=== PATIENT | male | born 1955 | race Caucasian/White ===

== ENCOUNTER → 2023-09-14 | Outpatient (CLI) | payer MEDICARE ==
--- NOTE | 2023-09-28 12:04 | CT ---
EXAMINATION TYPE: CT chest wo con CT DLP: 1069.6 mGycm, Automated exposure control for dose reduction was used. DATE OF EXAM: 09/14/2023 1:20 PM COMPARISON: None. CLINICAL INDICATION:Male, 68 years old with history of C64.1 Right renal cancer, right renal ca TECHNIQUE: Multiple axial images were obtained through the chest. Sagittal and coronal reformats were created for review. Contrast used: mL of (None if empty) Oral contrast used: (None if empty) FINDINGS: LUNGS/ PLEURA: Low lung volumes, no suspicious masses. AIRWAY: Patent and unremarkable. HEART: The heart is mildly enlarged for size.. Moderate to severe atherosclerosis coronary arteries. MEDIASTINUM: No gross evidence of adenopathy. VASCULATURE: Infrarenal saccular aneurysm measuring up to 3.4 cm. Moderate to severe atherosclerosis of the arterial vasculature. MUSCULOSKELETAL: No acute osseous abnormalities, multilevel degeneration changes throughout the spine with osteophyte formation disc space narrowing and Schmorl's nodes. Ankylosis of the anterior longit udinal ligament at the level of T9-T11. Remote left-sided rib fractures. SOFT TISSUES/LYMPH NODES: Unremarkable. LOWER NECK: No significant findings. UPPER ABDOMEN: Atrophic kidneys bilaterally with large renal cyst measuring up to 95 mm small left re nal cyst measuring 17 mm. IMPRESSION: 1. No suspicious masses or lymphadenopathy identified. 2. Bilateral kidneys with large right renal cyst and small left renal cyst. 3. Saccular infrarenal abdominal aortic aneurysm measuring up to 3.4 cm
== END | disposition home or self-care (01) ==
LOC: RADCTMAIN 12:48
PROVIDERS: ATTEND Urology
DX: C64.1 Malignant neoplasm of right kidney, except renal pelvis (principal); N28.1 Cyst of kidney, acquired; I71.43 Infrarenal abdominal aortic aneurysm, without rupture
CPT/HCPCS: 71250

== ENCOUNTER → 2023-10-20 | Outpatient (CLI) | payer MEDICARE | END | disposition home or self-care (01) | LOC: LABWHC1 09:11 | DX: D41.01 Neoplasm of uncertain behavior of right kidney | CPT/HCPCS: 86850; 86900; 86901 ==

== ENCOUNTER 2023-10-27 07:30 | Inpatient (IN) | payer MEDICARE ==
[~2023-10-27 07:30] MED LIST: DEXAMETHASONE SOD PHOSPHATE 4 MG/ML 1 ML VIAL ONE; DEXTROSE 5%-0.45% NACL 1,000 ML BAG IV ONE; DIPYRIDAMOLE 25 MG TAB ONE; DOXAZOSIN 2 MG TAB ONE; HYDROmorphone (PF) 10 MG/ML VIAL ONE; LACTATED RINGERS 1,000 ML BAG ONE; MIDAZOLAM 2 MG/2 ML VIAL ONE; ONDANSETRON 4 MG/2 ML VIAL ONE; ROPIVACAINE 5 MG/ML 30 ML VIAL ONE; SODIUM CHLORIDE 0.9% 250 ML BAG ONE; SODIUM CHLORIDE 0.9% 50 ML BAG ONE; ceFAZolin 1,000 MG VIAL ONE; cilostazoL 100 MG TAB ONE; fentaNYL (PF) 50 MCG/ML 2 ML AMP ONE; guaiFENesin-DM 100-10MG/5ML 10 ML CUP ONE
[2023-10-27] MEDS ORDERED: HYDROCORTISONE SUCCINATE 100 MG/2 ML VIAL ONE ×2 (07:33)
[2023-10-27] MEDS ORDERED: FUROSEMIDE 10 MG/ML 2 ML VIAL ONE (07:39)
[2023-10-27] MEDS ORDERED: SUCCINYLCHOLINE CHLORIDE 200 MG/10 ML VIAL IV ONE (07:39)
[2023-10-27] MEDS ORDERED: ePHEDrine 50 MG/ML 1 ML VIAL ONE (07:39)
[2023-10-27] MEDS ORDERED: CALCIUM CHLORIDE 100 MG/ML 10 ML SYRINGE ONE (07:39)
[2023-10-27] MEDS ORDERED: ALBUMIN HUMAN 5% (25gm) 500 ML VIAL IVPB ONE (07:39)
[2023-10-27] MEDS ORDERED: WATER FOR INJECTION, STERILE 10 ML VIAL IV ONE (07:39)
[2023-10-27] MEDS ORDERED: MIDAZOLAM 2 MG/2 ML VIAL ONE (07:39)
[2023-10-27] MEDS ORDERED: KETAMINE HCL IN 0.9 % NACL 50 MG/5 ML SYRINGE ONE (07:39)
[2023-10-27] MEDS ORDERED: PHENYLEPHRINE-0.9% NACL SYG 1,000 MCG/10 ML SYRINGE ONE (07:39)
[2023-10-27] MEDS ORDERED: LIDOCAINE 1% INJ 10MG/ML (20 ML MDV) ONE (07:39)
[2023-10-27] MEDS ORDERED: ALBUTEROL INHALER 60 PUFF/8 GM INHALER (MHU) INHALATION ONE (07:39)
[2023-10-27] MEDS ORDERED: fentaNYL (PF) 50 MCG/ML 2 ML AMP ONE (07:39)
[2023-10-27] MEDS ORDERED: GLYCOPYRROLATE 0.2 MG/ML 2 ML VIAL ONE (07:39)
[2023-10-27] MEDS ORDERED: VASOPRESSIN 20 UNIT/ML 1 ML VIAL ONE (07:39)
[2023-10-27] MEDS ORDERED: ROCURONIUM 10 MG/ML (5 ML VIAL) IV ONE (07:39)
[2023-10-27] MEDS ORDERED: PROPOFOL 10 MG/ML 20 ML VIAL IV ONE (07:39)
[2023-10-27] MEDS ORDERED: NEOSTIGMINE 1 MG/ML 10 ML VIAL ONE (07:39)
[2023-10-27] MEDS ORDERED: ALBUTEROL NEBULIZED 2.5 MG/3 ML INHALATION ONE (11:22)
[2023-10-27] MEDS ORDERED: methylPREDNISolone SOD SUCCI 125 MG/2 ML VIAL ONE (17:30)
[2023-10-27] MEDS ORDERED: hydrALAZINE HCL 25 MG TAB ONE (20:53)
[2023-10-28] MEDS ORDERED: DOXAZOSIN 2 MG TAB ONE (00:01)
[2023-10-28] MEDS ORDERED: FUROSEMIDE 10 MG/ML 10 ML VIAL ONE ×2 (00:01→09:51)
[2023-10-28] MEDS ORDERED: DILTIAZEM CD 240 MG CAP.ER.24H PO ONE (00:01)
[2023-10-28] MEDS ORDERED: methylPREDNISolone 4 MG TAB TAPER ONE (00:01)
[2023-10-28] MEDS ORDERED: cilostazoL 100 MG TAB ONE (00:01)
[2023-10-28] MEDS ORDERED: azaTHIOprine 50 MG TAB ONE (00:01)
[2023-10-28] MEDS ORDERED: DIPYRIDAMOLE 25 MG TAB ONE (00:01)
[2023-10-28] MEDS ORDERED: DEXTROSE 5%-0.45% NACL 1,000 ML BAG IV ONE (00:01)
[2023-10-28] MEDS ORDERED: CALCIUM GLUCONATE IN NACL 1 GM/100 ML IVPB ONE (00:01)
[2023-10-28] MEDS ORDERED: FUROSEMIDE 10 MG/ML 4 ML VIAL ONE (00:20)
[2023-10-28] MEDS ORDERED: hydrALAZINE HCL 25 MG TAB ONE ×3 (06:00→20:50)
[2023-10-28] MEDS ORDERED: ATORVASTATIN 20 MG TAB ONE (08:09)
[2023-10-28] MEDS ORDERED: FAMOTIDINE 20 MG TAB ONE (08:12)
[2023-10-28] MEDS ORDERED: ONDANSETRON 4 MG/2 ML VIAL ONE (09:18)
[2023-10-28] MEDS ORDERED: DEXTROSE 50% SYRINGE 50 ML IVP ONE (09:50)
[2023-10-28] MEDS ORDERED: SODIUM BICARB 8.4% 50 ML SYR (1 MEQ/ML) ONE (09:50)
[2023-10-28] MEDS ORDERED: HEPARIN SODIUM 1,000 UN/ML (10ML VL) ONE (11:10)
--- NOTE | 2023-10-28 15:57 | HP ---
HISTORY AND PHYSICAL CHIEF COMPLAINT: Right renal mass. HISTORY OF PRESENT ILLNESS: The patient is a 68-year-old white male, with a history of end-stage renal disease. He has previously undergone a renal transplant. He has been found to have an 8 x 12 cm solid renal mass within his right [place] kidney. His transplanted kidney has shown evidence of hydronephrosis on imaging, but retrograde pyelogram showed no evidence of ureteral obstruction. PAST MEDICAL HISTORY: Hypertension, renal failure, hyperlipidemia, peripheral vascular disease, aortic valve sclerosis, hypertensive heart disease without heart failure. MEDICATIONS: 1. Doxazosin 2 mg daily. 2. Aspirin 325 mg daily. 3. Alendronate sodium 35 mg weekly. 4. Azathioprine 125 mg daily. 5. Cilostazol 100 mg b.i.d. 6. Diltiazem ER 240 mg daily. 7. Dipyridamole 50 mg 3 times daily. 8. Humira injection every other week. 9. Losartan 50 mg daily. 10.Methylprednisolone 4 mg daily. 11.Simvastatin 40 mg daily. 12.Multivitamin. ALLERGIES: None. PAST SURGICAL HISTORY: Renal transplant, removal of lower extremity artery for renal arterial bypass surgery. FAMILY HISTORY: Noncontributory. SOCIAL HISTORY: The patient is . He is a nonsmoker. He is retired. REVIEW OF SYSTEMS: CARDIOVASCULAR: Significant for high blood pressure. GENITOURINARY: Denies dysuria, hematuria, and flank pain. PHYSICAL EXAMINATION: GENERAL: Patient is a well developed, well nourished, white male, in no apparent distress. VITAL SIGNS: Pulse 64, respirations 16, blood pressure 148/78. CHEST: Normal respiratory effort. ABDOMEN: Soft, nontender, no palpable mass. IMPRESSION: Right solid renal mass, suspicious for renal cell carcinoma. PLAN: Right radical nephrectomy. The procedure has been reviewed in detail with the patient and his family. They have been made aware of potential risks, which include anesthesia, bleeding, infection, hepatic injury, bowel injury, postoperative paralytic ileus, and incisional hernia. MMODL / IJN: [id number] /
--- NOTE | 2023-10-28 15:58 | OP ---
OPERATIVE REPORT DATE OF SERVICE : 10/27/2023 PREOPERATIVE DIAGNOSIS: Right renal mass. POSTOPERATIVE DIAGNOSIS: Right renal mass. PROCEDURE: Right radical nephrectomy. SURGEON: Dr. Eric Tobin BUSINESS OFFICE SPECIALIST: Dr. Garth Ceja. ANESTHESIA: Epidural/general oral endotracheal. ESTIMATED BLOOD LOSS: 150 mL. FLUIDS GIVEN: 3600 mL crystalloid, 500 mL albumin. DRAINS: None. COMPLICATIONS: None. OPERATIVE FINDINGS: Large, necrotic right renal mass. INDICATIONS: The patient is a 68-year-old white male with end-stage renal disease. He has previously undergone a renal transplant, but has been found to have an 8 x 12 cm solid renal mass within his [place] right kidney. He now comes for a right radical nephrectomy. DESCRIPTION OF PROCEDURE: The patient was taken to the operating room and placed in the supine position. The abdomen was prepped and draped sterilely. The scalpel was used to make a right- sided chevron incision. The underlying muscle layers were divided using the Bovie electrocautery. The skin was noted to be very thin, and tissue integrity was poor, as was commonly seen in patients who receive long-term steroids. Upon entering the abdomen, the peritoneum was carefully opened to the full length of the incision. The peritoneum was incised at the line of Toldt, allowing the colon to be medially reflected. After performing a Hernando maneuver, the right kidney was exposed. Bookwalter retractors were used for exposure. The inferior dissection was performed at the tail of Gerota fascia. The ureter was clipped and divided. The gonadal vein was medial to the tail of Gerota fascia. Dissection was performed alongside the inferior vena cava, with lympho-adipose tissue clipped and divided. The right renal vein was identified and was isolated. It was very difficult to identify the right renal artery. Ultimately, the right renal vein was ligated proximally and distally. After placing a suture ligature through the proximal end of the vein, the right renal vein was divided. The right renal artery was then identified, and this was also ligated twice proximally and once distally prior to dividing it. Blunt dissection was performed to dissect the kidney away from the posterior abdominal wall. As the kidney was mobilized to allow the superior dissection to be performed, the tumor, which was necrotic, began to spill into the wound. Superior attachments were simply pinched away, as the tissues were very thin, and the specimen was removed. All visible spilled tumor fragments were likewise removed. The wound was then meticulously examined for bleeding. Several areas of oozing were controlled with electrocautery or clips. The wound was irrigated with warm sterile water. Very minimal oozing was noted from the superior aspect of the nephrectomy bed, and Surgicel was placed over this. The incision was closed in the standard fashion, using #1 Vicryl sutures in a running fashion to close each individual muscle layer. Any subcutaneous bleeders were controlled with electrocautery. The skin was closed using luis. A sterile gauze dressing was applied over the incision. All sponge and needle counts were correct. The patient tolerated the procedure well, was taken to the recovery room in stable condition. MMODL / IJN: [id number] / YESENIA
[2023-10-28] MEDS ORDERED: HYDROCORTISONE SUCCINATE 100 MG/2 ML VIAL ONE (20:49)
[2023-10-28] MEDS ORDERED: ACETAMINOPHEN TAB 325 MG TAB ONE (20:49)
[2023-10-29] MEDS ORDERED: INSULIN REGULAR 100 UNIT/ML VIAL (IV) ONE (00:01)
[2023-10-29] MEDS ORDERED: azaTHIOprine 50 MG TAB ONE (00:01)
[2023-10-29] MEDS ORDERED: methylPREDNISolone 4 MG TAB ONE (00:01)
[2023-10-29] MEDS ORDERED: cilostazoL 100 MG TAB ONE (00:01)
[2023-10-29] MEDS ORDERED: DIPYRIDAMOLE 25 MG TAB ONE (00:01)
[2023-10-29] MEDS ORDERED: DILTIAZEM CD 240 MG CAP.ER.24H PO ONE (00:01)
[2023-10-29] MEDS ORDERED: DARBEPOETIN ALFA 40 MCG/0.4 ML SYRINGE ONE (00:01)
[2023-10-29] MEDS ORDERED: ACETAMINOPHEN TAB 325 MG TAB ONE (04:29)
[2023-10-29] MEDS ORDERED: guaiFENesin-Coden 100-10MG/5ML 10 ML CUP ONE (04:30)
[2023-10-29] MEDS ORDERED: DEXTROSE 50% SYRINGE 50 ML IVP ONE (06:50)
[2023-10-29] MEDS ORDERED: ALBUTEROL NEBULIZED 2.5 MG/3 ML INHALATION ONE (07:47)
[2023-10-29] MEDS ORDERED: HYDROCORTISONE SUCCINATE 100 MG/2 ML VIAL ONE ×2 (09:12→20:24)
[2023-10-29] MEDS ORDERED: FAMOTIDINE 20 MG TAB ONE (09:13)
[2023-10-29] MEDS ORDERED: ATORVASTATIN 20 MG TAB ONE (09:13)
[2023-10-29] MEDS ORDERED: FUROSEMIDE 10 MG/ML 10 ML VIAL ONE (11:33)
[2023-10-29] MEDS ORDERED: MAGNESIUM SULFATE-D5W PMX 100 ML IVPB ONE (11:33)
[2023-10-29] MEDS ORDERED: hydrALAZINE HCL 25 MG TAB ONE ×2 (13:35→20:24)
[2023-10-30] MEDS ORDERED: NALOXONE 0.4 MG/ML 1 ML VIAL IV PRN
[2023-10-30] MEDS ORDERED: diphenhydrAMINE 50 MG/ML 1 ML VIAL IVP PRN
--- NOTE | 2023-10-30 01:10 | CONS ---
CONSULTATION HISTORY OF PRESENT ILLNESS: The patient was seen in consultation. The patient has a history of acute kidney injury, and also, the patient has hyperkalemia. The patient had a kidney transplant done in the past. The patient had a right nephrectomy done today. I was consulted for placement of urgent dialysis catheter. The patient was seen in the intensive care unit. PHYSICAL EXAMINATION: NECK: Supple. No bruit appreciated. CHEST: A few crackles at the lung bases, first and second sounds present. ABDOMEN: Soft, nontender. Femorals are 1+ bilaterally. PLAN: Placement of the dialysis catheter. Risks and complications discussed. MMODL / IJN: [id number] /
--- NOTE | 2023-10-30 01:10 | OP ---
OPERATIVE REPORT DATE OF SERVICE : PREOPERATIVE DIAGNOSES: Acute chronic renal failure, hyperkalemia, post nephrectomy. PROCEDURE PERFORMED: Placement of an ultrasound guided 19 cm dialysis catheter placed for right femoral approach. DESCRIPTION OF PROCEDURE: The patient's right groin was prepped and drapes applied in a sterile manner. 1% lidocaine plain infiltrated in the right groin. Ultrasound-guided micropuncture introduced into right femoral vein. Micropuncture guidewire was passed and 4-Armenian dilator was advanced on top of the guidewire. We passed a regular guidewire, then placed the dilator and sheath. The dialysis catheter was secured with 3-0 nylon. Dressing applied. The patient tolerated the procedure well. MMODL / IJN: [id number] /
[2023-10-30] MEDS ORDERED: hydrALAZINE HCL 20 MG/ML 1 ML VIAL ONE (01:25)
[2023-10-30 03:11] LABS: African American GFR (CKD) 8 (>60 ml/min/1.73 sqM); Anion Gap 8 mmol/L; Blood Urea Nitrogen 49 mg/dL (9-20); Calcium 8.4 mg/dL (8.4-10.2); Carbon Dioxide 23 mmol/L (22-30); Chloride 99 mmol/L (98-107); Glucose 122 mg/dL (74-99); Non-African American GFR(CKD) 7 (>60 ml/min/1.73 sqM); Potassium 5.5 mmol/L (3.5-5.1); Sodium 130 mmol/L (137-145)
[2023-10-30] MEDS: hydrALAZINE HCL 20 MG/ML 1 ML VIAL IVP ONE (03:46)
[2023-10-30 03:54] LABS: Basophils % (A) 0 %; Eosinophils % (A) 0 %; HGB 7.8 gm/dL (13.0-17.5); Hypochromasia Slight; Lymphocytes # (A) 0.7 k/uL (1.0-4.8); Lymphocytes % (A) 8 %; MCH 30.3 pg (25.0-35.0); MCHC 32.4 g/dL (31.0-37.0); MCV 93.5 fL (80.0-100.0); Mean Platelet Volume 7.3; Monocytes # (A) 0.8 k/uL (0-1.0); Monocytes % (A) 9 %; Neutrophils # (A) 7.5 k/uL (1.3-7.7); Neutrophils % (A) 83 %; Platelet Count 216 k/uL (150-450); RBC 2.57 m/uL (4.30-5.90); RDW 15.6 % (11.5-15.5); WBC 9.1 k/uL (3.8-10.6)
[2023-10-30] MEDS: HYDROCORTISONE SUCCINATE 100 MG/2 ML VIAL IVP SCH (08:28)
[2023-10-30] MEDS: FAMOTIDINE 20 MG TAB PO SCH (09:46)
[2023-10-30] MEDS: ATORVASTATIN 20 MG TAB PO SCH (09:46)
[2023-10-30] MEDS: DEXTROSE 50% SYRINGE 50 ML IVP STA (09:46)
[2023-10-30] MEDS: INSULIN REGULAR 100 UNIT/ML VIAL (IV) IV ONE (09:46)
[2023-10-30] MEDS: hydrALAZINE HCL 25 MG TAB PO SCH (09:46)
[2023-10-30] MEDS: azaTHIOprine 50 MG TAB PO SCH (09:47)
[2023-10-30] MEDS: DIPYRIDAMOLE 25 MG TAB PO SCH (09:47)
[2023-10-30] MEDS: DILTIAZEM CD 240 MG CAP.ER.24H PO SCH (09:47)
[2023-10-30] MEDS: cilostazoL 100 MG TAB PO SCH (09:47)
[2023-10-30] MEDS: SODIUM ZIRCONIUM CYCLOSILICATE 10 GM PACKET PO ONE (09:47)
--- NOTE | 2023-10-30 10:23 | P.PN ---
Subjective Patient is seen in follow-up for acute kidney injury. Started on hemodialysis October 28, 2023. Has right femoral dialysis catheter. Confused. Poor historian. Oliguric. Vital signs are stable. General: No acute distress. HEENT: Head exam is unremarkable. On nasal cannula. LUNGS: Scattered rhonchi. HEART: Rate and Rhythm are regular. ABDOMEN: No distention. EXTREMITITES: 1+ edema. Objective - Vital Signs Vital signs: Vital Signs Temp 99.1 F 10/30/23 08:00 Pulse 81 10/30/23 09:00 Resp 18 10/30/23 09:00 BP 148/55 10/30/23 09:00 Pulse Ox 92 L 10/30/23 09:51 FiO2 Intake & Output 10/29/23 10/30/23 10/30/23 18:59 06:59 18:59 Output Total 10 0 Balance -10 0 Weight 122 kg 128 kg Output: Urine 10 0 Other: Voiding Method Indwelling Catheter Indwelling Catheter - Labs CBC & Chem 7: 10/30/23 01:45 10/30/23 01:45 Labs: Abnormal Lab Results - Last 24 Hours (Table) 10/30/23 10/30/23 Range/Units 01:45 01:45 RBC 2.57 L (4.30-5.90) m/uL Hgb 7.8 L (13.0-17.5) gm/dL Hct 24.0 L (39.0-53.0) % RDW 15.6 H (11.5-15.5) % Lymphocytes # 0.7 L (1.0-4.8) k/uL Sodium 130 L (137-145) mmol/L Potassium 5.5 H (3.5-5.1) mmol/L BUN 49 H (9-20) mg/dL Creatinine 7.10 H* (0.66-1.25) mg/dL Glucose 122 H (74-99) mg/dL Phosphorus 8.0 H (2.5-4.5) mg/dL Assessment and Plan Plan: Assessment: 1. Acute kidney injury secondary to ATN. Creatinine 7.1 today. Oliguric. 2. Chronic kidney disease stage IV/V. Patient's GFR was 18 in August 2023 per outpatient records. 3. Hyperkalemia secondary to acute kidney injury. Improved postdialysis. 4. Status post right nephrectomy October 27, 2023 due to renal cell carcinoma. 5. Status post kidney transplant maintained on steroids and Imuran. 6. History of renal artery bypass. 7. Anemia of chronic kidney disease maintained on Aranesp. 8. Hyperphosphatemia secondary to acute kidney injury. Plan: 10 units IV insulin with an amp of D50 as well as Lokelma given this morning. Repeat potassium level this afternoon. Plan for hemodialysis tomorrow. Check iron studies. Add PhosLo with meals.
[2023-10-30] MEDS: CALCIUM ACETATE 667 MG TAB PO SCH (11:36)
--- NOTE | 2023-10-30 12:10 | P.PN ---
Subjective Progress Note Date: 10/30/23 Principal diagnosis: Acute kidney injury, on hemodialysis since 10/28/2023 This is a 68-year-old white male whom I have been seeing for the last few days while in the ICU, patient had history of renal transplant in 1971 at [facility], he was recently discovered to have renal cell carcinoma involving his right [place] kidney. Underwent radical nephrectomy on 10/27/2023, and postoperatively, patient developed anuria, and worsening metabolic acidosis worsening uremia and hyperkalemia requiring transfer to the ICU for immediate hemodialysis. Patient has been on hemodialysis for the last 2 days, and he is being followed by urology as well as nephrology. Today the patient seems to be developing metabolic encephalopathy with confusion, and he remains oliguric. WBC count today is 9.1 hemoglobin is 7.8, electrolytes showed low sodium of 130 potassium 5.5 BUN is 49 creatinine 7.10. Bicarb is 23 Objective - Vital Signs Vital signs: Vital Signs Temp 99.1 F 10/30/23 08:00 Pulse 87 10/30/23 11:00 Resp 18 10/30/23 11:00 BP 162/80 10/30/23 11:00 Pulse Ox 93 L 10/30/23 11:00 FiO2 Intake & Output 10/29/23 10/30/23 10/30/23 18:59 06:59 18:59 Output Total 10 5 Balance -10 -5 Weight 122 kg 128 kg Output: Urine 10 5 Other: Voiding Method Indwelling Catheter Indwelling Catheter - Exam General: Obese 68-year-old white male confused, on 6 L nasal cannula, in no distress Skin: Skin is warm and dry and no rashes or lesions are noted. Eye: Pupils are equal, round and reactive to light, extra-ocular movements are intact; there is normal conjunctiva bilaterally. Ears, nose, mouth and throat: There are moist mucous membranes and no oral lesions. Neck: The neck is supple, there is no tenderness or JVD. Cardiovascular: There is a regular rate and rhythm. No murmur, rub or gallop is appreciated. Respiratory: Minimal crackles at the bases no rhonchi no wheezes Gastrointestinal: Soft, non-distended, non-tender abdomen without masses or organomegaly noted. There is no rebound or guarding present. Bowel sounds are unremarkable. Back: There is no tenderness to palpation in the midline. There is no obvious deformity. Musculoskeletal: Normal ROM, no tenderness, base of edema, no cyanosis. Neurological: Confused, patient seems to be encephalopathic. Psychiatric: Could not fully assess, patient is confused - Labs CBC & Chem 7: 10/30/23 01:45 10/30/23 01:45 Labs: Abnormal Lab Results - Last 24 Hours (Table) 10/30/23 10/30/23 Range/Units 01:45 01:45 RBC 2.57 L (4.30-5.90) m/uL Hgb 7.8 L (13.0-17.5) gm/dL Hct 24.0 L (39.0-53.0) % RDW 15.6 H (11.5-15.5) % Lymphocytes # 0.7 L (1.0-4.8) k/uL Sodium 130 L (137-145) mmol/L Potassium 5.5 H (3.5-5.1) mmol/L BUN 49 H (9-20) mg/dL Creatinine 7.10 H* (0.66-1.25) mg/dL Glucose 122 H (74-99) mg/dL Phosphorus 8.0 H (2.5-4.5) mg/dL Assessment and Plan Assessment: Impression: Acute kidney injury/acute tubular necrosis History of kidney transplant 1972 Status post right nephrectomy 10/27/2023 Acute hyper kalemia and metabolic acidosis requiring hemodialysis Acute metabolic encephalopathy secondary to uremia Recommendation: Continue hemodialysis Continue to monitor daily labs including electrolytes and renal profile Address hyperkalemia as per nephrology Follow-up chest x-ray as the patient may develop fluid overload and pulmonary edema Continue GI DVT prophylaxis Resume his meds that he received on outpatient basis for his transplanted kidney Will continue to follow Time with Patient: Less than 30
--- NOTE | 2023-10-30 12:51 | XR ---
EXAMINATION TYPE: XR chest 1V portable DATE OF EXAM: 10/30/2023 Comparison: 10/28/2023 Clinical History: 68-year-old male A-team protocol, shortness of breath Findings: Patient rotated towards the right artery and normal cardiothymic mediastinal contours. Heart remains moderately enlarged. Tortuous/ectatic thoracic ureter. Diffuse interstitial opacities persist. Right base underpenetrated and not well assessed. Bands of atelectasis at the right midlung. Impression: Similar moderate cardiomegaly and suspected ongoing pulmonary vascular congestion. Possible trace rig ht effusion. Relatively similar to prior.
--- NOTE | 2023-10-30 14:04 | P.PN ---
Subjective Progress Note Date: 10/30/23 Hospital Course: 68-year-old male with history of ESRD s/p renal transplant, now CKD, suspicious renal mass presented for elective right radical nephrectomy. Sound physician was consulted for medical management. Patient became oliguric after surgery, with worsening renal function and hyperkalemia. He required emergent dialysis. Currently in medical ICU. Nephrology following. Subjective: Patient seen and examined at bedside. No acute events overnight. Continues to have very minimal urine output. Also having shortness of breath. Pertinent positives and negatives as discussed above, a complete review of systems was performed and all other systems are negative. Vitals Signs Reviewed. General: Nontoxic, no distress, appears at stated age Derm: Warm, dry Head: Atraumatic, normocephalic, symmetric Eyes: EOMI, no lid lag, anicteric sclera Mouth: No lip lesion, mucus membranes moist Cardiovascular: S1S2 reg, no murmur Lungs: Bibasilar rales, no accessory muscle use, supplemental oxygen Abdominal: Soft, nontender to palpation, no guarding, no appreciable organomegaly Ext: No gross muscle atrophy, no edema, no contractures Neuro: CN II-XI grossly intact, no focal neuro deficits Psych: Alert, oriented, appropriate affect Data Reviewed Today: Pertinent Labs: WBC 9.1, hemoglobin 7.8, platelet 216, sodium 130, potassium 5.5, down trended to 5, creatinine 7.10, magnesium 2 Imaging: Chest x-ray independently interpreted, shows cardiomegaly, poor inspiratory effort, bilateral pleural effusions, interstitial opacities Assessment and Plan: Active: Oliguric CHEVY on CKD Hyperkalemia Renal cell carcinoma status post right radical nephrectomy on 10/26 Previous ESRD status post renal transplant on steroids and Imuran Normocytic anemia, secondary to CKD Acute hypoxic respiratory failure, secondary to hypervolemia Hypertension -Patient required emergent hemodialysis, vascular surgery and nephrology following -Nephrology note reviewed, another 10 units of IV insulin with dextrose, Lokelma given this morning, hemodialysis tomorrow -Urology following -ICU note reviewed, continue current management -Echocardiogram pending -Continue to monitor I's and O's -Continue to monitor patient in ICU -Continue Imuran 125 daily, Solu-Cortef 100 mg IV every 12 hours -Continue PhosLo 3 times daily -No active bleeding, monitor CBC -Hydralazine 10 mg IV every 6 hours as needed, continue oral hydralazine 25 3 times daily, Cardizem 240 daily -DVT prophylaxis per primary team Chronic: PAD Dyslipidemia Thank you for allowing us to participate in the care of this pleasant patient. Do not hesitate to contact us with questions. Someone can be reached from the [facility] hospitalist group all hours of the day at [phone] or via perfect serve. Objective - Vital Signs Vital signs: Vital Signs Temp 98.4 F 10/30/23 12:00 Pulse 75 10/30/23 13:00 Resp 17 10/30/23 13:00 BP 167/58 10/30/23 13:00 Pulse Ox 92 L 10/30/23 13:00 FiO2 Intake & Output 10/29/23 10/30/23 10/30/23 18:59 06:59 18:59 Output Total 10 20 Balance -10 -20 Weight 122 kg 128 kg Output: Urine 10 20 Other: Voiding Method Indwelling Catheter Indwelling Catheter - Labs CBC & Chem 7: 10/30/23 01:45 10/30/23 12:41 Labs: Abnormal Lab Results - Last 24 Hours (Table) 10/30/23 10/30/23 Range/Units 01:45 01:45 RBC 2.57 L (4.30-5.90) m/uL Hgb 7.8 L (13.0-17.5) gm/dL Hct 24.0 L (39.0-53.0) % RDW 15.6 H (11.5-15.5) % Lymphocytes # 0.7 L (1.0-4.8) k/uL Sodium 130 L (137-145) mmol/L Potassium 5.5 H (3.5-5.1) mmol/L BUN 49 H (9-20) mg/dL Creatinine 7.10 H* (0.66-1.25) mg/dL Glucose 122 H (74-99) mg/dL Phosphorus 8.0 H (2.5-4.5) mg/dL
[2023-10-30] MEDS: hydrALAZINE HCL 20 MG/ML 1 ML VIAL IVP PRN (14:10)
[2023-10-30] MEDS: ROPIVACAINE 250 MG, HYDROMORPHONE (PF) 5 MG in SODIUM CHLORIDE 0.9% 200 ML EPIDURAL PRN (14:10)
[2023-10-30] MEDS: ACETAMINOPHEN TAB 325 MG TAB PO PRN (18:36)
[2023-10-30] MEDS: DOXAZOSIN 2 MG TAB PO SCH (23:15)
[2023-10-31 06:01] LABS: Basophils % (A) 0 %; Eosinophils % (A) 0 %; HCT 26.1 % (39.0-53.0); HGB 8.4 gm/dL (13.0-17.5); Lymphocytes # (A) 0.8 k/uL (1.0-4.8); Lymphocytes % (A) 9 %; MCHC 32.2 g/dL (31.0-37.0); MCV 93.1 fL (80.0-100.0); Mean Platelet Volume 7.8; Monocytes # (A) 0.6 k/uL (0-1.0); Monocytes % (A) 7 %; Neutrophils # (A) 7.3 k/uL (1.3-7.7); Neutrophils % (A) 81 %; Platelet Count 258 k/uL (150-450); RDW 15.8 % (11.5-15.5)
[2023-10-31 06:33] LABS: ALT 13 U/L (4-49); AST 47 U/L (17-59); African American GFR (CKD) 6 (>60 ml/min/1.73 sqM); Albumin 3.1 g/dL (3.5-5.0); Alkaline Phosphatase 44 U/L (38-126); Anion Gap 11 mmol/L; Blood Urea Nitrogen 71 mg/dL (9-20); Calcium 9.2 mg/dL (8.4-10.2); Carbon Dioxide 20 mmol/L (22-30); Chloride 98 mmol/L (98-107); Glucose 111 mg/dL (74-99); Magnesium 2.4 mg/dL (1.6-2.3); Non-African American GFR(CKD) 5 (>60 ml/min/1.73 sqM); Potassium 5.1 mmol/L (3.5-5.1); Sodium 129 mmol/L (137-145); Total Bilirubin 0.6 mg/dL (0.2-1.3); Total Protein 5.7 g/dL (6.3-8.2)
--- NOTE | 2023-10-31 07:44 | XR ---
EXAMINATION TYPE: XR chest 1V portable DATE OF EXAM: 10/31/2023 Comparison: 10/30/2023 Clinical History: 68-year-old male fluid overload Findings: The patient is obliquely rotated towards the right further limiting the portable exam. Heart is moder ately enlarged. Interstitial opacities persist with patchy mid and lower lung opacities right greater than left overall unchanged. Impression: Portable exam further limited by obliquity and rightward rotation. Moderate cardiomegaly with ongoing pulmonary vascular congestion and patchy opacities in the mid and lower lungs.
--- NOTE | 2023-10-31 07:54 | CA ---
Transthoracic Echo Report Name: Kush Linedr Age: 68 Gender: M : 1955 Exam Date: 10/29/2023 14:17 Exam Location: [facility] Ht (in): 63 Wt (lb): 266 Ordering Physician: Attending/Referring Phys: Merchandising Director Kayy Pitts RDCS Procedure CPT: Indications: Cardiac Hx: Technical Quality: Fair Contrast 1: Total Dose (mL): Contrast 2: Total Dose (mL): MEASUREMENTS (Male / Female) Normal Values 2D ECHO LV Diastolic Diameter PLAX 6.1 cm 4.2 - 5.9 / 3.9 - 5.3 cm LV Systolic Diameter PLAX 3.3 cm IVS Diastolic Thickness 1.8 cm 0.6 - 1.0 / 0.6 - 0.9 cm LVPW Diastolic Thickness 1.8 cm 0.6 - 1.0 / 0.6 - 0.9 cm LV Relative Wall Thickness 0.6 RV Internal Dim ED PLAX 4.3 cm LVOT Diameter 2.6 cm LA Systolic Diameter LX 4.6 cm 3.0 - 4.0 / 2.7 - 3.8 cm LV Diastolic Volume MOD 4C 172.6 cm??? LV Systolic Volume MOD 4C 63.8 cm??? LV Ejection Fraction MOD 4C 63.0 % LV Cardiac Index MOD 4C 3506.1 cm???/min???m??? LV Diastolic Length 4C 9.2 cm LV Systolic Length 4C 7.6 cm LV Diastolic Volume MOD 2C 87.4 cm??? LV Systolic Volume MOD 2C 28.4 cm??? LV Ejection Fraction MOD 2C 67.5 % LV Cardiac Index MOD 2C 1902.1 cm???/min???m??? LV Diastolic Length 2C 8.4 cm LV Systolic Length 2C 6.9 cm LA Volume 97.5 cm??? 18 - 58 / 22 - 52 cm??? LA Volume Index 40.8 cm???/m??? 16 - 28 cm???/m??? M-MODE Aortic Root Diameter MM 3.8 cm AV Cusp Separation MM 2.1 cm DOPPLER AV Peak Velocity 263.9 cm/s AV Peak Gradient 27.9 mmHg AV Mean Velocity 166.1 cm/s AV Mean Gradient 13.2 mmHg AV Velocity Time Integral 46.0 cm LVOT Peak Velocity 181.3 cm/s LVOT Peak Gradient 13.1 mmHg LVOT Velocity Time Integral 37.9 cm LVOT Stroke Volume 207.3 cm??? LVOT Stroke Volume Index 94.9 ml/m??? LVOT Cardiac Index 6681.1 cm???/min???m??? AV Area Cont Eq vti 4.5 cm??? AV Area Cont Eq pk 3.8 cm??? MV Area PHT 3.1 cm??? Mitral E Point Velocity 108.1 cm/s Mitral A Point Velocity 135.1 cm/s Mitral E to A Ratio 0.8 MV Deceleration Time 248.0 ms TR Peak Velocity 287.8 cm/s TR Peak Gradient 33.1 mmHg Right Ventricular Systolic Press 35.7 mmHg PV Peak Velocity 201.3 cm/s PV Peak Gradient 16.2 mmHg PV Mean Velocity 137.3 cm/s PV Mean Gradient 8.5 mmHg PV Velocity Time Integral 39.9 cm FINDINGS Left Ventricle Left ventricular ejection fraction is estimated at 60-65 %. Mild left ventricular dilatation. Moderate concentric LVH. No obvious regional wall motion abnormality. Right Ventricle Mild to moderate concentric LVH No obvious regional wall motion abnormality Mild RV dilatation Right ventricular dilatation. Unable to estimate the right ventricular systolic pressure. Right Atrium Right atrium not well visualized. Left Atrium Moderate left atrial dilatation Mitral Valve Mitral valve thickened. No mitral stenosis, regurgitation or prolapse. Aortic Valve Trileaflet aortic valve. Aortic valve sclerosis. Mild aortic stenosis with a peak gradient of 28 mmHg and a mean gradient of 13 mmHg. Tricuspid Valve Structurally normal tricuspid valve. No tricuspid stenosis, regurgitation or prolapse. Pulmonic Valve Structurally normal pulmonic valve. No pulmonic regurgitation. Pericardium No pericardial or pleural effusion. Aorta Mild aortic dilatation at the level of the sinuses of valsalva 38 mm CONCLUSIONS Left ventricular ejection fraction is estimated at 60-65 %. Moderate concentric LVH No obvious regional wall motion abnormality Mild RV dilatation Moderate left atrial dilatation Mild aortic stenosis mean gradient 13 mmHg Previewed by: Dr Keenan Willoughby (Electronically Signed) Final Date: 29 October 2023 16:17
[2023-10-31] MEDS: DILTIAZEM 125 MG in SODIUM CHLORIDE 0.9% 100 ML IV SCH (08:16)
--- NOTE | 2023-10-31 08:49 | P.PN ---
Subjective Progress Note Date: 10/31/23 Principal diagnosis: POD #4, s/p right radical nephrectomy Mr. Linder is somewhat less confused this morning. He continues to require dialysis. He developed A-fib overnight. Objective - Vital Signs Vital signs: Vital Signs Temp 100.2 F H 10/31/23 08:00 Pulse 131 H 10/31/23 08:00 Resp 4 L 10/31/23 07:00 BP 128/69 10/31/23 08:00 Pulse Ox 96 10/31/23 08:26 FiO2 Intake & Output 10/30/23 10/31/23 10/31/23 18:59 06:59 18:59 Output Total 35 30 45 Balance -35 -30 -45 Weight 130.3 kg Output: Urine 35 30 45 Other: Voiding Method Indwelling Catheter Indwelling Catheter - Constitutional General appearance: Present: average body habitus, no acute distress - Gastrointestinal Gastrointestinal Comment(s): Soft, non-distended. Incision clean and dry, with minimal old blood on the dressing overlying the lateral aspect of the incision. - Labs CBC & Chem 7: 10/31/23 05:36 10/31/23 05:36 Labs: Abnormal Lab Results - Last 24 Hours (Table) 10/31/23 10/31/23 Range/Units 05:36 05:36 RBC 2.80 L (4.30-5.90) m/uL Hgb 8.4 L (13.0-17.5) gm/dL Hct 26.1 L (39.0-53.0) % RDW 15.8 H (11.5-15.5) % Lymphocytes # 0.8 L (1.0-4.8) k/uL Sodium 129 L (137-145) mmol/L Carbon Dioxide 20 L (22-30) mmol/L BUN 71 H (9-20) mg/dL Creatinine 9.39 H* (0.66-1.25) mg/dL Glucose 111 H (74-99) mg/dL Magnesium 2.4 H (1.6-2.3) mg/dL Total Protein 5.7 L (6.3-8.2) g/dL Albumin 3.1 L (3.5-5.0) g/dL Assessment and Plan (1) Neoplasm of uncertain behavior of right kidney Current Visit: Yes Status: Acute Code(s): D41.01 - NEOPLASM OF UNCERTAIN BEHAVIOR OF RIGHT KIDNEY SNOMED Code(s): 974008395127077 Plan: - Remove Epidural catheter - Dressing change - Continue dialysis as needed - Ambulate as tolerated - Await pathology report - Avoid anticoagulants unless absolutely needed
--- NOTE | 2023-10-31 09:25 | P.PN ---
Subjective Progress Note Date: 10/31/23 Hospital Course: 68-year-old male with history of ESRD s/p renal transplant in 1981, now CKD, r ight renal cell carcinoma presented for elective right radical nephrectomy. Sound physician was consulted for medical management. Patient became oliguric after surgery, with worsening renal function and hyperkalemia. He required emergent dialysis. Currently in medical ICU. Nephrology following. Patient also in A-fib RVR, started on Cardizem drip. Cardiology following. Subjective: Patient seen and examined at bedside. Patient went into A-fib RVR, started on Cardizem drip. Continues to have very minimal urine output. Shortness of breath continues to remain the same. He is having waxing and waning mentation. No recent bowel movements Pertinent positives and negatives as discussed above, a complete review of systems was performed and all other systems are negative. Vitals Signs Reviewed. General: Nontoxic, no distress, appears at stated age, obese Derm: Warm, dry Head: Atraumatic, normocephalic, symmetric Eyes: EOMI, no lid lag, anicteric sclera Mouth: No lip lesion, mucus membranes moist Cardiovascular: S1S2 normal, tachycardic, irregular, no murmur Lungs: Bibasilar rales, no accessory muscle use, supplemental oxygen Abdominal: Soft, nontender to palpation, no guarding, no appreciable organomegaly Ext: No gross muscle atrophy, no edema, no contractures Neuro: CN II-XI grossly intact, no focal neuro deficits Psych: Alert, oriented, appropriate affect Data Reviewed Today: Pertinent Labs: WBC 9, hemoglobin 8.4, sodium 129, potassium 5.1, BUN 71, creatinine 9.39, magnesium 2.4 Imaging: Chest x-ray independently interpreted, rotated, poor inspiratory effort, interstitial opacities Assessment and Plan: Active: Oliguric CHEVY on CKD Hyperkalemia Hypervolemic hyponatremia Renal cell carcinoma status post right radical nephrectomy on 10/26 Previous ESRD status post renal transplant on steroids and Imuran Acute hypoxic respiratory failure, secondary to hypervolemia Acute delirium -Patient required emergent hemodialysis, vascular surgery and nephrology follow ing -Nephrology following, getting hemodialysis today -Urology note reviewed, recommended to avoid anticoagulation -ICU following -Echocardiogram pending -Continue to monitor I's and O's -Continue to monitor patient in ICU -Continue Imuran 125 daily, Solu-Cortef 100 mg IV every 12 hours -Continue PhosLo 3 times daily -Patient has not had a bowel movement in a few days, started on scheduled MiraLAX daily Atrial fibrillation with RVR -On Cardizem drip, consider anticoagulation if primary team agrees -cardiology following Hypertension -Hydralazine 10 mg IV every 6 hours as needed, continue oral hydralazine 25 3 times daily, Cardizem 240 daily Normocytic anemia, secondary to CKD -No active bleeding, monitor CBC Chronic: PAD Dyslipidemia Thank you for allowing us to participate in the care of this pleasant patient. Do not hesitate to contact us with questions. Someone can be reached from the [facility] hospitalist group all hours of the day at [phone] or via [employer]. Objective - Vital Signs Vital signs: Vital Signs Temp 99.0 F 10/31/23 09:00 Pulse 126 H 10/31/23 09:15 Resp 12 10/31/23 09:15 BP 135/70 10/31/23 09:15 Pulse Ox 94 L 10/31/23 09:15 FiO2 Intake & Output 10/30/23 10/31/23 10/31/23 18:59 06:59 18:59 Intake Total 13.667 Output Total 35 30 60 Balance -35 -30 -46.333 Weight 130.3 kg Intake: Intake, IV Titration 13.667 Amount Diltiazem 125 mg In 13.667 Sodium Chloride 0.9% 100 ml @ Per Protocol IV .Q0M [facility] Rx#:[id number] Oral 0 Output: Urine 35 30 60 Other: Voiding Method Indwelling Catheter Indwelling Catheter - Labs CBC & Chem 7: 10/31/23 05:36 10/31/23 05:36 Labs: Abnormal Lab Results - Last 24 Hours (Table) 10/31/23 10/31/23 Range/Units 05:36 05:36 RBC 2.80 L (4.30-5.90) m/uL Hgb 8.4 L (13.0-17.5) gm/dL Hct 26.1 L (39.0-53.0) % RDW 15.8 H (11.5-15.5) % Lymphocytes # 0.8 L (1.0-4.8) k/uL Sodium 129 L (137-145) mmol/L Carbon Dioxide 20 L (22-30) mmol/L BUN 71 H (9-20) mg/dL Creatinine 9.39 H* (0.66-1.25) mg/dL Glucose 111 H (74-99) mg/dL Magnesium 2.4 H (1.6-2.3) mg/dL Total Protein 5.7 L (6.3-8.2) g/dL Albumin 3.1 L (3.5-5.0) g/dL
[2023-10-31] MEDS: guaiFENesin-DM 100-10MG/5ML 10 ML CUP PO PRN (09:59)
--- NOTE | 2023-10-31 10:18 | P.PN ---
Subjective Patient is seen in follow-up for acute kidney injury. Started on hemodialysis October 28, 2023. Has right femoral dialysis catheter. Quite lethargic. Tolerating dialysis well. Poor historian. Oliguric. Vital signs are stable. General: No acute distress. HEENT: Head exam is unremarkable. On nasal cannula. LUNGS: Scattered rhonchi. HEART: Rate and Rhythm are regular. ABDOMEN: No distention. EXTREMITITES: 1+ edema. Objective - Vital Signs Vital signs: Vital Signs Temp 99.0 F 10/31/23 09:00 Pulse 112 H 10/31/23 10:00 Resp 16 10/31/23 10:00 BP 151/74 10/31/23 10:00 Pulse Ox 93 L 10/31/23 10:00 FiO2 Intake & Output 10/30/23 10/31/23 10/31/23 18:59 06:59 18:59 Intake Total 13.667 Output Total 35 30 70 Balance -35 -30 -56.333 Weight 130.3 kg Intake: Intake, IV Titration 13.667 Amount Diltiazem 125 mg In 13.667 Sodium Chloride 0.9% 100 ml @ Per Protocol IV .Q0M [facility] Rx#:[id number] Oral 0 Output: Urine 35 30 70 Other: Voiding Method Indwelling Catheter Indwelling Catheter Indwelling Catheter - Labs CBC & Chem 7: 10/31/23 05:36 10/31/23 05:36 Labs: Abnormal Lab Results - Last 24 Hours (Table) 10/31/23 10/31/23 Range/Units 05:36 05:36 RBC 2.80 L (4.30-5.90) m/uL Hgb 8.4 L (13.0-17.5) gm/dL Hct 26.1 L (39.0-53.0) % RDW 15.8 H (11.5-15.5) % Lymphocytes # 0.8 L (1.0-4.8) k/uL Sodium 129 L (137-145) mmol/L Carbon Dioxide 20 L (22-30) mmol/L BUN 71 H (9-20) mg/dL Creatinine 9.39 H* (0.66-1.25) mg/dL Glucose 111 H (74-99) mg/dL Magnesium 2.4 H (1.6-2.3) mg/dL Total Protein 5.7 L (6.3-8.2) g/dL Albumin 3.1 L (3.5-5.0) g/dL Assessment and Plan Plan: Assessment: 1. Acute kidney injury secondary to ATN. Creatinine 9.39 today. Oliguric. No response in urine output despite high-dose IV Lasix. Started on hemodialysis October 28, 2023. Has a right femoral catheter. 2. Chronic kidney disease stage IV/V. Patient's GFR was 18 in August 2023 per outpatient records. 3. Hyperkalemia secondary to acute kidney injury. Improved postdialysis and with medical management. 4. Status post right nephrectomy October 27, 2023 due to renal cell carcinoma. 5. Status post kidney transplant maintained on steroids and Imuran. 6. History of renal artery bypass. 7. Anemia of chronic kidney disease maintained on Aranesp. 8. Hyperphosphatemia secondary to acute kidney injury. On PhosLo. 9. Hyponatremia secondary to acute kidney injury. Hypervolemic. 10. A-fib with RVR maintained on Cardizem drip. 11. Volume overload. 12. Metabolic acidosis secondary to acute kidney injury. Expect improvement postdialysis. Plan: Currently seen while undergoing hemodialysis. Follow-up iron studies. Preserved ejection fraction noted on echocardiogram.
[2023-10-31] MEDS: FAMOTIDINE 20 MG TAB ONE (11:41)
[2023-10-31] MEDS: hydrALAZINE HCL 20 MG/ML 1 ML VIAL ONE ×4 (11:41→11:43)
[2023-10-31] MEDS: HYDROCORTISONE SUCCINATE 100 MG/2 ML VIAL ONE ×2 (11:41→11:42)
[2023-10-31] MEDS: DEXTROSE 50% SYRINGE 50 ML IVP ONE (11:42)
[2023-10-31] MEDS: ACETAMINOPHEN TAB 325 MG TAB ONE ×2 (11:42→11:43)
[2023-10-31] MEDS: guaiFENesin-Coden 100-10MG/5ML 10 ML CUP ONE (11:43)
--- NOTE | 2023-10-31 12:16 | P.PN ---
Subjective Progress Note Date: 10/31/23 This is a 68-year-old white male whom I have been seeing for the last few days while in the ICU, patient had history of renal transplant in 1971 at [facility], he was recently discovered to have renal cell carcinoma involving his right [place] kidney. Underwent radical nephrectomy on 10/27/2023, and postoperatively, patient developed anuria, and worsening metabolic acidosis worsening uremia and hyperkalemia requiring transfer to the ICU for immediate hemodialysis. Patient has been on hemodialysis for the last 2 days, and he is being followed by urology as well as nephrology. Today the patient seems to be developing metabolic encephalopathy with confusion, and he remains oliguric. WBC count today is 9.1 hemoglobin is 7.8, electrolytes showed low sodium of 130 potassium 5.5 BUN is 49 creatinine 7.10. Bicarb is 23 The patient is seen today October 31 2023 in follow-up in the intensive care unit. He is currently sitting up in bed. Awake and alert. His mental status has been waxing and waning currently oriented x 2. He is receiving hemodialysis. Goal is to remove 1 L today. This is his third day in a row. White count 9.0. Hemoglobin 8.4. Platelets 258. Sodium 129. Potassium 5.1. Bicarb 20. BUN 71. Creatinine 9.39. He did develop atrial fibrillation with a rapid ventricular response and he is currently on a Cardizem drip at 10 mg/h. Normal saline at KVO. Maintaining good O2 saturations in the 90s on 4 L/min per nasal cannula. Working with the incentive spirometer. Objective - Vital Signs Vital signs: Vital Signs Temp 99.0 F 10/31/23 09:00 Pulse 93 10/31/23 11:30 Resp 20 10/31/23 11:30 BP 92/77 10/31/23 11:30 Pulse Ox 95 10/31/23 11:30 FiO2 Intake & Output 10/30/23 10/31/23 10/31/23 18:59 06:59 18:59 Intake Total 13.667 Output Total 35 30 75 Balance -35 -30 -61.333 Weight 130.3 kg Intake: Intake, IV Titration 13.667 Amount Diltiazem 125 mg In 13.667 Sodium Chloride 0.9% 100 ml @ Per Protocol IV .Q0M [facility] Rx#:[id number] Oral 0 Output: Urine 35 30 75 Other: Voiding Method Indwelling Catheter Indwelling Catheter Indwelling Catheter - Exam GENERAL EXAM: Alert, 68-year-old male patient, on 4 L nasal cannula, fairly comfortable in no apparent distress. HEAD: Normocephalic. EYES: Normal reaction of pupils, equal size. NOSE: Clear with pink turbinates. THROAT: No erythema or exudates. NECK: No masses, no JVD. CHEST: No chest wall deformity. LUNGS: Equal air entry with few scattered rhonchi. CVS: S1 and S2 normal with no audible murmur, regular rhythm. ABDOMEN: Surgical dressing dry and intact. No hepatosplenomegaly, normal bowel sounds, no guarding or rigidity. SPINE: No scoliosis or deformity SKIN: No rashes CENTRAL NERVOUS SYSTEM: No focal deficits, tone is normal in all 4 extremities. EXTREMITIES: Right femoral hemodialysis catheter in place. There is no peripheral edema. No clubbing, no cyanosis. Peripheral pulses are intact. - Labs CBC & Chem 7: 10/31/23 05:36 10/31/23 05:36 Labs: Abnormal Lab Results - Last 24 Hours (Table) 10/31/23 10/31/23 Range/Units 05:36 05:36 RBC 2.80 L (4.30-5.90) m/uL Hgb 8.4 L (13.0-17.5) gm/dL Hct 26.1 L (39.0-53.0) % RDW 15.8 H (11.5-15.5) % Lymphocytes # 0.8 L (1.0-4.8) k/uL Sodium 129 L (137-145) mmol/L Carbon Dioxide 20 L (22-30) mmol/L BUN 71 H (9-20) mg/dL Creatinine 9.39 H* (0.66-1.25) mg/dL Glucose 111 H (74-99) mg/dL Magnesium 2.4 H (1.6-2.3) mg/dL Total Protein 5.7 L (6.3-8.2) g/dL Albumin 3.1 L (3.5-5.0) g/dL Assessment and Plan Assessment: Status post right nephrectomy 10/27/2023 Acute kidney injury/acute tubular necrosis requiring hemodialysis Acute hyperkalemia and metabolic acidosis secondary to above Acute metabolic encephalopathy secondary to uremia History of kidney transplant 1972 Plan: The patient was seen and evaluated Chest x-ray, labs and medications reviewed Receiving hemodialysis today We will continue to monitor him here in the ICU I have personally seen and examined the patient, performed the documentation and the assessment and plan as written. Number of minutes spent on the visit: 10.
[2023-10-31] MEDS: polyethylene glycoL 3350 17 GM POWD.PACK PO SCH (13:27)
--- NOTE | 2023-10-31 13:27 | P.CRDCN ---
History of Present Illness Consult date: 10/31/23 History of present illness: Patient is a 68-year-old male who presented to the hospital for right nephrectomy due to renal cell carcinoma on . He began dialysis on 10/28/2023 due to oliguria and increased creatinine. He has a history of renal transplant of the right kidney in 1981, [place] developed renal cell carcinoma - removed 10/27/2023. He is confused, poor historian. He went into Afib with RVR this morning. Cardizem was stopped due to hypotension, currently improving. Patient is still in Afib. Today he denies chest pain and SOB. Review of Systems General: Denies fever, chills, weight changes. HEENT: Denies any changes or pain. CV: Denies chest pain, palpitations. Lungs: Endorses chronic cough; denies SOB, wheezing. GI: Denies abdominal pain, hematochezia, melena. : Denies hematuria. Past Medical History Past Medical History: Cancer, Hyperlipidemia, Hypertension, Renal Disease History of Any Multi-Drug Resistant Organisms: None Reported Additional Past Surgical History / Comment(s): Right Kidney Transplant Past Anesthesia/Blood Transfusion Reactions: No Reported Reaction Past Psychological History: No Psychological Hx Reported Smoking Status: Former smoker Past Alcohol Use History: None Reported Past Drug Use History: None Reported Medications and Allergies Allergies Allergy/AdvReac Type Severity Reaction Status Date / Time No Known Allergies Allergy Verified 10/29/23 17:59 Physical Exam Vitals: Vital Signs Temp Pulse Resp BP Pulse Ox 10/31/23 11:30 93 20 92/77 95 10/31/23 11:15 115 H 19 132/72 91 L 10/31/23 11:00 105 H 15 114/49 93 L 10/31/23 10:45 122 H 16 83/61 91 L 10/31/23 10:30 118 H 15 93/68 91 L 10/31/23 10:15 121 H 7 L 119/72 92 L 10/31/23 10:00 112 H 16 151/74 93 L 10/31/23 09:45 116 H 15 137/81 93 L 10/31/23 09:30 128 H 14 147/75 96 10/31/23 09:15 126 H 12 135/70 94 L 10/31/23 09:00 99.0 F 142 H 21 138/67 94 L 10/31/23 08:45 137 H 16 155/79 95 10/31/23 08:26 96 10/31/23 08:00 100.2 F H 131 H 128/69 95 10/31/23 07:00 140 H 4 L 128/62 95 10/31/23 06:00 140 H 36 H 154/67 96 10/31/23 05:00 129 H 22 179/78 93 L 10/31/23 04:00 98.5 F 90 29 H 147/52 87 L 10/31/23 03:00 77 13 174/63 96 10/31/23 02:00 80 17 169/71 95 10/31/23 01:00 86 22 163/58 95 10/31/23 00:00 98.2 F 87 19 151/57 95 10/30/23 23:53 85 17 151/57 94 L 10/30/23 23:00 83 16 168/70 94 L 10/30/23 22:00 82 21 171/78 95 10/30/23 21:00 80 13 165/64 95 10/30/23 20:00 97.7 F 85 11 L 176/64 91 L 10/30/23 19:00 78 15 164/66 95 10/30/23 18:00 85 19 154/61 93 L 10/30/23 17:00 82 18 176/61 94 L 10/30/23 16:23 80 11 L 165/50 94 L 10/30/23 15:00 99.3 F 82 18 177/62 93 L 10/30/23 14:00 82 18 173/58 92 L 10/30/23 13:00 75 17 167/58 92 L Intake and Output 10/30/23 10/31/23 10/31/23 22:59 06:59 14:59 Intake Total 13.667 Output Total 20 25 75 Balance -20 -25 -61.333 Intake: Intake, IV Titration 13.667 Amount Diltiazem 125 mg In 13.667 Sodium Chloride 0.9% 100 ml @ Per Protocol IV .Q0M [facility] Rx#:[id number] Oral 0 Output: Urine 20 25 75 Other: Voiding Method Indwelling Catheter Indwelling Catheter Indwelling Catheter Weight 130.3 kg Vitals reviewed. General: Mild distress, confused. Neck: No JVD present. CV: Regular rate and rhythm. Resp: Clear to auscultation bilaterally. Abdomen: Soft, nontender. Extremities: Trace edema present. Neuro: Appears confused. Results 10/31/23 05:36 10/31/23 05:36 Cardiac Enzymes 10/31/23 Range/Units 05:36 AST 47 (17-59) U/L CBC 10/31/23 Range/Units 05:36 WBC 9.0 (3.8-10.6) k/uL RBC 2.80 L (4.30-5.90) m/uL Hgb 8.4 L (13.0-17.5) gm/dL Hct 26.1 L (39.0-53.0) % Plt Count 258 (150-450) k/uL Comprehensive Metabolic Panel 10/30/23 10/31/23 Range/Units 12:41 05:36 Sodium 129 L (137-145) mmol/L Potassium 5.0 5.1 (3.5-5.1) mmol/L Chloride 98 (98-107) mmol/L Carbon Dioxide 20 L (22-30) mmol/L BUN 71 H (9-20) mg/dL Creatinine 9.39 H* (0.66-1.25) mg/dL Glucose 111 H (74-99) mg/dL Calcium 9.2 (8.4-10.2) mg/dL AST 47 (17-59) U/L ALT 13 (4-49) U/L Alkaline Phosphatase 44 (38-126) U/L Total Protein 5.7 L (6.3-8.2) g/dL Albumin 3.1 L (3.5-5.0) g/dL Current Medications Generic Name Dose Route Start Last Admin Trade Name Freq PRN Reason Stop Dose Admin Acetaminophen 650 mg 10/30/23 00:00 10/31/23 05:34 Acetaminophen Tab 325 Mg Tab PO 650 mg Q6H PRN Administration Pain Atorvastatin Calcium 20 mg 10/30/23 09:00 10/30/23 10:40 Atorvastatin 20 Mg Tab PO Not Given DAILY JORDEN Azathioprine 125 mg 10/30/23 09:00 10/30/23 09:47 Azathioprine 50 Mg Tab PO 125 mg DAILY JORDEN Administration Calcium Acetate 667 mg 10/30/23 12:30 10/31/23 07:39 Calcium Acetate 667 Mg Tab PO Not Given TID-W/MEALS OJRDEN Cilostazol 100 mg 10/30/23 09:00 10/30/23 21:50 Cilostazol 100 Mg Tab PO 100 mg BID JORDEN Administration Darbepoetin Tk 40 mcg 11/05/23 09:00 Darbepoetin Tk 40 Mcg/0.4 Ml Syringe SQ Sa [facility] Diltiazem HCl 240 mg 10/30/23 09:00 10/31/23 05:34 Diltiazem Cd 240 Mg Cap.Er.24h PO 240 mg DAILY JORDEN Administration Diphenhydramine HCl 25 mg 10/30/23 00:00 Diphenhydramine 50 Mg/Ml 1 Ml Vial IVP Q6H PRN Itching Dipyridamole 50 mg 10/30/23 09:00 10/30/23 21:50 Dipyridamole 25 Mg Tab PO 50 mg TID JORDEN Administration Doxazosin Mesylate 2 mg 10/30/23 21:00 10/30/23 23:15 Doxazosin 2 Mg Tab PO 2 mg HS [facility] Administration Famotidine 20 mg 10/30/23 09:00 10/30/23 10:41 Famotidine 20 Mg Tab PO Not Given DAILY [facility] Guaifenesin/Dextromethorphan 20 ml 10/30/23 00:00 10/31/23 09:59 Guaifenesin-Dm 100-10mg/5ml 10 Ml Cup PO 20 ml Q4H PRN Administration Cough Hydralazine HCl 25 mg 10/30/23 09:00 10/31/23 11:46 Hydralazine Hcl 25 Mg Tab PO Not Given TID [facility] Hydralazine HCl 10 mg 10/30/23 13:49 10/31/23 04:43 Hydralazine Hcl 20 Mg/Ml 1 Ml Vial IVP 10 mg Q6HR PRN Administration Blood Pressure - High Hydrocortisone Sodium Succinate 100 mg 10/30/23 09:00 10/30/23 21:50 Hydrocortisone Succinate 100 Mg/2 Ml Vial IVP 100 mg Q12HR JORDEN Administration Hydromorphone HCl 0.5 mg 10/31/23 08:49 Hydromorphone 0.5 Mg/0.5 Ml Syringe IVP Q4HR PRN Pain Ropivacaine 250 mg/ 250 mls @ 0 mls/hr 10/30/23 00:00 10/30/23 14:10 Hydromorphone HCl 5 mg/ Sodium EPIDURAL 6 mls/hr Chloride .Q0M PRN Administration Pain Control Protocol Per Protocol Diltiazem HCl 125 mg/ Sodium 125 mls @ 0 mls/hr 10/31/23 08:00 10/31/23 09:00 Chloride IV 10 mg/hr .Q0M JORDEN 10 mls/hr Titration Protocol Per Protocol Norepinephrine Bitartrate 4 mg 254 mls @ 14.893 mls/hr 10/31/23 12:15 / Sodium Chloride IV .Q17H4M [facility] Protocol 0.03 MCG/KG/MIN Naloxone HCl 0.2 mg 10/30/23 00:00 Naloxone 0.4 Mg/Ml 1 Ml Vial IV Q2M PRN Opioid Reversal Ondansetron HCl 4 mg 10/30/23 00:00 Ondansetron 4 Mg/2 Ml Vial IVP Q8H PRN n/v Polyethylene Glycol 17 gm 10/31/23 09:00 Polyethylene Glycol 3350 17 Gm Powd.Pack PO DAILY JORDEN Intake and Output 10/30/23 10/31/23 10/31/23 22:59 06:59 14:59 Intake Total 13.667 Output Total 20 25 75 Balance -20 -25 -61.333 Intake: Intake, IV Titration 13.667 Amount Diltiazem 125 mg In 13.667 Sodium Chloride 0.9% 100 ml @ Per Protocol IV .Q0M [facility] Rx#:[id number] Oral 0 Output: Urine 20 25 75 Other: Voiding Method Indwelling Catheter Indwelling Catheter Indwelling Catheter Weight 130.3 kg 10/31/23 05:36 10/31/23 05:36 Assessment and Plan Assessment: 1. Afib with RVR. Maintain rate control. Cardizem currently held due to hypotension. 2. CHEVY secondary to ATN. Continue hemodialysis. 3. Status post right nephrectomy 10/27/2023 due to renal cell carcinoma. Plan: 1. Continue to monitor vitals. 2. Maintain rate control. Thank you for the consultation. We will continue to follow him during his hospital stay.
[2023-10-31] MEDS: NOREPINEPHRINE 4 MG in SODIUM CHLORIDE 0.9% 250 ML IV SCH (20:45)
[2023-10-31] MEDS: FUROSEMIDE 10 MG/ML 10 ML VIAL IV STA (20:56)
[2023-10-31] MEDS: ONDANSETRON 4 MG/2 ML VIAL IVP PRN (22:34)
[2023-10-31 23:00] LABS: Hepatitis B Surface AB- Quant 3.5 mIU/mL
[2023-10-31] MEDS: HYDROmorphone 0.5 MG/0.5 ML SYRINGE IVP PRN (23:34)
--- NOTE | 2023-11-01 01:43 | XR ---
EXAM: XR Abdomen, 1 View CLINICAL HISTORY: ITS.REASON XR Reason: Abdominal pain/ Nausea TECHNIQUE: Frontal supine view of the abdomen/pelvis. COMPARISON: No relevant prior studies available. FINDINGS: Lower thorax: Cardiomegaly. Gastrointestinal tract: Prominent small bowel loops measuring up to 5 cm, concerning for small bowel obstruction. Bones/joints: RIGHT femoral line. No acute fracture. Soft tissues: RIGHT skin luis. IMPRESSION: Prominent small bowel loops measuring up to 5 cm, concerning for small bowel obstruction.
[2023-11-01 06:18] LABS: Basophils % (A) 0 %; Eosinophils % (A) 0 %; HCT 23.6 % (39.0-53.0); HGB 7.5 gm/dL (13.0-17.5); Lymphocytes % (A) 11 %; MCH 29.7 pg (25.0-35.0); MCV 92.9 fL (80.0-100.0); Mean Platelet Volume 7.2; Monocytes # (A) 1.1 k/uL (0-1.0); Monocytes % (A) 11 %; Neutrophils # (A) 7.4 k/uL (1.3-7.7); Neutrophils % (A) 75 %; Platelet Count 293 k/uL (150-450); RBC 2.54 m/uL (4.30-5.90); RDW 15.4 % (11.5-15.5); WBC 9.9 k/uL (3.8-10.6)
[2023-11-01 06:49] LABS: Potassium 5.2 mmol/L (3.5-5.1)
[2023-11-01 06:50] LABS: African American GFR (CKD) 7 (>60 ml/min/1.73 sqM); Anion Gap 9 mmol/L; Blood Urea Nitrogen 78 mg/dL (9-20); Calcium 8.7 mg/dL (8.4-10.2); Carbon Dioxide 24 mmol/L (22-30); Chloride 95 mmol/L (98-107); Glucose 115 mg/dL (74-99); Magnesium 2.5 mg/dL (1.6-2.3); Non-African American GFR(CKD) 6 (>60 ml/min/1.73 sqM); Sodium 128 mmol/L (137-145)
[2023-11-01] MEDS ORDERED: BENZOCAINE/MENTHOL LOZENG 1 EACH LOZENGE MUCOUS MEM PRN (09:36)
[2023-11-01] MEDS: DILTIAZEM CD 240 MG CAP.ER.24H PO SCH (10:19)
--- NOTE | 2023-11-01 10:25 | P.PN ---
Subjective Progress Note Date: 11/01/23 This is a 68-year-old white male whom I have been seeing for the last few days while in the ICU, patient had history of renal transplant in 1971 at [facility], he was recently discovered to have renal cell carcinoma involving his right [place] kidney. Underwent radical nephrectomy on 10/27/2023, and postoperatively, patient developed anuria, and worsening metabolic acidosis worsening uremia and hyperkalemia requiring transfer to the ICU for immediate hemodialysis. Patient has been on hemodialysis for the last 2 days, and he is being followed by urology as well as nephrology. Today the patient seems to be developing metabolic encephalopathy with confusion, and he remains oliguric. WBC count today is 9.1 hemoglobin is 7.8, electrolytes showed low sodium of 130 potassium 5.5 BUN is 49 creatinine 7.10. Bicarb is 23 The patient is seen today October 31 2023 in follow-up in the intensive care unit. He is currently sitting up in bed. Awake and alert. His mental status has been waxing and waning currently oriented x 2. He is receiving hemodialysis. Goal is to remove 1 L today. This is his third day in a row. White count 9.0. Hemoglobin 8.4. Platelets 258. Sodium 129. Potassium 5.1. Bicarb 20. BUN 71. Creatinine 9.39. He did develop atrial fibrillation with a rapid ventricular response and he is currently on a Cardizem drip at 10 mg/h. Normal saline at KVO. Maintaining good O2 saturations in the 90s on 4 L/min per nasal cannula. Working with the incentive spirometer. The patient is seen today November 01, 2023 and follow-up in the intensive care unit. He is awake and alert in no acute distress. He is currently maintaining O2 saturations in the 90s on 4 L/min per nasal cannula. No IV fluids. He has been having issues with labile blood pressure. He dropped into the 60s systolically during hemodialysis yesterday requiring a small amount of norepinephrine. Today he is hypertensive. He also been having issues with nausea and vomiting. Albert x-rays reveal prominent small bowel loops measuring up to 5 cm which is concerning for possible small bowel obstruction.. Platelets 293. Sodium 128. Potassium 5.2. Bicarb 24. BUN 78. Creatinine 7.77. Glucose 115. Objective - Vital Signs Vital signs: Vital Signs Temp 98.4 F 11/01/23 04:00 Pulse 76 11/01/23 08:00 Resp 14 11/01/23 08:00 BP 152/75 11/01/23 08:00 Pulse Ox 96 11/01/23 08:00 FiO2 Intake & Output 10/31/23 11/01/23 11/01/23 18:59 06:59 18:59 Intake Total 1044.917 240 Output Total 1275 155 15 Balance -230.083 85 -15 Weight 126.6 kg Intake: Intake, IV Titration 44.917 Amount Diltiazem 125 mg In 44.917 Sodium Chloride 0.9% 100 ml @ Per Protocol IV .Q0M [facility] Rx#:[id number] Oral 0 240 Hemodialysis 1000 Output: Urine 115 155 15 Hemodialysis 1080 Hemodialysis Net Amount 80 Other: Voiding Method Indwelling Catheter Indwelling Catheter # Bowel Movements 1 - Exam GENERAL EXAM: Alert, 68-year-old male patient, sitting up in bed, on 4 L nasal cannula, fairly comfortable in no apparent distress. HEAD: Normocephalic. EYES: Normal reaction of pupils, equal size. NOSE: Clear with pink turbinates. THROAT: No erythema or exudates. NECK: No masses, no JVD. CHEST: No chest wall deformity. LUNGS: Equal air entry with few scattered rhonchi. CVS: S1 and S2 normal with no audible murmur, regular rhythm. ABDOMEN: Surgical dressing dry and intact. No hepatosplenomegaly, normal bowel sounds, no guarding or rigidity. SPINE: No scoliosis or deformity SKIN: No rashes CENTRAL NERVOUS SYSTEM: No focal deficits, tone is normal in all 4 extremities. EXTREMITIES: Right femoral hemodialysis catheter in place. There is no peripheral edema. No clubbing, no cyanosis. Peripheral pulses are intact. - Labs CBC & Chem 7: 11/01/23 05:49 11/01/23 05:49 Labs: Abnormal Lab Results - Last 24 Hours (Table) 11/01/23 11/01/23 Range/Units 05:49 05:49 RBC 2.54 L (4.30-5.90) m/uL Hgb 7.5 L (13.0-17.5) gm/dL Hct 23.6 L (39.0-53.0) % Monocytes # 1.1 H (0-1.0) k/uL Sodium 128 L (137-145) mmol/L Potassium 5.2 H (3.5-5.1) mmol/L Chloride 95 L (98-107) mmol/L BUN 78 H (9-20) mg/dL Creatinine 7.77 H* (0.66-1.25) mg/dL Glucose 115 H (74-99) mg/dL Magnesium 2.5 H (1.6-2.3) mg/dL Assessment and Plan Assessment: Status post right nephrectomy 10/27/2023 Acute kidney injury/acute tubular necrosis requiring hemodialysis Acute hyperkalemia and metabolic acidosis secondary to above Acute metabolic encephalopathy secondary to uremia History of kidney transplant 1972 Nausea and vomiting and possible small bowel obstruction Plan: The patient was seen and evaluated Imaging, labs and medications reviewed Hemodialysis per nephrology We will continue to follow I have personally seen and examined the patient, performed the documentation and the assessment and plan as written. Number of minutes spent on the visit: 10.
--- NOTE | 2023-11-01 10:33 | P.PN ---
Subjective Patient is seen in follow-up for acute kidney injury. Started on hemodialysis October 28, 2023. Has right femoral dialysis catheter. More awake and alert today. Oliguric. Vital signs are stable. General: No acute distress. HEENT: Head exam is unremarkable. On nasal cannula. LUNGS: Scattered rhonchi. HEART: Rate and Rhythm are regular. ABDOMEN: No distention. EXTREMITITES: 1+ edema. Objective - Vital Signs Vital signs: Vital Signs Temp 98.4 F 11/01/23 04:00 Pulse 76 11/01/23 08:00 Resp 14 11/01/23 08:00 BP 152/75 11/01/23 08:00 Pulse Ox 96 11/01/23 08:00 FiO2 Intake & Output 10/31/23 11/01/23 11/01/23 18:59 06:59 18:59 Intake Total 1044.917 240 Output Total 1275 155 240 Balance -230.083 85 -240 Weight 126.6 kg Intake: Intake, IV Titration 44.917 Amount Diltiazem 125 mg In 44.917 Sodium Chloride 0.9% 100 ml @ Per Protocol IV .Q0M [facility] Rx#:[id number] Oral 0 240 Hemodialysis 1000 Output: Urine 115 155 240 Hemodialysis 1080 Hemodialysis Net Amount 80 Other: Voiding Method Indwelling Catheter Indwelling Catheter # Bowel Movements 1 - Labs CBC & Chem 7: 11/01/23 05:49 11/01/23 05:49 Labs: Abnormal Lab Results - Last 24 Hours (Table) 11/01/23 11/01/23 Range/Units 05:49 05:49 RBC 2.54 L (4.30-5.90) m/uL Hgb 7.5 L (13.0-17.5) gm/dL Hct 23.6 L (39.0-53.0) % Monocytes # 1.1 H (0-1.0) k/uL Sodium 128 L (137-145) mmol/L Potassium 5.2 H (3.5-5.1) mmol/L Chloride 95 L (98-107) mmol/L BUN 78 H (9-20) mg/dL Creatinine 7.77 H* (0.66-1.25) mg/dL Glucose 115 H (74-99) mg/dL Magnesium 2.5 H (1.6-2.3) mg/dL Assessment and Plan Plan: Assessment: 1. Acute kidney injury secondary to ATN. Creatinine peaked at 9.39 this admission. Oliguric. No response in urine output despite high-dose IV Lasix. Started on hemodialysis October 28, 2023. Has a right femoral catheter. 2. Chronic kidney disease stage IV/V. Patient's GFR was 18 in August 2023 per outpatient records. 3. Hyperkalemia secondary to acute kidney injury. Improved postdialysis and with medical management. 4. Status post right nephrectomy October 27, 2023 due to renal cell carcinoma. 5. Status post kidney transplant maintained on steroids and Imuran. 6. History of renal artery bypass. 7. Anemia of chronic kidney disease maintained on Aranesp. 8. Hyperphosphatemia secondary to acute kidney injury. On PhosLo. 9. Hyponatremia secondary to acute kidney injury. Hypervolemic. 10. A-fib with RVR status post Cardizem drip. Now on oral meds. 11. Volume overload. 12. Metabolic acidosis secondary to acute kidney injury. Improved postdialysis. Plan: Hemodialysis today. Follow-up iron studies. Preserved ejection fraction noted on echocardiogram. Decrease dose of hydrocortisone.
--- NOTE | 2023-11-01 11:28 | P.PN ---
Subjective Progress Note Date: 11/01/23 Principal diagnosis: POD #5, s/p right radical nephrectomy Mr. Linder is much more awake and alert this morning. He denies significant abdominal pain. Objective - Vital Signs Vital signs: Vital Signs Temp 98.4 F 11/01/23 04:00 Pulse 74 11/01/23 07:00 Resp 20 11/01/23 07:00 BP 122/89 11/01/23 07:00 Pulse Ox 96 11/01/23 07:00 FiO2 Intake & Output 10/31/23 11/01/23 11/01/23 18:59 06:59 18:59 Intake Total 1044.917 240 Output Total 1275 155 15 Balance -230.083 85 -15 Weight 126.6 kg Intake: Intake, IV Titration 44.917 Amount Diltiazem 125 mg In 44.917 Sodium Chloride 0.9% 100 ml @ Per Protocol IV .Q0M [facility] Rx#:[id number] Oral 0 240 Hemodialysis 1000 Output: Urine 115 155 15 Hemodialysis 1080 Hemodialysis Net Amount 80 Other: Voiding Method Indwelling Catheter Indwelling Catheter # Bowel Movements 1 - Constitutional General appearance: Present: average body habitus, cooperative, no acute distress - Gastrointestinal Gastrointestinal Comment(s): Soft, non-distended. The dressing overlying the incision is dry and intact. - Psychiatric Psychiatric: Present: A&O x's 3 - Labs CBC & Chem 7: 11/01/23 05:49 11/01/23 05:49 Labs: Abnormal Lab Results - Last 24 Hours (Table) 11/01/23 11/01/23 Range/Units 05:49 05:49 RBC 2.54 L (4.30-5.90) m/uL Hgb 7.5 L (13.0-17.5) gm/dL Hct 23.6 L (39.0-53.0) % Monocytes # 1.1 H (0-1.0) k/uL Sodium 128 L (137-145) mmol/L Potassium 5.2 H (3.5-5.1) mmol/L Chloride 95 L (98-107) mmol/L BUN 78 H (9-20) mg/dL Creatinine 7.77 H* (0.66-1.25) mg/dL Glucose 115 H (74-99) mg/dL Magnesium 2.5 H (1.6-2.3) mg/dL Assessment and Plan (1) Neoplasm of uncertain behavior of right kidney Current Visit: Yes Status: Acute Code(s): D41.01 - NEOPLASM OF UNCERTAIN BEHAVIOR OF RIGHT KIDNEY SNOMED Code(s): 761689145376999 Plan: - Continue dialysis as needed - Ambulate as tolerated - Await pathology report - Avoid anticoagulants unless absolutely needed
--- NOTE | 2023-11-01 12:19 | P.PN ---
Subjective Progress Note Date: 11/01/23 Patient still appears confused. Not responding to his name. Has flipped back into sinus rhythm this morning. He is receiving hemodialysis. Patient has history of renal transplant and most recently underwent nephrectomy for renal cell cancer. On exam: Vital signs are stable chest exam reveals good air entry bilaterally heart exam reveals first and second heart sounds no gallop abdomen is soft examination of extremities reveals bilateral mild edema. Labs show that BUN and creatinine are elevated at 78 and 7.7 and hemoglobin is 7.7 Assessment and plan: Acute renal failure Paroxysmal atrial fibrillation status post nephrectomy Confusion Patient will continue current medications We are not starting him on anticoagulant at this time because of unexplained confusion Objective - Vital Signs Vital signs: Vital Signs Temp 98.4 F 11/01/23 04:00 Pulse 80 11/01/23 11:30 Resp 26 H 11/01/23 11:30 BP 169/62 11/01/23 11:30 Pulse Ox 93 L 11/01/23 11:30 FiO2 Intake & Output 10/31/23 11/01/23 11/01/23 18:59 06:59 18:59 Intake Total 1044.917 240 Output Total 1275 155 290 Balance -230.083 85 -290 Weight 126.6 kg 126.6 kg Intake: Intake, IV Titration 44.917 Amount Diltiazem 125 mg In 44.917 Sodium Chloride 0.9% 100 ml @ Per Protocol IV .Q0M [facility] Rx#:[id number] Oral 0 240 Hemodialysis 1000 Output: Urine 115 155 290 Hemodialysis 1080 Hemodialysis Net Amount 80 Other: Voiding Method Indwelling Catheter Indwelling Catheter Indwelling Catheter # Bowel Movements 1 - Labs CBC & Chem 7: 11/01/23 05:49 11/01/23 05:49 Labs: Abnormal Lab Results - Last 24 Hours (Table) 11/01/23 11/01/23 Range/Units 05:49 05:49 RBC 2.54 L (4.30-5.90) m/uL Hgb 7.5 L (13.0-17.5) gm/dL Hct 23.6 L (39.0-53.0) % Monocytes # 1.1 H (0-1.0) k/uL Sodium 128 L (137-145) mmol/L Potassium 5.2 H (3.5-5.1) mmol/L Chloride 95 L (98-107) mmol/L BUN 78 H (9-20) mg/dL Creatinine 7.77 H* (0.66-1.25) mg/dL Glucose 115 H (74-99) mg/dL Magnesium 2.5 H (1.6-2.3) mg/dL
[2023-11-01] MEDS: CALCIUM CARBONATE 500 MG CHEWABLE PO PRN (13:27)
--- NOTE | 2023-11-01 16:21 | P.CON ---
Consult Note - . Consult date: 11/01/23 Assessment/Plan:: Consult date: 11/01/23 History of present illness: Patient is a 68 year old male who presented to [facility] for Right Nephrectomy secondary to Renal Cell Carcinoma on . He began dialysis on 10/28/2023 due to oliguria and increased creatinine. He has a history of renal transplant of the right kidney in 1981, [place] kidney developed renal cell carcinoma - removed 10/27/2023. He is confused and a poor historian. Patients nurse was beside. She states the patient had episodes of vomiting yesterday but he has no vomited today. She states he has had three large bowel movements and he is passing gas. The patient currently denies any nausea. There was an abdominal X-Ray performed today which showed some dilated loops of small bowel possibly representing small bowel obstruction. Review of Systems General: Denies fever, chills, weight changes. HEENT: Denies any changes or pain. CV: Denies chest pain, palpitations. Lungs: Endorses chronic cough; denies SOB, wheezing. GI: Denies abdominal pain, hematochezia, melena, nausea and vomiting. : Denies hematuria. Past Medical History Past Medical History: Cancer, Hyperlipidemia, Hypertension, Renal Disease History of Any Multi-Drug Resistant Organisms: None Reported Additional Past Surgical History / Comment(s): Right Kidney Transplant Past Anesthesia/Blood Transfusion Reactions: No Reported Reaction Past Psychological History: No Psychological Hx Reported Smoking Status: Former smoker Past Alcohol Use History: None Reported Past Drug Use History: None Reported Medications and Allergies Allergies Allergy/AdvReac Type Severity Reaction Status Date / Time No Known Allergies Allergy Verified 10/29/23 17:59 Physical Exam Vitals reviewed. VSS General: NAD Neck: No JVD present, trachea midline CV: Regular rate and rhythm. Resp: Clear to auscultation bilaterally. Abdomen: Soft, nontender. mild distention Extremities: Trace edema present. Neuro: Appears confused. Assessment and Plan Assessment: 1. Ileus vs Small Bowel Obstruction 2. Status post right nephrectomy 10/27/2023 due to renal cell carcinoma. Plan: 1. Keep patient NPO 2. Discussed with nurse. Can hold off on Nasogastric Tube for now. If patient has any further episodes of nausea and vomiting, he will need a nasogastric tube. 3. Abdominal X-Ray reviewed. Would lean toward ileus given patients recent nephrectomy. However, if patient has any further episodes of nausea and vomiting, he will need a CT-AP without contrast 4. Pain and Nausea Control 5. ICU care Thank you for the consultation. We will continue to follow the patient during his hospital stay. Deep Darnell DO [facility] [phone]
[2023-11-01 17:08] LABS: % Iron Saturation 9.05 (12.00-50.00)
--- NOTE | 2023-11-01 17:13 | P.PN ---
Subjective Progress Note Date: 11/01/23 Principal diagnosis: Hospital Course: 68 y/o M with history of ESRD s/p L. renal transplant in 1981, now CKD post elective right radical nephrectomy. Patient became oliguric after surgery, with worsening renal function and hyperkalemia. He required emergent dialysis. Currently in medical ICU. Nephrology following. Patient was in A- fib RVR, started on Cardizem drip which has since resolved. Cardiology following. [facility] consulted for medical management and will continue to follow. Subjective: Patient seen at bedside. No acute events overnight. Patient states he is having some abdominal pain but still having bowel movements. He denies passing gas but is belching. Pertinent positives and negatives discussed above, a complete review of systems was preformed and all the other systems were negative. Vitals Signs Reviewed. Patient is slightly hypertensive but has been having labile blood pressures and required Levophed yesterday during dialysis. General: non toxic, no distress, appears at stated age, normal weight Derm: no unusual rashes/lesions, warm Head: atraumatic, normocephalic, symmetric Eyes: EOMI, no lid lag, anicteric sclera, pupils equal round reactive to light ENT: Nose and ears atraumatic Neck: No cervical lymphadenopathy, trachea midline, supple Mouth: no lip lesion, mucus membranes moist Cardiovascular: S1S2 reg, no murmur, positive dorsalis pedis pulse bilateral, no edema Lungs: Decreased air entry bilaterally, rhonchi bilaterally, no rales, no accessory muscle use Abdominal: soft, nontender to palpation, no guarding Ext: muscle strength 5 out of 5 in all 4 extremities grossly, no gross muscle atrophy, no contractures, Neuro: CN II-XI grossly intact, no gross focal neuro deficits Psych: Alert, oriented, appropriate affect Data Reviewed Today: Patient Labs: Sodium 128, potassium 5.2, chloride 95, bicarb 24, BUN 78, creatinine 7.77, glucose 115, calcium 8.7, mag 2.5 Imaging: KUB x-ray showed prominent small bowel loops measuring up to 5 cm, concerning for SBO Assessment and Plan: Active: CHEVY on CKD with Hyperkalemia Hypervolemic hyponatremia Renal cell carcinoma status post right radical nephrectomy on 10/26 Previous ESRD status post renal transplant on steroids and Imuran -Patient required emergent hemodialysis on 10/27, vascular surgery and nephrology following -Nephrology following, getting hemodialysis today -Urology note reviewed, recommended to avoid anticoagulation -Continue to monitor I's and O's -Urinary output improving -Continue Imuran 125 daily, Solu-Cortef 100 mg IV every 12 hours -Continue PhosLo 3 times daily Acute hypoxic respiratory failure, secondary to hypervolemia Acute delirium -ICU following -oxygen as needed Possible ileus versus SBO -Surgery consulted -Patient kept NPO -consideration of NGT due to ongoing nausea, abd pain Atrial fibrillation with RVR, resolved -Deferring anticoagulation per primary team(Dr. Tobin) -cardiology following -Cardizem 240mg daily Hypertension -Continue oral hydralazine 25 3 times daily, Normocytic anemia, secondary to CKD -No active bleeding, monitor CBC Chronic: PAD Dyslipidemia F: none E: Phoslo N: NPO A: Independent Code Status: FULL Anticipated discharge place: Pending clinical course Anticipated discharge time: Pending clinical course I saw and evaluated the patient during the anderson and critical portions of this encounter, and discussed the case in detail with the resident author of this note, I agree with the Assessment and Plan, and my changes, if any, are highlighted in blue. Objective - Vital Signs Vital signs: Vital Signs Temp 98.4 F 11/01/23 04:00 Pulse 79 11/01/23 06:00 Resp 19 11/01/23 06:00 BP 139/67 11/01/23 06:00 Pulse Ox 94 L 11/01/23 06:00 FiO2 Intake & Output 10/31/23 10/31/23 11/01/23 06:59 18:59 06:59 Intake Total 1044.917 240 Output Total 30 1275 155 Balance -30 -230.083 85 Weight 130.3 kg 126.6 kg Intake: Intake, IV Titration 44.917 Amount Diltiazem 125 mg In 44.917 Sodium Chloride 0.9% 100 ml @ Per Protocol IV .Q0M [facility] Rx#:[id number] Oral 0 240 Hemodialysis 1000 Output: Urine 30 115 155 Hemodialysis 1080 Hemodialysis Net Amount 80 Other: Voiding Method Indwelling Catheter Indwelling Catheter Indwelling Catheter # Bowel Movements 1 - Labs CBC & Chem 7: 11/01/23 05:49 11/01/23 05:49 Labs: Abnormal Lab Results - Last 24 Hours (Table) 10/31/23 11/01/23 Range/Units 05:36 05:49 RBC 2.54 L (4.30-5.90) m/uL Hgb 7.5 L (13.0-17.5) gm/dL Hct 23.6 L (39.0-53.0) % Monocytes # 1.1 H (0-1.0) k/uL Sodium 129 L (137-145) mmol/L Carbon Dioxide 20 L (22-30) mmol/L BUN 71 H (9-20) mg/dL Creatinine 9.39 H* (0.66-1.25) mg/dL Glucose 111 H (74-99) mg/dL Magnesium 2.4 H (1.6-2.3) mg/dL Total Protein 5.7 L (6.3-8.2) g/dL Albumin 3.1 L (3.5-5.0) g/dL
[2023-11-01 19:11] LABS: Hepatitis B Surface Antigen Nonreactive (Nonreactive)
[2023-11-01] MEDS: HYDROCORTISONE SUCCINATE 100 MG/2 ML VIAL IVP SCH (20:33)
[2023-11-01] MEDS: DILTIAZEM 125 MG in SODIUM CHLORIDE 0.9% 100 ML IV SCH (21:23)
[2023-11-02] MEDS: ATROPINE SULFATE 0.1 MG/ML 10ML SYRINGE ONE (02:51)
[2023-11-02 06:10] LABS: Basophils % (A) 0 %; Eosinophils # (A) 0.1 k/uL (0-0.7); Eosinophils % (A) 1 %; HCT 24.5 % (39.0-53.0); HGB 8.1 gm/dL (13.0-17.5); Lymphocytes # (A) 1.2 k/uL (1.0-4.8); Lymphocytes % (A) 11 %; MCH 30.6 pg (25.0-35.0); MCHC 32.9 g/dL (31.0-37.0); Mean Platelet Volume 7.6; Monocytes % (A) 9 %; Neutrophils # (A) 8.5 k/uL (1.3-7.7); Neutrophils % (A) 76 %; Platelet Count 290 k/uL (150-450); RBC 2.63 m/uL (4.30-5.90); RDW 14.9 % (11.5-15.5); WBC 11.3 k/uL (3.8-10.6)
[2023-11-02 06:25] LABS: African American GFR (CKD) 11 (>60 ml/min/1.73 sqM); Anion Gap 10 mmol/L; Blood Urea Nitrogen 75 mg/dL (9-20); Calcium 8.5 mg/dL (8.4-10.2); Carbon Dioxide 27 mmol/L (22-30); Chloride 93 mmol/L (98-107); Glucose 106 mg/dL (74-99); Non-African American GFR(CKD) 9 (>60 ml/min/1.73 sqM); Potassium 4.5 mmol/L (3.5-5.1); Sodium 130 mmol/L (137-145)
--- NOTE | 2023-11-02 07:54 | P.PN ---
Progress Note - Text Progress Note Date: 11/02/23 Patient Seen and Examined. NAEO. Patient is not currently vomiting. VSS General-NAD Abdomen-soft, slightly distended, mild TTP Assessment: 1. Ileus vs Small Bowel Obstruction 2. Status post right nephrectomy 10/27/2023 due to renal cell carcinoma. Plan: 1. Keep patient NPO, can reassess for possible advancement of Diet later today 2. Discussed with nurse. Can hold off on Nasogastric Tube for now. If patient has any further episodes of nausea and vomiting, he will need a nasogastric tube. 3. Abdominal X-Ray reviewed. Would lean toward ileus given patients recent nephrectomy. However, if patient has any further episodes of nausea and vomiting, he will need a CT-AP without contrast 4. Pain and Nausea Control 5. ICU care
--- NOTE | 2023-11-02 08:59 | CT ---
EXAMINATION TYPE: CT abdomen pelvis wo con CT DLP: 1382.2 mGycm, Automated exposure control for dose reduction was used. DATE OF EXAM: 11/02/2023 8:38 AM COMPARISON: None. CLINICAL INDICATION: Male, 68 years old with history of r/o SBO vs Ileus; SBO vs Ileus TECHNIQUE: Axial CT abdomen pelvis wo con;Sagittal and coronal reformats were created on a separate workstation. Contrast used: mL of , (none if empty) Oral contrast used: without Oral Contrast (none if empty) FINDINGS: LOWER CHEST: Trace bilateral pleural effusions with associated atelectasis. ABDOMEN LIVER: Unremarkable GALLBLADDER AND BILE DUCTS: Unremarkable. PANCREAS: Unremarkable. SPLEEN: Unremarkable. ADRENAL GLANDS: Unremarkable. KIDNEYS AND URETERS: Atrophic left [place] kidney. The right kidney is not definitively visualized may be surgically absent there is abnormal soft tissue in the surgical bed. Pelvic kidney is present wit hout hydronephrosis there is atherosclerosis of the vascular tree. PELVIS BLADDER: Nondistended with Friend catheter in place. REPRODUCTIVE: Unremarkable. ABDOMEN & PELVIS STOMACH AND BOWEL: No evidence of bowel obstruction. Scattered colonic diverticula. Feces are seen th roughout the colon. There is minimal ingested contents of the gastric contents intact. The stomach is mildly distended with gaseous dilation PERITONEUM/RETROPERITONEUM: No evidence of pneumoperitoneum or free fluid. VASCULATURE: Infrarenal abdominal fusiform dilation measuring up tor 3.5 cm. MUSCULOSKELETAL: No acute osseous abnormalities LYMPH NODES: No gross evidence for lymphadenopathy. SOFT TISSUE/ABDOMINAL WALL: Postsurgical changes of the abdominal wall. IMPRESSION: 1. No evidence for obstruction, no evidence for ileus either. There is minimal ingested contents wit hin the small and large bowel. There is small amount of feces extending throughout the large bowel. 2. Colonic diverticulosis. 3. Friend catheter in appropriate position. 4. Right renal fossa irregular fluid correlate with recent surgery given postoperative changes anter ior abdominal wall. 5. Atrophic left [place] kidney and right pelvic tonsillectomy. No evidence for hydronephrosis of the transplant kidney.
--- NOTE | 2023-11-02 09:52 | P.PN ---
Subjective Progress Note Date: 11/02/23 Principal diagnosis: POD #6, s/p right radical nephrectomy Mr. Linder is awake and alert. He has experienced nausea and vomiting. He denies incisional pain. Objective - Vital Signs Vital signs: Vital Signs Temp 98.4 F 11/02/23 04:00 Pulse 104 H 11/02/23 07:00 Resp 22 11/02/23 07:00 BP 147/122 11/02/23 07:00 Pulse Ox 91 L 11/02/23 07:00 FiO2 Intake & Output 11/01/23 11/02/23 11/02/23 18:59 06:59 18:59 Intake Total 600 Output Total 3060 190 105 Balance -2460 -190 -105 Weight 126.6 kg 126.1 kg Intake: Hemodialysis 600 Output: Urine 460 190 5 Emesis 100 Hemodialysis 1600 Hemodialysis Net Amount 1000 Other: Voiding Method Indwelling Catheter Indwelling Catheter - Constitutional General appearance: Present: average body habitus, no acute distress - Gastrointestinal Gastrointestinal Comment(s): Soft, non-distended, nontender. Minimal serous drainage from the lateral aspect of the incision. - Psychiatric Psychiatric: Present: A&O x's 3 - Labs CBC & Chem 7: 11/02/23 05:43 11/02/23 05:43 Labs: Abnormal Lab Results - Last 24 Hours (Table) 10/30/23 11/02/23 11/02/23 Range/Units 12:41 05:43 05:43 WBC 11.3 H (3.8-10.6) k/uL RBC 2.63 L (4.30-5.90) m/uL Hgb 8.1 L (13.0-17.5) gm/dL Hct 24.5 L (39.0-53.0) % Neutrophils # 8.5 H (1.3-7.7) k/uL Sodium 130 L (137-145) mmol/L Chloride 93 L (98-107) mmol/L BUN 75 H (9-20) mg/dL Creatinine 5.74 H (0.66-1.25) mg/dL Glucose 106 H (74-99) mg/dL Iron 19 L (50-175) UG/DL TIBC 210 L (228-460) UG/DL % Saturation 9.05 L (12.00-50.00) Transferrin 150.0 L (204.0-354.0) mg/dL Assessment and Plan (1) Neoplasm of uncertain behavior of right kidney Current Visit: Yes Status: Acute Code(s): D41.01 - NEOPLASM OF UNCERTAIN BEHAVIOR OF RIGHT KIDNEY SNOMED Code(s): 334150474635078 Plan: - Continue dialysis as needed - CT scan shows no evidence of bowel obstruction - Increase ambulation - Await pathology report
--- NOTE | 2023-11-02 10:15 | P.PN ---
Subjective Patient is seen in follow-up for acute kidney injury. Started on hemodialysis October 28, 2023. Has right femoral dialysis catheter. Denies chest pain or shortness of breath. On Cardizem drip for A-fib. Urine output about 600 cc in the last 24 hours. Vital signs are stable. General: No acute distress. HEENT: Head exam is unremarkable. On nasal cannula. NG tube noted. LUNGS: Scattered rhonchi. HEART: Irregular rate and rhythm. ABDOMEN: No distention. EXTREMITITES: 1+ edema. Objective - Vital Signs Vital signs: Vital Signs Temp 98.4 F 11/02/23 04:00 Pulse 104 H 11/02/23 07:00 Resp 22 11/02/23 07:00 BP 147/122 11/02/23 07:00 Pulse Ox 91 L 11/02/23 07:00 FiO2 Intake & Output 11/01/23 11/02/23 11/02/23 18:59 06:59 18:59 Intake Total 600 5 Output Total 3060 190 620 Balance -2460 -190 -615 Weight 126.6 kg 126.1 kg Intake: Intake, IV Titration 5 Amount Diltiazem 125 mg In 5 Sodium Chloride 0.9% 100 ml @ 5 MG/HR 5 mls/hr IV .Q24H [facility] Rx#:[id number] Oral 0 Hemodialysis 600 Output: Gastric Drainage 500 Urine 460 190 20 Emesis 100 Hemodialysis 1600 Hemodialysis Net Amount 1000 Other: Voiding Method Indwelling Catheter Indwelling Catheter - Labs CBC & Chem 7: 11/02/23 05:43 11/02/23 05:43 Labs: Abnormal Lab Results - Last 24 Hours (Table) 10/30/23 11/02/23 11/02/23 Range/Units 12:41 05:43 05:43 WBC 11.3 H (3.8-10.6) k/uL RBC 2.63 L (4.30-5.90) m/uL Hgb 8.1 L (13.0-17.5) gm/dL Hct 24.5 L (39.0-53.0) % Neutrophils # 8.5 H (1.3-7.7) k/uL Sodium 130 L (137-145) mmol/L Chloride 93 L (98-107) mmol/L BUN 75 H (9-20) mg/dL Creatinine 5.74 H (0.66-1.25) mg/dL Glucose 106 H (74-99) mg/dL Iron 19 L (50-175) UG/DL TIBC 210 L (228-460) UG/DL % Saturation 9.05 L (12.00-50.00) Transferrin 150.0 L (204.0-354.0) mg/dL Assessment and Plan Plan: Assessment: 1. Acute kidney injury secondary to ATN. Creatinine peaked at 9.39 this admission. Urine output 600 cc in the last 24 hours. Started on hemodialysis October 28, 2023. Has a right femoral catheter. No hydronephrosis noted in the transplant kidney. 2. Chronic kidney disease stage IV/V. Patient's GFR was 18 in August 2023 per outpatient records. 3. Hyperkalemia secondary to acute kidney injury. Improved postdialysis and with medical management. 4. Status post right nephrectomy October 27, 2023 due to renal cell carcinoma. 5. Status post kidney transplant maintained on steroids and Imuran. 6. History of renal artery bypass. 7. Anemia of chronic kidney disease maintained on Aranesp. Iron deficiency noted. 8. Hyperphosphatemia secondary to acute kidney injury. On PhosLo. 9. Hyponatremia secondary to acute kidney injury. Hypervolemic. Improved. 10. A-fib with RVR maintained on Cardizem drip. 11. Volume overload. Improved with ultrafiltration. 12. Metabolic acidosis secondary to acute kidney injury. Improved postdialysis. Plan: Hemodialysis tomorrow. Add IV iron. Add IV Lasix 80 mg once daily. Preserved ejection fraction noted on echocardiogram. Decrease frequency of hydrocortisone to once daily. Will need temporary catheter removed and permanent dialysis catheter placed in the next 2 to 3 days.
[2023-11-02] MEDS: FUROSEMIDE 10 MG/ML 10 ML VIAL IV SCH (10:48)
[2023-11-02] MEDS: HYDROCORTISONE SUCCINATE 100 MG/2 ML VIAL IVP SCH (10:48)
--- NOTE | 2023-11-02 11:07 | P.PN ---
Subjective Progress Note Date: 11/02/23 This is a 68-year-old white male whom I have been seeing for the last few days while in the ICU, patient had history of renal transplant in 1971 at [facility], he was recently discovered to have renal cell carcinoma involving his right [place] kidney. Underwent radical nephrectomy on 10/27/2023, and postoperatively, patient developed anuria, and worsening metabolic acidosis worsening uremia and hyperkalemia requiring transfer to the ICU for immediate hemodialysis. Patient has been on hemodialysis for the last 2 days, and he is being followed by urology as well as nephrology. Today the patient seems to be developing metabolic encephalopathy with confusion, and he remains oliguric. WBC count today is 9.1 hemoglobin is 7.8, electrolytes showed low sodium of 130 potassium 5.5 BUN is 49 creatinine 7.10. Bicarb is 23 The patient is seen today October 31 2023 in follow-up in the intensive care unit. He is currently sitting up in bed. Awake and alert. His mental status has been waxing and waning currently oriented x 2. He is receiving hemodialysis. Goal is to remove 1 L today. This is his third day in a row. White count 9.0. Hemoglobin 8.4. Platelets 258. Sodium 129. Potassium 5.1. Bicarb 20. BUN 71. Creatinine 9.39. He did develop atrial fibrillation with a rapid ventricular response and he is currently on a Cardizem drip at 10 mg/h. Normal saline at KVO. Maintaining good O2 saturations in the 90s on 4 L/min per nasal cannula. Working with the incentive spirometer. The patient is seen today November 01, 2023 and follow-up in the intensive care unit. He is awake and alert in no acute distress. He is currently maintaining O2 saturations in the 90s on 4 L/min per nasal cannula. No IV fluids. He has been having issues with labile blood pressure. He dropped into the 60s systolically during hemodialysis yesterday requiring a small amount of norepinephrine. Today he is hypertensive. He also been having issues with nausea and vomiting. Albert x-rays reveal prominent small bowel loops measuring up to 5 cm which is concerning for possible small bowel obstruction.. Platelets 293. Sodium 128. Potassium 5.2. Bicarb 24. BUN 78. Creatinine 7.77. Glucose 115. The patient is seen today November 02, 2023 in follow-up on the intensive care unit. He is currently sitting up in bed. Awake and alert in no acute distress. He was having ongoing issues with emesis and a nasogastric tube was placed again today. CT scan of the abdomen and pelvis revealed no evidence of obstruction or ileus. He is having ongoing issues with atrial fibrillation with a rapid ventricular response. He is currently on a Cardizem drip at 5 mg/h. He is postoperative day #6 of his right nephrectomy. He is currently on 4 L/min per nasal cannula. O2 saturations in the mid 90s. Hemodynamically stable. White count 11.3. Hemoglobin 8.1. Platelets 290. Sodium 130. Potassium 4.5. Bicarb 27. BUN 75. Creatinine 5.74. Glucose 106. Urine output has improved with approximately 600 cc in the past 24 hours. Plan is for hemodialysis tomorrow. He has been initiated on IV diuretics. Objective - Vital Signs Vital signs: Vital Signs Temp 98.4 F 11/02/23 04:00 Pulse 108 H 11/02/23 10:00 Resp 18 11/02/23 10:00 BP 146/85 11/02/23 10:00 Pulse Ox 96 11/02/23 10:00 FiO2 Intake & Output 11/01/23 11/02/23 11/02/23 18:59 06:59 18:59 Intake Total 600 10 Output Total 3060 190 645 Balance -2460 -190 -635 Weight 126.6 kg 126.1 kg Intake: Intake, IV Titration 10 Amount Diltiazem 125 mg In 10 Sodium Chloride 0.9% 100 ml @ 5 MG/HR 5 mls/hr IV .Q24H [facility] Rx#:[id number] Oral 0 Hemodialysis 600 Output: Gastric Drainage 500 Urine 460 190 45 Emesis 100 Hemodialysis 1600 Hemodialysis Net Amount 1000 Other: Voiding Method Indwelling Catheter Indwelling Catheter Indwelling Catheter - Exam GENERAL EXAM: Alert, 68-year-old male, sitting up in bed, on 4 L nasal cannula, comfortable in no apparent distress. HEAD: Normocephalic. EYES: Normal reaction of pupils, equal size. NOSE: Clear with pink turbinates. THROAT: No erythema or exudates. NECK: No masses, no JVD. CHEST: No chest wall deformity. LUNGS: Equal air entry with few scattered rhonchi. CVS: S1 and S2 normal with no audible murmur, regular rhythm. ABDOMEN: Surgical dressing dry and intact. No hepatosplenomegaly, normal bowel sounds, no guarding or rigidity. SPINE: No scoliosis or deformity SKIN: No rashes CENTRAL NERVOUS SYSTEM: No focal deficits, tone is normal in all 4 extremities. EXTREMITIES: Right femoral hemodialysis catheter in place. There is no peripheral edema. No clubbing, no cyanosis. Peripheral pulses are intact. - Labs CBC & Chem 7: 11/02/23 05:43 11/02/23 05:43 Labs: Abnormal Lab Results - Last 24 Hours (Table) 10/30/23 11/02/23 11/02/23 Range/Units 12:41 05:43 05:43 WBC 11.3 H (3.8-10.6) k/uL RBC 2.63 L (4.30-5.90) m/uL Hgb 8.1 L (13.0-17.5) gm/dL Hct 24.5 L (39.0-53.0) % Neutrophils # 8.5 H (1.3-7.7) k/uL Sodium 130 L (137-145) mmol/L Chloride 93 L (98-107) mmol/L BUN 75 H (9-20) mg/dL Creatinine 5.74 H (0.66-1.25) mg/dL Glucose 106 H (74-99) mg/dL Iron 19 L (50-175) UG/DL TIBC 210 L (228-460) UG/DL % Saturation 9.05 L (12.00-50.00) Transferrin 150.0 L (204.0-354.0) mg/dL Assessment and Plan Assessment: Status post right nephrectomy 10/27/2023 Acute kidney injury/acute tubular necrosis requiring hemodialysis Acute hyperkalemia and metabolic acidosis secondary to above Acute metabolic encephalopathy secondary to uremia Atrial fibrillation with rapid ventricular response, currently on a Cardizem drip History of kidney transplant 1972 Nausea and vomiting quiring reinsertion of nasogastric tube on 11/02/2023, CT scan ruled out obstruction/ileus Plan: The patient was seen and evaluated Imaging, labs and medications reviewed Nasogastric tube reinserted No evidence of obstruction Titrate the FiO2 as tolerated Currently on a Cardizem drip Initiated on IV diuretics Hemodialysis tomorrow per nephrology We will continue to follow I have personally seen and examined the patient, performed the documentation and the assessment and plan as written. Number of minutes spent on the visit: 10.
--- NOTE | 2023-11-02 11:09 | P.PN ---
Subjective Progress Note Date: 11/02/23 Patient seen at bedside, currently with an NG tube due to vomiting and concern for postop ileus versus small bowel obstruction. Does not appear confused. Currently in sinus rhythm. Sodium is 130. Cardizem drip restarted. Was held overnight - heart rate in the low 80s. Heart rate 109 -124, high up to 138. Patient has had vomiting this morning and went for CT abdomen. ROS reviewed. Pertinent positive and negatives as documented. All other systems negative. Objective - Vital Signs Vital signs: Vital Signs Temp 98.4 F 11/02/23 04:00 Pulse 104 H 11/02/23 07:00 Resp 22 11/02/23 07:00 BP 147/122 11/02/23 07:00 Pulse Ox 91 L 11/02/23 07:00 FiO2 Intake & Output 11/01/23 11/02/23 11/02/23 18:59 06:59 18:59 Intake Total 600 Output Total 3060 190 105 Balance -2460 -190 -105 Weight 126.6 kg 126.1 kg Intake: Hemodialysis 600 Output: Urine 460 190 5 Emesis 100 Hemodialysis 1600 Hemodialysis Net Amount 1000 Other: Voiding Method Indwelling Catheter Indwelling Catheter - Exam Vital signs reviewed. General: No acute distress. Currently with NG tube. HEENT: Head exam is unremarkable. Lungs: Bilateral breath sounds present; no rhonchi, wheezes, or rales. Heart: Rate and rhythm are regular. S1S2 present. Abdomen: Nontender. Extremities: 1+ edema present. - Labs CBC & Chem 7: 11/02/23 05:43 11/02/23 05:43 Labs: Abnormal Lab Results - Last 24 Hours (Table) 10/30/23 11/02/23 11/02/23 Range/Units 12:41 05:43 05:43 WBC 11.3 H (3.8-10.6) k/uL RBC 2.63 L (4.30-5.90) m/uL Hgb 8.1 L (13.0-17.5) gm/dL Hct 24.5 L (39.0-53.0) % Neutrophils # 8.5 H (1.3-7.7) k/uL Sodium 130 L (137-145) mmol/L Chloride 93 L (98-107) mmol/L BUN 75 H (9-20) mg/dL Creatinine 5.74 H (0.66-1.25) mg/dL Glucose 106 H (74-99) mg/dL Iron 19 L (50-175) UG/DL TIBC 210 L (228-460) UG/DL % Saturation 9.05 L (12.00-50.00) Transferrin 150.0 L (204.0-354.0) mg/dL Assessment and Plan Assessment: 1. Paroxysmal Afib with RVR. Currently in sinus rhythm. 2. CHEVY secondary to ATN. 3. Status post right nephrectomy 10/27/2023 due to renal cell carcinoma. 4. Possible postop ileus versus small bowel obstruction. Plan: Continue Cardizem. Continue hydralazine.
[2023-11-02] MEDS: SODIUM FERRIC GLUCONAT-SUCROSE 125 MG in SODIUM CHLORIDE 0.9% 100 ML IVPB SCH (12:37)
[2023-11-02 13:31] LABS: Albumin 2.9 g/dL (3.5-5.0); Magnesium 2.4 mg/dL (1.6-2.3)
--- NOTE | 2023-11-02 15:52 | P.PN ---
Subjective Progress Note Date: 11/02/23 Principal diagnosis: Hospital Course: 68 y/o M with history of ESRD s/p L. renal transplant in 1981, now CKD post elective right radical nephrectomy. Patient became oliguric after surgery, with worsening renal function and hyperkalemia. He required emergent dialysis. Currently in medical ICU. Nephrology following. Patient was in A- fib RVR, started on Cardizem drip which has since resolved. Cardiology following. [facility] [place] [facility] consulted for medical management and will continue to follow. Subjective: Patient seen at bedside. Patient had 1 episode of vomiting this morning and 1 episode yesterday. NG tube was placed this morning per surgery's recommendation. Pertinent positives and negatives discussed above, a complete review of systems was preformed and all the other systems were negative. Vitals Signs Reviewed. Patient is normotensive. General: non toxic, no distress, appears at stated age, normal weight, NG tube to suction had about half a liter Derm: no unusual rashes/lesions, warm Head: atraumatic, normocephalic, symmetric Eyes: EOMI, no lid lag, anicteric sclera, pupils equal round reactive to light ENT: Nose and ears atraumatic Neck: No cervical lymphadenopathy, trachea midline, supple Mouth: no lip lesion, mucus membranes moist Cardiovascular: S1S2 reg, no murmur, positive dorsalis pedis pulse bilateral, no edema Lungs: Decreased air entry bilaterally, rhonchi bilaterally, no rales, no accessory muscle use Abdominal: soft, nontender to palpation, no guarding, distended Ext: muscle strength 5 out of 5 in all 4 extremities grossly, no gross muscle atrophy, no contractures, Neuro: CN II-XI grossly intact, no gross focal neuro deficits Psych: Alert, oriented, appropriate affect Data Reviewed Today: Patient Labs: WBC 11.3, hemoglobin 8.1, platelets 290. Sodium 130, potassium 4.5, chloride 93, bicarb 27, BUN 75, creatinine 5.74, glucose 106, calcium 8.5 Imaging: CTAP today showed no evidence for obstruction or ileus, colonic diverticulosis Assessment and Plan: Active: CHEVY on CKD Hyperkalemia Hypervolemic hyponatremia Renal cell carcinoma status post right radical nephrectomy on 10/26 Previous ESRD status post renal transplant on steroids and Imuran -Patient required emergent hemodialysis on 10/27, vascular surgery and nephrology following -Nephrology following -Urology note reviewed, recommended to avoid anticoagulation -ICU following -Continue to monitor I's and O's -Urinary output minimal -Hemodialysis tomorrow Started 80 mg IV Lasix daily -Continue to monitor patient in ICU -Imuran held, Solu-Cortef 50 mg IV daily -PhosLo held Acute hypoxic respiratory failure, secondary to hypervolemia -ICU following -oxygen as needed Possible ileus versus SBO -Surgery consulted -Patient kept NPO -NG tube to suction in place Atrial fibrillation with RVR -Deferring anticoagulation per primary team(Dr. Tobin) -cardiology following -Cardizem 240mg held -Cardizem drip at 5 mg an hour Hypertension -oral hydralazine 25 3 times daily, Cardizem 240mg daily held Normocytic anemia, secondary to CKD -No active bleeding, monitor CBC Chronic: PAD Dyslipidemia F: none E: Will replete as needed N: NPO A: Independent Code Status: FULL Anticipated discharge place: Pending clinical course Anticipated discharge time: Pending clinical course I saw and evaluated the patient during the anderson and critical portions of this encounter, and discussed the case in detail with the resident author of this note, I agree with the Assessment and Plan, and my changes, if any, are highlighted in blue. Objective - Vital Signs Vital signs: Vital Signs Temp 98.4 F 11/02/23 04:00 Pulse 103 H 11/02/23 05:30 Resp 23 11/02/23 05:30 BP 129/75 11/02/23 05:30 Pulse Ox 93 L 11/02/23 05:30 FiO2 Intake & Output 11/01/23 11/01/23 11/02/23 06:59 18:59 06:59 Intake Total 240 600 Output Total 155 3060 190 Balance 85 -2460 -190 Weight 126.6 kg 126.6 kg 126.1 kg Intake: Oral 240 Hemodialysis 600 Output: Urine 155 460 190 Hemodialysis 1600 Hemodialysis Net Amount 1000 Other: Voiding Method Indwelling Catheter Indwelling Catheter Indwelling Catheter - Labs CBC & Chem 7: 11/02/23 05:43 11/02/23 05:43 Labs: Abnormal Lab Results - Last 24 Hours (Table) 10/30/23 11/01/23 11/02/23 Range/Units 12:41 05:49 05:43 WBC 11.3 H (3.8-10.6) k/uL RBC 2.63 L (4.30-5.90) m/uL Hgb 8.1 L (13.0-17.5) gm/dL Hct 24.5 L (39.0-53.0) % Neutrophils # 8.5 H (1.3-7.7) k/uL Sodium 128 L (137-145) mmol/L Potassium 5.2 H (3.5-5.1) mmol/L Chloride 95 L (98-107) mmol/L BUN 78 H (9-20) mg/dL Creatinine 7.77 H* (0.66-1.25) mg/dL Glucose 115 H (74-99) mg/dL Magnesium 2.5 H (1.6-2.3) mg/dL Iron 19 L (50-175) UG/DL TIBC 210 L (228-460) UG/DL % Saturation 9.05 L (12.00-50.00) Transferrin 150.0 L (204.0-354.0) mg/dL 11/02/23 Range/Units 05:43 WBC (3.8-10.6) k/uL RBC (4.30-5.90) m/uL Hgb (13.0-17.5) gm/dL Hct (39.0-53.0) % Neutrophils # (1.3-7.7) k/uL Sodium 130 L (137-145) mmol/L Potassium (3.5-5.1) mmol/L Chloride 93 L (98-107) mmol/L BUN 75 H (9-20) mg/dL Creatinine 5.74 H (0.66-1.25) mg/dL Glucose 106 H (74-99) mg/dL Magnesium (1.6-2.3) mg/dL Iron (50-175) UG/DL TIBC (228-460) UG/DL % Saturation (12.00-50.00) Transferrin (204.0-354.0) mg/dL
--- NOTE | 2023-11-02 18:03 | XR ---
EXAMINATION TYPE: XR chest 1V DATE OF EXAM: 11/02/2023 COMPARISON: 10/31/2023 INDICATION: PICC line placement TECHNIQUE: Single frontal view of the chest is obtained. She is rotated to the right FINDINGS: The heart size is enlarged. The pulmonary vasculature is normal. Right lower lobe infiltrate is present. Left lower lobe infiltrate is evident. Findings are similar t o mildly worsened. Minimal effusions are not excluded or so on the right. Nasogastric tube transverses the thorax tip within the abdomen. PICC line is placed on the right with the tip in the region of the distal superior vena cava right atrial junction. IMPRESSION: 1. Bibasilar infiltrates may have slight progression from comparison. 2. PICC line tip at the distal superior vena cava right atrial junction.
[2023-11-02] MEDS: MVI, ADULT NO.4 WITH VIT K 10 ML, TRACE (CONC-1ML/DOSE) 1 ML, SODIUM ACETATE 30 MEQ, PO... IV ONE (20:36)
[2023-11-03 00:07] LABS: Glucose,Whole Blood 123 mg/dL (70-110)
[2023-11-03 06:59] LABS: Basophils % (A) 0 %; Eosinophils # (A) 0.1 k/uL (0-0.7); Eosinophils % (A) 1 %; HCT 23.6 % (39.0-53.0); HGB 7.8 gm/dL (13.0-17.5); Lymphocytes # (A) 1.1 k/uL (1.0-4.8); Lymphocytes % (A) 11 %; MCH 30.5 pg (25.0-35.0); MCV 92.4 fL (80.0-100.0); Mean Platelet Volume 7.9; Monocytes # (A) 1.1 k/uL (0-1.0); Monocytes % (A) 10 %; Neutrophils # (A) 7.5 k/uL (1.3-7.7); Neutrophils % (A) 73 %; Platelet Count 326 k/uL (150-450); RBC 2.56 m/uL (4.30-5.90); RDW 15.3 % (11.5-15.5); WBC 10.3 k/uL (3.8-10.6)
[2023-11-03 07:29] LABS: Ionized Calcium 4.6 mg/dL (4.5-5.3)
[2023-11-03 08:01] LABS: African American GFR (CKD) 9 (>60 ml/min/1.73 sqM); Anion Gap 4 mmol/L; Blood Urea Nitrogen 97 mg/dL (9-20); Calcium 8.4 mg/dL (8.4-10.2); Carbon Dioxide 29 mmol/L (22-30); Chloride 94 mmol/L (98-107); Glucose 113 mg/dL (74-99); Magnesium 2.7 mg/dL (1.6-2.3); Non-African American GFR(CKD) 8 (>60 ml/min/1.73 sqM); Phosphorus 8.3 mg/dL (2.5-4.5); Potassium 4.2 mmol/L (3.5-5.1); Sodium 127 mmol/L (137-145)
--- NOTE | 2023-11-03 09:14 | P.PN ---
Subjective patient seen and evaluated bedside. Patient is to minimal abdominal pain, no nausea with nasogastric tube in place Objective - Vital Signs Vital signs: Vital Signs Temp 99 F 11/03/23 04:00 Pulse 111 H 11/03/23 07:00 Resp 23 11/03/23 07:00 BP 144/96 11/03/23 07:00 Pulse Ox 95 11/03/23 07:00 FiO2 Intake & Output 11/02/23 11/03/23 11/03/23 18:59 06:59 18:59 Intake Total 191.083 540 Output Total 1315 2850 Balance -1123.917 -2310 Weight 126.1 kg 122.5 kg Intake: Intake, IV Titration 191.083 300 Amount Diltiazem 125 mg In 91.083 Sodium Chloride 0.9% 100 ml @ 5 MG/HR 5 mls/hr IV .Q24H [facility] Rx#:[id number] Mvi, Adult No.4 with Vit 300 K 10 ml Trace (Conc-1Ml/ Dose) 1 ml Sodium Acetate 30 meq Potassium Chloride 20 meq Calcium Gluconate 1 gm In Amino Acids 5 %/Dextrose 20 % 1 ,000 ml @ 30 mls/hr IV . Q24H [facility] Rx#:[id number] Sodium Ferric Gluconat- 100 Sucrose 125 mg In Sodium Chloride 0.9% 100 ml @ 100 mls/hr IVPB DAILY [facility] Rx#:[id number] Oral 0 240 Output: Gastric Drainage 800 1600 Urine 415 1250 Emesis 100 Other: Voiding Method Indwelling Catheter Indwelling Catheter - Exam Gen. distress alert and oriented 3 HEENT atraumatic normocephalic eyes PERRLA or mucosa moist Cardiovascular regular rate and rhythm Pulmonary nonlabored breathing Abdomen is soft, nontender to palpation, nondistended no guarding rebound tenderness - Labs CBC & Chem 7: 11/03/23 06:29 11/03/23 06:29 Labs: Abnormal Lab Results - Last 24 Hours (Table) 11/02/23 11/02/23 11/03/23 Range/Units 05:43 05:43 00:06 RBC (4.30-5.90) m/uL Hgb (13.0-17.5) gm/dL Hct (39.0-53.0) % Monocytes # (0-1.0) k/uL Sodium (137-145) mmol/L Chloride (98-107) mmol/L BUN (9-20) mg/dL Creatinine (0.66-1.25) mg/dL Glucose (74-99) mg/dL POC Glucose (mg/dL) 123 H (70-110) mg/dL Phosphorus 8.0 H (2.5-4.5) mg/dL Magnesium 2.4 H (1.6-2.3) mg/dL Albumin 2.9 L (3.5-5.0) g/dL 11/03/23 11/03/23 Range/Units 06:29 06:29 RBC 2.56 L (4.30-5.90) m/uL Hgb 7.8 L (13.0-17.5) gm/dL Hct 23.6 L (39.0-53.0) % Monocytes # 1.1 H (0-1.0) k/uL Sodium 127 L (137-145) mmol/L Chloride 94 L (98-107) mmol/L BUN 97 H (9-20) mg/dL Creatinine 6.50 H (0.66-1.25) mg/dL Glucose 113 H (74-99) mg/dL POC Glucose (mg/dL) (70-110) mg/dL Phosphorus 8.3 H (2.5-4.5) mg/dL Magnesium 2.7 H (1.6-2.3) mg/dL Albumin (3.5-5.0) g/dL Assessment and Plan Assessment: 68-year-old male with ileus secondary to recent surgery Nothing by mouth except meds Continue nasogastric tube, greater than 1 L in the last 24 hours continue to monitor No surgery at this time, less likely bowel obstruction secondary to patient's clinical exam Time with Patient: Less than 30
--- NOTE | 2023-11-03 09:55 | P.PN ---
Subjective Patient is seen in follow-up for acute kidney injury. Started on hemodialysis October 28, 2023. Has right femoral dialysis catheter. Denies chest pain or shortness of breath. On Cardizem drip for A-fib. Urine output improved and in the range of 75 to 100 cc an hour. On IV Lasix. Vital signs are stable. General: No acute distress. HEENT: Head exam is unremarkable. On nasal cannula. NG tube noted. LUNGS: Scattered rhonchi. HEART: Irregular rate and rhythm. ABDOMEN: No distention. EXTREMITITES: 1+ edema. Objective - Vital Signs Vital signs: Vital Signs Temp 99 F 11/03/23 04:00 Pulse 111 H 11/03/23 07:00 Resp 23 11/03/23 07:00 BP 144/96 11/03/23 07:00 Pulse Ox 95 11/03/23 07:00 FiO2 Intake & Output 11/02/23 11/03/23 11/03/23 18:59 06:59 18:59 Intake Total 191.083 540 Output Total 1315 2850 Balance -1123.917 -2310 Weight 126.1 kg 122.5 kg Intake: Intake, IV Titration 191.083 300 Amount Diltiazem 125 mg In 91.083 Sodium Chloride 0.9% 100 ml @ 5 MG/HR 5 mls/hr IV .Q24H [facility] Rx#:[id number] Mvi, Adult No.4 with Vit 300 K 10 ml Trace (Conc-1Ml/ Dose) 1 ml Sodium Acetate 30 meq Potassium Chloride 20 meq Calcium Gluconate 1 gm In Amino Acids 5 %/Dextrose 20 % 1 ,000 ml @ 30 mls/hr IV . Q24H [facility] Rx#:[id number] Sodium Ferric Gluconat- 100 Sucrose 125 mg In Sodium Chloride 0.9% 100 ml @ 100 mls/hr IVPB DAILY [facility] Rx#:[id number] Oral 0 240 Output: Gastric Drainage 800 1600 Urine 415 1250 Emesis 100 Other: Voiding Method Indwelling Catheter Indwelling Catheter - Labs CBC & Chem 7: 11/03/23 06:29 11/03/23 06:29 Labs: Abnormal Lab Results - Last 24 Hours (Table) 11/02/23 11/02/23 11/03/23 Range/Units 05:43 05:43 00:06 RBC (4.30-5.90) m/uL Hgb (13.0-17.5) gm/dL Hct (39.0-53.0) % Monocytes # (0-1.0) k/uL Sodium (137-145) mmol/L Chloride (98-107) mmol/L BUN (9-20) mg/dL Creatinine (0.66-1.25) mg/dL Glucose (74-99) mg/dL POC Glucose (mg/dL) 123 H (70-110) mg/dL Phosphorus 8.0 H (2.5-4.5) mg/dL Magnesium 2.4 H (1.6-2.3) mg/dL Albumin 2.9 L (3.5-5.0) g/dL 11/03/23 11/03/23 Range/Units 06:29 06:29 RBC 2.56 L (4.30-5.90) m/uL Hgb 7.8 L (13.0-17.5) gm/dL Hct 23.6 L (39.0-53.0) % Monocytes # 1.1 H (0-1.0) k/uL Sodium 127 L (137-145) mmol/L Chloride 94 L (98-107) mmol/L BUN 97 H (9-20) mg/dL Creatinine 6.50 H (0.66-1.25) mg/dL Glucose 113 H (74-99) mg/dL POC Glucose (mg/dL) (70-110) mg/dL Phosphorus 8.3 H (2.5-4.5) mg/dL Magnesium 2.7 H (1.6-2.3) mg/dL Albumin (3.5-5.0) g/dL Assessment and Plan Plan: Assessment: 1. Acute kidney injury secondary to ATN. Creatinine peaked at 9.39 this admission. Now nonoliguric. Started on hemodialysis October 28, 2023. Has a right femoral catheter. No hydronephrosis noted in the transplant kidney. 2. Chronic kidney disease stage IV/V. Patient's GFR was 18 in August 2023 per outpatient records. 3. Hyperkalemia secondary to acute kidney injury. Improved postdialysis and with medical management. 4. Status post right nephrectomy October 27, 2023 due to renal cell carcinoma. 5. Status post kidney transplant maintained on steroids and Imuran. 6. History of renal artery bypass. 7. Anemia of chronic kidney disease maintained on Aranesp. Iron deficiency noted. 8. Hyperphosphatemia secondary to acute kidney injury. On PhosLo. Phosphorus level 8.3 dated November 03, 2023. 9. Hyponatremia secondary to acute kidney injury. Hypervolemic. 10. A-fib with RVR maintained on Cardizem drip. 11. Volume overload. Improved with ultrafiltration and diuresis. 12. Metabolic acidosis secondary to acute kidney injury. Improved postdialysis. 13. Ileus. Has NG tube. Surgery following. Plan: Currently seen while undergoing hemodialysis. Continue to assess on daily basis. Maintain IV iron. Maintain IV Lasix 80 mg once daily. Preserved ejection fraction noted on echocardiogram. Stop IV hydrocortisone. Start oral prednisone 20 mg once daily tomorrow. Will need temporary catheter removed and permanent dialysis catheter placed in near future if no evidence of renal recovery.
[2023-11-03] MEDS: DILTIAZEM ORAL 30 MG TAB PO SCH (10:05)
[2023-11-03] MEDS: FAT EMULSION 20% 250 ML in EMPTY BAG 1 BAG IV SCH (10:22)
--- NOTE | 2023-11-03 10:47 | XR ---
synapse default - Radiology Report Patient: Kush Linder Ordering Physician: Unknown, Unknown ID: [id number] Phone, Pager: Phone: N/A Pager: N/A : [phone] Age/Gender: 68Y, M Primary Location: N/A Procedure: 1V PORTABLE CHEST Study Date: 10/28/2023 9:57:35 AM EXAMINATION TYPE: XR chest 1V DATE OF EXAM: 10/28/2023 HISTORY: Shortness of breath. COMPARISON: None. TECHNIQUE: Single view of the chest is submitted. FINDINGS: Demonstrated are scattered senescent parenchymal change. Mediastinal fullness. Underlying mass is not excluded although this could be related to AP portable t echnique. There is evidence of cardiomegaly. Atelectasis or infiltrate right lung is difficult to exc lude. Degenerative changes are seen of the dorsal spine. IMPRESSION: 1. Mediastinal fullness. Underlying mass is not excluded although this could be related to AP portab le technique. There is evidence of cardiomegaly. Atelectasis or infiltrate right lung is difficult to exclude.
--- NOTE | 2023-11-03 11:26 | P.PN ---
Subjective Progress Note Date: 11/03/23 This is a 68-year-old white male whom I have been seeing for the last few days while in the ICU, patient had history of renal transplant in 1971 at [facility], he was recently discovered to have renal cell carcinoma involving his right [place] kidney. Underwent radical nephrectomy on 10/27/2023, and postoperatively, patient developed anuria, and worsening metabolic acidosis worsening uremia and hyperkalemia requiring transfer to the ICU for immediate hemodialysis. Patient has been on hemodialysis for the last 2 days, and he is being followed by urology as well as nephrology. Today the patient seems to be developing metabolic encephalopathy with confusion, and he remains oliguric. WBC count today is 9.1 hemoglobin is 7.8, electrolytes showed low sodium of 130 potassium 5.5 BUN is 49 creatinine 7.10. Bicarb is 23 The patient is seen today October 31 2023 in follow-up in the intensive care unit. He is currently sitting up in bed. Awake and alert. His mental status has been waxing and waning currently oriented x 2. He is receiving hemodialysis. Goal is to remove 1 L today. This is his third day in a row. White count 9.0. Hemoglobin 8.4. Platelets 258. Sodium 129. Potassium 5.1. Bicarb 20. BUN 71. Creatinine 9.39. He did develop atrial fibrillation with a rapid ventricular response and he is currently on a Cardizem drip at 10 mg/h. Normal saline at KVO. Maintaining good O2 saturations in the 90s on 4 L/min per nasal cannula. Working with the incentive spirometer. The patient is seen today November 01, 2023 and follow-up in the intensive care unit. He is awake and alert in no acute distress. He is currently maintaining O2 saturations in the 90s on 4 L/min per nasal cannula. No IV fluids. He has been having issues with labile blood pressure. He dropped into the 60s systolically during hemodialysis yesterday requiring a small amount of norepinephrine. Today he is hypertensive. He also been having issues with nausea and vomiting. Albert x-rays reveal prominent small bowel loops measuring up to 5 cm which is concerning for possible small bowel obstruction.. Platelets 293. Sodium 128. Potassium 5.2. Bicarb 24. BUN 78. Creatinine 7.77. Glucose 115. The patient is seen today November 02, 2023 in follow-up on the intensive care unit. He is currently sitting up in bed. Awake and alert in no acute distress. He was having ongoing issues with emesis and a nasogastric tube was placed again today. CT scan of the abdomen and pelvis revealed no evidence of obstruction or ileus. He is having ongoing issues with atrial fibrillation with a rapid ventricular response. He is currently on a Cardizem drip at 5 mg/h. He is postoperative day #6 of his right nephrectomy. He is currently on 4 L/min per nasal cannula. O2 saturations in the mid 90s. Hemodynamically stable. White count 11.3. Hemoglobin 8.1. Platelets 290. Sodium 130. Potassium 4.5. Bicarb 27. BUN 75. Creatinine 5.74. Glucose 106. Urine output has improved with approximately 600 cc in the past 24 hours. Plan is for hemodialysis tomorrow. He has been initiated on IV diuretics. The patient is seen today November 03, 2023 in follow-up in the intensive care unit. And alert in no acute distress. He is maintaining O2 saturations in the 90s on 4 L/min per nasal cannula. He is continued on a Cardizem drip at 5 mg/h. Receiving TPN at 30 mL/h. Nasogastric tube remains in place. He is making good urine output. He currently is receiving hemodialysis with a goal of 1 L to be removed. He is currently in a -3.4 L balance. White count 10.3. Hemoglobin 7.8. Platelets 326. Sodium 127. Potassium 4.2. Bicarb 29. BUN 97. Creatinine 6.50. Solu-Cortef has been switched to prednisone. Objective - Vital Signs Vital signs: Vital Signs Temp 99.1 F 11/03/23 08:00 Pulse 98 11/03/23 10:00 Resp 21 11/03/23 10:00 BP 167/91 11/03/23 10:00 Pulse Ox 96 11/03/23 10:00 FiO2 Intake & Output 11/02/23 11/03/23 11/03/23 18:59 06:59 18:59 Intake Total 191.083 540 Output Total 1315 2850 Balance -1123.917 -2310 Weight 126.1 kg 122.5 kg Intake: Intake, IV Titration 191.083 300 Amount Diltiazem 125 mg In 91.083 Sodium Chloride 0.9% 100 ml @ 5 MG/HR 5 mls/hr IV .Q24H [facility] Rx#:[id number] Mvi, Adult No.4 with Vit 300 K 10 ml Trace (Conc-1Ml/ Dose) 1 ml Sodium Acetate 30 meq Potassium Chloride 20 meq Calcium Gluconate 1 gm In Amino Acids 5 %/Dextrose 20 % 1 ,000 ml @ 30 mls/hr IV . Q24H [facility] Rx#:[id number] Sodium Ferric Gluconat- 100 Sucrose 125 mg In Sodium Chloride 0.9% 100 ml @ 100 mls/hr IVPB DAILY [facility] Rx#:[id number] Oral 0 240 Output: Gastric Drainage 800 1600 Urine 415 1250 Emesis 100 Other: Voiding Method Indwelling Catheter Indwelling Catheter Indwelling Catheter - Exam GENERAL EXAM: Alert, pleasant 68-year-old male, resting in bed, on 4 L nasal cannula, comfortable in no apparent distress. HEAD: Normocephalic. EYES: Normal reaction of pupils, equal size. NOSE: Clear with pink turbinates. THROAT: No erythema or exudates. NECK: No masses, no JVD. CHEST: No chest wall deformity. LUNGS: Equal air entry with few scattered rhonchi. CVS: S1 and S2 normal with no audible murmur, irregular rhythm. ABDOMEN: Surgical dressing dry and intact. No hepatosplenomegaly, normal bowel sounds, no guarding or rigidity. SPINE: No scoliosis or deformity SKIN: No rashes CENTRAL NERVOUS SYSTEM: No focal deficits, tone is normal in all 4 extremities. EXTREMITIES: Right femoral hemodialysis catheter in place. There is no peripheral edema. No clubbing, no cyanosis. Peripheral pulses are intact. - Labs CBC & Chem 7: 11/03/23 06:29 11/03/23 06:29 Labs: Abnormal Lab Results - Last 24 Hours (Table) 11/02/23 11/02/23 11/03/23 Range/Units 05:43 05:43 00:06 RBC (4.30-5.90) m/uL Hgb (13.0-17.5) gm/dL Hct (39.0-53.0) % Monocytes # (0-1.0) k/uL Sodium (137-145) mmol/L Chloride (98-107) mmol/L BUN (9-20) mg/dL Creatinine (0.66-1.25) mg/dL Glucose (74-99) mg/dL POC Glucose (mg/dL) 123 H (70-110) mg/dL Phosphorus 8.0 H (2.5-4.5) mg/dL Magnesium 2.4 H (1.6-2.3) mg/dL Albumin 2.9 L (3.5-5.0) g/dL 11/03/23 11/03/23 Range/Units 06:29 06:29 RBC 2.56 L (4.30-5.90) m/uL Hgb 7.8 L (13.0-17.5) gm/dL Hct 23.6 L (39.0-53.0) % Monocytes # 1.1 H (0-1.0) k/uL Sodium 127 L (137-145) mmol/L Chloride 94 L (98-107) mmol/L BUN 97 H (9-20) mg/dL Creatinine 6.50 H (0.66-1.25) mg/dL Glucose 113 H (74-99) mg/dL POC Glucose (mg/dL) (70-110) mg/dL Phosphorus 8.3 H (2.5-4.5) mg/dL Magnesium 2.7 H (1.6-2.3) mg/dL Albumin (3.5-5.0) g/dL Assessment and Plan Assessment: Status post right nephrectomy 10/27/2023 Acute kidney injury/acute tubular necrosis requiring hemodialysis Acute hyperkalemia and metabolic acidosis secondary to above, recovered Acute metabolic encephalopathy secondary to uremia Atrial fibrillation with rapid ventricular response, currently on a Cardizem drip History of kidney transplant 1972 Nausea and vomiting quiring reinsertion of nasogastric tube on 11/02/2023, CT scan ruled out obstruction/ileus Plan: The patient was seen and evaluated Labs and medications reviewed Nasogastric tube remains in place Being nourished with TPN Titrate the FiO2 as tolerated Currently on a Cardizem drip Initiated on IV diuretics Hemodialysis today Solu-Cortef to prednisone We will continue to follow I have personally seen and examined the patient, performed the documentation and the assessment and plan as written. Number of minutes spent on the visit: 10.
--- NOTE | 2023-11-03 12:35 | P.PN ---
Subjective Progress Note Date: 11/03/23 Patient is a 68-year-old male with past medical history of renal transplant in 1971 initially presented for right nephrectomy due to renal cell carcinoma on 10/27/2023. Postoperatively he developed anuria, metabolic acidosis, hyperkalemia requiring hemodialysis. He also developed metabolic encephalopathy that has been improving since. On 10/31/2023 he developed A-fib with RVR for which cardiology was consulted. Patient seen at bedside, currently with an NG tube due to vomiting. Does not appear confused, no acute distress. Currently in A-fib. Sodium is 127, down from 130. Maintained on Cardizem for A-fib with RVR. HR in the 110s-120s. BP 130s-140s/80s-90s. ROS performed. Pertinent positives and negatives discussed above, a complete review of systems was performed and all the other systems were negative. Objective - Vital Signs Vital signs: Vital Signs Temp 99 F 11/03/23 04:00 Pulse 111 H 11/03/23 07:00 Resp 23 11/03/23 07:00 BP 144/96 11/03/23 07:00 Pulse Ox 95 11/03/23 07:00 FiO2 Intake & Output 11/02/23 11/03/23 11/03/23 18:59 06:59 18:59 Intake Total 191.083 540 Output Total 1315 2850 Balance -1123.917 -2310 Weight 126.1 kg 122.5 kg Intake: Intake, IV Titration 191.083 300 Amount Diltiazem 125 mg In 91.083 Sodium Chloride 0.9% 100 ml @ 5 MG/HR 5 mls/hr IV .Q24H [facility] Rx#:[id number] Mvi, Adult No.4 with Vit 300 K 10 ml Trace (Conc-1Ml/ Dose) 1 ml Sodium Acetate 30 meq Potassium Chloride 20 meq Calcium Gluconate 1 gm In Amino Acids 5 %/Dextrose 20 % 1 ,000 ml @ 30 mls/hr IV . Q24H [facility] Rx#:[id number] Sodium Ferric Gluconat- 100 Sucrose 125 mg In Sodium Chloride 0.9% 100 ml @ 100 mls/hr IVPB DAILY [facility] Rx#:[id number] Oral 0 240 Output: Gastric Drainage 800 1600 Urine 415 1250 Emesis 100 Other: Voiding Method Indwelling Catheter Indwelling Catheter - Exam Vital signs reviewed. General: No acute distress. Currently with NG tube. HEENT: Head exam is unremarkable. Lungs: Bilateral breath sounds present; no rhonchi, wheezes, or rales. Heart: S1S2 present. Abdomen: Soft, nondistended. Extremities: 1+ edema present. - Labs CBC & Chem 7: 11/03/23 06:29 11/03/23 06:29 Labs: Abnormal Lab Results - Last 24 Hours (Table) 11/02/23 11/02/23 11/03/23 Range/Units 05:43 05:43 00:06 RBC (4.30-5.90) m/uL Hgb (13.0-17.5) gm/dL Hct (39.0-53.0) % Monocytes # (0-1.0) k/uL Sodium (137-145) mmol/L Chloride (98-107) mmol/L BUN (9-20) mg/dL Creatinine (0.66-1.25) mg/dL Glucose (74-99) mg/dL POC Glucose (mg/dL) 123 H (70-110) mg/dL Phosphorus 8.0 H (2.5-4.5) mg/dL Magnesium 2.4 H (1.6-2.3) mg/dL Albumin 2.9 L (3.5-5.0) g/dL 11/03/23 11/03/23 Range/Units 06:29 06:29 RBC 2.56 L (4.30-5.90) m/uL Hgb 7.8 L (13.0-17.5) gm/dL Hct 23.6 L (39.0-53.0) % Monocytes # 1.1 H (0-1.0) k/uL Sodium 127 L (137-145) mmol/L Chloride 94 L (98-107) mmol/L BUN 97 H (9-20) mg/dL Creatinine 6.50 H (0.66-1.25) mg/dL Glucose 113 H (74-99) mg/dL POC Glucose (mg/dL) (70-110) mg/dL Phosphorus 8.3 H (2.5-4.5) mg/dL Magnesium 2.7 H (1.6-2.3) mg/dL Albumin (3.5-5.0) g/dL Assessment and Plan Assessment: 1. Paroxysmal Afib with RVR. Currently on Cardizem drip - rate controlled. 2. CHEVY secondary to ATN. 3. Volume overload. Improved with dialysis and Lasix. 4. Status post right nephrectomy 10/27/2023 due to renal cell carcinoma. 5. Postoperative ileus. Has an NG tube. 6. Hyponatremia secondary to acute kidney injury. Hypervolemic. 7. History of renal transplant. Maintained on steroids and Imuran. Plan: Continue Cardizem 30 mg PO daily. Increase hydralazine to 50 mg PO 3 times daily. Continue Lipitor 20 mg PO daily. Continue IV Lasix 80 mg. Anticoagulation deferred as per primary team.
[2023-11-03 12:59] LABS: Glucose,Whole Blood 136 mg/dL (70-110)
--- NOTE | 2023-11-03 14:21 | P.PN ---
Subjective Progress Note Date: 11/03/23 Principal diagnosis: Hospital Course: 68 y/o M with history of ESRD s/p L. renal transplant in 1981, now CKD post elective right radical nephrectomy. Patient became oliguric after surgery, with worsening renal function and hyperkalemia. He required emergent dialysis. Currently in medical ICU. Nephrology following. Patient was in A- fib RVR, started on Cardizem drip which has since resolved. Cardiology following. [facility] consulted for medical management and will continue to follow. Subjective: Patient seen at bedside. He denies any fevers chills nausea vomiting diarrhea. Pertinent positives and negatives discussed above, a complete review of systems was preformed and all the other systems were negative. Vitals Signs Reviewed. Patient is slightly hypertensive and mildly tachycardic in the low 100s, irregular rhythm. Satting mid 90s on 4 L nasal cannula General: non toxic, no distress, appears at stated age, normal weight, NG tube to suction with 100 to 200 cc/h Derm: no unusual rashes/lesions, warm Head: atraumatic, normocephalic, symmetric Eyes: EOMI, no lid lag, anicteric sclera, pupils equal round reactive to light ENT: Nose and ears atraumatic Neck: No cervical lymphadenopathy, trachea midline, supple Mouth: no lip lesion, mucus membranes moist Cardiovascular: S1S2 reg, no murmur, positive dorsalis pedis pulse bilateral, no edema Lungs: Decreased air entry bilaterally, rhonchi bilaterally, no rales, no accessory muscle use Abdominal: soft, nontender to palpation, no guarding, distended Ext: muscle strength 5 out of 5 in all 4 extremities grossly, no gross muscle atrophy, no contractures, Neuro: CN II-XI grossly intact, no gross focal neuro deficits Psych: Alert, oriented, appropriate affect Data Reviewed Today: Patient Labs: WBCs 10.3, hemoglobin 7.8, platelets 326. Sodium 127, potassium 4.2, chloride 95, bicarb 29, BUN 97, creatinine 6.5, glucose 113. Calcium 8.4, phosphorus 8.3, mag 2.7. Imaging: No new imaging Assessment and Plan: Active: Nonoliguric CHEVY on CKD Hyperkalemia Hypervolemic hyponatremia Renal cell carcinoma status post right radical nephrectomy on 10/26 Previous ESRD status post renal transplant on steroids and Imuran -Patient required emergent hemodialysis on 10/27, vascular surgery and nephrology following -Urology note reviewed, recommended to avoid anticoagulation -ICU following -Continue to monitor I's and O's -Urinary output 75 to 100 cc/h -Hemodialysis today 1 L taken off -80 mg IV Lasix daily -Continue to monitor patient in ICU -Imuran -PhosLo discontinued Discontinued IV Solu-Cortef, will transition to 20 mg prednisone tomorrow Acute hypoxic respiratory failure, secondary to hypervolemia -ICU following -oxygen as needed Postoperative ileus -Surgery consulted -Patient kept NPO -NG tube to suction in place still putting out about 100 cc/h No more episodes of vomiting or bowel movements Atrial fibrillation with RVR -Deferring anticoagulation per primary team(Dr. Tobin) -cardiology following -Cardizem 30 mg p.o. daily Hypertension -Hydralazine 50 mg p.o. 3 times daily Normocytic anemia, secondary to CKD -No active bleeding, monitor CBC Chronic: PAD Dyslipidemia F: none E: Will replete as needed N: TPN A: Independent Code Status: FULL Anticipated discharge place: Pending clinical course Anticipated discharge time: Pending clinical course Patient was seen and examined by me and the resident. I agree with the subjective and objective as above. We discussed the assessment and plan as documented below: Urine output 1665 cc over the past 24H. HR in the low 100s. Currently on 4L NC. CXR done today shows bibasilar infiltrates. CBC and BMP significant for RBC 2.56, Hg 7.8, Hct 23.6, Na 127, Cl 94, BUN 97, Cr 6.5, glu 113. Phos 8.3. Mag 2.7. CHEVY on CKD: Started on HD 10/27. CT AP with no signs of obstructive uropathy. Continue Lasix 80 mg IV QD. Monitor daily BMP for electrolytes and renal function. Nephrology on board, plans for HD today. Hypervolemic hyponatremia: Hopeful improvement with HD. Renal cell carcinoma: Status post right radical nephrectomy on 10/26. Urology on board. Previous ESRD status post renal transplant: Imuran 125 mg PO QD. SoluCortef switched to Prednisone 20 mg PO QD. Acute hypoxic respiratory failure likely due to hypervolemia: Hopeful improvement with HD and Lasix as above. Titrate O2 to maintain O2 sat > 88%. Nausea and Vomiting: CT AP negative for ileus or SBO. Diet advanced to CLD. Hall rudi on board. Atrial fibrillation with RVR: Urology recommending to hold anticoagulation. Echo EF 60-65% with moderate LVH. Cardizem drip switched to Cardizem 30 mg PO TID by Cardiology. Obtain TSH. Maintain Mag > 2 and K > 4. Cardiology on board. Hypertension: BP 144/96 this morning. Cardizem 30 mg PO TID + Hydralazine 50 mg PO TID. Anemia of Chronic Disease: Hg stable. Fe 19, Ferritin 301. Component of Fe def. Started on Ferric gluconate 125 mg IV QD. Aranesp 40 mcg SQ weekly. Transfuse PRBC if Hg < 7. Hyperphosphatemia: Phoslo 667 mg PO TID. PAD: Cilostazol 100 mg PO BID. Dipyridamole 50 mg PO TID. Dyslipidemia: Lipitor 20 mg PO QD. Resolved: Hyperkalemia Discontinue Pepcid and start Protonix 40 mg IV QD. Objective - Vital Signs Vital signs: Vital Signs Temp 99 F 11/03/23 04:00 Pulse 122 H 11/03/23 06:00 Resp 22 11/03/23 06:00 BP 152/93 11/03/23 06:00 Pulse Ox 94 L 11/03/23 06:00 FiO2 Intake & Output 11/02/23 11/02/23 11/03/23 06:59 18:59 06:59 Intake Total 191.083 510 Output Total 190 1315 2650 Balance -190 -1123.917 -2140 Weight 126.1 kg 126.1 kg 122.5 kg Intake: Intake, IV Titration 191.083 270 Amount Diltiazem 125 mg In 91.083 Sodium Chloride 0.9% 100 ml @ 5 MG/HR 5 mls/hr IV .Q24H [facility] Rx#:[id number] Mvi, Adult No.4 with Vit 270 K 10 ml Trace (Conc-1Ml/ Dose) 1 ml Sodium Acetate 30 meq Potassium Chloride 20 meq Calcium Gluconate 1 gm In Amino Acids 5 %/Dextrose 20 % 1 ,000 ml @ 30 mls/hr IV . Q24H [facility] Rx#:[id number] Sodium Ferric Gluconat- 100 Sucrose 125 mg In Sodium Chloride 0.9% 100 ml @ 100 mls/hr IVPB DAILY [facility] Rx#:[id number] Oral 0 240 Output: Gastric Drainage 800 1500 Urine 970 296 0745 Emesis 100 Other: Voiding Method Indwelling Catheter Indwelling Catheter Indwelling Catheter - Labs CBC & Chem 7: 11/03/23 06:29 11/03/23 06:29 Labs: Abnormal Lab Results - Last 24 Hours (Table) 11/02/23 11/02/23 11/03/23 Range/Units 05:43 05:43 00:06 POC Glucose (mg/dL) 123 H (70-110) mg/dL Phosphorus 8.0 H (2.5-4.5) mg/dL Magnesium 2.4 H (1.6-2.3) mg/dL Albumin 2.9 L (3.5-5.0) g/dL
[2023-11-03] MEDS: hydrALAZINE HCL 50 MG TAB PO SCH (16:03)
[2023-11-03 18:14] LABS: Glucose,Whole Blood 119 mg/dL (70-110)
[2023-11-03] MEDS ORDERED: 1: MVI, ADULT NO.4 WITH VIT K 10 ML, TRACE (CONC-1ML/DOSE) 1 ML, SODIUM ACETATE 30 MEQ, IV SCH (19:30)
[2023-11-03] MEDS: MVI, ADULT NO.4 WITH VIT K 10 ML, TRACE (CONC-1ML/DOSE) 1 ML, SODIUM ACETATE 30 MEQ, PO... IV SCH (21:41)
--- NOTE | 2023-11-03 22:21 | P.PN ---
Subjective Progress Note Date: 11/03/23 Principal diagnosis: POD #7, s/p right radical nephrectomy Mr. Linder is awake and alert. He has an NG tube due to the nausea he was experiencing. He has had a bowel movement. He denies incisional pain. Objective - Vital Signs Vital signs: Vital Signs Temp 98.5 F 11/03/23 16:00 Pulse 112 H 11/03/23 16:00 Resp 19 11/03/23 16:00 BP 159/98 11/03/23 16:00 Pulse Ox 94 L 11/03/23 16:00 FiO2 Intake & Output 11/02/23 11/03/23 11/03/23 18:59 06:59 18:59 Intake Total 191.980 470 5661 Output Total 1315 2850 4395 Balance -1123.91 -3063 -2340 Weight 126.1 kg 122.5 kg 122.5 kg Intake: Intake, IV Titration 191.083 300 517 Amount Diltiazem 125 mg In 91.083 Sodium Chloride 0.9% 100 ml @ 5 MG/HR 5 mls/hr IV .Q24H [facility] Rx#:[id number] Fat Emulsion 20% 250 ml 147 In Empty Bag 1 bag @ 21 mls/hr IV MoTh [facility] Rx#: [id number] Mvi, Adult No.4 with Vit 300 K 10 ml Trace (Conc-1Ml/ Dose) 1 ml Sodium Acetate 30 meq Potassium Chloride 20 meq Calcium Gluconate 1 gm In Amino Acids 5 %/Dextrose 20 % 1 ,000 ml @ 30 mls/hr IV . Q24H [facility] Rx#:[id number] Mvi, Adult No.4 with Vit 270 K 10 ml Trace (Conc-1Ml/ Dose) 1 ml Sodium Acetate 30 meq Potassium Chloride 20 meq Calcium Gluconate 1 gm Sodium Chloride 4Meq/ml Vial 24 meq In Amino Acids 5 %/ Dextrose 20 % 1,000 ml @ 58 mls/hr IV .Q18H9M [facility] Rx#:[id number] Sodium Ferric Gluconat- 100 100 Sucrose 125 mg In Sodium Chloride 0.9% 100 ml @ 100 mls/hr IVPB DAILY [facility] Rx#:[id number] Oral 0 240 Hemodialysis 600 Output: Gastric Drainage 800 1600 600 Urine 415 1250 1195 Emesis 100 Hemodialysis 1600 Hemodialysis Net Amount 1000 Other: Voiding Method Indwelling Catheter Indwelling Catheter Indwelling Catheter - Constitutional General appearance: Present: average body habitus, cooperative, no acute distress - Gastrointestinal Gastrointestinal Comment(s): Soft, non-distended. Incision clean and dry. - Psychiatric Psychiatric: Present: A&O x's 3 - Labs CBC & Chem 7: 11/03/23 06:29 11/03/23 06:29 Labs: Abnormal Lab Results - Last 24 Hours (Table) 11/03/23 11/03/23 11/03/23 Range/Units 00:06 06:29 06:29 RBC 2.56 L (4.30-5.90) m/uL Hgb 7.8 L (13.0-17.5) gm/dL Hct 23.6 L (39.0-53.0) % Monocytes # 1.1 H (0-1.0) k/uL Sodium 127 L (137-145) mmol/L Chloride 94 L (98-107) mmol/L BUN 97 H (9-20) mg/dL Creatinine 6.50 H (0.66-1.25) mg/dL Glucose 113 H (74-99) mg/dL POC Glucose (mg/dL) 123 H (70-110) mg/dL Phosphorus 8.3 H (2.5-4.5) mg/dL Magnesium 2.7 H (1.6-2.3) mg/dL 11/03/23 Range/Units 12:57 RBC (4.30-5.90) m/uL Hgb (13.0-17.5) gm/dL Hct (39.0-53.0) % Monocytes # (0-1.0) k/uL Sodium (137-145) mmol/L Chloride (98-107) mmol/L BUN (9-20) mg/dL Creatinine (0.66-1.25) mg/dL Glucose (74-99) mg/dL POC Glucose (mg/dL) 136 H (70-110) mg/dL Phosphorus (2.5-4.5) mg/dL Magnesium (1.6-2.3) mg/dL Assessment and Plan Assessment: The patient's urine output has improved considerably. However, his renal function is unchanged. Pathology reveals papillary renal cell carcinoma. (1) Neoplasm of uncertain behavior of right kidney Current Visit: Yes Status: Acute Code(s): D41.01 - NEOPLASM OF UNCERTAIN BEHAVIOR OF RIGHT KIDNEY SNOMED Code(s): 520291504906683 Plan: - Continue dialysis as needed - CT scan shows no evidence of bowel obstruction - Increase ambulation - Will need oncology consultation to discuss adjuvant therapy
[2023-11-04 03:47] LABS: Basophils % (A) 0 %; Eosinophils # (A) 0.1 k/uL (0-0.7); Eosinophils % (A) 1 %; HCT 23.9 % (39.0-53.0); HGB 7.7 gm/dL (13.0-17.5); Lymphocytes # (A) 1.3 k/uL (1.0-4.8); Lymphocytes % (A) 12 %; MCH 29.8 pg (25.0-35.0); MCHC 32.1 g/dL (31.0-37.0); MCV 92.7 fL (80.0-100.0); Mean Platelet Volume 7.7; Monocytes # (A) 1.3 k/uL (0-1.0); Monocytes % (A) 11 %; Neutrophils # (A) 8.1 k/uL (1.3-7.7); Neutrophils % (A) 73 %; Platelet Count 336 k/uL (150-450); RBC 2.57 m/uL (4.30-5.90); WBC 11.1 k/uL (3.8-10.6)
[2023-11-04 04:03] LABS: African American GFR (CKD) 14 (>60 ml/min/1.73 sqM); Anion Gap 8 mmol/L; Blood Urea Nitrogen 76 mg/dL (9-20); Calcium 8.3 mg/dL (8.4-10.2); Carbon Dioxide 32 mmol/L (22-30); Chloride 95 mmol/L (98-107); Glucose 113 mg/dL (74-99); Magnesium 2.4 mg/dL (1.6-2.3); Non-African American GFR(CKD) 12 (>60 ml/min/1.73 sqM); Potassium 3.8 mmol/L (3.5-5.1); Sodium 135 mmol/L (137-145)
[2023-11-04] MEDS: CALCIUM ACETATE 667 MG TAB PO SCH (06:57)
[2023-11-04] MEDS: PANTOPRAZOLE 40 MG/10 ML VIAL IVP SCH (08:09)
[2023-11-04] MEDS: predniSONE 20 MG TAB PO SCH (08:30)
[2023-11-04] MEDS: METOPROLOL TARTRATE 25 MG TAB PO SCH (10:05)
--- NOTE | 2023-11-04 10:09 | P.PN ---
Subjective Patient is seen in follow-up for acute kidney injury. Started on hemodialysis October 28, 2023. Has right femoral dialysis catheter. Denies chest pain or shortness of breath. Now on oral meds for A-fib. Urine output improved and in the range of 50-100 cc an hour. On IV Lasix. Vital signs are stable. General: No acute distress. HEENT: Head exam is unremarkable. On nasal cannula. NG tube noted. LUNGS: Scattered rhonchi. HEART: Irregular rate and rhythm. ABDOMEN: No distention. EXTREMITITES: 1+ edema. Objective - Vital Signs Vital signs: Vital Signs Temp 99.8 F H 11/04/23 08:00 Pulse 118 H 11/04/23 09:00 Resp 14 11/04/23 09:00 BP 172/104 11/04/23 09:00 Pulse Ox 92 L 11/04/23 09:00 FiO2 Intake & Output 11/03/23 11/04/23 11/04/23 18:59 06:59 18:59 Intake Total 1219 922 196 Output Total 4784 1640 300 Balance -3501 -718 -104 Weight 122.5 kg 123.6 kg Intake: IV 116 Mvi, Adult No.4 with Vit 116 K 10 ml Trace (Conc-1Ml/ Dose) 1 ml Sodium Acetate 30 meq Potassium Chloride 20 meq Calcium Gluconate 1 gm Sodium Chloride 4Meq/ml Vial 24 meq In Amino Acids 5 %/ Dextrose 20 % 1,000 ml @ 58 mls/hr IV .Q18H9M [facility] Rx#:[id number] Intake, IV Titration 619 682 Amount Fat Emulsion 20% 250 ml 189 42 In Empty Bag 1 bag @ 21 mls/hr IV [facility]Th [facility] Rx#: [id number] Mvi, Adult No.4 with Vit 330 640 K 10 ml Trace (Conc-1Ml/ Dose) 1 ml Sodium Acetate 30 meq Potassium Chloride 20 meq Calcium Gluconate 1 gm Sodium Chloride 4Meq/ml Vial 24 meq In Amino Acids 5 %/ Dextrose 20 % 1,000 ml @ 58 mls/hr IV .Q18H9M [facility] Rx#:[id number] Sodium Ferric Gluconat- 100 Sucrose 125 mg In Sodium Chloride 0.9% 100 ml @ 100 mls/hr IVPB DAILY [facility] Rx#:[id number] Oral 240 Hemodialysis 600 Other 80 Output: Gastric Drainage 700 900 Urine 1420 740 300 Hemodialysis 1600 Hemodialysis Net Amount 1000 Other: Voiding Method Indwelling Catheter Indwelling Catheter # Bowel Movements 1 - Labs CBC & Chem 7: 11/04/23 03:15 11/04/23 03:15 Labs: Abnormal Lab Results - Last 24 Hours (Table) 11/03/23 11/03/23 11/04/23 Range/Units 12:57 18:13 03:15 WBC 11.1 H (3.8-10.6) k/uL RBC 2.57 L (4.30-5.90) m/uL Hgb 7.7 L (13.0-17.5) gm/dL Hct 23.9 L (39.0-53.0) % Neutrophils # 8.1 H (1.3-7.7) k/uL Monocytes # 1.3 H (0-1.0) k/uL Sodium (137-145) mmol/L Chloride (98-107) mmol/L Carbon Dioxide (22-30) mmol/L BUN (9-20) mg/dL Creatinine (0.66-1.25) mg/dL Glucose (74-99) mg/dL POC Glucose (mg/dL) 136 H 119 H (70-110) mg/dL Calcium (8.4-10.2) mg/dL Phosphorus (2.5-4.5) mg/dL Magnesium (1.6-2.3) mg/dL 11/04/23 Range/Units 03:15 WBC (3.8-10.6) k/uL RBC (4.30-5.90) m/uL Hgb (13.0-17.5) gm/dL Hct (39.0-53.0) % Neutrophils # (1.3-7.7) k/uL Monocytes # (0-1.0) k/uL Sodium 135 L (137-145) mmol/L Chloride 95 L (98-107) mmol/L Carbon Dioxide 32 H (22-30) mmol/L BUN 76 H (9-20) mg/dL Creatinine 4.62 H (0.66-1.25) mg/dL Glucose 113 H (74-99) mg/dL POC Glucose (mg/dL) (70-110) mg/dL Calcium 8.3 L (8.4-10.2) mg/dL Phosphorus 6.0 H (2.5-4.5) mg/dL Magnesium 2.4 H (1.6-2.3) mg/dL Assessment and Plan Plan: Assessment: 1. Acute kidney injury secondary to ATN. Creatinine peaked at 9.39 this admission. Now nonoliguric. Started on hemodialysis October 28, 2023. Has a right femoral catheter. No hydronephrosis noted in the transplant kidney. 2. Chronic kidney disease stage IV/V. Patient's GFR was 18 in August 2023 per o utpatient records. 3. Hyperkalemia secondary to acute kidney injury. Improved postdialysis and with medical management. 4. Status post right nephrectomy October 27, 2023 due to renal cell carcinoma. 5. Status post kidney transplant maintained on steroids and Imuran. 6. History of renal artery bypass. 7. Anemia of chronic kidney disease maintained on Aranesp. Iron deficiency noted. 8. Hyperphosphatemia secondary to acute kidney injury. On PhosLo. Phosphorus level 8.3 dated November 03, 2023; 6.0 dated November 04, 2023. 9. Hyponatremia secondary to acute kidney injury. Hypervolemic. Improved postdialysis. 10. A-fib with RVR status post now on oral meds. Cardizem drip. 11. Volume overload. Improved with ultrafiltration and diuresis. 12. Metabolic acidosis secondary to acute kidney injury. Improved postdialysis. 13. Ileus. Has NG tube. Surgery following. Plan: Hemodialysis tomorrow. Now receiving TPN. Maintain IV iron. Maintain IV Lasix 80 mg once daily. Preserved ejection fraction noted on echocardiogram. Maintain oral prednisone. Decrease dose to 10 mg starting tomorrow and then 4 mg of Medrol starting November 06, 2023, which is his home dose. Vascular surgery will be notified for permanent dialysis catheter placement. Continue to monitor for renal recovery.
--- NOTE | 2023-11-04 10:20 | P.PN ---
Subjective Progress Note Date: 11/04/23 Principal diagnosis: POD #8, s/p right radical nephrectomy Mr. Linder is awake and alert. He has an NG tube due to the nausea he was experiencing. He has had 2 additional bowel movements. He reports mild incisional pain. Objective - Vital Signs Vital signs: Vital Signs Temp 99.8 F H 11/04/23 08:00 Pulse 118 H 11/04/23 09:00 Resp 14 11/04/23 09:00 BP 172/104 11/04/23 09:00 Pulse Ox 92 L 11/04/23 09:00 FiO2 Intake & Output 11/03/23 11/04/23 11/04/23 18:59 06:59 18:59 Intake Total 1219 922 196 Output Total 4705 1640 300 Balance -3501 -718 -104 Weight 122.5 kg 123.6 kg Intake: IV 116 Mvi, Adult No.4 with Vit 116 K 10 ml Trace (Conc-1Ml/ Dose) 1 ml Sodium Acetate 30 meq Potassium Chloride 20 meq Calcium Gluconate 1 gm Sodium Chloride 4Meq/ml Vial 24 meq In Amino Acids 5 %/ Dextrose 20 % 1,000 ml @ 58 mls/hr IV .Q18H9M [facility] Rx#:[id number] Intake, IV Titration 619 682 Amount Fat Emulsion 20% 250 ml 189 42 In Empty Bag 1 bag @ 21 mls/hr IV MoTh [facility] Rx#: [id number] Mvi, Adult No.4 with Vit 330 640 K 10 ml Trace (Conc-1Ml/ Dose) 1 ml Sodium Acetate 30 meq Potassium Chloride 20 meq Calcium Gluconate 1 gm Sodium Chloride 4Meq/ml Vial 24 meq In Amino Acids 5 %/ Dextrose 20 % 1,000 ml @ 58 mls/hr IV .Q18H9M [facility] Rx#:[id number] Sodium Ferric Gluconat- 100 Sucrose 125 mg In Sodium Chloride 0.9% 100 ml @ 100 mls/hr IVPB DAILY [facility] Rx#:[id number] Oral 240 Hemodialysis 600 Other 80 Output: Gastric Drainage 700 900 Urine 1420 740 300 Hemodialysis 1600 Hemodialysis Net Amount 1000 Other: Voiding Method Indwelling Catheter Indwelling Catheter # Bowel Movements 1 - Constitutional General appearance: Present: average body habitus, cooperative, no acute distress - Gastrointestinal Gastrointestinal Comment(s): Soft, non-distended. The incision is intact, with minimal serous drainage from the lateral aspect of the incision. - Labs CBC & Chem 7: 11/04/23 03:15 11/04/23 03:15 Labs: Abnormal Lab Results - Last 24 Hours (Table) 11/03/23 11/03/23 11/04/23 Range/Units 12:57 18:13 03:15 WBC 11.1 H (3.8-10.6) k/uL RBC 2.57 L (4.30-5.90) m/uL Hgb 7.7 L (13.0-17.5) gm/dL Hct 23.9 L (39.0-53.0) % Neutrophils # 8.1 H (1.3-7.7) k/uL Monocytes # 1.3 H (0-1.0) k/uL Sodium (137-145) mmol/L Chloride (98-107) mmol/L Carbon Dioxide (22-30) mmol/L BUN (9-20) mg/dL Creatinine (0.66-1.25) mg/dL Glucose (74-99) mg/dL POC Glucose (mg/dL) 136 H 119 H (70-110) mg/dL Calcium (8.4-10.2) mg/dL Phosphorus (2.5-4.5) mg/dL Magnesium (1.6-2.3) mg/dL 11/04/23 Range/Units 03:15 WBC (3.8-10.6) k/uL RBC (4.30-5.90) m/uL Hgb (13.0-17.5) gm/dL Hct (39.0-53.0) % Neutrophils # (1.3-7.7) k/uL Monocytes # (0-1.0) k/uL Sodium 135 L (137-145) mmol/L Chloride 95 L (98-107) mmol/L Carbon Dioxide 32 H (22-30) mmol/L BUN 76 H (9-20) mg/dL Creatinine 4.62 H (0.66-1.25) mg/dL Glucose 113 H (74-99) mg/dL POC Glucose (mg/dL) (70-110) mg/dL Calcium 8.3 L (8.4-10.2) mg/dL Phosphorus 6.0 H (2.5-4.5) mg/dL Magnesium 2.4 H (1.6-2.3) mg/dL Assessment and Plan Assessment: The patient's urine output has improved considerably. However, his renal function is unchanged. Pathology reveals papillary renal cell carcinoma. It should be noted that the tumor was necrotic and that portions of the tumor broke away from the kidney at the time of surgery. All visible tumor was removed. (1) Neoplasm of uncertain behavior of right kidney Current Visit: Yes Status: Acute Code(s): D41.01 - NEOPLASM OF UNCERTAIN BEHAVIOR OF RIGHT KIDNEY SNOMED Code(s): 656682735194278 Plan: - Continue dialysis as needed - Increase ambulation - I would favor removal of the NG tube and begin diet in small amounts - From a urologic standpoint, the patient may be transferred out of the ICU - Will need oncology consultation to discuss adjuvant therapy
--- NOTE | 2023-11-04 11:01 | P.PN ---
Subjective Progress Note Date: 11/04/23 Patient is a 68-year-old male with past medical history of renal transplant in 1971 initially presented for right nephrectomy due to renal cell carcinoma on 10/27/2023. Postoperatively he developed anuria, metabolic acidosis, hyperkalemia requiring hemodialysis. He also developed metabolic encephalopathy that has been improving since. On 10/31/2023 he developed A-fib with RVR for which cardiology was consulted. Patient seen at bedside, currently with an NG tube. Currently in A-fib with RVR. Sodium improved to 135. Maintained on Cardizem for A-fib with RVR. HR in the 110s-120s. BP 130s-140s/80s-90s. States he is feeling well. ROS performed. Pertinent positives and negatives discussed above, a complete review of systems was performed and all the other systems were negative. Objective - Vital Signs Vital signs: Vital Signs Temp 100.5 F H 11/04/23 04:00 Pulse 113 H 11/04/23 06:00 Resp 24 11/04/23 06:00 BP 145/116 11/04/23 06:00 Pulse Ox 95 11/04/23 06:00 FiO2 Intake & Output 11/03/23 11/03/23 11/04/23 06:59 18:59 06:59 Intake Total 540 1219 922 Output Total 2851 3327 7248 Balance -8066 -7625 -114 Weight 122.5 kg 122.5 kg 123.6 kg Intake: Intake, IV Titration 300 619 682 Amount Fat Emulsion 20% 250 ml 189 42 In Empty Bag 1 bag @ 21 mls/hr IV [facility]Th [facility] Rx#: [id number] Mvi, Adult No.4 with Vit 300 K 10 ml Trace (Conc-1Ml/ Dose) 1 ml Sodium Acetate 30 meq Potassium Chloride 20 meq Calcium Gluconate 1 gm In Amino Acids 5 %/Dextrose 20 % 1 ,000 ml @ 30 mls/hr IV . Q24H [facility] Rx#:[id number] [facility], Adult No.4 with Vit 330 640 K 10 ml Trace (Conc-1Ml/ Dose) 1 ml Sodium Acetate 30 meq Potassium Chloride 20 meq Calcium Gluconate 1 gm Sodium Chloride 4Meq/ml Vial 24 meq In Amino Acids 5 %/ Dextrose 20 % 1,000 ml @ 58 mls/hr IV .Q18H9M [facility] Rx#:[id number] Sodium Ferric Gluconat- 100 Sucrose 125 mg In Sodium Chloride 0.9% 100 ml @ 100 mls/hr IVPB DAILY [facility] Rx#:[id number] Oral 240 240 Hemodialysis 600 Output: Gastric Drainage 1600 700 900 Urine 1250 1420 740 Hemodialysis 1600 Hemodialysis Net Amount 1000 Other: Voiding Method Indwelling Catheter Indwelling Catheter Indwelling Catheter # Bowel Movements 1 - Exam Vital signs reviewed. General: No acute distress. Currently with NG tube. HEENT: Head exam is unremarkable. Lungs: Bilateral breath sounds present; no rhonchi, wheezes, or rales. Heart: S1S2 present. Abdomen: Soft, nondistended. Extremities: 1+ edema present. - Labs CBC & Chem 7: 11/04/23 03:15 11/04/23 03:15 Labs: Abnormal Lab Results - Last 24 Hours (Table) 11/03/23 11/03/23 11/03/23 Range/Units 06:29 06:29 12:57 WBC (3.8-10.6) k/uL RBC 2.56 L (4.30-5.90) m/uL Hgb 7.8 L (13.0-17.5) gm/dL Hct 23.6 L (39.0-53.0) % Neutrophils # (1.3-7.7) k/uL Monocytes # 1.1 H (0-1.0) k/uL Sodium 127 L (137-145) mmol/L Chloride 94 L (98-107) mmol/L Carbon Dioxide (22-30) mmol/L BUN 97 H (9-20) mg/dL Creatinine 6.50 H (0.66-1.25) mg/dL Glucose 113 H (74-99) mg/dL POC Glucose (mg/dL) 136 H (70-110) mg/dL Calcium (8.4-10.2) mg/dL Phosphorus 8.3 H (2.5-4.5) mg/dL Magnesium 2.7 H (1.6-2.3) mg/dL 11/03/23 11/04/23 11/04/23 Range/Units 18:13 03:15 03:15 WBC 11.1 H (3.8-10.6) k/uL RBC 2.57 L (4.30-5.90) m/uL Hgb 7.7 L (13.0-17.5) gm/dL Hct 23.9 L (39.0-53.0) % Neutrophils # 8.1 H (1.3-7.7) k/uL Monocytes # 1.3 H (0-1.0) k/uL Sodium 135 L (137-145) mmol/L Chloride 95 L (98-107) mmol/L Carbon Dioxide 32 H (22-30) mmol/L BUN 76 H (9-20) mg/dL Creatinine 4.62 H (0.66-1.25) mg/dL Glucose 113 H (74-99) mg/dL POC Glucose (mg/dL) 119 H (70-110) mg/dL Calcium 8.3 L (8.4-10.2) mg/dL Phosphorus 6.0 H (2.5-4.5) mg/dL Magnesium 2.4 H (1.6-2.3) mg/dL Assessment and Plan Assessment: 1. Paroxysmal Afib with RVR. Currently on Cardizem PO 30 mg 3 times daily. Start anticoagulation with Eliquis 5 mg PO twice daily. 2. CHEVY secondary to ATN. Improving. 3. Volume overload. Improving with dialysis and Lasix. 4. Status post right nephrectomy 10/27/2023 due to renal cell carcinoma. 5. Postoperative ileus. Has an NG tube. 6. Hyponatremia secondary to acute kidney injury. Hypervolemic. 7. History of renal transplant. Maintained on steroids and Imuran. Plan: Start Eliquis 5 mg twice daily. Start metoprolol tartrate 25 mg PO 3 times daily. Continue Cardizem 30 mg PO 3 times daily. Continue hydralazine 50 mg PO 3 times daily. Continue Lipitor 20 mg PO daily. Continue IV Lasix 80 mg.
--- NOTE | 2023-11-04 11:47 | P.PN ---
Subjective Progress Note Date: 11/04/23 This is a 68-year-old white male whom I have been seeing for the last few days while in the ICU, patient had history of renal transplant in 1971 at [facility], he was recently discovered to have renal cell carcinoma involving his right [place] kidney. Underwent radical nephrectomy on 10/27/2023, and postoperatively, patient developed anuria, and worsening metabolic acidosis worsening uremia and hyperkalemia requiring transfer to the ICU for immediate hemodialysis. Patient has been on hemodialysis for the last 2 days, and he is being followed by urology as well as nephrology. Today the patient seems to be developing metabolic encephalopathy with confusion, and he remains oliguric. WBC count today is 9.1 hemoglobin is 7.8, electrolytes showed low sodium of 130 potassium 5.5 BUN is 49 creatinine 7.10. Bicarb is 23 The patient is seen today October 31 2023 in follow-up in the intensive care unit. He is currently sitting up in bed. Awake and alert. His mental status has been waxing and waning currently oriented x 2. He is receiving hemodialysis. Goal is to remove 1 L today. This is his third day in a row. White count 9.0. Hemoglobin 8.4. Platelets 258. Sodium 129. Potassium 5.1. Bicarb 20. BUN 71. Creatinine 9.39. He did develop atrial fibrillation with a rapid ventricular response and he is currently on a Cardizem drip at 10 mg/h. Normal saline at KVO. Maintaining good O2 saturations in the 90s on 4 L/min per nasal cannula. Working with the incentive spirometer. The patient is seen today November 01, 2023 and follow-up in the intensive care unit. He is awake and alert in no acute distress. He is currently maintaining O2 saturations in the 90s on 4 L/min per nasal cannula. No IV fluids. He has been having issues with labile blood pressure. He dropped into the 60s systolically during hemodialysis yesterday requiring a small amount of norepinephrine. Today he is hypertensive. He also been having issues with nausea and vomiting. Albert x-rays reveal prominent small bowel loops measuring up to 5 cm which is concerning for possible small bowel obstruction.. Platelets 293. Sodium 128. Potassium 5.2. Bicarb 24. BUN 78. Creatinine 7.77. Glucose 115. The patient is seen today November 02, 2023 in follow-up on the intensive care unit. He is currently sitting up in bed. Awake and alert in no acute distress. He was having ongoing issues with emesis and a nasogastric tube was placed again today. CT scan of the abdomen and pelvis revealed no evidence of obstruction or ileus. He is having ongoing issues with atrial fibrillation with a rapid ventricular response. He is currently on a Cardizem drip at 5 mg/h. He is postoperative day #6 of his right nephrectomy. He is currently on 4 L/min per nasal cannula. O2 saturations in the mid 90s. Hemodynamically stable. White count 11.3. Hemoglobin 8.1. Platelets 290. Sodium 130. Potassium 4.5. Bicarb 27. BUN 75. Creatinine 5.74. Glucose 106. Urine output has improved with approximately 600 cc in the past 24 hours. Plan is for hemodialysis tomorrow. He has been initiated on IV diuretics. The patient is seen today November 03, 2023 in follow-up in the intensive care unit. And alert in no acute distress. He is maintaining O2 saturations in the 90s on 4 L/min per nasal cannula. He is continued on a Cardizem drip at 5 mg/h. Receiving TPN at 30 mL/h. Nasogastric tube remains in place. He is making good urine output. He currently is receiving hemodialysis with a goal of 1 L to be removed. He is currently in a -3.4 L balance. White count 10.3. Hemoglobin 7.8. Platelets 326. Sodium 127. Potassium 4.2. Bicarb 29. BUN 97. Creatinine 6.50. Solu-Cortef has been switched to prednisone. The patient is seen today November 04, 2023 in follow-up in the intensive care unit. He is currently sitting up in bed. Awake and alert in no acute distress. He is maintaining good O2 saturations in the 90s on 2 L/min per nasal cannula. Nasogastric tube remains in place. He is being nursed with TPN at 50 mL/h. He is having bowel movements. He remains in atrial fibrillation currently with a controlled ventricular rate. Has been afebrile. Hemodynamically stable. White count 11.1. Hemoglobin 7.7. Platelets 336. Sodium 135. Potassium 3.8. Bicarb 32. BUN 76. Creatinine 4.62. Glucose 113. Chest x-ray shows small bilateral effusions. He remains anticoagulated with Eliquis. He remains on IV diuretics. Currently in a -4.2 L balance. Objective - Vital Signs Vital signs: Vital Signs Temp 98.4 F 11/04/23 11:00 Pulse 92 11/04/23 11:00 Resp 21 11/04/23 11:00 BP 147/82 11/04/23 11:00 Pulse Ox 93 L 11/04/23 11:00 FiO2 Intake & Output 11/03/23 11/04/23 11/04/23 18:59 06:59 18:59 Intake Total 1219 922 412 Output Total 4720 1640 725 Balance -3501 -718 -313 Weight 122.5 kg 123.6 kg Intake: IV 332 Mvi, Adult No.4 with Vit 232 K 10 ml Trace (Conc-1Ml/ Dose) 1 ml Sodium Acetate 30 meq Potassium Chloride 20 meq Calcium Gluconate 1 gm Sodium Chloride 4Meq/ml Vial 24 meq In Amino Acids 5 %/ Dextrose 20 % 1,000 ml @ 58 mls/hr IV .Q18H9M [facility] Rx#:[id number] Sodium Ferric Gluconat- 100 Sucrose 125 mg In Sodium Chloride 0.9% 100 ml @ 100 mls/hr IVPB DAILY [facility] Rx#:[id number] Intake, IV Titration 619 682 Amount Fat Emulsion 20% 250 ml 189 42 In Empty Bag 1 bag @ 21 mls/hr IV MoTh [facility] Rx#: [id number] Mvi, Adult No.4 with Vit 330 640 K 10 ml Trace (Conc-1Ml/ Dose) 1 ml Sodium Acetate 30 meq Potassium Chloride 20 meq Calcium Gluconate 1 gm Sodium Chloride 4Meq/ml Vial 24 meq In Amino Acids 5 %/ Dextrose 20 % 1,000 ml @ 58 mls/hr IV .Q18H9M [facility] Rx#:[id number] Sodium Ferric Gluconat- 100 Sucrose 125 mg In Sodium Chloride 0.9% 100 ml @ 100 mls/hr IVPB DAILY [facility] Rx#:[id number] Oral 240 Hemodialysis 600 Other 80 Output: Gastric Drainage 700 900 300 Urine 1420 740 425 Hemodialysis 1600 Hemodialysis Net Amount 1000 Other: Voiding Method Indwelling Catheter Indwelling Catheter Indwelling Catheter # Bowel Movements 1 - Exam GENERAL EXAM: Alert, pleasant 68-year-old male, on 2 L nasal cannula, comfortable in no apparent distress. HEAD: Normocephalic. EYES: Normal reaction of pupils, equal size. NOSE: Clear with pink turbinates. THROAT: No erythema or exudates. NECK: No masses, no JVD. CHEST: No chest wall deformity. LUNGS: Equal air entry with few scattered rhonchi. CVS: S1 and S2 normal with no audible murmur, irregular rhythm. ABDOMEN: Surgical dressing dry and intact. No hepatosplenomegaly, normal bowel sounds, no guarding or rigidity. SPINE: No scoliosis or deformity SKIN: No rashes CENTRAL NERVOUS SYSTEM: No focal deficits, tone is normal in all 4 extremities. EXTREMITIES: Right femoral hemodialysis catheter in place. There is no peripheral edema. No clubbing, no cyanosis. Peripheral pulses are intact. - Labs CBC & Chem 7: 11/04/23 03:15 11/04/23 03:15 Labs: Abnormal Lab Results - Last 24 Hours (Table) 11/03/23 11/03/23 11/04/23 Range/Units 12:57 18:13 03:15 WBC 11.1 H (3.8-10.6) k/uL RBC 2.57 L (4.30-5.90) m/uL Hgb 7.7 L (13.0-17.5) gm/dL Hct 23.9 L (39.0-53.0) % Neutrophils # 8.1 H (1.3-7.7) k/uL Monocytes # 1.3 H (0-1.0) k/uL Sodium (137-145) mmol/L Chloride (98-107) mmol/L Carbon Dioxide (22-30) mmol/L BUN (9-20) mg/dL Creatinine (0.66-1.25) mg/dL Glucose (74-99) mg/dL POC Glucose (mg/dL) 136 H 119 H (70-110) mg/dL Calcium (8.4-10.2) mg/dL Phosphorus (2.5-4.5) mg/dL Magnesium (1.6-2.3) mg/dL 11/04/23 Range/Units 03:15 WBC (3.8-10.6) k/uL RBC (4.30-5.90) m/uL Hgb (13.0-17.5) gm/dL Hct (39.0-53.0) % Neutrophils # (1.3-7.7) k/uL Monocytes # (0-1.0) k/uL Sodium 135 L (137-145) mmol/L Chloride 95 L (98-107) mmol/L Carbon Dioxide 32 H (22-30) mmol/L BUN 76 H (9-20) mg/dL Creatinine 4.62 H (0.66-1.25) mg/dL Glucose 113 H (74-99) mg/dL POC Glucose (mg/dL) (70-110) mg/dL Calcium 8.3 L (8.4-10.2) mg/dL Phosphorus 6.0 H (2.5-4.5) mg/dL Magnesium 2.4 H (1.6-2.3) mg/dL Assessment and Plan Assessment: Status post right nephrectomy 10/27/2023 Acute kidney injury/acute tubular necrosis requiring hemodialysis Acute hyperkalemia and metabolic acidosis secondary to above, recovered Acute metabolic encephalopathy secondary to uremia Atrial fibrillation with rapid ventricular response, currently off Cardizem drip History of kidney transplant 1972 Nausea and vomiting quiring reinsertion of nasogastric tube on 11/02/2023, CT scan ruled out obstruction/ileus Plan: The patient was seen and evaluated Chest x-ray, labs and medications reviewed Nasogastric tube remains in place Being nourished with TPN Titrate the FiO2 as tolerated Remains on IV diuretics Transfer to cardiac stepdown unit We will continue to follow I have personally seen and examined the patient, performed the documentation and the assessment and plan as written. Number of minutes spent on the visit: 10.
[2023-11-04] MEDS ORDERED: LIDOCAINE 1% INJ 10MG/ML (20 ML MDV) ONE ×2 (12:06→12:34)
[2023-11-04] MEDS ORDERED: HEPARIN SODIUM 1,000 UN/ML (10ML VL) ONE (12:08)
[2023-11-04 12:15] LABS: Glucose,Whole Blood 167 mg/dL (70-110)
[2023-11-04] MEDS: LIDOCAINE 1% INJ 10MG/ML (20 ML MDV) SQ ONE (12:32)
--- NOTE | 2023-11-04 13:38 | P.PN ---
Subjective Progress Note Date: 11/04/23 Patient seen and examined at bedside. Going for permacath today. Had multiple bowel movements. Objective - Vital Signs Vital signs: Vital Signs Temp 98.4 F 11/04/23 11:00 Pulse 104 H 11/04/23 12:00 Resp 22 11/04/23 12:00 BP 122/89 11/04/23 12:00 Pulse Ox 90 L 11/04/23 12:00 FiO2 Intake & Output 11/03/23 11/04/23 11/04/23 18:59 06:59 18:59 Intake Total 1219 922 412 Output Total 4720 1640 725 Balance -3501 -718 -313 Weight 122.5 kg 123.6 kg Intake: IV 332 Mvi, Adult No.4 with Vit 232 K 10 ml Trace (Conc-1Ml/ Dose) 1 ml Sodium Acetate 30 meq Potassium Chloride 20 meq Calcium Gluconate 1 gm Sodium Chloride 4Meq/ml Vial 24 meq In Amino Acids 5 %/ Dextrose 20 % 1,000 ml @ 58 mls/hr IV .Q18H9M [facility] Rx#:[id number] Sodium Ferric Gluconat- 100 Sucrose 125 mg In Sodium Chloride 0.9% 100 ml @ 100 mls/hr IVPB DAILY [facility] Rx#:[id number] Intake, IV Titration 619 682 Amount Fat Emulsion 20% 250 ml 189 42 In Empty Bag 1 bag @ 21 mls/hr IV MoTh [facility] Rx#: [id number] Mvi, Adult No.4 with Vit 330 640 K 10 ml Trace (Conc-1Ml/ Dose) 1 ml Sodium Acetate 30 meq Potassium Chloride 20 meq Calcium Gluconate 1 gm Sodium Chloride 4Meq/ml Vial 24 meq In Amino Acids 5 %/ Dextrose 20 % 1,000 ml @ 58 mls/hr IV .Q18H9M [facility] Rx#:[id number] Sodium Ferric Gluconat- 100 Sucrose 125 mg In Sodium Chloride 0.9% 100 ml @ 100 mls/hr IVPB DAILY [facility] Rx#:[id number] Oral 240 Hemodialysis 600 Other 80 Output: Gastric Drainage 700 900 300 Urine 1420 740 425 Hemodialysis 1600 Hemodialysis Net Amount 1000 Other: Voiding Method Indwelling Catheter Indwelling Catheter Indwelling Catheter # Bowel Movements 1 - Constitutional General appearance: Present: cooperative, no acute distress - Gastrointestinal Gastrointestinal Comment(s): Soft, nontender, mildly distended, no rebound or guarding - Labs CBC & Chem 7: 11/04/23 03:15 11/04/23 03:15 Labs: Abnormal Lab Results - Last 24 Hours (Table) 11/03/23 11/04/23 11/04/23 Range/Units 18:13 03:15 03:15 WBC 11.1 H (3.8-10.6) k/uL RBC 2.57 L (4.30-5.90) m/uL Hgb 7.7 L (13.0-17.5) gm/dL Hct 23.9 L (39.0-53.0) % Neutrophils # 8.1 H (1.3-7.7) k/uL Monocytes # 1.3 H (0-1.0) k/uL Sodium 135 L (137-145) mmol/L Chloride 95 L (98-107) mmol/L Carbon Dioxide 32 H (22-30) mmol/L BUN 76 H (9-20) mg/dL Creatinine 4.62 H (0.66-1.25) mg/dL Glucose 113 H (74-99) mg/dL POC Glucose (mg/dL) 119 H (70-110) mg/dL Calcium 8.3 L (8.4-10.2) mg/dL Phosphorus 6.0 H (2.5-4.5) mg/dL Magnesium 2.4 H (1.6-2.3) mg/dL 11/04/23 Range/Units 12:13 WBC (3.8-10.6) k/uL RBC (4.30-5.90) m/uL Hgb (13.0-17.5) gm/dL Hct (39.0-53.0) % Neutrophils # (1.3-7.7) k/uL Monocytes # (0-1.0) k/uL Sodium (137-145) mmol/L Chloride (98-107) mmol/L Carbon Dioxide (22-30) mmol/L BUN (9-20) mg/dL Creatinine (0.66-1.25) mg/dL Glucose (74-99) mg/dL POC Glucose (mg/dL) 167 H (70-110) mg/dL Calcium (8.4-10.2) mg/dL Phosphorus (2.5-4.5) mg/dL Magnesium (1.6-2.3) mg/dL Assessment and Plan Plan: 68-year-old male with ileus. He has now had multiple bowel movements and likely is resolving. We will plan for removal of nasogastric tube as the patient is having difficulty swallowing while nasogastric tube is in place. We will attempt clear liquid diet. Further recommendations based on patient's clinical progress.
--- NOTE | 2023-11-04 13:44 | PCN ---
PROCEDURE NOTE PREOPERATIVE DIAGNOSIS: Acute chronic renal failure. PROCEDURE: 1. Ultrasound-guided 23-cm dialysis catheter, right jugular approach. 2. Placement of the right thumb temporary femoral dialysis catheter. DESCRIPTION OF PROCEDURE: The patient was brought to the slab inspector. Right groin and chest and neck was prepped, draped applied in sterile manner. A 1% lidocaine infiltrated in neck and chest area. Ultrasound-guided micropuncture introduced right jugular vein micropuncture, guidewire was passed and 4-Salvadorean dilator advanced on top of the guidewire. Then we passed a regular guidewire which was parked in the inferior vena cava. Dilator on top of the guidewire. Then we placed a sheath on top of the guidewire. Through the sheath, we introduced the dialysis catheter. Tip of catheter in superior vena cavoatrial junction, flushed with heparin saline, secured with 3-0 nylon. Dressing applied. The patient tolerated the procedure well. Then the right groin was prepped and right femoral catheter was removed. Pressure was held. The patient tolerated the procedure well, transferred to the intensive care unit in satisfactory condition. The patient will need x-ray of the chest. MMODL / IJN: [id number] /
[2023-11-04] MEDS: APIXABAN 5 MG TAB PO SCH (14:17)
--- NOTE | 2023-11-04 15:13 | XR ---
EXAMINATION TYPE: XR chest 1V portable DATE OF EXAM: 11/04/2023 Comparison: 11/02/2023 Clinical History: 68-year-old male new onset fever Findings: NG tube courses below the diaphragm. Right PICC tip not clearly seen, coursing down to at least the c avoatrial junction. Patient remains rotated towards the right. Moderate cardiomegaly persists. Inters titial prominence persists. Jwddi-av-xtsvvrip bilateral pleural effusions with prominent middle and l ower lung opacities persist. Impression: Similar exam with prominent rightward rotation, moderate cardiomegaly, and dxifj-dw-zbpwycfw bilatera l pleural effusions with adjacent atelectasis and/or consolidation.
[2023-11-04 15:17] LABS: Amorphous Sediment,Urine Few /hpf; Appearance,Urine Cloudy (Clear); Bilirubin,Urine Negative (Negative); Blood,Urine Small (Negative); Color,Urine Yellow; Glucose,Urine (UA) Negative (Negative); Hyaline Casts,Urine 4 /lpf (0-2); Ketones,Urine Negative (Negative); Leukocyte Esterase,Urine Negative (Negative); Mucus,Urine Rare /hpf; Nitrite,Urine Negative (Negative); Protein,Urine 2+ (Negative); RBC,Urine 14 /hpf (0-5); Specific Gravity,Urine 1.012 (1.001-1.035); Squamous Epithelial Cell,Urine 1 /hpf (0-4); Urobilinogen,Urine <2.0 mg/dL (<2.0); WBC,Urine 4 /hpf (0-5)
--- NOTE | 2023-11-04 15:37 | XR ---
EXAMINATION TYPE: XR chest 1V confirm line [facility] DATE OF EXAM: 11/04/2023 COMPARISON: Earlier today HISTORY: 68-year-old male hemodialysis catheter placement TECHNIQUE: Single frontal view of the chest is obtained. FINDINGS: Right-sided double-lumen hemodialysis catheter with a TIPS at the mid SVC level. The heart remains moderately enlarged with diffuse interstitial density and undergo a small right pleural effu romel along with bibasilar opacities. Right PICC tip estimated to be at the mid right atrium. IMPRESSION: 1. Right-sided double-lumen hemodialysis catheter tips at the mid SVC level. 2. Ongoing moderate cardiomegaly and bony vascular congestion. Small right pleural effusion with ongo ing bibasilar atelectasis and/or consolidation.
--- NOTE | 2023-11-04 16:06 | P.PN ---
Subjective Progress Note Date: 11/04/23 Principal diagnosis: Hospital Course: 68 y/o M with history of ESRD s/p L. renal transplant in 1981, now CKD post elective right radical nephrectomy. Patient became oliguric after surgery, with worsening renal function and hyperkalemia. He required emergent dialysis. Currently in medical ICU, will likely downgrade to 3 S. nephrology following. Patient is in A-fib. Cardiology following. [facility] group consulted for medical management and will continue to follow. Subjective: Patient seen at bedside. He denies any chills nausea vomiting diarrhea Pertinent positives and negatives discussed above, a complete review of systems was preformed and all the other systems were negative. Vitals Signs Reviewed. Patient is hypertensive and tachycardic, irregular rhythm currently in A-fib. Satting mid 90s on 4 L nasal cannula, febrile with Tmax of 101.2 General: non toxic, no distress, appears at stated age, normal weight, NG tube removed Derm: seborrheic keratosis noted on the chest, arms, and back Cardiovascular: irregular rhythm, no murmur, positive dorsalis pedis pulse bilateral, no edema Lungs: Clear air entry bilaterally, rhonchi bilaterally, no rales, no accessory muscle use Abdominal: soft, nontender to palpation, no guarding, nondistended EXT: Lower extremity warm bilaterally, tenderness around ankles and great toes bilaterally Data Reviewed Today: Patient Labs: WBCs 11.1, hemoglobin 7.7. Sodium 13 5 chloride 95, bicarb 32, BUN 76, creatinine 4.62, calcium 8.3 phosphorus 6, magnesium 2.4 Imaging: Chest x-ray showed right-sided double-lumen hemodialysis catheter admitted SVC, ongoing moderate cardiomegaly, right pleural effusion with ongoing bibasilar atelectasis and/or consolidation Assessment and Plan: Active: SIRS Blood cultures x 2 sent Urinalysis sent Chest x-ray done Nonoliguric CHEVY on CKD -Patient required emergent hemodialysis on 10/27, vascular surgery and nephrology following -Urology note reviewed, -CTAP showed no signs of obstruction -80 mg IV Lasix daily -Continue to monitor I's and O's -Urinary output stable -Hemodialysis today 1 L taken off Hypervolemic hyponatremia -Improving Renal cell carcinoma status post right radical nephrectomy on 10/26 -Urology on board Previous ESRD status post renal transplant -Imuran 125 mg p.o. daily 20 mg prednisone p.o. daily will be decreased to 10 mg tomorrow and then 4 mg starting November 06, 2023 which is his home dose Permanent dialysis catheter placed Acute hypoxic respiratory failure, likely due to hypervolemia -Wean oxygen as tolerated but maintain O2 sats greater than 88% Postoperative ileus -Surgery consulted Patient having bowel movements without any other episodes of vomiting NG tube removed Diet advanced to clear liquids Atrial fibrillation with RVR -Cardiology following -Echo: EF 60 to 65% with moderate LVH -Cardizem 30 mg p.o. 3 times daily Started Eliquis 5 mg p.o. twice daily Started Lopressor 25 mg p.o. 3 times daily Hypertension -Cardizem 30 mg p.o. 3 times daily Increased hydralazine to 75 mg p.o. 3 times daily Anemia of chronic disease -Ferric gluconate 125 mg IV QD -Aranesp 40 mcg SQ weekly -Transfuse PRBC if Hg < 7 Hyperphosphatemia -Phoslo 667 mg PO TID. PAD -Cilostazol 100 mg PO BID. Dipyridamole 50 mg PO TID. Dyslipidemia -Lipitor 20 mg PO QD. F: none E: Will replete as needed N: TPN A: Independent DVT PPx: Eliquis 5 mg p.o. twice daily GI PPx: Protonix 40mg IV daily Code Status: FULL Anticipated discharge place: Pending clinical course Anticipated discharge time: Pending clinical course Patient was seen and examined by me and the resident. I agree with the subjective and objective as above. We discussed the assessment and plan as documented below: Patient reports pain in his bilateral ankle, first toe and left hand pain. Urine output 2160 cc over the past 24H. HR in the low 100s. Currently on 2L NC. Tmax 101.2F overnight. CXR done today shows atelectasis versus bibasilar infilt rates. CBC and BMP significant for WBC 11.1, RBC 2.57, Hg 7.7, Hct 23.9, Na 135, Cl 95, bicarb 32, BUN 76, Cr 4.62, glu 113. Phos 6. Mag 2.4. SIRS versus Sepsis: Fever, new leukocytosis. No obvious signs of infection. Obtain UA with UCx, BCx, CXR. Hold antibiotics for now. CHEVY on CKD: Started on HD 10/27. CT AP with no signs of obstructive uropathy. Continue Lasix 80 mg IV QD. Monitor daily BMP for electrolytes and renal function. Nephrology on board, plans for HD tomorrow. Hypervolemic hyponatremia: Hopeful improvement with HD. Renal cell carcinoma: Status post right radical nephrectomy on 10/26. Urology on board. Previous ESRD status post renal transplant: Imuran 125 mg PO QD. Prednisone 20 mg PO QD. Acute hypoxic respiratory failure likely due to hypervolemia: Hopeful improvement with HD and Lasix as above. Titrate O2 to maintain O2 sat > 88%. Nausea and Vomiting: CT AP negative for ileus or SBO. NG tube discontinued. Diet advanced to CLD. Surgery on board. Atrial fibrillation with RVR: Urology recommending to hold anticoagulation. Echo EF 60-65% with moderate LVH. Cardizem 30 mg PO TID. Metoprolol 25 mg PO TID. Eliquis 5 mg PO BID for AC. Obtain TSH. Maintain Mag > 2 and K > 4. Cardiology on board. Hypertension: BP 125/77. Cardizem 30 mg PO TID. Metoprolol 25 mg PO TID. Incre ase Hydralazine to 75 mg PO TID. Anemia of Chronic Disease: Hg stable. Fe 19, Ferritin 301. Component of Fe def. Started on Ferric gluconate 125 mg IV QD. Aranesp 40 mcg SQ weekly. Transfuse PRBC if Hg < 7. Hyperphosphatemia: Phoslo 667 mg PO TID. PAD: Cilostazol 100 mg PO BID. Dipyridamole 50 mg PO TID. Dyslipidemia: Lipitor 20 mg PO QD. Resolved: Hyperkalemia Objective - Vital Signs Vital signs: Vital Signs Temp 100.5 F H 11/04/23 04:00 Pulse 113 H 11/04/23 06:00 Resp 24 11/04/23 06:00 BP 145/116 11/04/23 06:00 Pulse Ox 95 11/04/23 06:00 FiO2 Intake & Output 11/03/23 11/03/23 11/04/23 06:59 18:59 06:59 Intake Total 128 1219 922 Output Total 4888 4889 2019 Balance -7136 -1822 -707 Weight 122.5 kg 122.5 kg 123.6 kg Intake: Intake, IV Titration 300 619 682 Amount Fat Emulsion 20% 250 ml 189 42 In Empty Bag 1 bag @ 21 mls/hr IV MoTh [facility] Rx#: [id number] Mvi, Adult No.4 with Vit 300 K 10 ml Trace (Conc-1Ml/ Dose) 1 ml Sodium Acetate 30 meq Potassium Chloride 20 meq Calcium Gluconate 1 gm In Amino Acids 5 %/Dextrose 20 % 1 ,000 ml @ 30 mls/hr IV . Q24H [facility] Rx#:[id number] Mvi, Adult No.4 with Vit 330 640 K 10 ml Trace (Conc-1Ml/ Dose) 1 ml Sodium Acetate 30 meq Potassium Chloride 20 meq Calcium Gluconate 1 gm Sodium Chloride 4Meq/ml Vial 24 meq In Amino Acids 5 %/ Dextrose 20 % 1,000 ml @ 58 mls/hr IV .Q18H9M [facility] Rx#:[id number] Sodium Ferric Gluconat- 100 Sucrose 125 mg In Sodium Chloride 0.9% 100 ml @ 100 mls/hr IVPB DAILY [facility] Rx#:[id number] Oral 240 240 Hemodialysis 600 Output: Gastric Drainage 1600 700 900 Urine 1250 1420 740 Hemodialysis 1600 Hemodialysis Net Amount 1000 Other: Voiding Method Indwelling Catheter Indwelling Catheter Indwelling Catheter # Bowel Movements 1 - Labs CBC & Chem 7: 11/04/23 03:15 11/04/23 03:15 Labs: Abnormal Lab Results - Last 24 Hours (Table) 11/03/23 11/03/23 11/03/23 Range/Units 06:29 06:29 12:57 WBC (3.8-10.6) k/uL RBC 2.56 L (4.30-5.90) m/uL Hgb 7.8 L (13.0-17.5) gm/dL Hct 23.6 L (39.0-53.0) % Neutrophils # (1.3-7.7) k/uL Monocytes # 1.1 H (0-1.0) k/uL Sodium 127 L (137-145) mmol/L Chloride 94 L (98-107) mmol/L Carbon Dioxide (22-30) mmol/L BUN 97 H (9-20) mg/dL Creatinine 6.50 H (0.66-1.25) mg/dL Glucose 113 H (74-99) mg/dL POC Glucose (mg/dL) 136 H (70-110) mg/dL Calcium (8.4-10.2) mg/dL Phosphorus 8.3 H (2.5-4.5) mg/dL Magnesium 2.7 H (1.6-2.3) mg/dL 11/03/23 11/04/23 11/04/23 Range/Units 18:13 03:15 03:15 WBC 11.1 H (3.8-10.6) k/uL RBC 2.57 L (4.30-5.90) m/uL Hgb 7.7 L (13.0-17.5) gm/dL Hct 23.9 L (39.0-53.0) % Neutrophils # 8.1 H (1.3-7.7) k/uL Monocytes # 1.3 H (0-1.0) k/uL Sodium 135 L (137-145) mmol/L Chloride 95 L (98-107) mmol/L Carbon Dioxide 32 H (22-30) mmol/L BUN 76 H (9-20) mg/dL Creatinine 4.62 H (0.66-1.25) mg/dL Glucose 113 H (74-99) mg/dL POC Glucose (mg/dL) 119 H (70-110) mg/dL Calcium 8.3 L (8.4-10.2) mg/dL Phosphorus 6.0 H (2.5-4.5) mg/dL Magnesium 2.4 H (1.6-2.3) mg/dL
[2023-11-04] MEDS: MVI, ADULT NO.4 WITH VIT K 10 ML, TRACE (CONC-1ML/DOSE) 1 ML, SODIUM ACETATE 20 MEQ, PO... IV SCH (17:05)
[2023-11-04] MEDS: hydrALAZINE HCL 25 MG TAB PO SCH (17:40)
[2023-11-04 17:54] LABS: Glucose,Whole Blood 174 mg/dL (70-110)
[2023-11-05 00:25] LABS: Glucose,Whole Blood 136 mg/dL (70-110)
[2023-11-05 06:33] LABS: Glucose,Whole Blood 140 mg/dL (70-110)
[2023-11-05 06:56] LABS: ALT 14 U/L (4-49); AST 33 U/L (17-59); African American GFR (CKD) 10 (>60 ml/min/1.73 sqM); Albumin 2.4 g/dL (3.5-5.0); Alkaline Phosphatase 49 U/L (38-126); Anion Gap 14 mmol/L; Calcium 8.2 mg/dL (8.4-10.2); Carbon Dioxide 28 mmol/L (22-30); Chloride 89 mmol/L (98-107); Glucose 117 mg/dL (74-99); Magnesium 2.4 mg/dL (1.6-2.3); Non-African American GFR(CKD) 8 (>60 ml/min/1.73 sqM); Phosphorus 6.4 mg/dL (2.5-4.5); Potassium 3.8 mmol/L (3.5-5.1); Sodium 131 mmol/L (137-145); Total Bilirubin 0.4 mg/dL (0.2-1.3); Total Protein 4.8 g/dL (6.3-8.2)
[2023-11-05 07:25] LABS: Blood Urea Nitrogen 106 mg/dL (9-20)
[2023-11-05] MEDS: hydrALAZINE HCL 25 MG TAB PO SCH (07:54)
[2023-11-05] MEDS: DEXTROSE 50% SYRINGE 50 ML IVP ONE ×2 (07:58→08:00)
[2023-11-05] MEDS: hydrALAZINE HCL 25 MG TAB ONE ×2 (07:58)
[2023-11-05] MEDS: ONDANSETRON 4 MG/2 ML VIAL ONE (07:58)
[2023-11-05] MEDS: FAMOTIDINE 20 MG TAB ONE ×2 (07:58→08:00)
[2023-11-05] MEDS: FUROSEMIDE 10 MG/ML 4 ML VIAL ONE (07:58)
[2023-11-05] MEDS: ATORVASTATIN 20 MG TAB ONE (07:58)
[2023-11-05] MEDS: HYDROCORTISONE SUCCINATE 100 MG/2 ML VIAL ONE ×3 (07:59→08:01)
[2023-11-05] MEDS: ACETAMINOPHEN TAB 325 MG TAB ONE ×2 (07:59)
[2023-11-05] MEDS: SODIUM BICARB 8.4% 50 ML SYR (1 MEQ/ML) ONE (07:59)
[2023-11-05] MEDS: FUROSEMIDE 10 MG/ML 10 ML VIAL ONE ×2 (07:59→08:00)
[2023-11-05] MEDS: guaiFENesin-Coden 100-10MG/5ML 10 ML CUP ONE (08:00)
[2023-11-05] MEDS: ALBUTEROL NEBULIZED 2.5 MG/3 ML INHALATION ONE (08:00)
[2023-11-05] MEDS: predniSONE 10 MG TAB PO SCH (08:41)
--- NOTE | 2023-11-05 09:38 | P.PN ---
Subjective Progress Note Date: 11/05/23 Patient seen and examined at bedside. Tolerating clear liquid diet. States he had a bowel movement last night. Objective - Vital Signs Vital signs: Vital Signs Temp 97.7 F 11/05/23 08:37 Pulse 99 11/05/23 08:37 Resp 16 11/05/23 08:37 BP 103/52 11/05/23 08:37 Pulse Ox 96 11/05/23 08:37 FiO2 Intake & Output 11/04/23 11/05/23 11/05/23 18:59 06:59 18:59 Intake Total 1364 754 Output Total 885 450 Balance 479 304 Weight 121.1 kg Intake: IV 564 754 Mvi, Adult No.4 with Vit 464 754 K 10 ml Trace (Conc-1Ml/ Dose) 1 ml Sodium Acetate 30 meq Potassium Chloride 20 meq Calcium Gluconate 1 gm Sodium Chloride 4Meq/ml Vial 24 meq In Amino Acids 5 %/ Dextrose 20 % 1,000 ml @ 58 mls/hr IV .Q18H9M [facility] Rx#:[id number] Sodium Ferric Gluconat- 100 Sucrose 125 mg In Sodium Chloride 0.9% 100 ml @ 100 mls/hr IVPB DAILY [facility] Rx#:[id number] Oral 720 Other 80 Output: Gastric Drainage 300 Urine 585 450 Other: Voiding Method Indwelling Catheter Indwelling Catheter # Bowel Movements 1 1 - Constitutional General appearance: Present: cooperative, no acute distress - Gastrointestinal Gastrointestinal Comment(s): Soft, nontender, nondistended, no rebound or guarding - Musculoskeletal Musculoskeletal: Present: generalized weakness - Labs CBC & Chem 7: 11/04/23 03:15 11/05/23 05:34 Labs: Abnormal Lab Results - Last 24 Hours (Table) 11/04/23 11/04/23 11/04/23 Range/Units 12:13 14:48 17:53 Sodium (137-145) mmol/L Chloride (98-107) mmol/L BUN (9-20) mg/dL Creatinine (0.66-1.25) mg/dL Glucose (74-99) mg/dL POC Glucose (mg/dL) 167 H 174 H (70-110) mg/dL Uric Acid (3.5-8.5) mg/dL Calcium (8.4-10.2) mg/dL Phosphorus (2.5-4.5) mg/dL Magnesium (1.6-2.3) mg/dL Total Protein (6.3-8.2) g/dL Albumin (3.5-5.0) g/dL Urine Protein 2+ H (Negative) Urine Blood Small H (Negative) Urine RBC 14 H (0-5) /hpf Amorphous Sediment Few H (None) /hpf Hyaline Casts 4 H (0-2) /lpf Urine Mucus Rare H (None) /hpf 11/05/23 11/05/23 11/05/23 Range/Units 00:14 05:34 05:34 Sodium 131 L (137-145) mmol/L Chloride 89 L (98-107) mmol/L BUN 106 H* (9-20) mg/dL Creatinine 6.17 H (0.66-1.25) mg/dL Glucose 117 H (74-99) mg/dL POC Glucose (mg/dL) 136 H (70-110) mg/dL Uric Acid 10.5 H (3.5-8.5) mg/dL Calcium 8.2 L (8.4-10.2) mg/dL Phosphorus 6.4 H (2.5-4.5) mg/dL Magnesium 2.4 H (1.6-2.3) mg/dL Total Protein 4.8 L (6.3-8.2) g/dL Albumin 2.4 L (3.5-5.0) g/dL Urine Protein (Negative) Urine Blood (Negative) Urine RBC (0-5) /hpf Amorphous Sediment (None) /hpf Hyaline Casts (0-2) /lpf Urine Mucus (None) /hpf 11/05/23 Range/Units 06:22 Sodium (137-145) mmol/L Chloride (98-107) mmol/L BUN (9-20) mg/dL Creatinine (0.66-1.25) mg/dL Glucose (74-99) mg/dL POC Glucose (mg/dL) 140 H (70-110) mg/dL Uric Acid (3.5-8.5) mg/dL Calcium (8.4-10.2) mg/dL Phosphorus (2.5-4.5) mg/dL Magnesium (1.6-2.3) mg/dL Total Protein (6.3-8.2) g/dL Albumin (3.5-5.0) g/dL Urine Protein (Negative) Urine Blood (Negative) Urine RBC (0-5) /hpf Amorphous Sediment (None) /hpf Hyaline Casts (0-2) /lpf Urine Mucus (None) /hpf Assessment and Plan Plan: 68-year-old male with ileus that appears to be improving. He has had multiple bowel movements and has been tolerating clear liquid diet over his last few meals. We will advance to full liquid diet. I recommended advancing slowly based on postoperative ileus. He is agreeable with this plan.
[2023-11-05] MEDS: DARBEPOETIN ALFA 40 MCG/0.4 ML SYRINGE SQ SCH (09:49)
--- NOTE | 2023-11-05 10:10 | P.PN ---
Subjective Progress Note Date: 11/05/23 Principal diagnosis: POD #9, s/p right radical nephrectomy Mr. Linder is awake and alert. He tolerated clear liquid diet for breakfast this morning. He denies abdominal pain and is not experiencing nausea. He had a bowel movement yesterday evening. Objective - Vital Signs Vital signs: Vital Signs Temp 98.9 F 11/05/23 04:00 Pulse 94 11/05/23 04:00 Resp 14 11/05/23 04:00 BP 111/57 11/05/23 04:00 Pulse Ox 92 L 11/05/23 04:00 FiO2 Intake & Output 11/04/23 11/04/23 11/05/23 06:59 18:59 06:59 Intake Total 922 1364 754 Output Total 1640 885 450 Balance -718 479 304 Weight 123.6 kg 121.1 kg Intake: IV 564 754 Mvi, Adult No.4 with Vit 464 754 K 10 ml Trace (Conc-1Ml/ Dose) 1 ml Sodium Acetate 30 meq Potassium Chloride 20 meq Calcium Gluconate 1 gm Sodium Chloride 4Meq/ml Vial 24 meq In Amino Acids 5 %/ Dextrose 20 % 1,000 ml @ 58 mls/hr IV .Q18H9M [facility] Rx#:[id number] Sodium Ferric Gluconat- 100 Sucrose 125 mg In Sodium Chloride 0.9% 100 ml @ 100 mls/hr IVPB DAILY [facility] Rx#:[id number] Intake, IV Titration 682 Amount Fat Emulsion 20% 250 ml 42 In Empty Bag 1 bag @ 21 mls/hr IV MoTh [facility] Rx#: [id number] Mvi, Adult No.4 with Vit 640 K 10 ml Trace (Conc-1Ml/ Dose) 1 ml Sodium Acetate 30 meq Potassium Chloride 20 meq Calcium Gluconate 1 gm Sodium Chloride 4Meq/ml Vial 24 meq In Amino Acids 5 %/ Dextrose 20 % 1,000 ml @ 58 mls/hr IV .Q18H9M [facility] Rx#:[id number] Oral 240 720 Other 80 Output: Gastric Drainage 900 300 Urine 740 585 450 Other: Voiding Method Indwelling Catheter Indwelling Catheter Indwelling Catheter # Bowel Movements 1 1 1 - Constitutional General appearance: Present: average body habitus, cooperative, no acute distress - Gastrointestinal Gastrointestinal Comment(s): Soft, non-tender, non-distended. Incision clean, dry, and intact. - Psychiatric Psychiatric: Present: A&O x's 3 - Labs CBC & Chem 7: 11/04/23 03:15 11/05/23 05:34 Labs: Abnormal Lab Results - Last 24 Hours (Table) 11/04/23 11/04/23 11/04/23 Range/Units 12:13 14:48 17:53 POC Glucose (mg/dL) 167 H 174 H (70-110) mg/dL Urine Protein 2+ H (Negative) Urine Blood Small H (Negative) Urine RBC 14 H (0-5) /hpf Amorphous Sediment Few H (None) /hpf Hyaline Casts 4 H (0-2) /lpf Urine Mucus Rare H (None) /hpf 11/05/23 11/05/23 Range/Units 00:14 06:22 POC Glucose (mg/dL) 136 H 140 H (70-110) mg/dL Urine Protein (Negative) Urine Blood (Negative) Urine RBC (0-5) /hpf Amorphous Sediment (None) /hpf Hyaline Casts (0-2) /lpf Urine Mucus (None) /hpf Assessment and Plan Assessment: The patient's urine output has improved considerably, hopefully a sign of renal recovery. Pathology reveals papillary renal cell carcinoma. It should be noted that the tumor was necrotic and that portions of the tumor broke away from the kidney at the time of surgery. All visible tumor was removed. (1) Neoplasm of uncertain behavior of right kidney Current Visit: Yes Status: Acute Code(s): D41.01 - NEOPLASM OF UNCERTAIN BEHAVIOR OF RIGHT KIDNEY SNOMED Code(s): 933546082860579 Plan: - Continue dialysis as needed - Increase ambulation - Advance diet as tolerated - From a urologic standpoint, the patient may be transferred out of the ICU - Will need oncology consultation to discuss adjuvant therapy
[2023-11-05] MEDS: COLCHICINE 0.6 MG EACH PO ONE ×2 (10:23→11:22)
--- NOTE | 2023-11-05 10:25 | P.PN ---
Subjective Progress Note Date: 11/05/23 This is a 68-year-old white male whom I have been seeing for the last few days while in the ICU, patient had history of renal transplant in 1971 at [facility], he was recently discovered to have renal cell carcinoma involving his right [place] kidney. Underwent radical nephrectomy on 10/27/2023, and postoperatively, patient developed anuria, and worsening metabolic acidosis worsening uremia and hyperkalemia requiring transfer to the ICU for immediate hemodialysis. Patient has been on hemodialysis for the last 2 days, and he is being followed by urology as well as nephrology. Today the patient seems to be developing metabolic encephalopathy with confusion, and he remains oliguric. WBC count today is 9.1 hemoglobin is 7.8, electrolytes showed low sodium of 130 potassium 5.5 BUN is 49 creatinine 7.10. Bicarb is 23 The patient is seen today October 31 2023 in follow-up in the intensive care unit. He is currently sitting up in bed. Awake and alert. His mental status has been waxing and waning currently oriented x 2. He is receiving hemodialysis. Goal is to remove 1 L today. This is his third day in a row. White count 9.0. Hemoglobin 8.4. Platelets 258. Sodium 129. Potassium 5.1. Bicarb 20. BUN 71. Creatinine 9.39. He did develop atrial fibrillation with a rapid ventricular response and he is currently on a Cardizem drip at 10 mg/h. Normal saline at KVO. Maintaining good O2 saturations in the 90s on 4 L/min per nasal cannula. Working with the incentive spirometer. The patient is seen today November 01, 2023 and follow-up in the intensive care unit. He is awake and alert in no acute distress. He is currently maintaining O2 saturations in the 90s on 4 L/min per nasal cannula. No IV fluids. He has been having issues with labile blood pressure. He dropped into the 60s systolically during hemodialysis yesterday requiring a small amount of norepinephrine. Today he is hypertensive. He also been having issues with nausea and vomiting. Albert x-rays reveal prominent small bowel loops measuring up to 5 cm which is concerning for possible small bowel obstruction.. Platelets 293. Sodium 128. Potassium 5.2. Bicarb 24. BUN 78. Creatinine 7.77. Glucose 115. The patient is seen today November 02, 2023 in follow-up on the intensive care unit. He is currently sitting up in bed. Awake and alert in no acute distress. He was having ongoing issues with emesis and a nasogastric tube was placed again today. CT scan of the abdomen and pelvis revealed no evidence of obstruction or ileus. He is having ongoing issues with atrial fibrillation with a rapid ventricular response. He is currently on a Cardizem drip at 5 mg/h. He is postoperative day #6 of his right nephrectomy. He is currently on 4 L/min per nasal cannula. O2 saturations in the mid 90s. Hemodynamically stable. White count 11.3. Hemoglobin 8.1. Platelets 290. Sodium 130. Potassium 4.5. Bicarb 27. BUN 75. Creatinine 5.74. Glucose 106. Urine output has improved with approximately 600 cc in the past 24 hours. Plan is for hemodialysis tomorrow. He has been initiated on IV diuretics. The patient is seen today November 03, 2023 in follow-up in the intensive care unit. And alert in no acute distress. He is maintaining O2 saturations in the 90s on 4 L/min per nasal cannula. He is continued on a Cardizem drip at 5 mg/h. Receiving TPN at 30 mL/h. Nasogastric tube remains in place. He is making good urine output. He currently is receiving hemodialysis with a goal of 1 L to be removed. He is currently in a -3.4 L balance. White count 10.3. Hemoglobin 7.8. Platelets 326. Sodium 127. Potassium 4.2. Bicarb 29. BUN 97. Creatinine 6.50. Solu-Cortef has been switched to prednisone. The patient is seen today November 04, 2023 in follow-up in the intensive care unit. He is currently sitting up in bed. Awake and alert in no acute distress. He is maintaining good O2 saturations in the 90s on 2 L/min per nasal cannula. Nasogastric tube remains in place. He is being nursed with TPN at 50 mL/h. He is having bowel movements. He remains in atrial fibrillation currently with a controlled ventricular rate. Has been afebrile. Hemodynamically stable. White count 11.1. Hemoglobin 7.7. Platelets 336. Sodium 135. Potassium 3.8. Bicarb 32. BUN 76. Creatinine 4.62. Glucose 113. Chest x-ray shows small bilateral effusions. He remains anticoagulated with Eliquis. He remains on IV diuretics. Currently in a -4.2 L balance. The patient is seen today November 05, 2023 in follow-up in the intensive care unit. He is doing better today. Awake and alert in no acute distress. Feeling stronger. Denies any worsening shortness of breath, cough or congestion. He is maintaining good O2 saturations in the 90s on 4 L/min per nasal cannula. His nasogastric tube has been removed. He is being nourished with TPN at 58 mL/h. He remains on IV diuretics. Anticoagulated with Eliquis. Sodium 131. Potassium 3.8. Bicarb 28. BUN 106. Creatinine 6.17. Glucose 117. He is currently in a +780 mL balance. Remains in atrial fibrillation with a controlled ventricular response. Objective - Vital Signs Vital signs: Vital Signs Temp 97.7 F 11/05/23 08:37 Pulse 99 11/05/23 08:37 Resp 16 11/05/23 08:37 BP 103/52 11/05/23 08:37 Pulse Ox 96 11/05/23 08:37 FiO2 Intake & Output 11/04/23 11/05/23 11/05/23 18:59 06:59 18:59 Intake Total 1364 754 240 Output Total 885 450 Balance 479 304 240 Weight 121.1 kg Intake: IV 564 754 Mvi, Adult No.4 with Vit 464 754 K 10 ml Trace (Conc-1Ml/ Dose) 1 ml Sodium Acetate 30 meq Potassium Chloride 20 meq Calcium Gluconate 1 gm Sodium Chloride 4Meq/ml Vial 24 meq In Amino Acids 5 %/ Dextrose 20 % 1,000 ml @ 58 mls/hr IV .Q18H9M [facility] Rx#:[id number] Sodium Ferric Gluconat- 100 Sucrose 125 mg In Sodium Chloride 0.9% 100 ml @ 100 mls/hr IVPB DAILY [facility] Rx#:[id number] Oral 720 240 Other 80 Output: Gastric Drainage 300 Urine 585 450 Other: Voiding Method Indwelling Catheter Indwelling Catheter # Bowel Movements 1 1 - Exam GENERAL EXAM: Alert, pleasant 68-year-old male, feeling stronger, on 4 L nasal cannula, comfortable in no apparent distress. HEAD: Normocephalic. EYES: Normal reaction of pupils, equal size. NOSE: Clear with pink turbinates. THROAT: No erythema or exudates. NECK: No masses, no JVD. CHEST: No chest wall deformity. LUNGS: Equal air entry with few scattered rhonchi. CVS: S1 and S2 normal with no audible murmur, irregular rhythm. ABDOMEN: Surgical dressing dry and intact. No hepatosplenomegaly, normal bowel sounds, no guarding or rigidity. SPINE: No scoliosis or deformity SKIN: No rashes CENTRAL NERVOUS SYSTEM: No focal deficits, tone is normal in all 4 extremities. EXTREMITIES: Right femoral hemodialysis catheter in place. There is no peripheral edema. No clubbing, no cyanosis. Peripheral pulses are intact. - Labs CBC & Chem 7: 11/04/23 03:15 11/05/23 05:34 Labs: Abnormal Lab Results - Last 24 Hours (Table) 11/04/23 11/04/23 11/04/23 Range/Units 12:13 14:48 17:53 Sodium (137-145) mmol/L Chloride (98-107) mmol/L BUN (9-20) mg/dL Creatinine (0.66-1.25) mg/dL Glucose (74-99) mg/dL POC Glucose (mg/dL) 167 H 174 H (70-110) mg/dL Uric Acid (3.5-8.5) mg/dL Calcium (8.4-10.2) mg/dL Phosphorus (2.5-4.5) mg/dL Magnesium (1.6-2.3) mg/dL Total Protein (6.3-8.2) g/dL Albumin (3.5-5.0) g/dL Urine Protein 2+ H (Negative) Urine Blood Small H (Negative) Urine RBC 14 H (0-5) /hpf Amorphous Sediment Few H (None) /hpf Hyaline Casts 4 H (0-2) /lpf Urine Mucus Rare H (None) /hpf 11/05/23 11/05/23 11/05/23 Range/Units 00:14 05:34 05:34 Sodium 131 L (137-145) mmol/L Chloride 89 L (98-107) mmol/L BUN 106 H* (9-20) mg/dL Creatinine 6.17 H (0.66-1.25) mg/dL Glucose 117 H (74-99) mg/dL POC Glucose (mg/dL) 136 H (70-110) mg/dL Uric Acid 10.5 H (3.5-8.5) mg/dL Calcium 8.2 L (8.4-10.2) mg/dL Phosphorus 6.4 H (2.5-4.5) mg/dL Magnesium 2.4 H (1.6-2.3) mg/dL Total Protein 4.8 L (6.3-8.2) g/dL Albumin 2.4 L (3.5-5.0) g/dL Urine Protein (Negative) Urine Blood (Negative) Urine RBC (0-5) /hpf Amorphous Sediment (None) /hpf Hyaline Casts (0-2) /lpf Urine Mucus (None) /hpf 11/05/23 Range/Units 06:22 Sodium (137-145) mmol/L Chloride (98-107) mmol/L BUN (9-20) mg/dL Creatinine (0.66-1.25) mg/dL Glucose (74-99) mg/dL POC Glucose (mg/dL) 140 H (70-110) mg/dL Uric Acid (3.5-8.5) mg/dL Calcium (8.4-10.2) mg/dL Phosphorus (2.5-4.5) mg/dL Magnesium (1.6-2.3) mg/dL Total Protein (6.3-8.2) g/dL Albumin (3.5-5.0) g/dL Urine Protein (Negative) Urine Blood (Negative) Urine RBC (0-5) /hpf Amorphous Sediment (None) /hpf Hyaline Casts (0-2) /lpf Urine Mucus (None) /hpf Assessment and Plan Assessment: Status post right nephrectomy 10/27/2023 Acute kidney injury/acute tubular necrosis requiring hemodialysis Acute hyperkalemia and metabolic acidosis secondary to above, recovered Acute metabolic encephalopathy secondary to uremia Atrial fibrillation with rapid ventricular response, currently off Cardizem drip History of kidney transplant 1972 Nausea and vomiting quiring reinsertion of nasogastric tube on 11/02/2023, CT scan ruled out obstruction/ileus Plan: The patient was seen and evaluated Labs and medications reviewed Nasogastric tube removed Being nourished with TPN Titrate the FiO2 as tolerated Remains on IV diuretics Plan is for hemodialysis today Cardiac stepdown unit overflow We will continue to follow I have personally seen and examined the patient, performed the documentation and the assessment and plan as written. Number of minutes spent on the visit: 10.
[2023-11-05] MEDS: MVI, ADULT NO.4 WITH VIT K 10 ML, TRACE (CONC-1ML/DOSE) 1 ML, SODIUM ACETATE 20 MEQ, PO... IV SCH (11:22)
[2023-11-05 11:34] LABS: Glucose,Whole Blood 117 mg/dL (70-110)
--- NOTE | 2023-11-05 11:53 | P.PN ---
Subjective HISTORY OF PRESENTING ILLNESS Patient is a 68-year-old male with past medical history of renal transplant in 1971 initially presented for right nephrectomy due to renal cell carcinoma on 10/27/2023. Postoperatively he developed anuria, metabolic acidosis, hyperkalemia requiring hemodialysis. He also developed metabolic encephalopathy that has been improving since. On 10/31/2023 he developed A-fib with RVR for which cardiology was consulted. Patient seen at bedside, currently with an NG tube. Currently in A-fib with RVR. Sodium improved to 135. Maintained on Cardizem for A-fib with RVR. HR in the 110s-120s. BP 130s-140s/80s-90s. States he is feeling well. 11/04 Patient seen and examined. Patient denies any chest pain or pressure. It currently undergoing hemodialysis. Blood pressures in the 110s to 130s. No lightheadedness or dizziness. A. fib controlled with heart rates in the 70s to 100 range. PHYSICAL EXAMINATION Vital signs reviewed. CONSTITUTIONAL: No apparent distress. HEENT: Head is normocephalic. Pupils are equal, round. Sclerae anicteric. Mucous membranes of the mouth are moist. No JVD. No carotid bruit. CHEST EXAMINATION: Lungs are clear to auscultation. No chest wall tenderness is noted on palpation or with deep breathing. HEART EXAMINATION: Irregular rate and rhythm. S1, S2 heard. No murmurs, gallops or rub. ABDOMEN: Soft, nontender. Positive bowel sounds. EXTREMITIES: 2+ peripheral pulses, no lower extremity edema and no calf tenderness. NEUROLOGIC EXAMINATION: Patient is awake, alert and oriented x3. ASSESSMENT 1. Paroxysmal Afib with RVR. Currently on Cardizem PO 30 mg 3 times daily. Start anticoagulation with Eliquis 5 mg PO twice daily. 2. CHEVY secondary to ATN. Improving. 3. Volume overload. Improving with dialysis and Lasix. 4. Status post right nephrectomy 10/27/2023 due to renal cell carcinoma. 5. Postoperative ileus. Has an NG tube. 6. Hyponatremia secondary to acute kidney injury. Hypervolemic. 7. History of renal transplant. Maintained on steroids and Imuran. Plan: Continue Eliquis 5 mg twice daily. Continue metoprolol tartrate 25 mg PO 3 times daily. Continue Cardizem 30 mg PO 3 times daily. Continue hydralazine 50 mg PO 3 times daily. Continue Lipitor 20 mg PO daily. Heart rates appear well-controlled on current regimen. Continue with current diuretics. Monitor patient on anticoagulation however currently no bleeding. Objective - Vital Signs Vital signs: Vital Signs Temp 97.7 F 11/05/23 08:37 Pulse 99 11/05/23 08:37 Resp 16 11/05/23 08:37 BP 103/52 11/05/23 08:37 Pulse Ox 96 11/05/23 08:37 FiO2 Intake & Output 11/04/23 11/05/23 11/05/23 18:59 06:59 18:59 Intake Total 1364 754 240 Output Total 885 450 Balance 479 304 240 Weight 121.1 kg Intake: IV 564 754 Mvi, Adult No.4 with Vit 464 754 K 10 ml Trace (Conc-1Ml/ Dose) 1 ml Sodium Acetate 30 meq Potassium Chloride 20 meq Calcium Gluconate 1 gm Sodium Chloride 4Meq/ml Vial 24 meq In Amino Acids 5 %/ Dextrose 20 % 1,000 ml @ 58 mls/hr IV .Q18H9M [facility] Rx#:[id number] Sodium Ferric Gluconat- 100 Sucrose 125 mg In Sodium Chloride 0.9% 100 ml @ 100 mls/hr IVPB DAILY [facility] Rx#:[id number] Oral 720 240 Other 80 Output: Gastric Drainage 300 Urine 585 450 Other: Voiding Method Indwelling Catheter Indwelling Catheter Indwelling Catheter # Bowel Movements 1 1 - Labs CBC & Chem 7: 11/04/23 03:15 11/05/23 05:34 Labs: Abnormal Lab Results - Last 24 Hours (Table) 11/04/23 11/04/23 11/04/23 Range/Units 12:13 14:48 17:53 Sodium (137-145) mmol/L Chloride (98-107) mmol/L BUN (9-20) mg/dL Creatinine (0.66-1.25) mg/dL Glucose (74-99) mg/dL POC Glucose (mg/dL) 167 H 174 H (70-110) mg/dL Uric Acid (3.5-8.5) mg/dL Calcium (8.4-10.2) mg/dL Phosphorus (2.5-4.5) mg/dL Magnesium (1.6-2.3) mg/dL Total Protein (6.3-8.2) g/dL Albumin (3.5-5.0) g/dL Urine Protein 2+ H (Negative) Urine Blood Small H (Negative) Urine RBC 14 H (0-5) /hpf Amorphous Sediment Few H (None) /hpf Hyaline Casts 4 H (0-2) /lpf Urine Mucus Rare H (None) /hpf 11/05/23 11/05/23 11/05/23 Range/Units 00:14 05:34 05:34 Sodium 131 L (137-145) mmol/L Chloride 89 L (98-107) mmol/L BUN 106 H* (9-20) mg/dL Creatinine 6.17 H (0.66-1.25) mg/dL Glucose 117 H (74-99) mg/dL POC Glucose (mg/dL) 136 H (70-110) mg/dL Uric Acid 10.5 H (3.5-8.5) mg/dL Calcium 8.2 L (8.4-10.2) mg/dL Phosphorus 6.4 H (2.5-4.5) mg/dL Magnesium 2.4 H (1.6-2.3) mg/dL Total Protein 4.8 L (6.3-8.2) g/dL Albumin 2.4 L (3.5-5.0) g/dL Urine Protein (Negative) Urine Blood (Negative) Urine RBC (0-5) /hpf Amorphous Sediment (None) /hpf Hyaline Casts (0-2) /lpf Urine Mucus (None) /hpf 11/05/23 11/05/23 Range/Units 06:22 11:32 Sodium (137-145) mmol/L Chloride (98-107) mmol/L BUN (9-20) mg/dL Creatinine (0.66-1.25) mg/dL Glucose (74-99) mg/dL POC Glucose (mg/dL) 140 H 117 H (70-110) mg/dL Uric Acid (3.5-8.5) mg/dL Calcium (8.4-10.2) mg/dL Phosphorus (2.5-4.5) mg/dL Magnesium (1.6-2.3) mg/dL Total Protein (6.3-8.2) g/dL Albumin (3.5-5.0) g/dL Urine Protein (Negative) Urine Blood (Negative) Urine RBC (0-5) /hpf Amorphous Sediment (None) /hpf Hyaline Casts (0-2) /lpf Urine Mucus (None) /hpf
--- NOTE | 2023-11-05 12:02 | P.PN ---
Subjective Patient is seen for follow-up for acute kidney injury and severe hyperkalemia, started on hemodialysis on 10/28/2023. History of donor renal transplant in 1981 at [facility]. Patient is currently seen on hemodialysis. Tolerating treatment well. Clear liquid diet has been started. Patient is maintained on TPN. Urine output at 50 to 60 cc/h. This has improved. Serum creatinine remains elevated at 6.1 today with BUN of 106. Objective - Vital Signs Vital signs: Vital Signs Temp 97.7 F 11/05/23 08:37 Pulse 99 11/05/23 08:37 Resp 16 11/05/23 08:37 BP 103/52 11/05/23 08:37 Pulse Ox 96 11/05/23 08:37 FiO2 Intake & Output 11/04/23 11/05/23 11/05/23 18:59 06:59 18:59 Intake Total 1364 754 240 Output Total 885 450 Balance 479 304 240 Weight 121.1 kg Intake: IV 564 754 Mvi, Adult No.4 with Vit 464 754 K 10 ml Trace (Conc-1Ml/ Dose) 1 ml Sodium Acetate 30 meq Potassium Chloride 20 meq Calcium Gluconate 1 gm Sodium Chloride 4Meq/ml Vial 24 meq In Amino Acids 5 %/ Dextrose 20 % 1,000 ml @ 58 mls/hr IV .Q18H9M [facility] Rx#:[id number] Sodium Ferric Gluconat- 100 Sucrose 125 mg In Sodium Chloride 0.9% 100 ml @ 100 mls/hr IVPB DAILY [facility] Rx#:[id number] Oral 720 240 Other 80 Output: Gastric Drainage 300 Urine 585 450 Other: Voiding Method Indwelling Catheter Indwelling Catheter Indwelling Catheter # Bowel Movements 1 1 - Exam Patient is awake, comfortable, no acute distress. 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 - Labs CBC & Chem 7: 11/04/23 03:15 11/05/23 05:34 Labs: Abnormal Lab Results - Last 24 Hours (Table) 11/04/23 11/04/23 11/04/23 Range/Units 12:13 14:48 17:53 Sodium (137-145) mmol/L Chloride (98-107) mmol/L BUN (9-20) mg/dL Creatinine (0.66-1.25) mg/dL Glucose (74-99) mg/dL POC Glucose (mg/dL) 167 H 174 H (70-110) mg/dL Uric Acid (3.5-8.5) mg/dL Calcium (8.4-10.2) mg/dL Phosphorus (2.5-4.5) mg/dL Magnesium (1.6-2.3) mg/dL Total Protein (6.3-8.2) g/dL Albumin (3.5-5.0) g/dL Urine Protein 2+ H (Negative) Urine Blood Small H (Negative) Urine RBC 14 H (0-5) /hpf Amorphous Sediment Few H (None) /hpf Hyaline Casts 4 H (0-2) /lpf Urine Mucus Rare H (None) /hpf 11/05/23 11/05/23 11/05/23 Range/Units 00:14 05:34 05:34 Sodium 131 L (137-145) mmol/L Chloride 89 L (98-107) mmol/L BUN 106 H* (9-20) mg/dL Creatinine 6.17 H (0.66-1.25) mg/dL Glucose 117 H (74-99) mg/dL POC Glucose (mg/dL) 136 H (70-110) mg/dL Uric Acid 10.5 H (3.5-8.5) mg/dL Calcium 8.2 L (8.4-10.2) mg/dL Phosphorus 6.4 H (2.5-4.5) mg/dL Magnesium 2.4 H (1.6-2.3) mg/dL Total Protein 4.8 L (6.3-8.2) g/dL Albumin 2.4 L (3.5-5.0) g/dL Urine Protein (Negative) Urine Blood (Negative) Urine RBC (0-5) /hpf Amorphous Sediment (None) /hpf Hyaline Casts (0-2) /lpf Urine Mucus (None) /hpf 11/05/23 11/05/23 Range/Units 06:22 11:32 Sodium (137-145) mmol/L Chloride (98-107) mmol/L BUN (9-20) mg/dL Creatinine (0.66-1.25) mg/dL Glucose (74-99) mg/dL POC Glucose (mg/dL) 140 H 117 H (70-110) mg/dL Uric Acid (3.5-8.5) mg/dL Calcium (8.4-10.2) mg/dL Phosphorus (2.5-4.5) mg/dL Magnesium (1.6-2.3) mg/dL Total Protein (6.3-8.2) g/dL Albumin (3.5-5.0) g/dL Urine Protein (Negative) Urine Blood (Negative) Urine RBC (0-5) /hpf Amorphous Sediment (None) /hpf Hyaline Casts (0-2) /lpf Urine Mucus (None) /hpf Assessment and Plan Assessment: 1. Acute kidney injury secondary to ATN. Creatinine peaked at 9.39 this admission. Now nonoliguric. Started on hemodialysis October 28, 2023. Has a right femoral catheter. No hydronephrosis noted in the transplant kidney. 2. Chronic kidney disease stage IV/V. Patient's GFR was 18 in August 2023 per outpatient records. 3. Hyperkalemia secondary to acute kidney injury. Improved postdialysis and with medical management. 4. Status post right nephrectomy October 27, 2023 due to renal cell carcinoma. 5. Status post donor kidney transplant in 1981 at [facility] maintained on steroids and Imuran. Patient's briefcase sewer is out of [place] 6. History of renal artery bypass. 7. Anemia of chronic kidney disease maintained on Aranesp. Iron deficiency noted. 8. Hyperphosphatemia secondary to acute kidney injury. On PhosLo. Phosphorus level 8.3 dated November 03, 2023; 6.0 dated November 04, 2023. 9. Hyponatremia secondary to acute kidney injury. Hypervolemic. Improved postdialysis. 10. A-fib with RVR status post now on oral meds. Cardizem drip. 11. Volume overload. Improved with ultrafiltration and diuresis. 12. Metabolic acidosis secondary to acute kidney injury. Improved postdialysis. 13. Ileus. Surgery following. Maintained on TPN. Started on clear liquid diet today. 14. Hyperuricemia. Patient cannot take allopurinol due to Imuran. Plan: Continue with IV Lasix Continue Imuran and prednisone. Not a candidate for allopurinol due to Imuran. Increase PhosLo once oral intake is improved. Patient remains hemodialysis dependent.
--- NOTE | 2023-11-05 14:28 | P.PN ---
Subjective Progress Note Date: 11/05/23 Principal diagnosis: Hospital Course: 68 y/o M with history of ESRD s/p L. renal transplant in 1981, now CKD post elective right radical nephrectomy. Patient became oliguric after surgery, with worsening renal function and hyperkalemia. He required emergent dialysis. Currently in medical ICU, will likely downgrade to 3 S. nephrology following. Patient is in A-fib. Cardiology following. Sound group consulted for medical management and will continue to follow. Subjective: Patient seen at bedside. He denies any chills nausea vomiting diarrhea, tolerating clear liquids well and denies any complaints overall. Pertinent positives and negatives discussed above, a complete review of systems was preformed and all the other systems were negative. Vitals Signs Reviewed. P patient is afebrile, normotensive, hemodynamically stable satting mid 90s 4 L nasal cannula General: non toxic, no distress, appears at stated age, normal weight, NG tube removed Derm: seborrheic keratosis noted on the chest, arms, and back Cardiovascular: irregular rhythm, no murmur, positive dorsalis pedis pulse bilateral, no edema Lungs: Clear air entry bilaterally, rhonchi bilaterally, no rales, no accessory muscle use Abdominal: soft, nontender to palpation, no guarding, nondistended EXT: Lower extremity warm bilaterally, tenderness around ankles and great toes bilaterally Data Reviewed Today: Pertinent labs: Sodium 131, chloride 89, BUN 106, creatinine 6.17, glucose 117, uric acid 10.5, calcium 8.2, phosphorus 6.4, mag 2.4, total protein 4.8, albumin 2.4 Imaging: No new imaging Assessment and Plan: Active: SIRS vs. Sepsis: Fever, new leukocytosis, no obvious signs of infection Blood cultures x 2 sent, will follow-up Urinalysis sent and unremarkable Chest x-ray done Procalcitonin result pending Gouty arthritis versus hyperuricemia secondary to CKD Colchicine 1.2 mg then 0.6 mg 1 hour later Nonoliguric CHEVY on CKD -Patient required emergent hemodialysis on 10/27, vascular surgery and nephrology following -Urology note reviewed, -CTAP showed no signs of obstruction -80 mg IV Lasix daily -Continue to monitor I's and O's -Urinary output stable -Hemodialysis today -Permanent dialysis catheter placed yesterday Hypervolemic hyponatremia -Improving Renal cell carcinoma status post right radical nephrectomy on 10/26 -Urology on board Previous ESRD status post renal transplant -Imuran 125 mg p.o. daily 20 mg prednisone p.o. daily will be decreased to 10 mg tomorrow and then 4 mg starting November 06, 2023 which is his home dose Permanent dialysis catheter placed Acute hypoxic respiratory failure, likely due to hypervolemia -Wean oxygen as tolerated but maintain O2 sats greater than 88% Postoperative ileus -Surgery consulted Patient having bowel movements without any other episodes of vomiting NG tube removed Diet advanced to clear liquids Atrial fibrillation with RVR -Cardiology following -Echo: EF 60 to 65% with moderate LVH -Cardizem 30 mg p.o. 3 times daily Started Eliquis 5 mg p.o. twice daily Started Lopressor 25 mg p.o. 3 times daily Hypertension -Cardizem 30 mg p.o. 3 times daily Hydralazine held Anemia of chronic disease -Ferric gluconate 125 mg IV QD -Aranesp 40 mcg SQ weekly -Transfuse PRBC if Hg < 7 Hyperphosphatemia -Phoslo 667 mg PO TID. PAD -Cilostazol 100 mg PO BID. Dipyridamole 50 mg PO TID. Dyslipidemia -Lipitor 20 mg PO QD. F: none E: Will replete as needed N: TPN A: Independent DVT PPx: Eliquis 5 mg p.o. twice daily GI PPx: Protonix 40mg IV daily Code Status: FULL Anticipated discharge place: Pending clinical course Anticipated discharge time: Pending clinical course Patient was seen and examined by me and the resident. I agree with the subjective and objective as above. We discussed the assessment and plan as documented below: Patient reports pain in his bilateral ankle, first toe and left hand pain. Uric acid is 10.5, started on Colchicine. Urine output 1035 cc over the past 24H. HR 80-90s. Currently on 4L NC. Tmax 101.2F 11/03. CXR done today shows atelectasis versus bibasilar infiltrates. CMP significant for Na 131, Cl 89, BUN 106, Cr 6.17, glu 117, Ca 8.2. Phos 6.4. Mag 2.4. SIRS versus Sepsis: Fever, new leukocytosis. No obvious signs of infection. UA benign. BCx pending. Hold antibiotics for now. CHEVY on CKD: Started on HD 10/27. CT AP with no signs of obstructive uropathy. Continue Lasix 80 mg IV QD. Monitor daily BMP for electrolytes and renal function. Nephrology on board, plans for HD today. Hypervolemic hyponatremia: Hopeful improvement with HD. Renal cell carcinoma: Status post right radical nephrectomy on 10/26. Urology on board. Previous ESRD status post renal transplant: Imuran 125 mg PO QD. Medrol 4 mg PO QD. Acute hypoxic respiratory failure likely due to hypervolemia: Hopeful improvement with HD and Lasix as above. Titrate O2 to maintain O2 sat > 88%. Nausea and Vomiting: CT AP negative for ileus or SBO. NG tube discontinued. Diet advanced to FLD. Surgery on board. Atrial fibrillation with RVR: Echo EF 60-65% with moderate LVH. Cardizem 30 mg PO TID. Metoprolol 25 mg PO TID. Eliquis 5 mg PO BID for AC. Obtain TSH. Maintain Mag > 2 and K > 4. Cardiology on board. Hypertension: BP 125/77. Cardizem 30 mg PO TID. Metoprolol 25 mg PO TID. Increase Hydralazine to 50 mg PO TID. Anemia of Chronic Disease: Hg stable. Fe 19, Ferritin 301. Component of Fe def. Started on Ferric gluconate 125 mg IV QD. Aranesp 40 mcg SQ weekly. Transfuse PRBC if Hg < 7. Hyperphosphatemia: Phoslo 667 mg PO TID. PAD: Cilostazol 100 mg PO BID. Dipyridamole 50 mg PO TID. Dyslipidemia: Lipitor 20 mg PO QD. Resolved: Hyperkalemia Objective - Vital Signs Vital signs: Vital Signs Temp 98.9 F 11/05/23 04:00 Pulse 94 11/05/23 04:00 Resp 14 11/05/23 04:00 BP 111/57 11/05/23 04:00 Pulse Ox 92 L 11/05/23 04:00 FiO2 Intake & Output 11/04/23 11/04/23 11/05/23 06:59 18:59 06:59 Intake Total 922 1364 754 Output Total 5108 383 450 Balance -718 039 304 Weight 123.6 kg 121.1 kg Intake: IV 564 754 Mvi, Adult No.4 with Vit 464 754 K 10 ml Trace (Conc-1Ml/ Dose) 1 ml Sodium Acetate 30 meq Potassium Chloride 20 meq Calcium Gluconate 1 gm Sodium Chloride 4Meq/ml Vial 24 meq In Amino Acids 5 %/ Dextrose 20 % 1,000 ml @ 58 mls/hr IV .Q18H9M [facility] Rx#:[id number] Sodium Ferric Gluconat- 100 Sucrose 125 mg In Sodium Chloride 0.9% 100 ml @ 100 mls/hr IVPB DAILY [facility] Rx#:[id number] Intake, IV Titration 682 Amount Fat Emulsion 20% 250 ml 42 In Empty Bag 1 bag @ 21 mls/hr IV MoTh [facility] Rx#: [id number] Mvi, Adult No.4 with Vit 640 K 10 ml Trace (Conc-1Ml/ Dose) 1 ml Sodium Acetate 30 meq Potassium Chloride 20 meq Calcium Gluconate 1 gm Sodium Chloride 4Meq/ml Vial 24 meq In Amino Acids 5 %/ Dextrose 20 % 1,000 ml @ 58 mls/hr IV .Q18H9M [facility] Rx#:[id number] Oral 240 720 Other 80 Output: Gastric Drainage 900 300 Urine 740 585 450 Other: Voiding Method Indwelling Catheter Indwelling Catheter Indwelling Catheter # Bowel Movements 1 1 1 - Labs CBC & Chem 7: 11/04/23 03:15 11/05/23 05:34 Labs: Abnormal Lab Results - Last 24 Hours (Table) 11/04/23 11/04/23 11/04/23 Range/Units 12:13 14:48 17:53 POC Glucose (mg/dL) 167 H 174 H (70-110) mg/dL Urine Protein 2+ H (Negative) Urine Blood Small H (Negative) Urine RBC 14 H (0-5) /hpf Amorphous Sediment Few H (None) /hpf Hyaline Casts 4 H (0-2) /lpf Urine Mucus Rare H (None) /hpf 11/05/23 11/05/23 Range/Units 00:14 06:22 POC Glucose (mg/dL) 136 H 140 H (70-110) mg/dL Urine Protein (Negative) Urine Blood (Negative) Urine RBC (0-5) /hpf Amorphous Sediment (None) /hpf Hyaline Casts (0-2) /lpf Urine Mucus (None) /hpf
[2023-11-05 18:31] LABS: Glucose,Whole Blood 147 mg/dL (70-110)
[2023-11-05] MEDS: MELATONIN 3 MG TABLET PO SCH (21:20)
[2023-11-05 23:59] LABS: Glucose,Whole Blood 127 mg/dL (70-110)
[2023-11-06 06:34] LABS: Glucose,Whole Blood 131 mg/dL (70-110)
[2023-11-06 09:06] LABS: HCT 20.9 % (39.0-53.0); Hypochromasia Marked; MCH 31.8 pg (25.0-35.0); MCHC 33.2 g/dL (31.0-37.0); MCV 95.8 fL (80.0-100.0); Mean Platelet Volume 7.8; Platelet Count 374 k/uL (150-450); RBC 2.19 m/uL (4.30-5.90); RDW 14.9 % (11.5-15.5); WBC 10.4 k/uL (3.8-10.6)
[2023-11-06] MEDS: methylPREDNISolone 4 MG TAB PO SCH (09:07)
[2023-11-06 09:27] LABS: ALT 26 U/L (4-49); AST 63 U/L (17-59); African American GFR (CKD) 15 (>60 ml/min/1.73 sqM); Albumin 2.5 g/dL (3.5-5.0); Alkaline Phosphatase 40 U/L (38-126); Anion Gap 8 mmol/L; Blood Urea Nitrogen 71 mg/dL (9-20); Calcium 7.9 mg/dL (8.4-10.2); Carbon Dioxide 25 mmol/L (22-30); Chloride 97 mmol/L (98-107); Glucose 114 mg/dL (74-99); Magnesium 1.9 mg/dL (1.6-2.3); Non-African American GFR(CKD) 13 (>60 ml/min/1.73 sqM); Phosphorus 4.2 mg/dL (2.5-4.5); Potassium 3.8 mmol/L (3.5-5.1); Sodium 130 mmol/L (137-145); Total Bilirubin 0.5 mg/dL (0.2-1.3); Total Protein 5.2 g/dL (6.3-8.2)
--- NOTE | 2023-11-06 09:50 | P.PN ---
Subjective Progress Note Date: 11/06/23 Patient seen and examined at bedside. Tolerating diet. Having bowel function. Denies abdominal pain. States he has low appetite. Objective - Vital Signs Vital signs: Vital Signs Temp 98.0 F 11/06/23 03:51 Pulse 84 11/06/23 03:51 Resp 18 11/06/23 03:51 BP 116/60 11/06/23 03:51 Pulse Ox 96 11/06/23 03:51 FiO2 Intake & Output 11/05/23 11/06/23 11/06/23 18:59 06:59 18:59 Intake Total 1520 1081 Output Total 3675 100 Balance -2155 981 Weight 136 kg Intake: IV 100 30 Invasive Line 7 10 Invasive Line 8 20 Sodium Ferric Gluconat- 100 Sucrose 125 mg In Sodium Chloride 0.9% 100 ml @ 100 mls/hr IVPB DAILY [facility] Rx#:[id number] Intake, IV Titration 1051 Amount Mvi, Adult No.4 with Vit 1051 K 10 ml Trace (Conc-1Ml/ Dose) 1 ml Sodium Acetate 20 meq Potassium Chloride 22 meq Calcium Gluconate 1 gm Sodium Chloride 4Meq/ml Vial 36 meq In Amino Acids 5 %/ Dextrose 20 % 1,000 ml @ 58 mls/hr IV .Q18H8M [facility] Rx#:[id number] Oral 920 Hemodialysis 500 Output: Urine 175 100 Uretheral (Friend) 175 Hemodialysis 2000 Hemodialysis Net Amount 1500 Other: Voiding Method Indwelling Catheter Indwelling Catheter # Bowel Movements 0 1 - Constitutional General appearance: Present: cooperative - Respiratory Details: No difficulty with respiration - Gastrointestinal Gastrointestinal Comment(s): Soft, nontender, nondistended, no rebound, no guarding - Psychiatric Psychiatric: Present: A&O x's 3 - Labs CBC & Chem 7: 11/06/23 07:56 11/06/23 07:56 Labs: Abnormal Lab Results - Last 24 Hours (Table) 11/05/23 11/05/23 11/05/23 Range/Units 05:34 11:32 18:29 RBC (4.30-5.90) m/uL Hgb (13.0-17.5) gm/dL Hct (39.0-53.0) % Sodium (137-145) mmol/L Chloride (98-107) mmol/L BUN (9-20) mg/dL Creatinine (0.66-1.25) mg/dL Glucose (74-99) mg/dL POC Glucose (mg/dL) 117 H 147 H (70-110) mg/dL Calcium (8.4-10.2) mg/dL AST (17-59) U/L Total Protein (6.3-8.2) g/dL Albumin (3.5-5.0) g/dL Procalcitonin 1.33 H (0.02-0.50) ng/mL 11/05/23 11/06/23 11/06/23 Range/Units 23:57 06:33 07:56 RBC (4.30-5.90) m/uL Hgb (13.0-17.5) gm/dL Hct (39.0-53.0) % Sodium 130 L (137-145) mmol/L Chloride 97 L (98-107) mmol/L BUN 71 H (9-20) mg/dL Creatinine 4.43 H (0.66-1.25) mg/dL Glucose 114 H (74-99) mg/dL POC Glucose (mg/dL) 127 H 131 H (70-110) mg/dL Calcium 7.9 L (8.4-10.2) mg/dL AST 63 H (17-59) U/L Total Protein 5.2 L (6.3-8.2) g/dL Albumin 2.5 L (3.5-5.0) g/dL Procalcitonin (0.02-0.50) ng/mL 11/06/23 Range/Units 07:56 RBC 2.19 L (4.30-5.90) m/uL Hgb 7.0 L (13.0-17.5) gm/dL Hct 20.9 L (39.0-53.0) % Sodium (137-145) mmol/L Chloride (98-107) mmol/L BUN (9-20) mg/dL Creatinine (0.66-1.25) mg/dL Glucose (74-99) mg/dL POC Glucose (mg/dL) (70-110) mg/dL Calcium (8.4-10.2) mg/dL AST (17-59) U/L Total Protein (6.3-8.2) g/dL Albumin (3.5-5.0) g/dL Procalcitonin (0.02-0.50) ng/mL Microbiology - Last 24 Hours (Table) 11/04/23 11:03 Blood Culture - Preliminary Blood Assessment and Plan Plan: 68-year-old male with postoperative ileus that appears to be resolving. Tolerating full liquid diet and will advance to soft diet. He does mention he has decreased appetite. Recommended slowing down if he begins to have any nausea or abdominal discomfort.
[2023-11-06] MEDS: PIPERACILLIN-TAZOBACTAM 3.375 GM in SODIUM CHLORIDE 0.9% 100 ML IVPB SCH ×2 (09:53→20:36)
--- NOTE | 2023-11-06 10:08 | P.PN ---
Subjective Progress Note Date: 11/06/23 Principal diagnosis: Renal mass. This is a 68-year-old white male whom I have been seeing for the last few days while in the ICU, patient had history of renal transplant in 1971 at [facility], he was recently discovered to have renal cell carcinoma involving his right [place] kidney. Underwent radical nephrectomy on 10/27/2023, and postoperatively, patient developed anuria, and worsening metabolic acidosis worsening uremia and hyperkalemia requiring transfer to the ICU for immediate hemodialysis. Patient has been on hemodialysis for the last 2 days, and he is being followed by urology as well as nephrology. Today the patient seems to be developing metabolic encephalopathy with confusion, and he remains oliguric. WBC count today is 9.1 hemoglobin is 7.8, electrolytes showed low sodium of 130 potassium 5.5 BUN is 49 creatinine 7.10. Bicarb is 23 The patient is seen today October 31 2023 in follow-up in the intensive care unit. He is currently sitting up in bed. Awake and alert. His mental status has been waxing and waning currently oriented x 2. He is receiving hemodialysis. Goal is to remove 1 L today. This is his third day in a row. White count 9.0. Hemoglobin 8.4. Platelets 258. Sodium 129. Potassium 5.1. Bicarb 20. BUN 71. Creatinine 9.39. He did develop atrial fibrillation with a rapid ventricular response and he is currently on a Cardizem drip at 10 mg/h. Normal saline at KVO. Maintaining good O2 saturations in the 90s on 4 L/min per nasal cannula. Working with the incentive spirometer. The patient is seen today November 01, 2023 and follow-up in the intensive care unit. He is awake and alert in no acute distress. He is currently maintaining O2 saturations in the 90s on 4 L/min per nasal cannula. No IV fluids. He has been having issues with labile blood pressure. He dropped into the 60s systolically during hemodialysis yesterday requiring a small amount of norepinephrine. Today he is hypertensive. He also been having issues with nausea and vomiting. Albert x-rays reveal prominent small bowel loops carlos enrique uring up to 5 cm which is concerning for possible small bowel obstruction.. Platelets 293. Sodium 128. Potassium 5.2. Bicarb 24. BUN 78. Creatinine 7.77. Glucose 115. The patient is seen today November 02, 2023 in follow-up on the intensive care unit. He is currently sitting up in bed. Awake and alert in no acute distress. He was having ongoing issues with emesis and a nasogastric tube was placed again today. CT scan of the abdomen and pelvis revealed no evidence of obstruction or ileus. He is having ongoing issues with atrial fibrillation with a rapid ventricular response. He is currently on a Cardizem drip at 5 mg/h. He is postoperative day #6 of his right nephrectomy. He is currently on 4 L/min per nasal cannula. O2 saturations in the mid 90s. Hemodynamically stable. Wh ite count 11.3. Hemoglobin 8.1. Platelets 290. Sodium 130. Potassium 4.5. Bicarb 27. BUN 75. Creatinine 5.74. Glucose 106. Urine output has improved with approximately 600 cc in the past 24 hours. Plan is for hemodialysis tomorrow. He has been initiated on IV diuretics. The patient is seen today November 03, 2023 in follow-up in the intensive care unit. And alert in no acute distress. He is maintaining O2 saturations in the 90s on 4 L/min per nasal cannula. He is continued on a Cardizem drip at 5 mg/h. Receiving TPN at 30 mL/h. Nasogastric tube remains in place. He is making go od urine output. He currently is receiving hemodialysis with a goal of 1 L to be removed. He is currently in a -3.4 L balance. White count 10.3. Hemoglobin 7.8. Platelets 326. Sodium 127. Potassium 4.2. Bicarb 29. BUN 97. Creatinine 6.50. Solu-Cortef has been switched to prednisone. The patient is seen today November 04, 2023 in follow-up in the intensive care unit. He is currently sitting up in bed. Awake and alert in no acute distress. He is maintaining good O2 saturations in the 90s on 2 L/min per nasal cannula. Nasogastric tube remains in place. He is being nursed with TPN at 50 mL/h. He is having bowel movements. He remains in atrial fibrillation currently with a controlled ventricular rate. Has been afebrile. Hemodynamically stable. White count 11.1. Hemoglobin 7.7. Platelets 336. Sodium 135. Potassium 3.8. Bicarb 32. BUN 76. Creatinine 4.62. Glucose 113. Chest x-ray shows small bilateral effusions. He remains anticoagulated with Eliquis. He remains on IV diuretics. Currently in a -4.2 L balance. The patient is seen today November 05, 2023 in follow-up in the intensive care unit. He is doing better today. Awake and alert in no acute distress. Feeling stronger. Denies any worsening shortness of breath, cough or congestion. He is maintaining good O2 saturations in the 90s on 4 L/min per nasal cannula. His nasogastric tube has been removed. He is being nourished with TPN at 58 mL/h. He remains on IV diuretics. Anticoagulated with Eliquis. Sodium 131. Potassium 3.8. Bicarb 28. BUN 106. Creatinine 6.17. Glucose 117. He is curr ently in a +780 mL balance. Remains in atrial fibrillation with a controlled ventricular response. Progress note dated November 06, 2023. The patient is seen today in room 365. The patient is 68 years of age. He is resting comfortably. The patient is on 3 L of oxygen. He is getting TPN at 58 cc an hour. He is awake, alert, in no acute distress. He denies any shortness of breath, cough, wheezing, or chest congestion. Current laboratory data includes a white count 10.4, hemoglobin 7, hematocrit 20.9, and a platelet count of 374,000. Sodium 130, potassium 3.8, chloride 97, CO2 25, BUN 71, creatinine 4.43. Albumin is 2.5. Objective - Vital Signs Vital signs: Vital Signs Temp 98.0 F 11/06/23 03:51 Pulse 84 11/06/23 03:51 Resp 18 11/06/23 03:51 BP 116/60 11/06/23 03:51 Pulse Ox 96 11/06/23 03:51 FiO2 Intake & Output 11/05/23 11/06/23 11/06/23 18:59 06:59 18:59 Intake Total 1520 1081 Output Total 3675 100 Balance -2155 981 Weight 136 kg Intake: IV 100 30 Invasive Line 7 10 Invasive Line 8 20 Sodium Ferric Gluconat- 100 Sucrose 125 mg In Sodium Chloride 0.9% 100 ml @ 100 mls/hr IVPB DAILY [facility] Rx#:[id number] Intake, IV Titration 1051 Amount Mvi, Adult No.4 with Vit 1051 K 10 ml Trace (Conc-1Ml/ Dose) 1 ml Sodium Acetate 20 meq Potassium Chloride 22 meq Calcium Gluconate 1 gm Sodium Chloride 4Meq/ml Vial 36 meq In Amino Acids 5 %/ Dextrose 20 % 1,000 ml @ 58 mls/hr IV .Q18H8M [facility] Rx#:[id number] Oral 920 Hemodialysis 500 Output: Urine 175 100 Uretheral (Friend) 175 Hemodialysis 2000 Hemodialysis Net Amount 1500 Other: Voiding Method Indwelling Catheter Indwelling Catheter # Bowel Movements 0 1 - Exam No acute distress, oriented 3. Currently on 3 L nasal cannula. No respiratory distress. HEENT examination is grossly unremarkable. Mucous membranes are moist. No oral lesions. Neck supple. Full range of motion. No adenopathy thyromegaly or neck vein distention. Cardiovascular examination reveals regular rhythm rate. S1-S2 normal. No S3 or S4. No discernible murmur noted. Lungs reveal mostly clear breath sounds. Minimal scattered rhonchi. No wheezes or crackles. Breath sounds equal. Saturations are adequate. Abdomen soft bowel sounds are heard. No masses or tenderness. Extremities are intact. No cyanosis clubbing or edema. Skin is without rash or lesion. Neurologic examination is brief but nonfocal. - Labs CBC & Chem 7: 11/06/23 07:56 11/06/23 07:56 Labs: Abnormal Lab Results - Last 24 Hours (Table) 11/05/23 11/05/23 11/05/23 Range/Units 05:34 11:32 18:29 RBC (4.30-5.90) m/uL Hgb (13.0-17.5) gm/dL Hct (39.0-53.0) % Sodium (137-145) mmol/L Chloride (98-107) mmol/L BUN (9-20) mg/dL Creatinine (0.66-1.25) mg/dL Glucose (74-99) mg/dL POC Glucose (mg/dL) 117 H 147 H (70-110) mg/dL Calcium (8.4-10.2) mg/dL AST (17-59) U/L Total Protein (6.3-8.2) g/dL Albumin (3.5-5.0) g/dL Procalcitonin 1.33 H (0.02-0.50) ng/mL 11/05/23 11/06/23 11/06/23 Range/Units 23:57 06:33 07:56 RBC (4.30-5.90) m/uL Hgb (13.0-17.5) gm/dL Hct (39.0-53.0) % Sodium 130 L (137-145) mmol/L Chloride 97 L (98-107) mmol/L BUN 71 H (9-20) mg/dL Creatinine 4.43 H (0.66-1.25) mg/dL Glucose 114 H (74-99) mg/dL POC Glucose (mg/dL) 127 H 131 H (70-110) mg/dL Calcium 7.9 L (8.4-10.2) mg/dL AST 63 H (17-59) U/L Total Protein 5.2 L (6.3-8.2) g/dL Albumin 2.5 L (3.5-5.0) g/dL Procalcitonin (0.02-0.50) ng/mL 11/06/23 Range/Units 07:56 RBC 2.19 L (4.30-5.90) m/uL Hgb 7.0 L (13.0-17.5) gm/dL Hct 20.9 L (39.0-53.0) % Sodium (137-145) mmol/L Chloride (98-107) mmol/L BUN (9-20) mg/dL Creatinine (0.66-1.25) mg/dL Glucose (74-99) mg/dL POC Glucose (mg/dL) (70-110) mg/dL Calcium (8.4-10.2) mg/dL AST (17-59) U/L Total Protein (6.3-8.2) g/dL Albumin (3.5-5.0) g/dL Procalcitonin (0.02-0.50) ng/mL Microbiology - Last 24 Hours (Table) 11/04/23 11:03 Blood Culture - Preliminary Blood Assessment and Plan Assessment: Status post right nephrectomy, 10/27/2023. Acute kidney injury/acute tubular necrosis requiring hemodialysis. Acute hyperkalemia and metabolic acidosis secondary to above, recovered. Acute metabolic encephalopathy secondary to uremia. Atrial fibrillation with rapid ventricular response. History of kidney transplant 1971. Nausea and vomiting quiring reinsertion of nasogastric tube on 11/02/2023, CT scan ruled out obstruction/ileus. Plan: Plan dated November 06, 2023. The patient is seen today in room 365. He had been in the intensive care unit, up until yesterday. He is getting TPN at 50 cc an hour. Labs, x-rays, medications are reviewed. We will continue to follow the patient, make recommendations. We do recommend daily and ongoing use of the incentive spirometer. Time with Patient: Less than 30
--- NOTE | 2023-11-06 10:43 | P.PN ---
Subjective Progress Note Date: 11/06/23 HISTORY OF PRESENTING ILLNESS Patient is a 68-year-old male with past medical history of renal transplant in 1971 initially presented for right nephrectomy due to renal cell carcinoma on 10/27/2023. Postoperatively he developed anuria, metabolic acidosis, hyperkalemia requiring hemodialysis. He also developed metabolic encephalopathy that has been improving since. On 10/31/2023 he developed A-fib with RVR for which cardiology was consulted. Patient seen at bedside, currently with an NG tube. Currently in A-fib with RVR. Sodium improved to 135. Maintained on Cardizem for A-fib with RVR. HR in the 110s-120s. BP 130s-140s/80s-90s. States he is feeling well. 11/04 Patient seen and examined. Patient denies any chest pain or pressure. It currently undergoing hemodialysis. Blood pressures in the 110s to 130s. No lightheadedness or dizziness. A. fib controlled with heart rates in the 70s to 100 range. 11/05 Patient has been transferred out of the intensive care unit and seen today on the cardiac stepdown unit. Patient complains of upper chest pain with tenderness to palpation. He is complaining of back discomfort. He is resting in recliner. Patient underwent HD yesterday. He denies any blood in his urine or stool. Hemoglobin today at 7, chemistry report is not available. Blood pressure 116/60, heart rate 84, pulse ox 96% on 4 L nasal cannula. Telemetry is atrial fibrillation controlled rate. PHYSICAL EXAMINATION Vital signs reviewed. CONSTITUTIONAL: No apparent distress. HEENT: Head is normocephalic. Pupils are equal, round. Sclerae anicteric. Mucous membranes of the mouth are moist. No JVD. No carotid bruit. CHEST EXAMINATION: Lungs are clear to auscultation. No chest wall tenderness is noted on palpation or with deep breathing. HEART EXAMINATION: Irregular rate and rhythm. S1, S2 heard. No murmurs, gallops or rub. ABDOMEN: Soft, nontender. Positive bowel sounds. EXTREMITIES: 2+ peripheral pulses, no lower extremity edema and no calf tenderness. NEUROLOGIC EXAMINATION: Patient is awake, alert and oriented x3. ASSESSMENT 1. Paroxysmal Afib with RVR. 2. CHEVY secondary to ATN. Improving. 3. Volume overload. Improving with dialysis and Lasix. 4. Status post right nephrectomy 10/27/2023 due to renal cell carcinoma. 5. Postoperative ileus. Has an NG tube. 6. Hyponatremia secondary to acute kidney injury. Hypervolemic. 7. History of renal transplant. Maintained on steroids and Imuran. Plan: Continue Eliquis 5 mg twice daily. Continue metoprolol tartrate 25 mg PO 3 times daily. Continue Cardizem 30 mg PO 3 times daily. Continue hydralazine 50 mg PO 3 times daily. Continue Lipitor 20 mg PO daily. Lasix 80 mg IV push daily managed by nephrology Heart rates appear well-controlled on current regimen. Continue with current diuretics. Monitor patient on anticoagulation however currently no bleeding. Nurse practitioner note has been reviewed, I agree with documented findings and plan of care. Patient was seen and examined. Objective - Vital Signs Vital signs: Vital Signs Temp 98.0 F 11/06/23 03:51 Pulse 84 11/06/23 03:51 Resp 18 11/06/23 03:51 BP 116/60 11/06/23 03:51 Pulse Ox 96 11/06/23 03:51 FiO2 Intake & Output 11/05/23 11/06/23 11/06/23 18:59 06:59 18:59 Intake Total 1520 1081 Output Total 3675 100 Balance -2155 981 Weight 136 kg Intake: IV 100 30 Invasive Line 7 10 Invasive Line 8 20 Sodium Ferric Gluconat- 100 Sucrose 125 mg In Sodium Chloride 0.9% 100 ml @ 100 mls/hr IVPB DAILY [facility] Rx#:[id number] Intake, IV Titration 1051 Amount Mvi, Adult No.4 with Vit 1051 K 10 ml Trace (Conc-1Ml/ Dose) 1 ml Sodium Acetate 20 meq Potassium Chloride 22 meq Calcium Gluconate 1 gm Sodium Chloride 4Meq/ml Vial 36 meq In Amino Acids 5 %/ Dextrose 20 % 1,000 ml @ 58 mls/hr IV .Q18H8M [facility] Rx#:[id number] Oral 920 Hemodialysis 500 Output: Urine 175 100 Uretheral (Friend) 175 Hemodialysis 2000 Hemodialysis Net Amount 1500 Other: Voiding Method Indwelling Catheter Indwelling Catheter # Bowel Movements 0 1 - Labs CBC & Chem 7: 11/06/23 07:56 11/06/23 07:56 Labs: Abnormal Lab Results - Last 24 Hours (Table) 11/05/23 11/05/23 11/05/23 Range/Units 05:34 11:32 18:29 RBC (4.30-5.90) m/uL Hgb (13.0-17.5) gm/dL Hct (39.0-53.0) % POC Glucose (mg/dL) 117 H 147 H (70-110) mg/dL Procalcitonin 1.33 H (0.02-0.50) ng/mL 11/05/23 11/06/23 11/06/23 Range/Units 23:57 06:33 07:56 RBC 2.19 L (4.30-5.90) m/uL Hgb 7.0 L (13.0-17.5) gm/dL Hct 20.9 L (39.0-53.0) % POC Glucose (mg/dL) 127 H 131 H (70-110) mg/dL Procalcitonin (0.02-0.50) ng/mL Microbiology - Last 24 Hours (Table) 11/04/23 11:03 Blood Culture - Preliminary Blood
--- NOTE | 2023-11-06 11:27 | P.PN ---
Subjective Patient is seen for follow-up for acute kidney injury and severe hyperkalemia, started on hemodialysis on 10/28/2023. History of donor renal transplant in 1981 at [facility]. Patient is currently seen on hemodialysis. Tolerating treatment well. Clear liquid diet has been started. Patient is maintained on TPN. Urine output at 50 to 60 cc/h. This has improved. Objective - Vital Signs Vital signs: Vital Signs Temp 97.9 F 11/06/23 08:00 Pulse 88 11/06/23 08:00 Resp 18 11/06/23 08:00 BP 156/73 11/06/23 08:00 Pulse Ox 98 11/06/23 08:00 FiO2 Intake & Output 11/05/23 11/06/23 11/06/23 18:59 06:59 18:59 Intake Total 1520 1081 Output Total 3675 100 Balance -2155 981 Weight 136 kg Intake: IV 100 30 Invasive Line 7 10 Invasive Line 8 20 Sodium Ferric Gluconat- 100 Sucrose 125 mg In Sodium Chloride 0.9% 100 ml @ 100 mls/hr IVPB DAILY [facility] Rx#:[id number] Intake, IV Titration 1051 Amount Mvi, Adult No.4 with Vit 1051 K 10 ml Trace (Conc-1Ml/ Dose) 1 ml Sodium Acetate 20 meq Potassium Chloride 22 meq Calcium Gluconate 1 gm Sodium Chloride 4Meq/ml Vial 36 meq In Amino Acids 5 %/ Dextrose 20 % 1,000 ml @ 58 mls/hr IV .Q18H8M [facility] Rx#:[id number] Oral 920 Hemodialysis 500 Output: Urine 175 100 Uretheral (Friend) 175 Hemodialysis 2000 Hemodialysis Net Amount 1500 Other: Voiding Method Indwelling Catheter Indwelling Catheter Indwelling Catheter # Bowel Movements 0 1 - Exam Patient is awake, comfortable, no acute distress. 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 - Labs CBC & Chem 7: 11/06/23 07:56 11/06/23 07:56 Labs: Abnormal Lab Results - Last 24 Hours (Table) 11/05/23 11/05/23 11/05/23 Range/Units 05:34 11:32 18:29 RBC (4.30-5.90) m/uL Hgb (13.0-17.5) gm/dL Hct (39.0-53.0) % Sodium (137-145) mmol/L Chloride (98-107) mmol/L BUN (9-20) mg/dL Creatinine (0.66-1.25) mg/dL Glucose (74-99) mg/dL POC Glucose (mg/dL) 117 H 147 H (70-110) mg/dL Calcium (8.4-10.2) mg/dL AST (17-59) U/L Total Protein (6.3-8.2) g/dL Albumin (3.5-5.0) g/dL Procalcitonin 1.33 H (0.02-0.50) ng/mL 11/05/23 11/06/23 11/06/23 Range/Units 23:57 06:33 07:56 RBC (4.30-5.90) m/uL Hgb (13.0-17.5) gm/dL Hct (39.0-53.0) % Sodium 130 L (137-145) mmol/L Chloride 97 L (98-107) mmol/L BUN 71 H (9-20) mg/dL Creatinine 4.43 H (0.66-1.25) mg/dL Glucose 114 H (74-99) mg/dL POC Glucose (mg/dL) 127 H 131 H (70-110) mg/dL Calcium 7.9 L (8.4-10.2) mg/dL AST 63 H (17-59) U/L Total Protein 5.2 L (6.3-8.2) g/dL Albumin 2.5 L (3.5-5.0) g/dL Procalcitonin (0.02-0.50) ng/mL 11/06/23 Range/Units 07:56 RBC 2.19 L (4.30-5.90) m/uL Hgb 7.0 L (13.0-17.5) gm/dL Hct 20.9 L (39.0-53.0) % Sodium (137-145) mmol/L Chloride (98-107) mmol/L BUN (9-20) mg/dL Creatinine (0.66-1.25) mg/dL Glucose (74-99) mg/dL POC Glucose (mg/dL) (70-110) mg/dL Calcium (8.4-10.2) mg/dL AST (17-59) U/L Total Protein (6.3-8.2) g/dL Albumin (3.5-5.0) g/dL Procalcitonin (0.02-0.50) ng/mL Microbiology - Last 24 Hours (Table) 11/04/23 11:03 Blood Culture - Preliminary Blood Assessment and Plan Assessment: 1. Acute kidney injury secondary to ATN. Creatinine peaked at 9.39 this admission. Now nonoliguric. Started on hemodialysis October 28, 2023. No hydronephrosis noted in the transplant kidney. 2. Chronic kidney disease stage IV/V. Patient's GFR was 18 in August 2023 per outpatient records. 3. Hyperkalemia secondary to acute kidney injury. Improved postdialysis and with medical management. 4. Status post right nephrectomy October 27, 2023 due to renal cell carcinoma. 5. Status post donor kidney transplant in 1981 at [facility] maintained on steroids and Imuran. 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 History of renal artery bypass. 7. Anemia of chronic kidney disease maintained on Aranesp. Iron deficiency noted. 8. Hyperphosphatemia secondary to acute kidney injury. On PhosLo. Phosphorus level 8.3 dated November 03, 2023; 6.0 dated November 04, 2023. 9. Hyponatremia secondary to acute kidney injury. Hypervolemic. Improved postdialysis. 10. A-fib with RVR status post now on oral meds. Cardizem drip. 11. Volume overload. Improved with ultrafiltration and diuresis. 12. Metabolic acidosis secondary to acute kidney injury. Improved postdialysis. 13. Ileus. Surgery following. Maintained on TPN. Started on clear liquid diet today. 14. Hyperuricemia. Patient cannot take allopurinol due to Imuran. Plan: Continue with IV Lasix Continue Imuran and prednisone. Not a candidate for allopurinol due to Imuran. Increase PhosLo once oral intake is improved. Patient remains hemodialysis dependent. hemodialysis in a.m.
--- NOTE | 2023-11-06 11:47 | P.PN ---
Subjective Progress Note Date: 11/06/23 Principal diagnosis: POD #10, s/p right radical nephrectomy Mr. Linder is awake and alert. He tolerated low fiber diet for breakfast this morning. He denies abdominal pain and is not experiencing nausea. Objective - Vital Signs Vital signs: Vital Signs Temp 98.0 F 11/06/23 03:51 Pulse 84 11/06/23 03:51 Resp 18 11/06/23 03:51 BP 116/60 11/06/23 03:51 Pulse Ox 96 11/06/23 03:51 FiO2 Intake & Output 11/05/23 11/06/23 11/06/23 18:59 06:59 18:59 Intake Total 1520 1081 Output Total 3675 100 Balance -2155 981 Weight 136 kg Intake: IV 100 30 Invasive Line 7 10 Invasive Line 8 20 Sodium Ferric Gluconat- 100 Sucrose 125 mg In Sodium Chloride 0.9% 100 ml @ 100 mls/hr IVPB DAILY [facility] Rx#:[id number] Intake, IV Titration 1051 Amount Mvi, Adult No.4 with Vit 1051 K 10 ml Trace (Conc-1Ml/ Dose) 1 ml Sodium Acetate 20 meq Potassium Chloride 22 meq Calcium Gluconate 1 gm Sodium Chloride 4Meq/ml Vial 36 meq In Amino Acids 5 %/ Dextrose 20 % 1,000 ml @ 58 mls/hr IV .Q18H8M [facility] Rx#:[id number] Oral 920 Hemodialysis 500 Output: Urine 175 100 Uretheral (Friend) 175 Hemodialysis 2000 Hemodialysis Net Amount 1500 Other: Voiding Method Indwelling Catheter Indwelling Catheter # Bowel Movements 0 1 - Constitutional General appearance: Present: average body habitus, cooperative, no acute distress - Gastrointestinal Gastrointestinal Comment(s): Soft, non-tender, non-distended. Incision clean, dry, and intact. - Psychiatric Psychiatric: Present: A&O x's 3 - Labs CBC & Chem 7: 11/06/23 07:56 11/06/23 07:56 Labs: Abnormal Lab Results - Last 24 Hours (Table) 11/05/23 11/05/23 11/05/23 Range/Units 05:34 11:32 18:29 POC Glucose (mg/dL) 117 H 147 H (70-110) mg/dL Procalcitonin 1.33 H (0.02-0.50) ng/mL 11/05/23 11/06/23 Range/Units 23:57 06:33 POC Glucose (mg/dL) 127 H 131 H (70-110) mg/dL Procalcitonin (0.02-0.50) ng/mL Microbiology - Last 24 Hours (Table) 11/04/23 11:03 Blood Culture - Preliminary Blood Assessment and Plan Assessment: The patient's urine output has improved considerably, hopefully a sign of renal recovery. Pathology reveals papillary renal cell carcinoma. It should be noted that the tumor was necrotic and that portions of the tumor broke away from the kidney at the time of surgery. All visible tumor was removed. (1) Neoplasm of uncertain behavior of right kidney Current Visit: Yes Status: Acute Code(s): D41.01 - NEOPLASM OF UNCERTAIN BEHAVIOR OF RIGHT KIDNEY SNOMED Code(s): 699028654242940 Plan: - Continue dialysis as needed. - Increase ambulation. - Advance diet as tolerated. - From a urologic standpoint, the Friend catheter may be removed. - Will need oncology consultation to discuss adjuvant therapy. This will be arranged as an outpatient. - Will leave luis in for a minimum of 2 weeks given impaired wound healing associated with corticosteroids.
[2023-11-06 11:53] LABS: Glucose,Whole Blood 139 mg/dL (70-110)
--- NOTE | 2023-11-06 12:19 | P.PN ---
Subjective Progress Note Date: 11/06/23 68 year old M with PMH of ESRD status post L renal transplant in 1981, now CKD is status post elective right radial nephrectomy on 10/26 for right renal mass. Post operatively he became oliguric with severe electrolyte derangements requiring placement of a dialysis catheter on 10/27. HD was initiated on 10/27 with Nephrology on consult. Also noted to be in A-Fib with RVR on 10/30, Cardiology consulted, Echo showing EF 60-65% with moderate concentric LVH, initially started on Cardizem drip and transitioned to Cardizem PO and Metoprolol PO. He developed nausea and vomiting with abdominal discomfort, KUB s howing ileus, NG tube inserted 11/01 with Surgery following. NG tube discontinued on 11/03, patient tolerating diet and having bowel movements. Permacath placed in the right femoral on 11/03. He developed a fever with leukocytosis on 11/03, UA negative, BCx collected, CXR showing bibasilar infiltrates. 11/05 Patient was seen and examined. Reports pain in his bilateral feet. He is on 4L NC. His pro-chava is elevated at 1.33 Given his persistent oxygen requirements, leukocytosis and Tmax of 101.2F on 11/03, I have started the patient on Zosyn 3.375g IV TID. BCx negative at 24H. He is maintained on Lasix 80 mg IV QD. Urine output of 1035 cc over the past 24H. Receiving nutrition via TPA. Plans for HD tomorrow per Nephro. CBC, CMP significant for RBC 2.19, Hg 7, Hct 20.9, Na 130, Cl 97, BUN 71, Cr 4.43, glu 114, Ca 7.9, AST 63, alb 2.5. Mag 1.9. General: non toxic, no distress, appears at stated age Derm: warm, dry Head: atraumatic, normocephalic, symmetric Eyes: EOMI, no lid lag, anicteric sclera Mouth: no lip lesion, mucus membranes moist Cardiovascular: S1 S2 irregular. No murmurs, rubs or gallops. No edema Lungs: Scattered ronchi bilaterally, no accessory muscle use Abd: Surgical dressing c/d/i Ext: Right femoral HD catheter. Erythema of the MTP joint bilaterally with restriction ROM due to pain. Neuro: no focal neuro deficits Psych: Alert, oriented, appropriate affect Based on my assessment of this patient, this patient meets a high complexity level of care. Sepsis likely due to pneumonia with acute hypoxic respiratory failure: Fever, new leukocytosis 11/03. UA benign. BCx negative so far. CXR showing bibasilar infiltrates with elevated pro-chava. Started on Zosyn 3.375g IV TID (11/05). CHEVY on CKD: Started on HD 10/27. CT AP with no signs of obstructive uropathy. Continue Lasix 80 mg IV QD. Monitor daily BMP for electrolytes and renal function. Nephrology on board. Hypervolemic hyponatremia: Hopeful improvement with HD. Gout: Uric acid 10.5. Colchicine 1.2 mg + 0.6 mg PO x 1 11/04. Renal cell carcinoma: Status post right radical nephrectomy on 10/26. Urology on board. Previous ESRD status post renal transplant: Imuran 125 mg PO QD. Medrol 4 mg PO QD. Nausea and Vomiting: CT AP negative for ileus or SBO. NG tube discontinued. Diet advanced to FLD. Surgery on board. Atrial fibrillation with RVR: Echo EF 60-65% with moderate LVH. Cardizem 30 mg PO TID. Metoprolol 25 mg PO TID. Eliquis 5 mg PO BID for AC. Maintain Mag > 2 and K > 4. Cardiology on board. Hypertension: BP 116/60. Cardizem 30 mg PO TID. Metoprolol 25 mg PO TID. Hydralazine to 50 mg PO TID on hold due to relative normo-hypotension. Anemia of Chronic Disease: Hg stable. Fe 19, Ferritin 301. Component of Fe def. Status post Ferric gluconate 125 mg IV QD. Aranesp 40 mcg SQ weekly. Transfuse PRBC if Hg < 7. Hyperphosphatemia: Phoslo 667 mg PO TID. PAD: Cilostazol 100 mg PO BID. Dipyridamole 50 mg PO TID. Dyslipidemia: Lipitor 20 mg PO QD. Resolved: Hyperkalemia, Metabolic acidosis CODE STATUS: FULL CODE DVT Prophylaxis: Eliquis GI Prophylaxis: Protonix IV Designated medical POA if patient is not able to make medical decisions for themselves: I have reviewed the following mental health consultant notes: Cardiology, Pulmonary, Nephrology, Surgery. I have reviewed the results of the following tests: CBC, CMP, Mag. I have ordered the following tests: I have discussed the care of this patient with the following independent historian: I have independently interpreted the following test below: I have discussed the management of this patient with the following physician: Objective - Vital Signs Vital signs: Vital Signs Temp 98.0 F 11/06/23 03:51 Pulse 84 11/06/23 03:51 Resp 18 11/06/23 03:51 BP 116/60 11/06/23 03:51 Pulse Ox 96 11/06/23 03:51 FiO2 Intake & Output 11/05/23 11/06/23 11/06/23 18:59 06:59 18:59 Intake Total 1520 1081 Output Total 3675 100 Balance -2155 981 Weight 136 kg Intake: IV 100 30 Invasive Line 7 10 Invasive Line 8 20 Sodium Ferric Gluconat- 100 Sucrose 125 mg In Sodium Chloride 0.9% 100 ml @ 100 mls/hr IVPB DAILY [facility] Rx#:[id number] Intake, IV Titration 1051 Amount Mvi, Adult No.4 with Vit 1051 K 10 ml Trace (Conc-1Ml/ Dose) 1 ml Sodium Acetate 20 meq Potassium Chloride 22 meq Calcium Gluconate 1 gm Sodium Chloride 4Meq/ml Vial 36 meq In Amino Acids 5 %/ Dextrose 20 % 1,000 ml @ 58 mls/hr IV .Q18H8M [facility] Rx#:[id number] Oral 920 Hemodialysis 500 Output: Urine 175 100 Uretheral (Friend) 175 Hemodialysis 2000 Hemodialysis Net Amount 1500 Other: Voiding Method Indwelling Catheter Indwelling Catheter # Bowel Movements 0 1 - Labs CBC & Chem 7: 11/06/23 07:56 11/06/23 07:56 Labs: Abnormal Lab Results - Last 24 Hours (Table) 11/05/23 11/05/23 11/05/23 Range/Units 05:34 11:32 18:29 POC Glucose (mg/dL) 117 H 147 H (70-110) mg/dL Procalcitonin 1.33 H (0.02-0.50) ng/mL 11/05/23 11/06/23 Range/Units 23:57 06:33 POC Glucose (mg/dL) 127 H 131 H (70-110) mg/dL Procalcitonin (0.02-0.50) ng/mL Microbiology - Last 24 Hours (Table) 11/04/23 11:03 Blood Culture - Preliminary Blood
[2023-11-06] MEDS: HYDROcodone/APAP 7.5-325MG 1 EACH TAB PO ONE (12:25)
[2023-11-06 16:30] LABS: Glucose,Whole Blood 138 mg/dL (70-110)
[2023-11-06 20:33] LABS: Glucose,Whole Blood 125 mg/dL (70-110)
[2023-11-06] MEDS: HYDROcodone/APAP 7.5-325MG 1 EACH TAB PO PRN (20:35)
[2023-11-07 05:46] LABS: Glucose,Whole Blood 123 mg/dL (70-110)
[2023-11-07 08:35] LABS: ALT 28 U/L (4-49); AST 49 U/L (17-59); African American GFR (CKD) 12 (>60 ml/min/1.73 sqM); Albumin 2.5 g/dL (3.5-5.0); Alkaline Phosphatase 49 U/L (38-126); Anion Gap 6 mmol/L; Blood Urea Nitrogen 90 mg/dL (9-20); Calcium 8.2 mg/dL (8.4-10.2); Carbon Dioxide 25 mmol/L (22-30); Chloride 100 mmol/L (98-107); Glucose 101 mg/dL (74-99); Magnesium 1.9 mg/dL (1.6-2.3); Non-African American GFR(CKD) 10 (>60 ml/min/1.73 sqM); Phosphorus 4.2 mg/dL (2.5-4.5); Potassium 3.8 mmol/L (3.5-5.1); Sodium 131 mmol/L (137-145); Total Bilirubin 0.4 mg/dL (0.2-1.3); Total Protein 5.2 g/dL (6.3-8.2)
[2023-11-07 09:23] LABS: HCT 21.6 % (39.0-53.0); MCHC 31.8 g/dL (31.0-37.0); MCV 94.3 fL (80.0-100.0); Mean Platelet Volume 8.7; Platelet Count 430 k/uL (150-450); RBC 2.29 m/uL (4.30-5.90); RDW 15.2 % (11.5-15.5); WBC 10.4 k/uL (3.8-10.6)
[2023-11-07 09:30] LABS: HGB 6.9 gm/dL (13.0-17.5)
--- NOTE | 2023-11-07 10:23 | P.PN ---
Subjective Progress Note Date: 11/07/23 Principal diagnosis: Renal mass. This is a 68-year-old white male whom I have been seeing for the last few days while in the ICU, patient had history of renal transplant in [address] [facility], he was recently discovered to have renal cell carcinoma involving his right [place] kidney. Underwent radical nephrectomy on 10/27/2023, and postoperatively, patient developed anuria, and worsening metabolic acidosis worsening uremia and hyperkalemia requiring transfer to the ICU for immediate hemodialysis. Patient has been on hemodialysis for the last 2 days, and he is being followed by urology as well as nephrology. Today the patient seems to be developing metabolic encephalopathy with confusion, and he remains oliguric. WBC count today is 9.1 hemoglobin is 7.8, electrolytes showed low sodium of 130 potassium 5.5 BUN is 49 creatinine 7.10. Bicarb is 23 The patient is seen today October 31 2023 in follow-up in the intensive care unit. He is currently sitting up in bed. Awake and alert. His mental status has been waxing and waning currently oriented x 2. He is receiving hemodialysis. Goal is to remove 1 L today. This is his third day in a row. White count 9.0. Hemoglobin 8.4. Platelets 258. Sodium 129. Potassium 5.1. Bicarb 20. BUN 71. Creatinine 9.39. He did develop atrial fibrillation with a rapid ventricular response and he is currently on a Cardizem drip at 10 mg/h. Normal saline at KVO. Maintaining good O2 saturations in the 90s on 4 L/min per nasal cannula. Working with the incentive spirometer. The patient is seen today November 01, 2023 and follow-up in the intensive care unit. He is awake and alert in no acute distress. He is currently maintaining O2 saturations in the 90s on 4 L/min per nasal cannula. No IV fluids. He has been having issues with labile blood pressure. He dropped into the 60s systolically during hemodialysis yesterday requiring a small amount of norepinephrine. Today he is hypertensive. He also been having issues with nausea and vomiting. Albert x-rays reveal prominent small bowel loops carlos enrique uring up to 5 cm which is concerning for possible small bowel obstruction.. Platelets 293. Sodium 128. Potassium 5.2. Bicarb 24. BUN 78. Creatinine 7.77. Glucose 115. The patient is seen today November 02, 2023 in follow-up on the intensive care unit. He is currently sitting up in bed. Awake and alert in no acute distress. He was having ongoing issues with emesis and a nasogastric tube was placed again today. CT scan of the abdomen and pelvis revealed no evidence of obstruction or ileus. He is having ongoing issues with atrial fibrillation with a rapid ventricular response. He is currently on a Cardizem drip at 5 mg/h. He is postoperative day #6 of his right nephrectomy. He is currently on 4 L/min per nasal cannula. O2 saturations in the mid 90s. Hemodynamically stable. Wh ite count 11.3. Hemoglobin 8.1. Platelets 290. Sodium 130. Potassium 4.5. Bicarb 27. BUN 75. Creatinine 5.74. Glucose 106. Urine output has improved with approximately 600 cc in the past 24 hours. Plan is for hemodialysis tomorrow. He has been initiated on IV diuretics. The patient is seen today November 03, 2023 in follow-up in the intensive care unit. And alert in no acute distress. He is maintaining O2 saturations in the 90s on 4 L/min per nasal cannula. He is continued on a Cardizem drip at 5 mg/h. Receiving TPN at 30 mL/h. Nasogastric tube remains in place. He is making go od urine output. He currently is receiving hemodialysis with a goal of 1 L to be removed. He is currently in a -3.4 L balance. White count 10.3. Hemoglobin 7.8. Platelets 326. Sodium 127. Potassium 4.2. Bicarb 29. BUN 97. Creatinine 6.50. Solu-Cortef has been switched to prednisone. The patient is seen today November 04, 2023 in follow-up in the intensive care unit. He is currently sitting up in bed. Awake and alert in no acute distress. He is maintaining good O2 saturations in the 90s on 2 L/min per nasal cannula. Nasogastric tube remains in place. He is being nursed with TPN at 50 mL/h. He is having bowel movements. He remains in atrial fibrillation currently with a controlled ventricular rate. Has been afebrile. Hemodynamically stable. White count 11.1. Hemoglobin 7.7. Platelets 336. Sodium 135. Potassium 3.8. Bicarb 32. BUN 76. Creatinine 4.62. Glucose 113. Chest x-ray shows small bilateral effusions. He remains anticoagulated with Eliquis. He remains on IV diuretics. Currently in a -4.2 L balance. The patient is seen today November 05, 2023 in follow-up in the intensive care unit. He is doing better today. Awake and alert in no acute distress. Feeling stronger. Denies any worsening shortness of breath, cough or congestion. He is maintaining good O2 saturations in the 90s on 4 L/min per nasal cannula. His nasogastric tube has been removed. He is being nourished with TPN at 58 mL/h. He remains on IV diuretics. Anticoagulated with Eliquis. Sodium 131. Potassium 3.8. Bicarb 28. BUN 106. Creatinine 6.17. Glucose 117. He is curr ently in a +780 mL balance. Remains in atrial fibrillation with a controlled ventricular response. Progress note dated November 06, 2023. The patient is seen today in room 365. The patient is 68 years of age. He is resting comfortably. The patient is on 3 L of oxygen. He is getting TPN at 58 cc an hour. He is awake, alert, in no acute distress. He denies any shortness of breath, cough, wheezing, or chest congestion. Current laboratory data includes a white count 10.4, hemoglobin 7, hematocrit 20.9, and a platelet count of 374,000. Sodium 130, potassium 3.8, chloride 97, CO2 25, BUN 71, creatinine 4.43. Albumin is 2.5. Progress note dated November 07, 2023. 68-year-old male seen today in room 365. The patient is doing well. He is awake and alert. No respiratory difficulty. The patient continues on oxygen, 2 L by nasal cannula. He is getting TPN at 58 cc an hour. He denies any shortness of breath, cough, wheezing, chest tightness, chest pain, or chest pressure. Current labs include a white count 10.4, hemoglobin 6.9, hematocrit 21.6, and platelet count of 430,000. Sodium 131, potassium 3.8, chlorides 100, CO2 25, BUN 90, creatinine 5.23. Calcium is 8.2. Albumin is 2.5. Objective - Vital Signs Vital signs: Vital Signs Temp 98.0 F 11/07/23 04:00 Pulse 89 11/07/23 04:00 Resp 16 11/07/23 04:00 BP 144/76 11/07/23 04:00 Pulse Ox 95 11/07/23 04:00 FiO2 Intake & Output 11/06/23 11/07/23 11/07/23 18:59 06:59 18:59 Intake Total 1101 Output Total 300 750 Balance -300 351 Weight 96 kg Intake: IV 50 Invasive Line 7 20 Invasive Line 8 30 Intake, IV Titration 1051 Amount Mvi, Adult No.4 with Vit 1051 K 10 ml Trace (Conc-1Ml/ Dose) 1 ml Sodium Acetate 20 meq Potassium Chloride 22 meq Calcium Gluconate 1 gm Sodium Chloride 4Meq/ml Vial 36 meq In Amino Acids 5 %/ Dextrose 20 % 1,000 ml @ 58 mls/hr IV .Q18H8M [facility] Rx#:[id number] Output: Urine 300 750 Other: Voiding Method Indwelling Catheter Indwelling Catheter # Bowel Movements 2 - Exam No acute distress, oriented 3. Currently on 2 L nasal cannula. No respiratory distress. Saturations are 95%. HEENT examination is grossly unremarkable. Mucous membranes are moist. No oral lesions. Neck supple. Full range of motion. No adenopathy thyromegaly or neck vein distention. Cardiovascular examination reveals regular rhythm rate. S1-S2 normal. No S3 or S4. No discernible murmur noted. Heart sounds are distant. Heart rate 89 bpm. Lungs reveal mostly clear breath sounds. Minimal scattered rhonchi. No wheezes or crackles. Breath sounds equal. Saturations are adequate. Abdomen soft bowel sounds are heard. No masses or tenderness. Extremities are intact. No cyanosis clubbing or edema. Skin is without rash or lesion. Neurologic examination is brief but nonfocal. - Labs CBC & Chem 7: 11/07/23 07:18 11/07/23 07:18 Labs: Abnormal Lab Results - Last 24 Hours (Table) 11/06/23 11/06/23 11/06/23 Range/Units 11:51 16:26 20:31 RBC (4.30-5.90) m/uL Hgb (13.0-17.5) gm/dL Hct (39.0-53.0) % Sodium (137-145) mmol/L BUN (9-20) mg/dL Creatinine (0.66-1.25) mg/dL Glucose (74-99) mg/dL POC Glucose (mg/dL) 139 H 138 H 125 H (70-110) mg/dL Calcium (8.4-10.2) mg/dL Total Protein (6.3-8.2) g/dL Albumin (3.5-5.0) g/dL 11/07/23 11/07/23 11/07/23 Range/Units 05:44 07:18 07:18 RBC 2.29 L (4.30-5.90) m/uL Hgb 6.9 L* (13.0-17.5) gm/dL Hct 21.6 L (39.0-53.0) % Sodium 131 L (137-145) mmol/L BUN 90 H (9-20) mg/dL Creatinine 5.23 H (0.66-1.25) mg/dL Glucose 101 H (74-99) mg/dL POC Glucose (mg/dL) 123 H (70-110) mg/dL Calcium 8.2 L (8.4-10.2) mg/dL Total Protein 5.2 L (6.3-8.2) g/dL Albumin 2.5 L (3.5-5.0) g/dL Microbiology - Last 24 Hours (Table) 11/04/23 11:03 Blood Culture - Preliminary Blood Assessment and Plan Assessment: S/P right nephrectomy, 10/27/2023. Acute kidney injury/acute tubular necrosis requiring hemodialysis. Acute hyperkalemia and metabolic acidosis secondary to above, recovered. Acute metabolic encephalopathy secondary to uremia. Atrial fibrillation with rapid ventricular response. History of kidney transplant 1971. Nausea and vomiting quiring reinsertion of nasogastric tube on 11/02/2023, CT scan ruled out obstruction/ileus. Plan: Plan dated November 06, 2023. The patient is seen today in room 365. He had been in the intensive care unit, up until yesterday. He is getting TPN at 50 cc an hour. Labs, x-rays, medications are reviewed. We will continue to follow the patient, make recommendations. We do recommend daily and ongoing use of the incentive spirometer. Plan dated November 07, 2023. The patient is seen today in room 365. The patient is doing well. He is awake and alert. No distress. He continues on oxygen at 2 L. He is getting TPN at 50 cc an hour. Labs, x-rays, and medications are reviewed. We will continue to follow the patient, and make recommendations where appropriate. Prognosis is guarded. Time with Patient: Less than 30
--- NOTE | 2023-11-07 10:56 | P.PN ---
Subjective Progress Note Date: 11/07/23 Hemoglobin is 6.9 from 7, he will receive 1 unit of blood. Denies any abdominal pain, tolerating a diet without any nausea or vomiting at this time. Objective - Vital Signs Vital signs: Vital Signs Temp 98.0 F 11/07/23 09:39 Pulse 106 H 11/07/23 09:39 Resp 16 11/07/23 09:39 BP 151/73 11/07/23 09:39 Pulse Ox 96 11/07/23 09:39 FiO2 Intake & Output 11/06/23 11/07/23 11/07/23 18:59 06:59 18:59 Intake Total 1101 20 Output Total 300 750 Balance -300 351 20 Weight 96 kg Intake: IV 50 20 Invasive Line 7 20 10 Invasive Line 8 30 10 Intake, IV Titration 1051 Amount Mvi, Adult No.4 with Vit 1051 K 10 ml Trace (Conc-1Ml/ Dose) 1 ml Sodium Acetate 20 meq Potassium Chloride 22 meq Calcium Gluconate 1 gm Sodium Chloride 4Meq/ml Vial 36 meq In Amino Acids 5 %/ Dextrose 20 % 1,000 ml @ 58 mls/hr IV .Q18H8M [facility] Rx#:[id number] Output: Urine 300 750 Other: Voiding Method Indwelling Catheter Indwelling Catheter Indwelling Catheter # Bowel Movements 2 - Constitutional General appearance: Present: no acute distress - Gastrointestinal General gastrointestinal: Present: soft. Absent: distended, tenderness - Labs CBC & Chem 7: 11/07/23 07:18 11/07/23 07:18 Labs: Abnormal Lab Results - Last 24 Hours (Table) 11/06/23 11/06/23 11/06/23 Range/Units 11:51 16:26 20:31 RBC (4.30-5.90) m/uL Hgb (13.0-17.5) gm/dL Hct (39.0-53.0) % Sodium (137-145) mmol/L BUN (9-20) mg/dL Creatinine (0.66-1.25) mg/dL Glucose (74-99) mg/dL POC Glucose (mg/dL) 139 H 138 H 125 H (70-110) mg/dL Calcium (8.4-10.2) mg/dL Total Protein (6.3-8.2) g/dL Albumin (3.5-5.0) g/dL 11/07/23 11/07/23 11/07/23 Range/Units 05:44 07:18 07:18 RBC 2.29 L (4.30-5.90) m/uL Hgb 6.9 L* (13.0-17.5) gm/dL Hct 21.6 L (39.0-53.0) % Sodium 131 L (137-145) mmol/L BUN 90 H (9-20) mg/dL Creatinine 5.23 H (0.66-1.25) mg/dL Glucose 101 H (74-99) mg/dL POC Glucose (mg/dL) 123 H (70-110) mg/dL Calcium 8.2 L (8.4-10.2) mg/dL Total Protein 5.2 L (6.3-8.2) g/dL Albumin 2.5 L (3.5-5.0) g/dL Microbiology - Last 24 Hours (Table) 11/04/23 11:03 Blood Culture - Preliminary Blood Assessment and Plan Assessment: Status postop day #11 status post right-sided radical nephrectomy, patient's had a prolonged hospitalization secondary to acute kidney injury, creatinine is currently at 5.2 from a baseline of around 2.5-3. -Friend catheter can be removed once kidney function stabilizes -Plan to keep the luis in place for a minimum of 2 weeks -Continue ambulation
[2023-11-07 11:37] LABS: Glucose,Whole Blood 118 mg/dL (70-110)
--- NOTE | 2023-11-07 12:33 | P.PN ---
Subjective Progress Note Date: 11/07/23 Patient seen and evaluated at bedside. No complaints. Had bowel movement this am. Objective - Vital Signs Vital signs: Vital Signs Temp 97.9 F 11/07/23 11:34 Pulse 100 11/07/23 11:34 Resp 16 11/07/23 11:34 BP 129/64 11/07/23 11:34 Pulse Ox 96 11/07/23 11:34 FiO2 Intake & Output 11/06/23 11/07/23 11/07/23 18:59 06:59 18:59 Intake Total 1101 20 Output Total 300 750 Balance -300 351 20 Weight 96 kg Intake: IV 50 20 Invasive Line 7 20 10 Invasive Line 8 30 10 Intake, IV Titration 1051 Amount Mvi, Adult No.4 with Vit 1051 K 10 ml Trace (Conc-1Ml/ Dose) 1 ml Sodium Acetate 20 meq Potassium Chloride 22 meq Calcium Gluconate 1 gm Sodium Chloride 4Meq/ml Vial 36 meq In Amino Acids 5 %/ Dextrose 20 % 1,000 ml @ 58 mls/hr IV .Q18H8M [facility] Rx#:[id number] Output: Urine 300 750 Other: Voiding Method Indwelling Catheter Indwelling Catheter Indwelling Catheter # Bowel Movements 2 - Exam gen: nad cv: rrr pul: non labored breathing abd: soft, non tender to palpation, no guarding or rebound tenderness - Labs CBC & Chem 7: 11/07/23 07:18 11/07/23 07:18 Labs: Abnormal Lab Results - Last 24 Hours (Table) 11/06/23 11/06/23 11/07/23 Range/Units 16:26 20:31 05:44 RBC (4.30-5.90) m/uL Hgb (13.0-17.5) gm/dL Hct (39.0-53.0) % Sodium (137-145) mmol/L BUN (9-20) mg/dL Creatinine (0.66-1.25) mg/dL Glucose (74-99) mg/dL POC Glucose (mg/dL) 138 H 125 H 123 H (70-110) mg/dL Calcium (8.4-10.2) mg/dL Total Protein (6.3-8.2) g/dL Albumin (3.5-5.0) g/dL Crossmatch 11/07/23 11/07/2324 Range/Units 07:18 07:18 10:40 RBC 2.29 L (4.30-5.90) m/uL Hgb 6.9 L* (13.0-17.5) gm/dL Hct 21.6 L (39.0-53.0) % Sodium 131 L (137-145) mmol/L BUN 90 H (9-20) mg/dL Creatinine 5.23 H (0.66-1.25) mg/dL Glucose 101 H (74-99) mg/dL POC Glucose (mg/dL) (70-110) mg/dL Calcium 8.2 L (8.4-10.2) mg/dL Total Protein 5.2 L (6.3-8.2) g/dL Albumin 2.5 L (3.5-5.0) g/dL Crossmatch See Detail 11/07/23 Range/Units 11:35 RBC (4.30-5.90) m/uL Hgb (13.0-17.5) gm/dL Hct (39.0-53.0) % Sodium (137-145) mmol/L BUN (9-20) mg/dL Creatinine (0.66-1.25) mg/dL Glucose (74-99) mg/dL POC Glucose (mg/dL) 118 H (70-110) mg/dL Calcium (8.4-10.2) mg/dL Total Protein (6.3-8.2) g/dL Albumin (3.5-5.0) g/dL Crossmatch Microbiology - Last 24 Hours (Table) 11/04/23 11:03 Blood Culture - Preliminary Blood Assessment and Plan Assessment: 68-year-old male with postoperative ileus that appears to be resolving. Tolerating soft diet. Having bowel movements Recommended slowing down if he begins to have any nausea or abdominal discomfort. Time with Patient: Less than 30
--- NOTE | 2023-11-07 13:44 | P.PN ---
Subjective HISTORY OF PRESENTING ILLNESS Patient is a 68-year-old male with past medical history of renal transplant in 1971 initially presented for right nephrectomy due to renal cell carcinoma on 10/27/2023. Postoperatively he developed anuria, metabolic acidosis, hyperkalemia requiring hemodialysis. He also developed metabolic encephalopathy that has been improving since. On 10/31/2023 he developed A-fib with RVR for which cardiology was consulted. Patient seen at bedside, currently with an NG tube. Currently in A-fib with RVR. Sodium improved to 135. Maintained on Cardizem for A-fib with RVR. HR in the 110s-120s. BP 130s-140s/80s-90s. States he is feeling well. 11/04 Patient seen and examined. Patient denies any chest pain or pressure. It currently undergoing hemodialysis. Blood pressures in the 110s to 130s. No lightheadedness or dizziness. A. fib controlled with heart rates in the 70s to 100 range. 11/05 Patient has been transferred out of the intensive care unit and seen today on the cardiac stepdown unit. Patient complains of upper chest pain with tenderness to palpation. He is complaining of back discomfort. He is resting in recliner. Patient underwent HD yesterday. He denies any blood in his urine or stool. Hemoglobin today at 7, chemistry report is not available. Blood pressure 116/60, heart rate 84, pulse ox 96% on 4 L nasal cannula. Telemetry is atrial fibrillation controlled rate. 11/06 patient seen and examined. Patient denies any chest pain or pressure. Undergoing dialysis today with goal of 2 L taken off. Receiving transfusion packed red blood cells. No hematochezia or melena. PHYSICAL EXAMINATION Vital signs reviewed. CONSTITUTIONAL: No apparent distress. HEENT: Head is normocephalic. Pupils are equal, round. Sclerae anicteric. Mucous membranes of the mouth are moist. No JVD. No carotid bruit. CHEST EXAMINATION: Lungs are clear to auscultation. No chest wall tenderness is noted on palpation or with deep breathing. HEART EXAMINATION: Irregular rate and rhythm. S1, S2 heard. No murmurs, gallops or rub. ABDOMEN: Soft, nontender. Positive bowel sounds. EXTREMITIES: 2+ peripheral pulses, no lower extremity edema and no calf tenderness. NEUROLOGIC EXAMINATION: Patient is awake, alert and oriented x3. ASSESSMENT 1. Paroxysmal Afib with RVR. 2. CHEVY secondary to ATN. Improving. 3. Volume overload. Improving with dialysis and Lasix. 4. Status post right nephrectomy 10/27/2023 due to renal cell carcinoma. 5. Postoperative ileus. Has an NG tube. 6. Hyponatremia secondary to acute kidney injury. Hypervolemic. 7. History of renal transplant. Maintained on steroids and Imuran. 8. Anemia s/p transufsion Plan: Continue Eliquis 5 mg twice daily. Continue metoprolol tartrate 25 mg PO 3 times daily. Continue Cardizem 30 mg PO 3 times daily. Continue hydralazine 50 mg PO 3 times daily. Continue Lipitor 20 mg PO daily. Lasix 80 mg IV push daily managed by nephrology Heart rates appear well-controlled on current regimen. Continue with current diuretics. Monitor patient on anticoagulation however currently no bleeding. Objective - Vital Signs Vital signs: Vital Signs Temp 97.5 F L 11/07/23 13:06 Pulse 93 11/07/23 13:06 Resp 16 11/07/23 13:06 BP 113/61 11/07/23 13:06 Pulse Ox 96 11/07/23 11:34 FiO2 Intake & Output 11/06/23 11/07/23 11/07/23 18:59 06:59 18:59 Intake Total 1101 260 Output Total 300 750 500 Balance -300 351 -240 Weight 96 kg Intake: IV 50 20 Invasive Line 7 20 10 Invasive Line 8 30 10 Intake, IV Titration 1051 Amount Mvi, Adult No.4 with Vit 1051 K 10 ml Trace (Conc-1Ml/ Dose) 1 ml Sodium Acetate 20 meq Potassium Chloride 22 meq Calcium Gluconate 1 gm Sodium Chloride 4Meq/ml Vial 36 meq In Amino Acids 5 %/ Dextrose 20 % 1,000 ml @ 58 mls/hr IV .Q18H8M [facility] Rx#:[id number] Oral 240 Blood Product 0 Rc As-1 Unit 0 [id number] Output: Urine 300 750 500 Other: Voiding Method Indwelling Catheter Indwelling Catheter Indwelling Catheter # Bowel Movements 2 1 - Labs CBC & Chem 7: 11/07/23 07:18 11/07/23 07:18 Labs: Abnormal Lab Results - Last 24 Hours (Table) 11/06/23 11/06/23 11/07/23 Range/Units 16:26 20:31 05:44 RBC (4.30-5.90) m/uL Hgb (13.0-17.5) gm/dL Hct (39.0-53.0) % Sodium (137-145) mmol/L BUN (9-20) mg/dL Creatinine (0.66-1.25) mg/dL Glucose (74-99) mg/dL POC Glucose (mg/dL) 138 H 125 H 123 H (70-110) mg/dL Calcium (8.4-10.2) mg/dL Total Protein (6.3-8.2) g/dL Albumin (3.5-5.0) g/dL Crossmatch 11/07/23 11/07/23 11/07/23 Range/Units 07:18 07:18 10:40 RBC 2.29 L (4.30-5.90) m/uL Hgb 6.9 L* (13.0-17.5) gm/dL Hct 21.6 L (39.0-53.0) % Sodium 131 L (137-145) mmol/L BUN 90 H (9-20) mg/dL Creatinine 5.23 H (0.66-1.25) mg/dL Glucose 101 H (74-99) mg/dL POC Glucose (mg/dL) (70-110) mg/dL Calcium 8.2 L (8.4-10.2) mg/dL Total Protein 5.2 L (6.3-8.2) g/dL Albumin 2.5 L (3.5-5.0) g/dL Crossmatch See Detail 11/07/23 Range/Units 11:35 RBC (4.30-5.90) m/uL Hgb (13.0-17.5) gm/dL Hct (39.0-53.0) % Sodium (137-145) mmol/L BUN (9-20) mg/dL Creatinine (0.66-1.25) mg/dL Glucose (74-99) mg/dL POC Glucose (mg/dL) 118 H (70-110) mg/dL Calcium (8.4-10.2) mg/dL Total Protein (6.3-8.2) g/dL Albumin (3.5-5.0) g/dL Crossmatch Microbiology - Last 24 Hours (Table) 11/04/23 11:03 Blood Culture - Preliminary Blood
--- NOTE | 2023-11-07 14:21 | P.PN ---
Subjective Patient is seen for follow-up for acute kidney injury and severe hyperkalemia, started on hemodialysis on 10/28/2023. History of donor renal transplant in 1981 at [facility]. Patient is comfortable. No complaints of shortness of breath. Clear liquid diet has been started. Patient is maintained on TPN. Urine output at 50 to 60 cc/h. This has improved. Hemoglobin 6.9 today. Objective - Vital Signs Vital signs: Vital Signs Temp 97.6 F 11/07/23 14:07 Pulse 89 11/07/23 14:07 Resp 16 11/07/23 14:07 BP 141/71 11/07/23 14:07 Pulse Ox 96 11/07/23 11:34 FiO2 Intake & Output 11/06/23 11/07/23 11/07/23 18:59 06:59 18:59 Intake Total 1101 570 Output Total 352 591 7802 Balance -300 351 -430 Weight 96 kg Intake: IV 50 20 Invasive Line 7 20 10 Invasive Line 8 30 10 Intake, IV Titration 1051 Amount Mvi, Adult No.4 with Vit 1051 K 10 ml Trace (Conc-1Ml/ Dose) 1 ml Sodium Acetate 20 meq Potassium Chloride 22 meq Calcium Gluconate 1 gm Sodium Chloride 4Meq/ml Vial 36 meq In Amino Acids 5 %/ Dextrose 20 % 1,000 ml @ 58 mls/hr IV .Q18H8M [facility] Rx#:[id number] Oral 240 Blood Product 310 Rc As-1 Unit 310 [id number] Output: Urine 975 633 1205 Other: Voiding Method Indwelling Catheter Indwelling Catheter Indwelling Catheter # Bowel Movements 2 1 - Exam Patient is awake, comfortable, no acute distress. 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 - Labs CBC & Chem 7: 11/07/23 07:18 11/07/23 07:18 Labs: Abnormal Lab Results - Last 24 Hours (Table) 11/06/23 11/06/23 11/07/23 Range/Units 16:26 20:31 05:44 RBC (4.30-5.90) m/uL Hgb (13.0-17.5) gm/dL Hct (39.0-53.0) % Sodium (137-145) mmol/L BUN (9-20) mg/dL Creatinine (0.66-1.25) mg/dL Glucose (74-99) mg/dL POC Glucose (mg/dL) 138 H 125 H 123 H (70-110) mg/dL Calcium (8.4-10.2) mg/dL Total Protein (6.3-8.2) g/dL Albumin (3.5-5.0) g/dL Crossmatch 11/07/23 11/07/23 11/07/23 Range/Units 07:18 07:18 10:40 RBC 2.29 L (4.30-5.90) m/uL Hgb 6.9 L* (13.0-17.5) gm/dL Hct 21.6 L (39.0-53.0) % Sodium 131 L (137-145) mmol/L BUN 90 H (9-20) mg/dL Creatinine 5.23 H (0.66-1.25) mg/dL Glucose 101 H (74-99) mg/dL POC Glucose (mg/dL) (70-110) mg/dL Calcium 8.2 L (8.4-10.2) mg/dL Total Protein 5.2 L (6.3-8.2) g/dL Albumin 2.5 L (3.5-5.0) g/dL Crossmatch See Detail 11/07/23 Range/Units 11:35 RBC (4.30-5.90) m/uL Hgb (13.0-17.5) gm/dL Hct (39.0-53.0) % Sodium (137-145) mmol/L BUN (9-20) mg/dL Creatinine (0.66-1.25) mg/dL Glucose (74-99) mg/dL POC Glucose (mg/dL) 118 H (70-110) mg/dL Calcium (8.4-10.2) mg/dL Total Protein (6.3-8.2) g/dL Albumin (3.5-5.0) g/dL Crossmatch Microbiology - Last 24 Hours (Table) 11/04/23 11:03 Blood Culture - Preliminary Blood Assessment and Plan Assessment: 1. Acute kidney injury secondary to ATN. Creatinine peaked at 9.39 this admission. Now nonoliguric. Started on hemodialysis October 28, 2023. No hydronephrosis noted in the transplant kidney. 2. Chronic kidney disease stage IV/V. Patient's GFR was 18 in August 2023 per outpatient records. 3. Hyperkalemia secondary to acute kidney injury. Improved postdialysis and with medical management. 4. Status post right nephrectomy October 27, 2023 due to renal cell carcinoma. 5. Status post donor kidney transplant in 1981 at [facility] maintained on steroids and Imuran. 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 History of renal artery bypass. 7. Anemia of chronic kidney disease maintained on Aranesp. Iron deficiency noted. 8. Hyperphosphatemia secondary to acute kidney injury. On PhosLo. Phosphorus level 8.3 dated November 03, 2023; 6.0 dated November 04, 2023. 9. Hyponatremia secondary to acute kidney injury. Hypervolemic. Improved postdialysis. 10. A-fib with RVR status post now on oral meds. Cardizem drip. 11. Volume overload. Improved with ultrafiltration and diuresis. 12. Metabolic acidosis secondary to acute kidney injury. Improved postdial ysis. 13. Ileus. Surgery following. Maintained on TPN. Started on clear liquid diet today. 14. Hyperuricemia. Patient cannot take allopurinol due to Imuran. Plan: Continue with IV Lasix Transfuse 1 unit packed RBCs Hemodialysis today. Continue Imuran and prednisone. Not a candidate for allopurinol due to Imuran. Increase PhosLo once oral intake is improved. Decrease TPN if tolerating oral intake. Patient remains hemodialysis dependent.
--- NOTE | 2023-11-07 15:23 | P.PN ---
Subjective Progress Note Date: 11/07/23 68 year old M with PMH of ESRD status post L renal transplant in 1981, now CKD is status post elective right radial nephrectomy on 10/26 for right renal mass. Post operatively he became oliguric with severe electrolyte derangements requiring placement of a dialysis catheter on 10/27. HD was initiated on 10/27 with Nephrology on consult. Also noted to be in A-Fib with RVR on 10/30, Cardiology consulted, Echo showing EF 60-65% with moderate concentric LVH, initially started on Cardizem drip and transitioned to Cardizem PO and Metoprolol PO. He developed nausea and vomiting with abdominal discomfort, KUB s howing ileus, NG tube inserted 11/01 with Surgery following. NG tube discontinued on 11/03, patient tolerating diet and having bowel movements. Permacath placed in the right femoral on 11/03. He developed a fever with leukocytosis on 11/03, UA negative, BCx collected, CXR showing bibasilar infiltrates with pro-chava of 1.33, started on Zosyn 3.75g IV TID. 11/06 Patient was seen and examined. Reports pain in his bilateral feet. He is on 2L NC saturating 95%. Currently on Zosyn 3.375g IV TID for treatment of possible PNA. BCx negative at 48H. He is maintained on Lasix 80 mg IV QD. Urine output of 275 cc over the past 24H. Receiving nutrition via TPA. Plans for HD today per Nephro. CBC, CMP significant for RBC 2.29, Hg 6.9, Hct 21.6, Na 131, BUN 90, Cr 5.23, glu 101, Ca 8.2, total protein 5.2, alb 2.5. Mag 1.9. Phos 4.2. Plans to transfuse 1 unit PRBC. General: non toxic, no distress, appears at stated age Derm: warm, dry Head: atraumatic, normocephalic, symmetric Eyes: EOMI, no lid lag, anicteric sclera Mouth: no lip lesion, mucus membranes moist Cardiovascular: S1 S2 irregular. No murmurs, rubs or gallops. No edema Lungs: Scattered ronchi bilaterally, no accessory muscle use Abd: Surgical dressing c/d/i Ext: Right femoral HD catheter. Erythema of the MTP joint bilaterally with restriction ROM due to pain. Neuro: no focal neuro deficits Psych: Alert, oriented, appropriate affect Based on my assessment of this patient, this patient meets a high complexity level of care. Sepsis likely due to pneumonia with acute hypoxic respiratory failure: Fever, new leukocytosis 11/03. UA benign. BCx negative so far. CXR showing bibasilar infiltrates with elevated pro-chava. Started on Zosyn 3.375g IV TID (11/05). CHEVY on CKD: Started on HD 10/27. CT AP with no signs of obstructive uropathy. Continue Lasix 80 mg IV QD. Monitor daily BMP for electrolytes and renal function. Nephrology on board. Hypervolemic hyponatremia: Hopeful improvement with HD. Gout: Uric acid 10.5. Colchicine 1.2 mg + 0.6 mg PO x 1 11/04. Medrol 4 mg PO QD. Pain management with Dilaudid 0.5 mg IV Q4H PRN, Houck 7.5 Q6H PRN. Renal cell carcinoma: Status post right radical nephrectomy on 10/26. Urology on board. Previous ESRD status post renal transplant: Imuran 125 mg PO QD. Medrol 4 mg PO QD. Nausea and Vomiting: Clinically concerning for ileus. CT AP negative for ileus or SBO. NG tube discontinued. Diet advanced to FLD. Surgery on board. Atrial fibrillation with RVR: Echo EF 60-65% with moderate LVH. Cardizem 30 mg PO TID. Metoprolol 25 mg PO TID. Eliquis 5 mg PO BID for AC. Maintain Mag > 2 and K > 4. Cardiology on board. Hypertension: BP 144/76. Cardizem 30 mg PO TID. Metoprolol 25 mg PO TID. Hydralazine to 50 mg PO TID. Anemia of Chronic Disease: Fe 19, Ferritin 301. Component of Fe def. Status post Ferric gluconate 125 mg IV QD. Aranesp 40 mcg SQ weekly. 1 PRBC ordered 11/06. Transfuse PRBC if Hg < 7. Hyperphosphatemia: Phoslo 667 mg PO TID. PAD: Cilostazol 100 mg PO BID. Dipyridamole 50 mg PO TID. Dyslipidemia: Lipitor 20 mg PO QD. Resolved: Hyperkalemia, Metabolic acidosis CODE STATUS: FULL CODE DVT Prophylaxis: Eliquis GI Prophylaxis: Protonix IV Designated medical POA if patient is not able to make medical decisions for themselves: I have reviewed the following nutrition consultant notes: Surgery, Pulmonary, Cardiology, Nephrology, Urology. I have reviewed the results of the following tests: CBC, BMP, Mag, Phos I have ordered the following tests: CBC, BMP, Mag, Phos in AM I have discussed the care of this patient with the following independent historian: I have independently interpreted the following test below: I have discussed the management of this patient with the following physician: Objective - Vital Signs Vital signs: Vital Signs Temp 98.0 F 11/07/23 04:00 Pulse 89 11/07/23 04:00 Resp 16 11/07/23 04:00 BP 144/76 11/07/23 04:00 Pulse Ox 95 11/07/23 04:00 FiO2 Intake & Output 11/06/23 11/07/23 11/07/23 18:59 06:59 18:59 Intake Total 1101 Output Total 300 750 Balance -300 351 Weight 96 kg Intake: IV 50 Invasive Line 7 20 Invasive Line 8 30 Intake, IV Titration 1051 Amount Mvi, Adult No.4 with Vit 1051 K 10 ml Trace (Conc-1Ml/ Dose) 1 ml Sodium Acetate 20 meq Potassium Chloride 22 meq Calcium Gluconate 1 gm Sodium Chloride 4Meq/ml Vial 36 meq In Amino Acids 5 %/ Dextrose 20 % 1,000 ml @ 58 mls/hr IV .Q18H8M [facility] Rx#:[id number] Output: Urine 300 750 Other: Voiding Method Indwelling Catheter Indwelling Catheter # Bowel Movements 2 - Labs CBC & Chem 7: 11/07/23 07:18 11/07/23 07:18 Labs: Abnormal Lab Results - Last 24 Hours (Table) 11/06/23 11/06/23 11/06/23 Range/Units 07:56 07:56 11:51 RBC 2.19 L (4.30-5.90) m/uL Hgb 7.0 L (13.0-17.5) gm/dL Hct 20.9 L (39.0-53.0) % Sodium 130 L (137-145) mmol/L Chloride 97 L (98-107) mmol/L BUN 71 H (9-20) mg/dL Creatinine 4.43 H (0.66-1.25) mg/dL Glucose 114 H (74-99) mg/dL POC Glucose (mg/dL) 139 H (70-110) mg/dL Calcium 7.9 L (8.4-10.2) mg/dL AST 63 H (17-59) U/L Total Protein 5.2 L (6.3-8.2) g/dL Albumin 2.5 L (3.5-5.0) g/dL 11/06/23 11/06/23 11/07/23 Range/Units 16:26 20:31 05:44 RBC (4.30-5.90) m/uL Hgb (13.0-17.5) gm/dL Hct (39.0-53.0) % Sodium (137-145) mmol/L Chloride (98-107) mmol/L BUN (9-20) mg/dL Creatinine (0.66-1.25) mg/dL Glucose (74-99) mg/dL POC Glucose (mg/dL) 138 H 125 H 123 H (70-110) mg/dL Calcium (8.4-10.2) mg/dL AST (17-59) U/L Total Protein (6.3-8.2) g/dL Albumin (3.5-5.0) g/dL Microbiology - Last 24 Hours (Table) 11/04/23 11:03 Blood Culture - Preliminary Blood
[2023-11-07 16:35] LABS: Glucose,Whole Blood 124 mg/dL (70-110)
[2023-11-07 20:23] LABS: Glucose,Whole Blood 131 mg/dL (70-110)
[2023-11-08 06:25] LABS: Glucose,Whole Blood 120 mg/dL (70-110)
[2023-11-08 08:55] LABS: HCT 24.8 % (39.0-53.0); MCH 30.3 pg (25.0-35.0); MCHC 32.3 g/dL (31.0-37.0); Platelet Count 428 k/uL (150-450); RBC 2.64 m/uL (4.30-5.90); RDW 14.7 % (11.5-15.5); WBC 9.6 k/uL (3.8-10.6)
--- NOTE | 2023-11-08 09:00 | P.PN ---
Subjective Hemoglobin responded to 8 from 6.9 following transfusion. Denies any abdominal pain, tolerating a diet without any nausea or vomiting at this time. Objective - Vital Signs Vital signs: Vital Signs Temp 98.6 F 11/08/23 08:32 Pulse 109 H 11/08/23 08:32 Resp 16 11/08/23 08:32 BP 137/73 11/08/23 08:32 Pulse Ox 96 11/08/23 08:32 FiO2 Intake & Output 11/07/23 11/08/23 11/08/23 18:59 06:59 18:59 Intake Total 1630 1051 240 Output Total 6650 380 Balance -5020 671 240 Weight 104.5 kg Intake: IV 40 Invasive Line 7 20 Invasive Line 8 20 Intake, IV Titration 1051 Amount Mvi, Adult No.4 with Vit 1051 K 10 ml Trace (Conc-1Ml/ Dose) 1 ml Sodium Acetate 20 meq Potassium Chloride 22 meq Calcium Gluconate 1 gm Sodium Chloride 4Meq/ml Vial 36 meq In Amino Acids 5 %/ Dextrose 20 % 1,000 ml @ 58 mls/hr IV .Q18H8M [facility] Rx#:[id number] Oral 480 240 Blood Product 310 Rc As-1 Unit 310 [id number] Hemodialysis 800 Output: Urine 1850 380 Hemodialysis 2800 Hemodialysis Net Amount 2000 Other: Voiding Method Indwelling Catheter Indwelling Catheter # Bowel Movements 1 - Constitutional General appearance: Present: no acute distress - Gastrointestinal General gastrointestinal: Present: soft. Absent: distended, tenderness - Psychiatric Psychiatric: Present: A&O x's 3 - Labs CBC & Chem 7: 11/08/23 08:34 11/07/23 07:18 Labs: Abnormal Lab Results - Last 24 Hours (Table) 11/07/23 11/07/23 11/07/23 Range/Units 07:18 10:40 11:35 RBC 2.29 L (4.30-5.90) m/uL Hgb 6.9 L* (13.0-17.5) gm/dL Hct 21.6 L (39.0-53.0) % POC Glucose (mg/dL) 118 H (70-110) mg/dL Crossmatch See Detail 11/07/23 11/07/23 11/08/23 Range/Units 16:33 19:56 06:10 RBC (4.30-5.90) m/uL Hgb (13.0-17.5) gm/dL Hct (39.0-53.0) % POC Glucose (mg/dL) 124 H 131 H 120 H (70-110) mg/dL Crossmatch 11/08/23 Range/Units 08:34 RBC 2.64 L (4.30-5.90) m/uL Hgb 8.0 L (13.0-17.5) gm/dL Hct 24.8 L (39.0-53.0) % POC Glucose (mg/dL) (70-110) mg/dL Crossmatch Microbiology - Last 24 Hours (Table) 11/04/23 11:03 Blood Culture - Preliminary Blood Assessment and Plan Assessment: Status postop day #12 status post right-sided radical nephrectomy, patient's had a prolonged hospitalization secondary to acute kidney injury, CHEVY been managed by nephrology -Friend catheter can be removed from urology standpoint -Plan to keep the luis in place for a minimum of 2 weeks -Continue ambulation
[2023-11-08 09:09] LABS: ALT 30 U/L (4-49); AST 46 U/L (17-59); African American GFR (CKD) 18 (>60 ml/min/1.73 sqM); Albumin 2.6 g/dL (3.5-5.0); Alkaline Phosphatase 53 U/L (38-126); Anion Gap 6 mmol/L; Blood Urea Nitrogen 55 mg/dL (9-20); Carbon Dioxide 28 mmol/L (22-30); Chloride 98 mmol/L (98-107); Glucose 102 mg/dL (74-99); Magnesium 1.7 mg/dL (1.6-2.3); Non-African American GFR(CKD) 16 (>60 ml/min/1.73 sqM); Phosphorus 3.8 mg/dL (2.5-4.5); Potassium 3.5 mmol/L (3.5-5.1); Sodium 132 mmol/L (137-145); Total Bilirubin 0.5 mg/dL (0.2-1.3); Total Protein 5.4 g/dL (6.3-8.2)
[2023-11-08 11:17] LABS: Glucose,Whole Blood 118 mg/dL (70-110)
--- NOTE | 2023-11-08 11:20 | P.PN ---
Subjective Patient is seen for follow-up for acute kidney injury and severe hyperkalemia, started on hemodialysis on 10/28/2023. History of donor renal transplant in 1981 at [facility]. Patient is comfortable. No complaints of shortness of breath. Clear liquid diet has been started. Patient is maintained on TPN. Urine output at 2.2 L for 24 hours, much improved. Objective - Vital Signs Vital signs: Vital Signs Temp 98.6 F 11/08/23 08:32 Pulse 97 11/08/23 11:13 Resp 18 11/08/23 11:13 BP 161/89 11/08/23 11:13 Pulse Ox 95 11/08/23 11:13 FiO2 Intake & Output 11/07/23 11/08/23 11/08/23 18:59 06:59 18:59 Intake Total 1630 1051 240 Output Total 6650 380 Balance -5020 671 240 Weight 104.5 kg Intake: IV 40 Invasive Line 7 20 Invasive Line 8 20 Intake, IV Titration 1051 Amount Mvi, Adult No.4 with Vit 1051 K 10 ml Trace (Conc-1Ml/ Dose) 1 ml Sodium Acetate 20 meq Potassium Chloride 22 meq Calcium Gluconate 1 gm Sodium Chloride 4Meq/ml Vial 36 meq In Amino Acids 5 %/ Dextrose 20 % 1,000 ml @ 58 mls/hr IV .Q18H8M [facility] Rx#:[id number] Oral 480 240 Blood Product 310 Rc As-1 Unit 310 [id number] Hemodialysis 800 Output: Urine 1850 380 Hemodialysis 2800 Hemodialysis Net Amount 2000 Other: Voiding Method Indwelling Catheter Indwelling Catheter # Bowel Movements 1 - Exam Patient is awake, comfortable, no acute distress. 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 - Labs CBC & Chem 7: 11/08/23 08:34 11/08/23 08:34 Labs: Abnormal Lab Results - Last 24 Hours (Table) 11/07/23 11/07/23 11/07/23 Range/Units 10:40 11:35 16:33 RBC (4.30-5.90) m/uL Hgb (13.0-17.5) gm/dL Hct (39.0-53.0) % Sodium (137-145) mmol/L BUN (9-20) mg/dL Creatinine (0.66-1.25) mg/dL Glucose (74-99) mg/dL POC Glucose (mg/dL) 118 H 124 H (70-110) mg/dL Calcium (8.4-10.2) mg/dL Total Protein (6.3-8.2) g/dL Albumin (3.5-5.0) g/dL Crossmatch See Detail 11/07/23 11/08/23 11/08/23 Range/Units 19:56 06:10 08:34 RBC (4.30-5.90) m/uL Hgb (13.0-17.5) gm/dL Hct (39.0-53.0) % Sodium 132 L (137-145) mmol/L BUN 55 H (9-20) mg/dL Creatinine 3.67 H (0.66-1.25) mg/dL Glucose 102 H (74-99) mg/dL POC Glucose (mg/dL) 131 H 120 H (70-110) mg/dL Calcium 8.0 L (8.4-10.2) mg/dL Total Protein 5.4 L (6.3-8.2) g/dL Albumin 2.6 L (3.5-5.0) g/dL Crossmatch 11/08/23 Range/Units 08:34 RBC 2.64 L (4.30-5.90) m/uL Hgb 8.0 L (13.0-17.5) gm/dL Hct 24.8 L (39.0-53.0) % Sodium (137-145) mmol/L BUN (9-20) mg/dL Creatinine (0.66-1.25) mg/dL Glucose (74-99) mg/dL POC Glucose (mg/dL) (70-110) mg/dL Calcium (8.4-10.2) mg/dL Total Protein (6.3-8.2) g/dL Albumin (3.5-5.0) g/dL Crossmatch Microbiology - Last 24 Hours (Table) 11/04/23 11:03 Blood Culture - Preliminary Blood Assessment and Plan Assessment: 1. Acute kidney injury secondary to ATN. Creatinine peaked at 9.39 this admission. Now nonoliguric. Started on hemodialysis October 28, 2023. No hydro nephrosis noted in the transplant kidney. 2. Chronic kidney disease stage IV/V. Patient's GFR was 18 in August 2023 per outpatient records. 3. Hyperkalemia secondary to acute kidney injury. Improved postdialysis and with medical management. 4. Status post right nephrectomy October 27, 2023 due to renal cell carcinoma. 5. Status post donor kidney transplant in 1981 at [facility] maintained on steroids and Imuran. 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 History of renal artery bypass. 7. Anemia of chronic kidney disease maintained on Aranesp. Iron deficiency noted. 8. Hyperphosphatemia secondary to acute kidney injury. On PhosLo. Phosphorus level 8.3 dated November 03, 2023; 6.0 dated November 04, 2023. 9. Hyponatremia secondary to acute kidney injury. Hypervolemic. Improved postdialysis. 10. A-fib with RVR status post now on oral meds. Cardizem drip. 11. Volume overload. Improved with ultrafiltration and diuresis. 12. Metabolic acidosis secondary to acute kidney injury. Improved postdialysis. 13. Ileus. Surgery following. Maintained on TPN. Started on clear liquid diet 14. Hyperuricemia. Patient cannot take allopurinol due to Imuran. Plan: Continue with IV Lasix until discharge. Continue Imuran and prednisone. Not a candidate for allopurinol due to Imuran. Increase PhosLo once oral intake is improved. Decrease TPN if tolerating oral intake. Patient remains hemodialysis dependent. hemodialysis in a.m.
--- NOTE | 2023-11-08 11:34 | P.PN ---
Subjective Progress Note Date: 11/08/23 Hospital course 68 year old M with PMH of ESRD status post L renal transplant in 1981, now CKD is status post elective right radial nephrectomy on 10/26 for right renal mass. Post operatively he became oliguric with severe electrolyte derangements requiring placement of a dialysis catheter on 10/27. HD was initiated on 10/27 with Nephrology on consult. Also noted to be in A-Fib with RVR on 10/30, Cardiology consulted, Echo showing EF 60-65% with moderate concentric LVH, initially started on Cardizem drip and transitioned to Cardizem PO and Metoprolol PO. He developed nausea and vomiting with abdominal discomfort, KUB showing ileus, NG tube inserted 11/01 with Surgery following. NG tube discontinued on 11/03, patient tolerating diet and having bowel movements. Permacath placed in the right femoral on 11/03. He developed a fever with leukocytosis on 11/03, UA negative, BCx collected, CXR showing bibasilar infiltrates with pro-chava of 1.33, started on Zosyn 3.75g IV TID. Subjective Patient seen this morning. He is denying any acute complaints. Patient states that since admission he is only got up to sit on the chair 1 time. 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 Patient's WBC has normalized. Will complete a 5-day antibiotic course. Today is day 3 of 5. Patient can also be discharged and com plete antibiotic course with Augmentin. CHEVY on CKD: Patient started on hemodialysis during this admission. Patient currently has temporary dialysis catheter. I will discuss with nephrology if patient will need permanent dialysis catheter prior to discharge. Patient also on IV Lasix 80 mg daily. Hypervolemic hyponatremia: Resolved Gout: Uric acid: Patient received colchicine. Resolved Renal cell carcinoma: Status post right radical nephrectomy on 10/26. As per your neurosurgery management. Previous ESRD status post renal transplant: Imuran 125 mg PO QD. Medrol 4 mg PO QD. Nausea and Vomiting: Clinically concerning for ileus. CT AP negative for ileus or SBO. NG tube discontinued. Patient now on regular diet. Will titrate the patient off of TPN Atrial fibrillation with RVR: Echo EF 60-65% with moderate LVH. Cardizem 30 mg PO TID. Metoprolol 25 mg PO TID. Eliquis 5 mg PO BID for AC. Maintain Mag > 2 and K > 4. Cardiology on board. Hypertension: BP 144/76. Cardizem 30 mg PO TID. Metoprolol 25 mg PO TID. Hydralazine to 50 mg PO TID. Anemia of Chronic Disease: Hemoglobin this morning is stable Hyperphosphatemia: Phoslo 667 mg PO TID. PAD: Cilostazol 100 mg PO BID. Dipyridamole 50 mg PO TID. Dyslipidemia: Lipitor 20 mg PO QD. Resolved: Hyperkalemia, Metabolic acidosis Patient is stable for discharge from a medical standpoint. CODE STATUS: FULL CODE DVT Prophylaxis: Eliquis GI Prophylaxis: Protonix IV Anticipated discharge location: Will consult PT OT Anticipated discharge: Anticipate patient be ready for discharge in the next 24 to 48 hours. Will discuss with binder caser about possible placement and outpatient hemodialysis. Objective - Vital Signs Vital signs: Vital Signs Temp 98.6 F 11/08/23 08:32 Pulse 97 11/08/23 11:13 Resp 18 11/08/23 11:13 BP 161/89 11/08/23 11:13 Pulse Ox 95 11/08/23 11:13 FiO2 Intake & Output 11/07/23 11/08/23 11/08/23 18:59 06:59 18:59 Intake Total 1630 1051 240 Output Total 6650 380 Balance -5020 671 240 Weight 104.5 kg Intake: IV 40 Invasive Line 7 20 Invasive Line 8 20 Intake, IV Titration 1051 Amount Mvi, Adult No.4 with Vit 1051 K 10 ml Trace (Conc-1Ml/ Dose) 1 ml Sodium Acetate 20 meq Potassium Chloride 22 meq Calcium Gluconate 1 gm Sodium Chloride 4Meq/ml Vial 36 meq In Amino Acids 5 %/ Dextrose 20 % 1,000 ml @ 58 mls/hr IV .Q18H8M [facility] Rx#:[id number] Oral 480 240 Blood Product 310 Rc As-1 Unit 310 [id number] Hemodialysis 800 Output: Urine 1850 380 Hemodialysis 2800 Hemodialysis Net Amount 1999 Other: Voiding Method Indwelling Catheter Indwelling Catheter # Bowel Movements 1 - Labs CBC & Chem 7: 11/08/23 08:34 11/08/23 08:34 Labs: Abnormal Lab Results - Last 24 Hours (Table) 11/07/23 11/07/23 11/07/23 Range/Units 10:40 11:35 16:33 RBC (4.30-5.90) m/uL Hgb (13.0-17.5) gm/dL Hct (39.0-53.0) % Sodium (137-145) mmol/L BUN (9-20) mg/dL Creatinine (0.66-1.25) mg/dL Glucose (74-99) mg/dL POC Glucose (mg/dL) 118 H 124 H (70-110) mg/dL Calcium (8.4-10.2) mg/dL Total Protein (6.3-8.2) g/dL Albumin (3.5-5.0) g/dL Crossmatch See Detail 11/07/23 11/08/23 11/08/23 Range/Units 19:56 06:10 08:34 RBC (4.30-5.90) m/uL Hgb (13.0-17.5) gm/dL Hct (39.0-53.0) % Sodium 132 L (137-145) mmol/L BUN 55 H (9-20) mg/dL Creatinine 3.67 H (0.66-1.25) mg/dL Glucose 102 H (74-99) mg/dL POC Glucose (mg/dL) 131 H 120 H (70-110) mg/dL Calcium 8.0 L (8.4-10.2) mg/dL Total Protein 5.4 L (6.3-8.2) g/dL Albumin 2.6 L (3.5-5.0) g/dL Crossmatch 11/08/23 11/08/23 Range/Units 08:34 11:16 RBC 2.64 L (4.30-5.90) m/uL Hgb 8.0 L (13.0-17.5) gm/dL Hct 24.8 L (39.0-53.0) % Sodium (137-145) mmol/L BUN (9-20) mg/dL Creatinine (0.66-1.25) mg/dL Glucose (74-99) mg/dL POC Glucose (mg/dL) 118 H (70-110) mg/dL Calcium (8.4-10.2) mg/dL Total Protein (6.3-8.2) g/dL Albumin (3.5-5.0) g/dL Crossmatch Microbiology - Last 24 Hours (Table) 11/04/23 11:03 Blood Culture - Preliminary Blood
--- NOTE | 2023-11-08 12:46 | P.PN ---
Subjective HISTORY OF PRESENT ILLNESS: Patient is a 68-year-old male with past medical history of renal transplant in 1971 initially presented for right nephrectomy due to renal cell carcinoma on 10/27/2023. Postoperatively he developed anuria, metabolic acidosis, hyperkalemia requiring hemodialysis. He also developed metabolic encephalopathy that has been improving since. On 10/31/2023 he developed A-fib with RVR for which cardiology was consulted. Patient seen at bedside, currently with an NG tube. Currently in A-fib with RVR. Sodium improved to 135. Maintained on Cardizem for A-fib with RVR. HR in the 110s-120s. BP 130s-140s/80s-90s. States he is feeling well. 11/04 Patient seen and examined. Patient denies any chest pain or pressure. It currently undergoing hemodialysis. Blood pressures in the 110s to 130s. No lightheadedness or dizziness. A. fib controlled with heart rates in the 70s to 100 range. 11/05 Patient has been transferred out of the intensive care unit and seen today on the cardiac stepdown unit. Patient complains of upper chest pain with tenderness to palpation. He is complaining of back discomfort. He is resting in recliner. Patient underwent HD yesterday. He denies any blood in his urine or stool. Hemoglobin today at 7, chemistry report is not available. Blood pressure 116/60, heart rate 84, pulse ox 96% on 4 L nasal cannula. Telemetry is atrial fibrillation controlled rate. 11/06 patient seen and examined. Patient denies any chest pain or pressure. Undergoing dialysis today with goal of 2 L taken off. Receiving transfusion packed red blood cells. No hematochezia or melena. November 08, 2023 Patient examined this morning the bedside. Patient currently denies chest pain or pressure. He denies shortness of breath. Vital signs are stable. Telemetry reveals atrial fibrillation with heart rate between 80s90s. PHYSICAL EXAM: VITAL SIGNS: Reviewed. GENERAL: Well-developed in no acute distress. NECK: Supple. No JVD or thyromegaly LUNGS: Respirations even and unlabored. Lungs essentially clear to auscultation bilaterally. HEART: Irregular rate and rhythm. S1 and S2 heard. EXTREMITIES: Normal range of motion. No clubbing or cyanosis. Peripheral pulses intact. Trace lower extremity edema ASSESSMENT: 1. Paroxysmal Afib with RVR. 2. CHEVY secondary to ATN. Improving. 3. Volume overload. Improving with dialysis and Lasix. 4. Status post right nephrectomy 10/27/2023 due to renal cell carcinoma. 5. Postoperative ileus. Has an NG tube. 6. Hyponatremia secondary to acute kidney injury. Hypervolemic. 7. History of renal transplant. Maintained on steroids and Imuran. 8. Anemia s/p transufsion PLAN: Increase metoprolol tartrate to 50 mg twice a day Continue additional cardiac medications Continue diuresis per nephrology No further inpatient recommendations from a cardiac standpoint We will sign off. Please reconsult if needed. Nurse practitioner note has been reviewed by physician. Signing provider agrees with the documented findings, assessment, and plan of care documented by GENERAL MANAGER [employer] as a scribe. Objective - Vital Signs Vital signs: Vital Signs Temp 98.6 F 11/08/23 08:32 Pulse 97 11/08/23 11:13 Resp 18 11/08/23 11:13 BP 161/89 11/08/23 11:13 Pulse Ox 95 11/08/23 11:13 FiO2 Intake & Output 11/07/23 11/08/23 11/08/23 18:59 06:59 18:59 Intake Total 1630 1051 240 Output Total 6650 380 Balance -5020 671 240 Weight 104.5 kg Intake: IV 40 Invasive Line 7 20 Invasive Line 8 20 Intake, IV Titration 1051 Amount Mvi, Adult No.4 with Vit 1051 K 10 ml Trace (Conc-1Ml/ Dose) 1 ml Sodium Acetate 20 meq Potassium Chloride 22 meq Calcium Gluconate 1 gm Sodium Chloride 4Meq/ml Vial 36 meq In Amino Acids 5 %/ Dextrose 20 % 1,000 ml @ 58 mls/hr IV .Q18H8M [facility] Rx#:[id number] Oral 480 240 Blood Product 310 Rc As-1 Unit 310 [id number] Hemodialysis 800 Output: Urine 1850 380 Hemodialysis 2800 Hemodialysis Net Amount 2000 Other: Voiding Method Indwelling Catheter Indwelling Catheter # Bowel Movements 1 - Labs CBC & Chem 7: 11/08/23 08:34 11/08/23 08:34 Labs: Abnormal Lab Results - Last 24 Hours (Table) 11/07/23 11/07/23 11/07/23 Range/Units 10:40 16:33 19:56 RBC (4.30-5.90) m/uL Hgb (13.0-17.5) gm/dL Hct (39.0-53.0) % Sodium (137-145) mmol/L BUN (9-20) mg/dL Creatinine (0.66-1.25) mg/dL Glucose (74-99) mg/dL POC Glucose (mg/dL) 124 H 131 H (70-110) mg/dL Calcium (8.4-10.2) mg/dL Total Protein (6.3-8.2) g/dL Albumin (3.5-5.0) g/dL Crossmatch See Detail 11/08/23 11/08/23 11/08/23 Range/Units 06:10 08:34 08:34 RBC 2.64 L (4.30-5.90) m/uL Hgb 8.0 L (13.0-17.5) gm/dL Hct 24.8 L (39.0-53.0) % Sodium 132 L (137-145) mmol/L BUN 55 H (9-20) mg/dL Creatinine 3.67 H (0.66-1.25) mg/dL Glucose 102 H (74-99) mg/dL POC Glucose (mg/dL) 120 H (70-110) mg/dL Calcium 8.0 L (8.4-10.2) mg/dL Total Protein 5.4 L (6.3-8.2) g/dL Albumin 2.6 L (3.5-5.0) g/dL Crossmatch 11/08/23 Range/Units 11:16 RBC (4.30-5.90) m/uL Hgb (13.0-17.5) gm/dL Hct (39.0-53.0) % Sodium (137-145) mmol/L BUN (9-20) mg/dL Creatinine (0.66-1.25) mg/dL Glucose (74-99) mg/dL POC Glucose (mg/dL) 118 H (70-110) mg/dL Calcium (8.4-10.2) mg/dL Total Protein (6.3-8.2) g/dL Albumin (3.5-5.0) g/dL Crossmatch Microbiology - Last 24 Hours (Table) 11/04/23 11:03 Blood Culture - Preliminary Blood
--- NOTE | 2023-11-08 13:11 | P.PN ---
Progress Note - Text Progress Note Date: 11/08/23 NAEO, Tolerating Diet. Denies N/V. Having bowel function VSS General-NAD Abdomen-soft, NTND 68-year-old male with postoperative ileus that appears to be resolving. Tolerating soft diet. Having bowel movements Recommended slowing down if he begins to have any nausea or abdominal discomfort. Deep Darnell DO [facility] [phone]
--- NOTE | 2023-11-08 14:04 | P.PN ---
Subjective Progress Note Date: 11/08/23 On today's evaluation of 11/08/2023, I am seeing the patient for a follow-up. Patient is doing well on 3 days of oxygen by nasal cannula. No significant respiratory distress. Last hemodialysis session was yesterday and the patient was also given a unit of packed RBC. On today's evaluation, hemoglobin is at 8 with a white cell count of 9.6. BUN 55 with a creatinine of 3.6 and a sodium is at 132. The surgical wound site over the right upper quadrant is dry clean and intact. The patient has no significant respiratory distress. Denies having any chest pain. Surgical wound site is still somewhat sore. He remains in atrial fibrillation and the rate is controlled for now. The patient's volume status has been improving with dialysis. He still making urine and the patient is still maintained on Lasix. Postop ileus has essentially recovered. The patient was able to take a breakfast today. He was still receiving TPN for nutritional support. On today's blood work, the white cell count of 9.6 with a hemoglobin of 8, BUN 55 infection of 3.6 and a sodium levels of 132 with a potassium level of 3.5 and a bicarb level is at 28. 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 Following his right nephrectomy, the [place] for renal cell carcinoma, the patient required hemodialysis. He remains on IV Zosyn. The most recent chest x-ray was on 11/04/2023 that showed a right-sided double-lumen hemodialysis catheter being inserted in the mid SVC. Cardiomegaly and mild pulm vascular congestion and small right-sided pleural effusion was seen. Objective - Vital Signs Vital signs: Vital Signs Temp 98.6 F 11/08/23 08:32 Pulse 109 H 11/08/23 08:32 Resp 16 11/08/23 08:32 BP 137/73 11/08/23 08:32 Pulse Ox 96 11/08/23 08:32 FiO2 Intake & Output 11/07/23 11/08/23 11/08/23 18:59 06:59 18:59 Intake Total 1630 1051 240 Output Total 6650 380 Balance -5020 671 240 Weight 104.5 kg Intake: IV 40 Invasive Line 7 20 Invasive Line 8 20 Intake, IV Titration 1051 Amount Mvi, Adult No.4 with Vit 1051 K 10 ml Trace (Conc-1Ml/ Dose) 1 ml Sodium Acetate 20 meq Potassium Chloride 22 meq Calcium Gluconate 1 gm Sodium Chloride 4Meq/ml Vial 36 meq In Amino Acids 5 %/ Dextrose 20 % 1,000 ml @ 58 mls/hr IV .Q18H8M [facility] Rx#:[id number] Oral 480 240 Blood Product 310 Rc As-1 Unit 310 [id number] Hemodialysis 800 Output: Urine 1850 380 Hemodialysis 2800 Hemodialysis Net Amount 2000 Other: Voiding Method Indwelling Catheter Indwelling Catheter # Bowel Movements 1 - Exam No acute distress, oriented 3. Currently on 2 L nasal cannula. No respiratory distress. HEENT examination is grossly unremarkable. Mucous membranes are moist. No oral lesions. Neck supple. Full range of motion. No adenopathy thyromegaly or neck vein distention. Cardiovascular examination reveals regular rhythm rate. S1-S2 normal. No S3 or S4. No discernible murmur noted. Heart sounds are distant. Lungs reveal mostly clear breath sounds. Minimal scattered rhonchi. No wheezes or crackles. Breath sounds equal. Saturations are adequate. Abdomen soft bowel sounds are heard. No masses or tenderness. Extremities are intact. No cyanosis clubbing or edema. Skin is without rash or lesion. Neurologic examination is brief but nonfocal. - Labs CBC & Chem 7: 11/08/23 08:34 11/08/23 08:34 Labs: Abnormal Lab Results - Last 24 Hours (Table) 11/07/23 11/07/23 11/07/23 Range/Units 10:40 11:35 16:33 RBC (4.30-5.90) m/uL Hgb (13.0-17.5) gm/dL Hct (39.0-53.0) % Sodium (137-145) mmol/L BUN (9-20) mg/dL Creatinine (0.66-1.25) mg/dL Glucose (74-99) mg/dL POC Glucose (mg/dL) 118 H 124 H (70-110) mg/dL Calcium (8.4-10.2) mg/dL Total Protein (6.3-8.2) g/dL Albumin (3.5-5.0) g/dL Crossmatch See Detail 11/07/23 11/08/23 11/08/23 Range/Units 19:56 06:10 08:34 RBC (4.30-5.90) m/uL Hgb (13.0-17.5) gm/dL Hct (39.0-53.0) % Sodium 132 L (137-145) mmol/L BUN 55 H (9-20) mg/dL Creatinine 3.67 H (0.66-1.25) mg/dL Glucose 102 H (74-99) mg/dL POC Glucose (mg/dL) 131 H 120 H (70-110) mg/dL Calcium 8.0 L (8.4-10.2) mg/dL Total Protein 5.4 L (6.3-8.2) g/dL Albumin 2.6 L (3.5-5.0) g/dL Crossmatch 11/08/23 Range/Units 08:34 RBC 2.64 L (4.30-5.90) m/uL Hgb 8.0 L (13.0-17.5) gm/dL Hct 24.8 L (39.0-53.0) % Sodium (137-145) mmol/L BUN (9-20) mg/dL Creatinine (0.66-1.25) mg/dL Glucose (74-99) mg/dL POC Glucose (mg/dL) (70-110) mg/dL Calcium (8.4-10.2) mg/dL Total Protein (6.3-8.2) g/dL Albumin (3.5-5.0) g/dL Crossmatch Microbiology - Last 24 Hours (Table) 11/04/23 11:03 Blood Culture - Preliminary Blood Assessment and Plan Plan: Renal mass S/P right nephrectomy, 10/27/2023. The surgical wound site is dry clean and intact Postop ileus, recovered and the patient remains on TPN although he is tolerating oral diet and intake History of renal transplantation and the patient has stage IV-V chronic kidney disease and the patient required hemodialysis post surgery for a acute kidney injury/acute tubular necrosis requiring hemodialysis. Last hemodialysis session was on 11/07/2023. No significant signs of any volume overload. Electrolytes are stable. Acute hyperkalemia and metabolic acidosis secondary to above, recovered. Acute metabolic encephalopathy secondary to uremia, recovered Atrial fibrillation with rapid ventricular response, stable and the rate is controlled History of kidney transplant 1982 Nausea and vomiting status post gastric decompression by NG, removed, and the patient is clinically recovered. CT scan ruled out obstruction/ileus, recovered and the patient is tolerating diet Plan: Will provide the patient incentive spirometer Wean FiO2 as tolerated to maintain saturation above 90% TPN may be discontinued as the patient is able to take diet Increase mobility Patient has a dialysis cath in his right chest and ongoing dialysis per nephrology Continue anticoagulation with Eliquis Continue immunosuppressive agents per nephrology prognosis is guarded.
[2023-11-08 16:20] LABS: Glucose,Whole Blood 119 mg/dL (70-110)
[2023-11-08 20:02] LABS: Glucose,Whole Blood 125 mg/dL (70-110)
[2023-11-08] MEDS: METOPROLOL TARTRATE 50 MG TAB PO SCH (21:01)
[2023-11-09 06:31] LABS: Glucose,Whole Blood 97 mg/dL (70-110)
[2023-11-09 07:24] LABS: ALT 28 U/L (4-49); AST 38 U/L (17-59); African American GFR (CKD) 14 (>60 ml/min/1.73 sqM); Albumin 2.6 g/dL (3.5-5.0); Alkaline Phosphatase 51 U/L (38-126); Anion Gap 7 mmol/L; Blood Urea Nitrogen 72 mg/dL (9-20); Calcium 8.4 mg/dL (8.4-10.2); Carbon Dioxide 28 mmol/L (22-30); Chloride 98 mmol/L (98-107); Glucose 88 mg/dL (74-99); Magnesium 1.7 mg/dL (1.6-2.3); Non-African American GFR(CKD) 12 (>60 ml/min/1.73 sqM); Phosphorus 4.3 mg/dL (2.5-4.5); Potassium 3.8 mmol/L (3.5-5.1); Sodium 133 mmol/L (137-145); Total Bilirubin 0.5 mg/dL (0.2-1.3); Total Protein 5.4 g/dL (6.3-8.2)
[2023-11-09 11:28] LABS: Glucose,Whole Blood 90 mg/dL (70-110)
--- NOTE | 2023-11-09 12:23 | P.PN ---
Subjective Progress Note Date: 11/09/23 Hospital course 68 year old M with PMH of ESRD status post L renal transplant in 1981, now CKD is status post elective right radial nephrectomy on 10/26 for right renal mass. Post operatively he became oliguric with severe electrolyte derangements requiring placement of a dialysis catheter on 10/27. HD was initiated on 10/27 with Nephrology on consult. Also noted to be in A-Fib with RVR on 10/30, Cardiology consulted, Echo showing EF 60-65% with moderate concentric LVH, initially started on Cardizem drip and transitioned to Cardizem PO and Metoprolol PO. He developed nausea and vomiting with abdominal discomfort, KUB showing ileus, NG tube inserted 11/01 with Surgery following. NG tube discontinued on 11/03, patient tolerating diet and having bowel movements. Permacath placed in the right femoral on 11/03. He developed a fever with leukocytosis on 11/03, UA negative, BCx collected, CXR showing bibasilar infiltrates with pro-chava of 1.33, started on Zosyn 3.75g IV TID. Subjective Patient seen this morning. He states that he feels good. I discussed with case aide who said that they will have a bed for him tomorrow at a rehab facility. We are currently waiting on prior Auth. Physical exam General examination - Alert and Oriented 3 in NAD, appears chronically debilitated Heart - + S1S2 no murmurs Lungs - Clear to auscultation,+ patient has dialysis catheter Abdomen soft NT ND +ve BS Extremities - No edema ZOOLOGY PROFESSOR - Moving all 4 extremities spontaneously Psych - Calm and cooperative Assessment and plan Sepsis likely due to pneumonia with acute hypoxic respiratory failure: Patient's fevers have resolved. Patient's WBC has normalized. Will complete a 5-day antibiotic course. Today is day 4 of 5. Patient can also be discharged and complete antibiotic course with Augmentin. CHEVY on CKD: Patient started on hemodialysis during this admission. Patient does have a permacath. Nephrology recommending IV Lasix till discharge Hypervolemic hyponatremia: Resolved Gout: Uric acid: Patient received colchicine. Resolved Renal cell carcinoma: Status post right radical nephrectomy on 10/26. As per your neurosurgery management. Previous ESRD status post renal transplant: Imuran 125 mg PO QD. Medrol 4 mg PO QD. Nausea and Vomiting: Patient now having bowel movements and tolerating diet Atrial fibrillation with RVR: Echo EF 60-65% with moderate LVH. Cardizem 30 mg PO TID. Metoprolol 25 mg PO TID. Eliquis 5 mg PO BID for AC. Maintain Mag > 2 and K > 4. Cardiology on board. Hypertension: BP 144/76. Cardizem 30 mg PO TID. Metoprolol 25 mg PO TID. Hydralazine to 50 mg PO TID. Anemia of Chronic Disease: Will check a CBC today. Hyperphosphatemia: Phoslo 667 mg PO TID. PAD: Cilostazol 100 mg PO BID. Dipyridamole 50 mg PO TID. Dyslipidemia: Lipitor 20 mg PO QD. Resolved: Hyperkalemia, Metabolic acidosis Patient is stable for discharge from a medical standpoint. CODE STATUS: FULL CODE DVT Prophylaxis: Eliquis GI Prophylaxis: Protonix IV Anticipated discharge location: PT OT recommending custodial facility Anticipated discharge: I discussed with forensic social worker who said that we should have a bed placement for him tomorrow Objective - Vital Signs Vital signs: Vital Signs Temp 97.9 F 11/09/23 07:58 Pulse 99 11/09/23 11:45 Resp 16 11/09/23 11:45 BP 163/89 11/09/23 11:45 Pulse Ox 95 11/09/23 07:58 FiO2 Intake & Output 11/08/23 11/09/23 11/09/23 18:59 06:59 18:59 Intake Total 812 75 Output Total 400 250 800 Balance 412 -250 -725 Weight 104.5 kg 103.5 kg Intake: Intake, IV Titration 100 Amount Piperacillin-Tazobactam 3 100 .375 gm In Sodium Chloride 0.9% 100 ml @ 25 mls/hr IVPB Q12HR [facility] Rx #:[id number] Oral 712 75 Output: Urine 400 250 800 Other: Voiding Method Indwelling Catheter Indwelling Catheter Indwelling Catheter - Labs CBC & Chem 7: 11/08/23 08:34 11/09/23 06:25 Labs: Abnormal Lab Results - Last 24 Hours (Table) 11/08/23 11/08/23 11/09/23 Range/Units 16:17 20:01 06:25 Sodium 133 L (137-145) mmol/L BUN 72 H (9-20) mg/dL Creatinine 4.64 H (0.66-1.25) mg/dL POC Glucose (mg/dL) 119 H 125 H (70-110) mg/dL Total Protein 5.4 L (6.3-8.2) g/dL Albumin 2.6 L (3.5-5.0) g/dL
[2023-11-09 12:38] LABS: HCT 24.8 % (39.0-53.0); HGB 7.9 gm/dL (13.0-17.5); Hypochromasia Moderate; MCH 30.4 pg (25.0-35.0); MCHC 31.9 g/dL (31.0-37.0); MCV 95.4 fL (80.0-100.0); Mean Platelet Volume 8.1; Platelet Count 505 k/uL (150-450); RDW 14.7 % (11.5-15.5); WBC 9.6 k/uL (3.8-10.6)
--- NOTE | 2023-11-09 13:16 | P.PN ---
Subjective Patient is seen for follow-up for acute kidney injury and severe hyperkalemia, started on hemodialysis on 10/28/2023. History of donor renal transplant in 1981 at [facility]. Patient is comfortable. No complaints of shortness of breath. Clear liquid diet has been started. Patient is maintained on TPN. Urine output at 800 ML for 24 hours. patient is seen on hemodialysis. Tolerating treatment well. Objective - Vital Signs Vital signs: Vital Signs Temp 98.5 F 11/09/23 12:51 Pulse 100 11/09/23 12:51 Resp 18 11/09/23 12:51 BP 142/85 11/09/23 12:51 Pulse Ox 95 11/09/23 07:58 FiO2 Intake & Output 11/08/23 11/09/23 11/09/23 18:59 06:59 18:59 Intake Total 812 575 Output Total 455 911 0911 Balance 412 250 -6384 Weight 104.5 kg 103.5 kg Intake: Intake, IV Titration 100 Amount Piperacillin-Tazobactam 3 100 .375 gm In Sodium Chloride 0.9% 100 ml @ 25 mls/hr IVPB Q12HR [facility] Rx #:[id number] Oral 712 75 Hemodialysis 500 Output: Urine 400 250 800 Hemodialysis 2000 Hemodialysis Net Amount 1500 Other: Voiding Method Indwelling Catheter Indwelling Catheter Indwelling Catheter - Exam Patient is awake, comfortable, no acute distress. 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 - Labs CBC & Chem 7: 11/09/23 06:25 11/09/23 06:25 Labs: Abnormal Lab Results - Last 24 Hours (Table) 11/08/23 11/08/23 11/09/23 Range/Units 16:17 20:01 06:25 RBC (4.30-5.90) m/uL Hgb (13.0-17.5) gm/dL Hct (39.0-53.0) % Plt Count (150-450) k/uL Sodium 133 L (137-145) mmol/L BUN 72 H (9-20) mg/dL Creatinine 4.64 H (0.66-1.25) mg/dL POC Glucose (mg/dL) 119 H 125 H (70-110) mg/dL Total Protein 5.4 L (6.3-8.2) g/dL Albumin 2.6 L (3.5-5.0) g/dL 11/09/23 Range/Units 06:25 RBC 2.60 L (4.30-5.90) m/uL Hgb 7.9 L (13.0-17.5) gm/dL Hct 24.8 L (39.0-53.0) % Plt Count 505 H (150-450) k/uL Sodium (137-145) mmol/L BUN (9-20) mg/dL Creatinine (0.66-1.25) mg/dL POC Glucose (mg/dL) (70-110) mg/dL Total Protein (6.3-8.2) g/dL Albumin (3.5-5.0) g/dL Assessment and Plan Assessment: 1. Acute kidney injury secondary to ATN. Creatinine peaked at 9.39 this admission. Now nonoliguric. Started on hemodialysis October 28, 2023. No hydronephrosis noted in the transplant kidney. 2. Chronic kidney disease stage IV/V. Patient's GFR was 18 in August 2023 per outpatient records. 3. Hyperkalemia secondary to acute kidney injury. Improved postdialysis and with medical management. 4. Status post right nephrectomy October 27, 2023 due to renal cell carcinoma. 5. Status post donor kidney transplant in 1981 at [facility] maintained on steroids and Imuran. Patient's jaw skinner is out of [place] 6. History of renal artery bypass. 7. Anemia of chronic kidney disease maintained on Aranesp. Iron deficiency noted. 8. Hyperphosphatemia secondary to acute kidney injury. On PhosLo. Phosphorus level 8.3 dated November 03, 2023; 6.0 dated November 04, 2023. 9. Hyponatremia secondary to acute kidney injury. Hypervolemic. Improved postdialysis. 10. A-fib with RVR status post now on oral meds. Cardizem drip. 11. Volume overload. Improved with ultrafiltration and diuresis. 12. Metabolic acidosis secondary to acute kidney injury. Improved postdialysis. 13. Ileus. Surgery following. Maintained on TPN. Started on clear liquid diet 14. Hyperuricemia. Patient cannot take allopurinol due to Imuran. Plan: Continue with IV Lasix until discharge. Continue Imuran and prednisone. Not a candidate for allopurinol due to Imuran. Increase PhosLo once oral intake is improved. Decrease TPN if tolerating oral intake. Patient remains hemodialysis dependent.
--- NOTE | 2023-11-09 14:32 | CDI ---
Documentation Clarification Form Date: 11/09/2023 From: Eileen Benjamin RN CCDS Phone: [phone] Admit Date: 10/27/2023 01:15:00 PM Patient Name: Kush Linder Visit Number: [id number] Discharge Date: ATTENTION: The Clinical Documentation Specialists (CDI) and [facility] Coding Staff appreciate your assistance in clarifying documentation. Please respond to the clarification below the line at the bottom and electronically sign. The CDI & [facility] Coding staff will review the response and follow-up if needed. Please note: Queries are made part of the Legal Health Record. If you have any questions, please contact the author of this message via ITS. Doctor/Provider: Eric Tobin MD: Post-operative ileus is documented in the IM progress note 11/02. Additional clarification is requested regarding the relationship, if any, that exists between the diagnosis and the procedure. Patients Admitting Diagnosis: Right renal mass Post-Operative Diagnosis: Same Procedure performed: 10/26 Right radical nephrectomy History/Risk Factors: 68-year-old male with a history of HTN, PVD, renal failure and right renal mass who presents for right radical nephrectomy Clinical Indicators: 11/02 IM PN, Assessment and Plan: "Post-operative ileus, Patient kept NPO, NG tube to suction" 11/02 Urology PN, Plan: "CT scan shows no evidence of bowel obstruction." 12/03 General Surgery PN, Assessment and Plan: "ileus secondary to recent surgery. No surgery at this time, less likely bowel obstruction secondary to patient's clinical exam." 10/31 KUB, Impression: "Prominent small bowel loops measuring up to 5cm concerning for small bowel obstruction." 11/01 CT Abdomen and Pelvis, Impression: "No evidence for obstruction, no evidence for ileus either." Treatment: NG to suction, placed 11/01 after vomiting Consult General Surgery TPN 11/02-11/06 What relationship, if any, exists between the diagnosis of Post-operative ileus and the procedure? [ X] Ileus is a complication of surgical procedure [ ] Ileus is an expected outcome of the surgical procedure [ ] Ileus has been ruled out [ ] Other please specify ____ [ ] Unable to determine MTDD
[2023-11-09 16:46] LABS: Glucose,Whole Blood 105 mg/dL (70-110)
--- NOTE | 2023-11-09 16:48 | P.PN ---
Progress Note - Text Progress Note Date: 11/09/23 NAEO, Tolerating Diet. Denies N/V. Having bowel function VSS General-NAD Abdomen-soft, NTND 68-year-old male with postoperative ileus that appears to be resolving. Tolerating soft diet. Having bowel movements Recommended slowing down if he begins to have any nausea or abdominal discomfort. Deep Darnell DO [facility] [phone]
--- NOTE | 2023-11-09 19:48 | P.PN ---
Subjective NO acute overnight event . Denies any abdominal pain, tolerating a diet without any nausea or vomiting at this time. Objective - Vital Signs Vital signs: Vital Signs Temp 97.9 F 11/09/23 15:30 Pulse 99 11/09/23 15:30 Resp 16 11/09/23 15:30 BP 162/82 11/09/23 15:30 Pulse Ox 95 11/09/23 15:30 FiO2 Intake & Output 11/09/23 11/09/23 11/10/23 06:59 18:59 06:59 Intake Total 911 Output Total 250 4750 Balance -250 -3839 Weight 103.5 kg Intake: Intake, IV Titration 100 Amount Piperacillin-Tazobactam 3 100 .375 gm In Sodium Chloride 0.9% 100 ml @ 25 mls/hr IVPB Q12HR [facility] Rx #:[id number] Oral 311 Hemodialysis 500 Output: Urine 250 1250 Hemodialysis 2000 Hemodialysis Net Amount 1500 Other: Voiding Method Indwelling Catheter Indwelling Catheter - Constitutional General appearance: Present: no acute distress - Gastrointestinal General gastrointestinal: Present: soft. Absent: distended, tenderness - Labs CBC & Chem 7: 11/09/23 06:25 11/09/23 06:25 Labs: Abnormal Lab Results - Last 24 Hours (Table) 11/08/23 11/09/23 11/09/23 Range/Units 20:01 06:25 06:25 RBC 2.60 L (4.30-5.90) m/uL Hgb 7.9 L (13.0-17.5) gm/dL Hct 24.8 L (39.0-53.0) % Plt Count 505 H (150-450) k/uL Sodium 133 L (137-145) mmol/L BUN 72 H (9-20) mg/dL Creatinine 4.64 H (0.66-1.25) mg/dL POC Glucose (mg/dL) 125 H (70-110) mg/dL Total Protein 5.4 L (6.3-8.2) g/dL Albumin 2.6 L (3.5-5.0) g/dL Microbiology - Last 24 Hours (Table) 11/04/23 11:03 Blood Culture - Final Blood Assessment and Plan Assessment: Status postop day #13 status post right-sided radical nephrectomy, patient's had a prolonged hospitalization secondary to acute kidney injury, CHEVY been managed by nephrology. Plan to discharge home tomorrow to subacute rehab -[place] can be removed tomorrow prior to discharge -Follow-up as an outpatient with Dr. Tobin in 1 to 2 weeks
[2023-11-09 20:15] LABS: Glucose,Whole Blood 134 mg/dL (70-110)
--- NOTE | 2023-11-09 21:18 | P.PN ---
Subjective Progress Note Date: 11/09/23 On today's evaluation of 11/08/2023, I am seeing the patient for a follow-up. Patient is doing well on 3 days of oxygen by nasal cannula. No significant respiratory distress. Last hemodialysis session was yesterday and the patient was also given a unit of packed RBC. On today's evaluation, hemoglobin is at 8 with a white cell count of 9.6. BUN 55 with a creatinine of 3.6 and a sodium is at 132. The surgical wound site over the right upper quadrant is dry clean and intact. The patient has no significant respiratory distress. Denies having any chest pain. Surgical wound site is still somewhat sore. He remains in atrial fibrillation and the rate is controlled for now. The patient's volume status has been improving with dialysis. He still making urine and the patient is still maintained on Lasix. Postop ileus has essentially recovered. The patient was able to take a breakfast today. He was still receiving TPN for nutritional support. On today's blood work, the white cell count of 9.6 with a hemoglobin of 8, BUN 55 infection of 3.6 and a sodium levels of 132 with a potassium level of 3.5 and a bicarb level is at 28. 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 Following his right nephrectomy, the [place] kidney for renal cell carcinoma, the patient required hemodialysis. He remains on IV Zosyn. The most recent chest x-ray was on 11/04/2023 that showed a right-sided double-lumen hemodialysis catheter being inserted in the mid SVC. Cardiomegaly and mild pulm vascular congestion and small right-sided pleural effusion was seen. 11/09/2023, the patient is doing well. Tolerating diet with no nausea vomiting or abdominal pain. The patient completed hemodialysis today. Hemodynamically stable. Afebrile. White cell count is at 9.6 with a hemoglobin of 7.9. BUN is 72 with a creatinine of 4.6 and a sodium levels at 133. No other significant events overnight. Immunosuppression agents are still on board and the patient remains on Humira and and Medrol 4 mg p.o. daily. The patient remains on IV Zosyn. Remains on Lasix 80 mg IV every 24 hours. He has an afebrile. No hypotension. No other significant events overnight. Urology still on the case. No other significant events over the past 24 hours. The patient is postop day #13. Objective - Vital Signs Vital signs: Vital Signs Temp 97.9 F 11/09/23 07:58 Pulse 99 11/09/23 11:45 Resp 16 11/09/23 11:45 BP 163/89 11/09/23 11:45 Pulse Ox 95 11/09/23 07:58 FiO2 Intake & Output 11/08/23 11/09/23 11/09/23 18:59 06:59 18:59 Intake Total 812 75 Output Total 400 250 800 Balance 412 -052 -082 Weight 104.5 kg 103.5 kg Intake: Intake, IV Titration 100 Amount Piperacillin-Tazobactam 3 100 .375 gm In Sodium Chloride 0.9% 100 ml @ 25 mls/hr IVPB Q12HR [facility] Rx #:[id number] Oral 712 75 Output: Urine 400 250 800 Other: Voiding Method Indwelling Catheter Indwelling Catheter Indwelling Catheter - Exam No acute distress, oriented 3. Currently on room air oxygen. No respiratory distress. HEENT examination is grossly unremarkable. Mucous membranes are moist. No oral lesions. Neck supple. Full range of motion. No adenopathy thyromegaly or neck vein distention. Cardiovascular examination reveals regular rhythm rate. S1-S2 normal. No S3 or S4. No discernible murmur noted. Heart sounds are distant. Lungs reveal mostly clear breath sounds. Minimal scattered rhonchi. No wheezes or crackles. Breath sounds equal. Saturations are adequate. Abdomen soft bowel sounds are heard. No masses or tenderness. Extremities are intact. No cyanosis clubbing or edema. Skin is without rash or lesion. Neurologic examination is brief but nonfocal. - Labs CBC & Chem 7: 11/09/23 06:25 11/09/23 06:25 Labs: Abnormal Lab Results - Last 24 Hours (Table) 11/08/23 11/08/23 11/09/23 Range/Units 16:17 20:01 06:25 Sodium 133 L (137-145) mmol/L BUN 72 H (9-20) mg/dL Creatinine 4.64 H (0.66-1.25) mg/dL POC Glucose (mg/dL) 119 H 125 H (70-110) mg/dL Total Protein 5.4 L (6.3-8.2) g/dL Albumin 2.6 L (3.5-5.0) g/dL Assessment and Plan Plan: Renal mass S/P right nephrectomy, 10/27/2023. The surgical wound site is dry clean and intact, the patient is postop day #13 Postop ileus, recovered, off TPN and the patient is tolerating diet History of renal transplantation and the patient has stage IV-V chronic kidney disease and the patient required hemodialysis post surgery for a acute kidney injury/acute tubular necrosis requiring hemodialysis. Last hemodialysis session was on 11/09/2023 the patient completed dialysis without any complications. No significant signs of any volume overload. Electrolytes are stable. Acute hyperkalemia and metabolic acidosis secondary to above, recovered. Acute metabolic encephalopathy secondary to uremia, recovered Atrial fibrillation with rapid ventricular response, stable and the rate is controlled History of kidney transplant 1982 Nausea and vomiting status post gastric decompression by NG, removed, and the patient is clinically recovered. CT scan ruled out obstruction/ileus, recovered and the patient is tolerating diet Plan: Will provide the patient incentive spirometer Wean FiO2 as tolerated to maintain saturation above 90%, the patient is currently on room air oxygen Tolerating diet off TPN Increase mobility Patient has a dialysis cath in his right chest and ongoing dialysis per nephrology Continue anticoagulation with Eliquis Continue immunosuppressive agents per nephrology prognosis is guarded.
[2023-11-10 05:39] LABS: Glucose,Whole Blood 111 mg/dL (70-110)
--- NOTE | 2023-11-10 09:40 | P.PN ---
Subjective Progress Note Date: 11/10/23 Hospital course 68 year old M with PMH of ESRD status post L renal transplant in 1981, now CKD is status post elective right radial nephrectomy on 10/26 for right renal mass. Post operatively he became oliguric with severe electrolyte derangements requiring placement of a dialysis catheter on 10/27. HD was initiated on 10/27 with Nephrology on consult. Also noted to be in A-Fib with RVR on 10/30, Cardiology consulted, Echo showing EF 60-65% with moderate concentric LVH, initially started on Cardizem drip and transitioned to Cardizem PO and Metoprolol PO. He developed nausea and vomiting with abdominal discomfort, KUB showing ileus, NG tube inserted 11/01 with Surgery following. NG tube discontinued on 11/03, patient tolerating diet and having bowel movements. Permacath placed in the right femoral on 11/03. He developed a fever with leukocytosis on 11/03, UA negative, BCx collected, CXR showing bibasilar infiltrates with pro-chava of 1.33. Patient completed antibiotic course with IV Zosyn Subjective Patient seen this morning. He states that he feels well. Patient states that he is tolerating his food well and is also having bowel movements. 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 Patient's WBC has normalized and he is afebrile. Patient completed 5 days of IV antibiotics. CHEVY on CKD: Patient started on hemodialysis during this admission. Patient does have a permacath. Patient set up with hemodialysis on Tuesday Hypervolemic hyponatremia: Resolved Gout: Uric acid: Patient received colchicine. Resolved Renal cell carcinoma: Status post right radical nephrectomy on 10/26. As per your neurosurgery management. Previous ESRD status post renal transplant: Imuran 125 mg PO QD. Medrol 4 mg PO QD. Nausea and Vomiting: Patient now having bowel movements and tolerating diet Atrial fibrillation with RVR: Echo EF 60-65% with moderate LVH. Cardizem 30 mg PO TID. Metoprolol 25 mg PO TID. Eliquis 5 mg PO BID for AC. Maintain Mag > 2 and K > 4. Cardiology on board. Hypertension: BP 144/76. Cardizem 30 mg PO TID. Metoprolol 25 mg PO TID. Hydralazine to 50 mg PO TID. Anemia of Chronic Disease: Hemoglobin is stable Hyperphosphatemia: Phoslo 667 mg PO TID. PAD: Cilostazol 100 mg PO BID. Dipyridamole 50 mg PO TID. Dyslipidemia: Lipitor 20 mg PO QD. Resolved: Hyperkalemia, Metabolic acidosis Patient is stable for discharge from a medical standpoint. Medication reconciliation completed. Discharge order to be done by primary team CODE STATUS: FULL CODE DVT Prophylaxis: Eliquis GI Prophylaxis: Protonix IV Anticipated discharge location: PT OT recommending shelter facility Anticipated discharge: Anticipate patient will go to shelter facility today Objective - Vital Signs Vital signs: Vital Signs Temp 98.2 F 11/10/23 08:00 Pulse 75 11/10/23 08:00 Resp 16 11/10/23 08:00 BP 141/73 11/10/23 08:00 Pulse Ox 95 11/10/23 08:00 FiO2 Intake & Output 11/09/23 11/10/23 11/10/23 18:59 06:59 18:59 Intake Total 911 540 240 Output Total 4750 300 200 Balance -3839 240 40 Weight 93.5 kg Intake: Intake, IV Titration 100 Amount Piperacillin-Tazobactam 3 100 .375 gm In Sodium Chloride 0.9% 100 ml @ 25 mls/hr IVPB Q12HR [facility] Rx #:[id number] Oral 311 540 240 Hemodialysis 500 Output: Urine 1250 300 200 Hemodialysis 2000 Hemodialysis Net Amount 1500 Other: Voiding Method Indwelling Catheter # Voids 1 # Bowel Movements 1 - Labs CBC & Chem 7: 11/09/23 06:25 11/09/23 06:25 Labs: Abnormal Lab Results - Last 24 Hours (Table) 11/09/23 11/09/23 11/10/23 Range/Units 06:25 20:13 05:31 RBC 2.60 L (4.30-5.90) m/uL Hgb 7.9 L (13.0-17.5) gm/dL Hct 24.8 L (39.0-53.0) % Plt Count 505 H (150-450) k/uL POC Glucose (mg/dL) 134 H 111 H (70-110) mg/dL Microbiology - Last 24 Hours (Table) 11/04/23 11:03 Blood Culture - Final Blood
[2023-11-10 11:37] VITALS: BMI 36.5
[2023-11-10 11:39] LABS: Glucose,Whole Blood 105 mg/dL (70-110)
--- NOTE | 2023-11-10 12:04 | P.PN ---
Subjective Patient is seen for follow-up for acute kidney injury and severe hyperkalemia, started on hemodialysis on 10/28/2023. History of donor renal transplant in 1981 at [facility]. Patient is comfortable. No complaints of shortness of breath. Clear liquid diet has been started. Patient is maintained on TPN. Urine output at 1550 ML for 24 hours. scheduled for hemodialysis in a.m. Objective - Vital Signs Vital signs: Vital Signs Temp 98.2 F 11/10/23 08:00 Pulse 75 11/10/23 08:00 Resp 16 11/10/23 08:00 BP 141/73 11/10/23 08:00 Pulse Ox 95 11/10/23 08:00 FiO2 Intake & Output 11/09/23 11/10/23 11/10/23 18:59 06:59 18:59 Intake Total 911 540 240 Output Total 4750 300 300 Balance -3839 240 -60 Weight 93.5 kg 93.5 kg Intake: Intake, IV Titration 100 Amount Piperacillin-Tazobactam 3 100 .375 gm In Sodium Chloride 0.9% 100 ml @ 25 mls/hr IVPB Q12HR [facility] Rx #:[id number] Oral 311 540 240 Hemodialysis 500 Output: Urine 1250 300 300 Hemodialysis 2000 Hemodialysis Net Amount 1500 Other: Voiding Method Indwelling Catheter # Voids 1 # Bowel Movements 1 - Exam Patient is awake, comfortable, no acute distress. 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 - Labs CBC & Chem 7: 11/09/23 06:25 11/09/23 06:25 Labs: Abnormal Lab Results - Last 24 Hours (Table) 11/09/23 11/09/23 11/10/23 Range/Units 06:25 20:13 05:31 RBC 2.60 L (4.30-5.90) m/uL Hgb 7.9 L (13.0-17.5) gm/dL Hct 24.8 L (39.0-53.0) % Plt Count 505 H (150-450) k/uL POC Glucose (mg/dL) 134 H 111 H (70-110) mg/dL Microbiology - Last 24 Hours (Table) 11/04/23 11:03 Blood Culture - Final Blood Assessment and Plan Assessment: 1. Acute kidney injury secondary to ATN. Creatinine peaked at 9.39 this admission. Now nonoliguric. Started on hemodialysis October 28, 2023. No hydronephrosis noted in the transplant kidney. 2. Chronic kidney disease stage IV/V. Patient's GFR was 18 in August 2023 per outpatient records. 3. Hyperkalemia secondary to acute kidney injury. Improved post dialysis and with medical management. 4. Status post right nephrectomy October 27, 2023 due to renal cell carcinoma. 5. Status post donor kidney transplant in 1981 at [facility] maintained on steroids and Imuran. 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 History of renal artery bypass. 7. Anemia of chronic kidney disease maintained on Aranesp. Iron deficiency noted. 8. Hyperphosphatemia secondary to acute kidney injury. On PhosLo. Phosphorus level 8.3 dated November 03, 2023; 6.0 dated November 04, 2023. 9. Hyponatremia secondary to acute kidney injury. Hypervolemic. Improved postdialysis. 10. A-fib with RVR status post now on oral meds. Cardizem drip. 11. Volume overload. Improved with ultrafiltration and diuresis. 12. Metabolic acidosis secondary to acute kidney injury. Improved postdialysis. 13. Ileus. Surgery following. Maintained on TPN. Started on clear liquid diet 14. Hyperuricemia. Patient cannot take allopurinol due to Imuran. Plan: Continue with IV Lasix until discharge. Continue Imuran and prednisone. Not a candidate for allopurinol due to Imuran.
--- NOTE | 2023-11-10 12:12 | P.PN ---
Progress Note - Text Progress Note Date: 11/10/23 NAEO, Tolerating Diet. Denies N/V. Having bowel function VSS General-NAD Abdomen-soft, NTND 68-year-old male with postoperative ileus that appears to be resolving. Tolerating soft diet. Having bowel movements Recommended slowing down if he begins to have any nausea or abdominal discomfort. Deep Darnell DO [facility] [phone]
[2023-11-10 12:14] VITALS: PULSE 90; RESP 18; TEMP 98.5
--- NOTE | 2023-11-10 13:58 | P.DS ---
Providers Date of admission: 10/27/23 13:15 Attending physician: Eric Tobin Consults: 10/27/23 11:00 Consult Physician Routine Consulting Provider: Andriy Burnette Consult Reason/Comments: medical managment Do you want consulting provider notified?: Already Contacted Consult Physician Routine Consulting Provider: Barbara Ratliff Consult Reason/Comments: renal failure Do you want consulting provider notified?: Already Contacted 10/28/23 11:00 Consult Physician Routine Consulting Provider: Kevin Hirsch Consult Reason/Comments: hyperkalemia Do you want consulting provider notified?: Already Contacted 11/01/23 13:09 Consult Physician Routine Consulting Provider: Pita Metcalf Consult Reason/Comments: Possible SBO Do you want consulting provider notified?: Yes 11/04/23 10:17 Consult Physician Routine Consulting Provider: Sammy Arita Consult Reason/Comments: permanent hemodialysis catheter Do you want consulting provider notified?: Already Contacted Primary care physician: Stated None Hospital Course: This is a 68 yo male with hx of right sided renal mass. Underwent a right-sided open nephrectomy by Dr. Tobin on October 26. Patient was initially admitted to the floor postoperatively, but was transferred to the ICU on postop day #1 due to renal failure, and hyperkalemia. Subsequently was started on hemodialysis following nephrology consult. While in the ICU patient also developed A-fib with RVR and cardiology was consulted please see their consult note for details. His course was also complicated by an ileus, general surgery was consulted and he did initially require TPN given the poor p.o. intake and was subsequently weaned off of TPN. Patient was subsequently discharged home on postop day #14 he is currently on hemodialysis. Prior to discharge his luis were removed. Patient was discharged to subacute rehab, pathology did show renal cell carcinoma and he was follow-up with both urology and oncology as an outpatient. Plan - Discharge Summary New Discharge Prescriptions: New hydrALAZINE HCL [Apresoline] 50 mg PO TID tab Apixaban [Eliquis] 5 mg PO BID tab azaTHIOprine [Imuran] 125 mg PO DAILY tab Metoprolol Tartrate [Lopressor] 50 mg PO BID tab methylPREDNISolone [Medrol] 4 mg PO DAILY tab Melatonin 3 mg PO HS tab Acetaminophen Tab [Tylenol] 650 mg PO Q6H PRN tab PRN Reason: Pain Diltiazem Oral [Cardizem*] 30 mg PO TID tab Doxazosin [Cardura] 2 mg PO HS tab Atorvastatin [Lipitor] 20 mg PO DAILY tab Dipyridamole [Persantine] 50 mg PO TID tab Calcium Acetate [PhosLo] 667 mg PO TID-W/MEALS tab cilostazoL [Pletal] 100 mg PO BID tab Calcium Carbonate [Tums] 500 mg PO QID PRN tab PRN Reason: Heartburn Pantoprazole [Protonix] 40 mg PO DAILY 30 Days #30 tab Discharge Medication List Acetaminophen Tab [Tylenol] 650 mg PO Q6H PRN tab 11/10/23 [Rx] Apixaban [Eliquis] 5 mg PO BID tab 11/10/23 [Rx] Atorvastatin [Lipitor] 20 mg PO DAILY tab 11/10/23 [Rx] Calcium Acetate [PhosLo] 667 mg PO TID-W/MEALS tab 11/10/23 [Rx] Calcium Carbonate [Tums] 500 mg PO QID PRN tab 11/10/23 [Rx] Diltiazem Oral [Cardizem*] 30 mg PO TID tab 11/10/23 [Rx] Dipyridamole [Persantine] 50 mg PO TID tab 11/10/23 [Rx] Doxazosin [Cardura] 2 mg PO HS tab 11/10/23 [Rx] Melatonin 3 mg PO HS tab 11/10/23 [Rx] Metoprolol Tartrate [Lopressor] 50 mg PO BID tab 11/10/23 [Rx] Pantoprazole [Protonix] 40 mg PO DAILY 30 Days #30 tab 11/10/23 [Rx] azaTHIOprine [Imuran] 125 mg PO DAILY tab 11/10/23 [Rx] cilostazoL [Pletal] 100 mg PO BID tab 11/10/23 [Rx] hydrALAZINE HCL [Apresoline] 50 mg PO TID tab 11/10/23 [Rx] methylPREDNISolone [Medrol] 4 mg PO DAILY tab 11/10/23 [Rx] Follow up Appointment(s)/Referral(s): Barbara Ratliff MD [STAFF PHYSICIAN] - 1 Week Eric Tobin MD [STAFF PHYSICIAN] - 1 Week Alex Cartagena DO [STAFF PHYSICIAN] - 1 Week Discharge Disposition: TRANSFER TO SNF/ECF
[2023-11-10 15:07] VITALS: BP 153/78
--- NOTE | 2023-11-10 15:16 | P.PN ---
Subjective Progress Note Date: 11/10/23 On today's evaluation of 11/08/2023, I am seeing the patient for a follow-up. Patient is doing well on 3 days of oxygen by nasal cannula. No significant respiratory distress. Last hemodialysis session was yesterday and the patient was also given a unit of packed RBC. On today's evaluation, hemoglobin is at 8 with a white cell count of 9.6. BUN 55 with a creatinine of 3.6 and a sodium is at 132. The surgical wound site over the right upper quadrant is dry clean and intact. The patient has no significant respiratory distress. Denies having any chest pain. Surgical wound site is still somewhat sore. He remains in atrial fibrillation and the rate is controlled for now. The patient's volume status has been improving with dialysis. He still making urine and the patient is still maintained on Lasix. Postop ileus has essentially recovered. The patient was able to take a breakfast today. He was still receiving TPN for nutritional support. On today's blood work, the white cell count of 9.6 with a hemoglobin of 8, BUN 55 infection of 3.6 and a sodium levels of 132 with a potassium level of 3.5 and a bicarb level is at 28. 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 Following his right nephrectomy, the [facility] for renal cell carcinoma, the patient required hemodialysis. He remains on IV Zosyn. The most recent chest x-ray was on 11/04/2023 that showed a right-sided double-lumen hemodialysis catheter being inserted in the mid SVC. Cardiomegaly and mild pulm vascular congestion and small right-sided pleural effusion was seen. 11/09/2023, the patient is doing well. Tolerating diet with no nausea vomiting or abdominal pain. The patient completed hemodialysis today. Hemodynamically stable. Afebrile. White cell count is at 9.6 with a hemoglobin of 7.9. BUN is 72 with a creatinine of 4.6 and a sodium levels at 133. No other significant events overnight. Immunosuppression agents are still on board and the patient remains on Humira and and Medrol 4 mg p.o. daily. The patient remains on IV Zosyn. Remains on Lasix 80 mg IV every 24 hours. He has an afebrile. No hypotension. No other significant events overnight. Urology still on the case. No other significant events over the past 24 hours. The patient is postop day #13. 11/10/2023, MC the patient for a follow-up. Patient is doing well on room air oxygen. No issues with nausea vomiting or abdominal pain. Hemodynamically stable. Surgical wound site is dry clean and intact. No labs are available from today. Final pathology from the nephrectomy is not resulted yet. Otherwise, the patient is resting comfortably in bed. He is weak and is looking for possible rehabilitation at [facility] Objective - Vital Signs Vital signs: Vital Signs Temp 98.2 F 11/10/23 08:00 Pulse 75 11/10/23 08:00 Resp 16 11/10/23 08:00 BP 141/73 11/10/23 08:00 Pulse Ox 95 11/10/23 08:00 FiO2 Intake & Output 11/09/23 11/10/23 11/10/23 18:59 06:59 18:59 Intake Total 911 540 240 Output Total 4750 300 200 Balance -3839 240 40 Weight 93.5 kg Intake: Intake, IV Titration 100 Amount Piperacillin-Tazobactam 3 100 .375 gm In Sodium Chloride 0.9% 100 ml @ 25 mls/hr IVPB Q12HR [facility] Rx #:[id number] Oral 311 540 240 Hemodialysis 500 Output: Urine 1250 300 200 Hemodialysis 2000 Hemodialysis Net Amount 1500 Other: Voiding Method Indwelling Catheter # Voids 1 # Bowel Movements 1 - Exam No acute distress, oriented 3. Currently on room air oxygen. No respiratory distress. HEENT examination is grossly unremarkable. Mucous membranes are moist. No oral lesions. Neck supple. Full range of motion. No adenopathy thyromegaly or neck vein distention. Cardiovascular examination reveals regular rhythm rate. S1-S2 normal. No S3 or S4. No discernible murmur noted. Heart sounds are distant. Lungs reveal mostly clear breath sounds. Minimal scattered rhonchi. No wheezes or crackles. Breath sounds equal. Saturations are adequate. Abdomen soft bowel sounds are heard. No masses or tenderness. Extremities are intact. No cyanosis clubbing or edema. Skin is without rash or lesion. Neurologic examination is brief but nonfocal. - Labs CBC & Chem 7: 11/09/23 06:25 11/09/23 06:25 Labs: Abnormal Lab Results - Last 24 Hours (Table) 11/09/23 11/09/23 11/10/23 Range/Units 06:25 20:13 05:31 RBC 2.60 L (4.30-5.90) m/uL Hgb 7.9 L (13.0-17.5) gm/dL Hct 24.8 L (39.0-53.0) % Plt Count 505 H (150-450) k/uL POC Glucose (mg/dL) 134 H 111 H (70-110) mg/dL Microbiology - Last 24 Hours (Table) 11/04/23 11:03 Blood Culture - Final Blood Assessment and Plan Plan: Renal mass S/P right nephrectomy, 10/27/2023. The surgical wound site is dry clean and intact, the patient is postop day # 14 Postop ileus, recovered, off TPN and the patient is tolerating diet History of renal transplantation and the patient has stage IV-V chronic kidney disease and the patient required hemodialysis post surgery for a acute kidney injury/acute tubular necrosis requiring hemodialysis. Last hemodialysis session was on 11/09/2023 the patient completed dialysis without any complications. No significant signs of any volume overload. Electrolytes are stable. Acute hyperkalemia and metabolic acidosis secondary to above, recovered. Acute metabolic encephalopathy secondary to uremia, recovered Atrial fibrillation with rapid ventricular response, stable and the rate is controlled History of kidney transplant 1982 Nausea and vomiting status post gastric decompression by NG, removed, and the patient is clinically recovered. CT scan ruled out obstruction/ileus, recovered and the patient is tolerating diet Plan: Aggressive physical therapy and pulmonary toileting and use of incentive spirometer Wean FiO2 as tolerated to maintain saturation above 90%, the patient is currently on room air oxygen Tolerating diet off TPN, diet is being advanced Increase mobility, the patient is a walker. Profoundly weak and he would need rehabilitation Patient has a dialysis cath in his right chest and ongoing dialysis per nephrology Continue anticoagulation with Eliquis Continue immunosuppressive agents per nephrology Awaiting final pathology from the nephrectomy prognosis is guarded.
--- NOTE | 2023-11-16 15:28 | IR ---
EXAMINATION TYPE: IR cvc insert central tunneled DATE OF EXAM: 11/16/2023 FLUOROSCOPY Hemodialysis catheter insertion. 0.9min fluoro, 0.952nfum1. 37 images submitted.
--- NOTE | 2023-11-23 08:36 | XR ---
Patient: Kush Linder Ordering Physician: Unknown, Unknown ID: [id number] Phone, Pager: Phone: N/A Pager: N/A : [phone] Age/Gender: 68Y, O Primary Location: N/A Procedure: CXR 1V Study Date: 10/28 5:28:58 AM EXAMINATION TYPE: XR chest 1V DATE OF EXAM: 10/29/2023 8:49 AM CLINICAL INDICATION: Shortness of breath COMPARISON: None TECHNIQUE: XR chest 1V Frontal view of the chest. FINDINGS: Lungs/Pleura: No evidence of focal consolidation or pneumothorax. Blunting of the costophrenic angles is present. Pulmonary vascularity: Pulmonary vascular congestion. Heart/mediastinum: Cardiomediastinal silhouette is enlarged. Musculoskeletal: No acute osseous pathology. IMPRESSION: Cardiomegaly, pulmonary vascular congestion and bilateral pleural effusions. Correlate with BNP for c ongestive heart failure.
--- NOTE | 2023-11-23 15:47 | US ---
Patient: Kush Linder Ordering Physician: Unknown, Unknown ID: [id number] Phone, Pager: Phone: N/A Tylor rory: N/A : 1955 Age/Gender: 68Y, M Primary Location: N/A Procedure: US RENALS AND BLADDER Edu dy Date: 10/28/2023 7:31:00 AM EXAMINATION TYPE: US kidneys/renal and bladder DATE OF EXAM: 10/28/2023 COMPARISON: NONE CLINICAL INDICATION: Unknown, old with history of ; rt kidney transplant 1981 right cachil dehe kidney removed yesterday left cachil dehe kidney not visualized. Right renal transplant demonstrates 11.6 x 7.5 cm. There is a cyst identified at the lower pole measu ring 5.7 x 3.6 cm. No evidence for hydronephrosis. Normal blood flow identified. IMPRESSION: As above
--- NOTE | 2023-11-25 11:49 | PN ---
PROGRESS NOTE DATE OF SERVICE: 10/28/2023 SUBJECTIVE: Postop day #1 status post open right angle nephrectomy. The patient is making minimal urine output overnight, creatinine is 6.05. He is complaining of nausea. Pain is controlled, urine in the bag is clear. OBJECTIVE: ABDOMEN: Soft, nontender, mildly distended. Incision is clean, dry, intact. ASSESSMENT AND PLAN: This is a 68-year-old male status post right-sided radical nephrectomy. He has history of kidney transplant, has CKD at baseline, creatinine is elevated at 6.05, nephrology is on board. From urology standpoint, recommended keeping the Friend catheter in place, pain control, ambulate as tolerated. We will keep on clear liquid diet given the nausea. We will discuss with internal medicine and nephrology whether the patient should have a tapering dose of steroids given that he is on daily steroids at home and had a recent surgery. MMODL / IJN: [id number] /
--- NOTE | 2023-11-25 11:49 | PN ---
PROGRESS NOTE DATE OF SERVICE: 10/29/2023 SUBJECTIVE: Postop day #2 status post right-sided open radical nephrectomy, the patient was started on hemodialysis secondary to hyperkalemia, still making minimal urine output. He was continued this morning. His abdomen is soft, nontender, nondistended, incision is covered and dressing clean, dry, and intact. He is having minimal urine output in the catheter. ASSESSMENT AND PLAN: Postop day #2 status post right-sided radical nephrectomy. From urology standpoint, keep the Friend catheter in place. Advance diet as tolerated, the patient can be ambulated once mental status improves. MMODL / IJN: [id number] /
--- NOTE | 2023-12-01 13:39 | CDI ---
Documentation Clarification Form Date: 12/01/2023 01:21:12 PM From: Emeli Brantley Phone: Admit Date: 10/27/2023 01:15:00 PM Patient Name: Kush Linder Visit Number: [id number] Discharge Date: 11/10/2023 03:15:00 PM ATTENTION: The Clinical Documentation Specialists (CDI) and [facility] Coding Staff appreciate your assistance in clarifying documentation. Please respond to the clarification below the line at the bottom and electronically sign. The CDI & [facility] Coding staff will review the response and follow-up if needed. Please note: Queries are made part of the Legal Health Record. If you have any questions, please contact the author of this message via ITS. Doctor/Provider: Barbara Ratliff CKD IV/V is documented throughout the Progress Notes. Additional clarification regarding the stage of CKD is requested. History/Risk Factors: 68yo M, right renal (eyak) cell carcinoma, ATN, CKD, hydronephrosis of transplanted kidney, Hx renal artery bypass, hyperkalemia, hyperphosphatemia, anemia of CKD, Acutemetabolic encephalopathy, HTN, GFR was 18 in August 2023 per outpatient records; Cr was 3.0 on 10/19 per Nephrology Progress Note 10/27 Clinical Indicators: BUN: 49 CR: 6.05 10/27 5.35 10/28 5.47- 6.88 GFR: 18 (in August 2023 per outpatient records) Treatment: Right radical nephrectomy. Post nephrectomy, patient was started on HD d/t hyperkalemia, still making minimal urine output. From urology standpoint, keep the Friend catheter in place.Advance diet as tolerated, the patient can be ambulated once mental status improves. Please clarify the stage of the CKD, if known: [x ] CKD Stage 4 [ ] CKD Stage 5 [ ] ESRD [ ] Other, please specify [ ] Unable to determine Reference: National Kid[employer] Stage 1 eGFR = 90 and kidney damage for =3 months Stage 2 eGFR 60-89 and kidney damage for =3 months Stage 3a eGFR 45-59 and kidney damage for =3 months Stage 3b eGFR 30-44 and kidney damage for =3 months Stage 4 eGFR 15-29 r and kidney damage for =3 months Stage 5 eGFR <15 and kidney damage for =3 months (Template Last revised: March 2023) MTDD
== END 2023-11-10 15:15 | DRG 656 ==
LOC: 2SICU 13:15 → 3SCARD 11-05 15:16
PROVIDERS: ADMIT Urology; ATTEND Urology
PROC: 0TT00ZZ Resection of Right Kidney, Open Approach (ICD-10-PCS; principal; 2023-10-27 07:30)
PROC: 06HY33Z Insertion of Infusion Device into Lower Vein, Percutaneous Approach (ICD-10-PCS; 2023-10-28)
PROC: 0D9670Z Drainage of Stomach with Drainage Device, Via Natural or Artificial Opening (ICD-10-PCS; 2023-11-02)
PROC: 3E0336Z Introduction of Nutritional Substance into Peripheral Vein, Percutaneous Approach (ICD-10-PCS; 2023-11-02)
PROC: 02HV33Z Insertion of Infusion Device into Superior Vena Cava, Percutaneous Approach (ICD-10-PCS; 2023-11-02)
PROC: 5A1D70Z Performance of Urinary Filtration, Intermittent, Less than 6 Hours Per Day (ICD-10-PCS; 2023-11-04)
PROC: 02HV33Z Insertion of Infusion Device into Superior Vena Cava, Percutaneous Approach (ICD-10-PCS; 2023-11-04)
PROC: 06PYX3Z Removal of Infusion Device from Lower Vein, External Approach (ICD-10-PCS; 2023-11-04)
PROC: 3E0336Z Introduction of Nutritional Substance into Peripheral Vein, Percutaneous Approach (ICD-10-PCS; 2023-11-06)
PROC: 30233N1 Transfusion of Nonautologous Red Blood Cells into Peripheral Vein, Percutaneous Approach (ICD-10-PCS; 2023-11-07)
DX: C64.1 Malignant neoplasm of right kidney, except renal pelvis (principal); A41.9 Sepsis, unspecified organism; N17.0 Acute kidney failure with tubular necrosis; J96.01 Acute respiratory failure with hypoxia; G93.41 Metabolic encephalopathy; J18.9 Pneumonia, unspecified organism; K91.89 Other postprocedural complications and disorders of digestive system; T86.19 Other complication of kidney transplant; E87.21 Acute metabolic acidosis; E87.0 Hyperosmolality and hypernatremia; I13.11 Hypertensive heart and chronic kidney disease without heart failure, with stage 5 chronic kidney disease, or end stage renal disease; D84.821 Immunodeficiency due to drugs; K56.7 Ileus, unspecified; N13.1 Hydronephrosis with ureteral stricture, not elsewhere classified; E87.1 Hypo-osmolality and hyponatremia; N18.4 Chronic kidney disease, stage 4 (severe); D63.1 Anemia in chronic kidney disease; I95.9 Hypotension, unspecified; I73.9 Peripheral vascular disease, unspecified; I48.0 Paroxysmal atrial fibrillation; Z95.828 Presence of other vascular implants and grafts; E87.5 Hyperkalemia; E78.5 Hyperlipidemia, unspecified; E87.70 Fluid overload, unspecified; M10.9 Gout, unspecified; E61.1 Iron deficiency; L40.9 Psoriasis, unspecified; N40.0 Benign prostatic hyperplasia without lower urinary tract symptoms; L82.1 Other seborrheic keratosis; Y83.0 Surgical operation with transplant of whole organ as the cause of abnormal reaction of the patient, or of later complication, without mention of misadventure at the time of the procedure; Z79.02 Long term (current) use of antithrombotics/antiplatelets; Z79.52 Long term (current) use of systemic steroids; Z79.620 Long term (current) use of immunosuppressive biologic; Z79.624 Long term (current) use of inhibitors of nucleotide synthesis; Z87.891 Personal history of nicotine dependence; Z79.82 Long term (current) use of aspirin; Z79.899 Other long term (current) drug therapy
CPT/HCPCS: 36556; 36573; 71045; 74018; 74176; 76770; 80048; 80053; 81001; 82040; 82330; 82728; 83540; 83550; 83625; 83735; 84100; 84132; 84145; 84478; 84550; 85025; 85027; 86706; 86850; 86900; 86901; 86920; 87040; 87340; 88307; 90935; 93306; 94760; 99211

== ENCOUNTER → 2024-05-29 | Outpatient (CLI) | payer MEDICARE ==
--- NOTE | 2024-05-29 11:50 | MR ---
EXAMINATION TYPE: MR abdomen wo con DATE OF EXAM: 05/29/2024 11:35 AM INDICATION: Patient age:Male; 69 years old; Reason for study: C64.9 RENAL CELL; PHH. COMPARISON: Renal ultrasound 11/16/2023, chest 05/29/2024, CT abdomen pelvis 11/02/2023 TECHNIQUE: Multiplanar multi-sequence imaging was performed without IV contrast. Limited evaluation due to lack of intravenous contrast. FINDINGS: LOWER CHEST: Partial visualization of right pleural effusion. ABDOMEN Liver: No focal lesion. Mildly enlarged measuring 19.9 cm in CC dimension. Dropout of signal on in ph ase imaging. Gallbladder and Bile ducts: Unremarkable. Pancreas: Unremarkable. Spleen: Not enlarged. Dropout of signal on in phase imaging. Adrenal glands: Unremarkable. Kidneys: Postsurgical changes from right nephrectomy with some residual linear scarring within the cruz rgical bed. Atrophic appearance of the left kidney with T2 hyperintense exophytic thin-walled 2.5 cm cyst involving the lower pole. Right lower quadrant renal transplant with prominent extra renal pelvi s and renal sinus cysts. Additional subcentimeter cortical cysts. No hydronephrosis. Evaluation for r enal neoplasm is limited due to lack of intravenous contrast. Stomach and Bowel: Small hiatal hernia. Distal colonic diverticulosis without evidence of acute diver ticulitis. No evidence of bowel obstruction. Peritoneum: No evidence of pneumoperitoneum. Trace ascites within the bilateral paracolic gutter. Vasculature: Unremarkable. No aortic aneurysm. Abdominal wall: Postsurgical changes of the anterior wall.. Musculoskeletal: The osseous structures appear intact. IMPRESSION: 1. Postsurgical changes from right nephrectomy with residual linear scarring. Atrophic left kidney w ith simple renal cysts. Right lower quadrant transplant kidney with renal sinus cysts. No definitive evidence for solid renal mass within limitations of a noncontrast exam. 2. Mild hepatomegaly. 3. 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 4. Trace ascites. 5. Colonic diverticulosis. 6. Partial visualization of right pleural effusion. [facility], , 05/29/2024 11:48 AM
--- NOTE | 2024-05-29 12:32 | CT ---
EXAMINATION TYPE: CT chest wo con DATE OF EXAM: 05/29/2024 COMPARISON: Chest CT September 14, 2023 CLINICAL INDICATION: Male, 69 years old with history of C64.9 RENAL CELL, POSSIBLE METS IN CHEST, HX OF KIDNEY CA TECHNIQUE: CT scan of the thorax is performed without IV contrast. CT DLP: 641.4 mGycm. Automated Exposure Control for Dose Reduction was Utilized. FINDINGS: LUNGS: There is now small to moderate-sized right-sided pleural effusion. There is some patchy ground glass opacity throughout the right lung favoring mild edema. There is new 6 x 3 mm anterior right up per lobe pulmonary nodule sagittal image 41. No additional suspicious nodules or masses are present. There is left basilar atelectasis otherwise left lung is clear. HEART: Size within normal limits. Severe three-vessel coronary artery calcifications. MEDIASTINUM: Lack of IV contrast is noted to limit evaluation for mediastinal and especially hilar ad enopathy. There are no definitive greater than 1 cm mediastinal lymph nodes. No pericardial effusio n is seen. OTHER: Some ascites around the liver and spleen. Surgical change in the region of the upper pole righ t kidney is partially imaged. There is marked end-stage atrophy of the visualized portion of the left kidney. Some stranding in the right anterior abdominal wall suggests recent surgery. Correlate clini miley. Moderate to severe calcified plaque of the abdominal aorta is partially imaged. IMPRESSION: New small to moderate size right pleural effusion. New mild right lung edema. New 6 x 3 mm right upper lobe pulmonary nodule. No multiple nodules or masses to suggest metastatic disease. Sh ort-term CT follow-up in 6-12 months time is advised to reassess. [facility], , 05/29/2024 12:30 PM
== END | disposition home or self-care (01) ==
LOC: RADMRIMAIN 10:42
PROVIDERS: ATTEND Internal Medicine
DX: C64.9 Malignant neoplasm of unspecified kidney, except renal pelvis (principal); E78.5 Hyperlipidemia, unspecified; I10 Essential (primary) hypertension; I48.91 Unspecified atrial fibrillation; J90 Pleural effusion, not elsewhere classified; R91.1 Solitary pulmonary nodule; J81.1 Chronic pulmonary edema; N26.1 Atrophy of kidney (terminal); K57.30 Diverticulosis of large intestine without perforation or abscess without bleeding; E83.19 Other disorders of iron metabolism; R16.0 Hepatomegaly, not elsewhere classified; Z90.5 Acquired absence of kidney; Z94.0 Kidney transplant status
CPT/HCPCS: 71250; 74181